=== PATIENT | male | born 1970 | race Caucasian/White ===

== ENCOUNTER 2020-09-11 09:14 | Outpatient (REF) | payer MEDICARE, MEDICAID, SELFPAY | END 2020-09-11 09:15 | disposition home or self-care (01) | LOC: HO.LAB 09:14 | PROVIDERS: PCP Physician Assistant; Visit Provider Internal Medicine | DX: Z20.828 Contact with and (suspected) exposure to other viral communicable diseases (principal) | CPT/HCPCS: C9803; U0003 ==

== ENCOUNTER 2020-10-17 21:59 | Inpatient (IN) | payer MEDICARE, MEDICAID, SELFPAY ==
[2020-10-17 22:04] VITALS: BP 142/117; PULSE 105; RESP 20; TEMP 36.7; O2SAT 93; BMI 47.3
--- NOTE | 2020-10-17 22:07 | ECG_ITS ---
Test Reason : DYSPENA Blood Pressure : / mmHG Vent. Rate : 096 BPM Atrial Rate : 096 BPM P-R Int : 158 ms QRS Dur : 108 ms QT Int : 370 ms P-R-T Axes : 040 023 057 degrees QTc Int : 467 ms Normal sinus rhythm Nonspecific T wave abnormality Prolonged QT Abnormal ECG When compared with ECG of 05-JAN-2007 06:40, Premature ventricular complexes are no longer Present Nonspecific T wave abnormality now evident in Lateral leads Referred By: Maritza Alvarez Electronically Signed By:SAVANNA RIVERA
--- NOTE | 2020-10-17 22:07 | XR_ITS ---
EXAMINATION: XR CHEST CLINICAL INFORMATION: Dyspnea. COMPARISON: Chest x-ray 01/05/2007 TECHNIQUE: Frontal view of the chest was obtained. 10:17 PM FINDINGS: Extensive bilateral multifocal airspace opacities. This is causing silhouetting of the left diaphragm. Possible left pleural effusion. Central hilar vessels are prominent similar prior chest x-ray 01/05/2007. Differential diagnosis would include congestive heart failure with pulmonary edema versus overwhelming sepsis, pneumonia. Clinically correlate. XR/XR chest 1V IMPRESSION: Extensive bilateral airspace opacities. Central hilar pulmonary vascular prominence.
[2020-10-17 22:28] VITALS: PULSE 100
--- NOTE | 2020-10-17 22:30 | ED_ITS ---
HPI - SOB/Dyspnea General Chief Complaint: Dyspnea Stated Complaint: copd Time Seen by Provider: 10/17/20 22:30 Source: patient Mode of arrival: ambulatory History of Present Illness HPI Narrative: Is a 50-year-old male with history of asthma who states that for the past couple of days he has had progressive dyspnea on exertion, orthopnea, bilateral lower leg swelling as well as shortness of breath. He states that he was tested for COVID-19 3-4 weeks ago and was negative at that time. Otherwise, he denies any headache, dizziness, sore throat, but states he has developed a dry cough today that has resulted in corresponding pain on respiration. Otherwise, he denies any GI symptoms or symptoms. Related Data Home Medications Medication Instructions Recorded Confirmed No Known Home Meds 10/18/20 10/18/20 Allergies Allergy/AdvReac Type Severity Reaction Status Date / Time cephalexin [From KEFLEX] Allergy Unknown UNKNOWN Verified 10/17/20 22:04 sulfamethoxazole Allergy Unknown UNKNOWN Verified 10/17/20 22:04 [From BACTRIM] trimethoprim [From BACTRIM] Allergy Unknown UNKNOWN Verified 10/17/20 22:04 Review of Systems Review of Systems: Pertinent positives and negatives as stated in HPI 10 point review of systems is otherwise negative. PMFSH Past Medical History Source: nursing notes reviewed Medical History Asthma COPD (chronic obstructive pulmonary disease) Surgical History History of surgery Social History Social History Alcohol intake: never Use of substances other than those prescribed or required for medical reasons: Yes Substance Use Type: Crack/Cocaine Substance Use Frequency: Occasionally Last Used Substance: Days (ago) Advance Directives: No Advance Directives Information Provided: Yes Physical Exam Vital Signs: Vital Signs: Last Vital Signs Temp 98.1 F 10/18/20 00:07 Pulse 100 10/18/20 00:07 Resp 20 10/18/20 00:07 BP 130/83 10/18/20 00:07 Pulse Ox 95 10/18/20 00:07 Body Mass Index 47.3 VITAL SIGNS: Reviewed. GENERAL: Well developed, well nourished, mild-moderate distress. HEAD: Normocephalic/atraumatic, EYES: PERRLA, EOMI intact without pain EARS: Ext canals without abnormality, TMs non-bulging and non-erythematous NOSE: Nares patent bilateral OROPHARYNX: no oral lesions noted, NECK: Supple, no adenopathy LUNGS: Decreased breath sounds bilaterally, no wheeze noted, increased work of breathing, tachypnea, SpO2<93> CARDIOVASCULAR: Regular rate and rhythm without noted murmurs, no JVD, but lower extremity edema. ABDOMEN: Obese, Soft, non-tender, non-distended with bowel sounds. No rigidity. No guarding. No palpable masses or hernias noted MUSCULOSKELETAL: No tenderness, deformities, or effusions noted on gross inspection. NEUROLOGIC: Alert and oriented x 4. Strength and sensation to light touch were grossly intact x 4. Course Course Course Narrative: This is a 50-year-old male with history and clinical presentation most consistent with CHF exacerbation with orthopnea and bilateral lower leg swelling, however suspicion for possible COVID-19 and less likely to be COPD exacerbation. -labs, chest x-ray, EKG, UA, lactic acid, blood cultures, COVID swab, albuterol All investigations were reviewed and are consistent with a CHF exacerbation as well as COVID-19 infection and hypoxia requiring 2 L via nasal cannula. Given these findings patient did not receive antibiotics, however did receive Lasix with good urinary response as well as subjective reported improvement in kali athing symptoms. This case was discussed with the inpatient hospitalist team who has agreed for admission. MDM - SOB/Dyspnea Lab Data Result diagrams: 10/17/20 22:21 10/17/20 22:21 Labs: Lab Results 10/17/20 10/17/20 10/17/20 Range/Units 22:21 22:21 22:21 WBC 7.6 (4.8-10.8) X10*3/uL RBC 4.76 (4.60-5.80) X10*6/uL Hgb 12.4 L (14.0-18.0) g/dl Hct 39.3 L (42-52) % MCV 82.6 (80-98) fL MCH 26.1 L (27.0-33.0) pg MCHC 31.6 (31.0-36.0) g/dl RDW 15.8 (11.0-16.0) % Plt Count 316 (160-400) X10*3/uL MPV 9.5 (9.4-12.4) fL Immature Gran % (Auto) 0.1 (0.0-0.4) % Neut % (Auto) 69.6 (45-73) % Lymph % (Auto) 22.3 (20-40) % [place] % (Auto) 6.5 (2-11) % Eos % (Auto) 1.1 (0-4) % Baso % (Auto) 0.4 (0-2) % Lymph # (Auto) 1.7 (1.2-4.9) X10*3/uL [place] # (Auto) 0.5 (0.1-1.2) X10*3/uL Eos # (Auto) 0.1 (0.0-0.4) X10*3/uL Baso # (Auto) 0.0 (0.0-0.2) X10*3/uL Abs Immat Gran (auto) 0.01 (0.00-0.03) X10*3/uL Absolute Neuts (auto) 5.3 (2.0-8.3) X10*3/uL Absolute Nucleated RBC 0.000 (0.0-0.012) X10*3/uL Nucleated RBC % (auto) 0.0 (0.0-0.2) /100WBC Hold Blue Top SEE NOTE Sodium 142 (135-145) mmol/L Potassium 4.2 (3.3-5.1) mmol/l Chloride 109 H (96-108) mmol/L Carbon Dioxide 25 (22-29) mmol/L Anion Gap 12 (12-20) BUN 18 H (9-16) mg/dL Creatinine 0.84 (0.5-1.4) mg/dL Estim Creat Clear Calc 154.2 Estimated GFR > 60 Random Glucose 97 (60-115) mg/dL Lactic Acid (0.5-2.0) mmol/L Calcium 8.6 (8.4-10.2) mg/dL Troponin I High Sens (<3.5-35.0) ng/L B-Natriuretic Peptide (<100) pg/mL Urine Color Urine Appearance Urine pH (5.0-8.0) Ur Specific [place] (1.005-1.025) Urine Protein (NEG-TRACE) MG/DL Urine Glucose (UA) (NEG) MG/DL Urine Ketones (NEG) MG/DL Urine Blood (NEG) Urine Nitrite (NEG) Ur Leukocyte Esterase (NEG) Coronavirus (PCR) (Negative) Influenza Type A (PCR) (Negative) Influenza Type B (PCR) (Negative) RSV RNA Qual (PCR) (Negative) 10/17/20 10/17/20 10/17/20 Range/Units 22:21 23:02 23:05 WBC (4.8-10.8) X10*3/uL RBC (4.60-5.80) X10*6/uL Hgb (14.0-18.0) g/dl Hct (42-52) % MCV (80-98) fL MCH (27.0-33.0) pg MCHC (31.0-36.0) g/dl RDW (11.0-16.0) % Plt Count (160-400) X10*3/uL MPV (9.4-12.4) fL Immature Gran % (Auto) (0.0-0.4) % Neut % (Auto) (45-73) % Lymph % (Auto) (20-40) % [place] % (Auto) (2-11) % Eos % (Auto) (0-4) % Baso % (Auto) (0-2) % Lymph # (Auto) (1.2-4.9) X10*3/uL [place] # (Auto) (0.1-1.2) X10*3/uL Eos # (Auto) (0.0-0.4) X10*3/uL Baso # (Auto) (0.0-0.2) X10*3/uL Abs Immat Gran (auto) (0.00-0.03) X10*3/uL Absolute Neuts (auto) (2.0-8.3) X10*3/uL Absolute Nucleated RBC (0.0-0.012) X10*3/uL Nucleated RBC % (auto) (0.0-0.2) /100WBC Hold Blue Top Sodium (135-145) mmol/L Potassium (3.3-5.1) mmol/l Chloride (96-108) mmol/L Carbon Dioxide (22-29) mmol/L Anion Gap (12-20) BUN (9-16) mg/dL Creatinine (0.5-1.4) mg/dL Estim Creat Clear Calc Estimated GFR Random Glucose (60-115) mg/dL Lactic Acid 1.1 (0.5-2.0) mmol/L Calcium (8.4-10.2) mg/dL Troponin I High Sens 10.0 (<3.5-35.0) ng/L B-Natriuretic Peptide 166 H (<100) pg/mL Urine Color Urine Appearance Urine pH (5.0-8.0) Ur Specific [place] (1.005-1.025) Urine Protein (NEG-TRACE) MG/DL Urine Glucose (UA) (NEG) MG/DL Urine Ketones (NEG) MG/DL Urine Blood (NEG) Urine Nitrite (NEG) Ur Leukocyte Esterase (NEG) Coronavirus (PCR) POSITIVE A (Negative) Influenza Type A (PCR) NEGATIVE (Negative) Influenza Type B (PCR) NEGATIVE (Negative) RSV RNA Qual (PCR) NEGATIVE (Negative) 10/18/20 Range/Units 00:07 WBC (4.8-10.8) X10*3/uL RBC (4.60-5.80) X10*6/uL Hgb (14.0-18.0) g/dl Hct (42-52) % MCV (80-98) fL MCH (27.0-33.0) pg MCHC (31.0-36.0) g/dl RDW (11.0-16.0) % Plt Count (160-400) X10*3/uL MPV (9.4-12.4) fL Immature Gran % (Auto) (0.0-0.4) % Neut % (Auto) (45-73) % Lymph % (Auto) (20-40) % [place] % (Auto) (2-11) % Eos % (Auto) (0-4) % Baso % (Auto) (0-2) % Lymph # (Auto) (1.2-4.9) X10*3/uL [place] # (Auto) (0.1-1.2) X10*3/uL Eos # (Auto) (0.0-0.4) X10*3/uL Baso # (Auto) (0.0-0.2) X10*3/uL Abs Immat Gran (auto) (0.00-0.03) X10*3/uL Absolute Neuts (auto) (2.0-8.3) X10*3/uL Absolute Nucleated RBC (0.0-0.012) X10*3/uL Nucleated RBC % (auto) (0.0-0.2) /100WBC Hold Blue Top Sodium (135-145) mmol/L Potassium (3.3-5.1) mmol/l Chloride (96-108) mmol/L Carbon Dioxide (22-29) mmol/L Anion Gap (12-20) BUN (9-16) mg/dL Creatinine (0.5-1.4) mg/dL Estim Creat Clear Calc Estimated GFR Random Glucose (60-115) mg/dL Lactic Acid (0.5-2.0) mmol/L Calcium (8.4-10.2) mg/dL Troponin I High Sens (<3.5-35.0) ng/L B-Natriuretic Peptide (<100) pg/mL Urine Color STRAW Urine Appearance CLEAR Urine pH 6.0 (5.0-8.0) Ur Specific [place] 1.015 (1.005-1.025) Urine Protein NEG (NEG-TRACE) MG/DL Urine Glucose (UA) NEG (NEG) MG/DL Urine Ketones NEG (NEG) MG/DL Urine Blood NEG (NEG) Urine Nitrite NEG (NEG) Ur Leukocyte Esterase NEG (NEG) Coronavirus (PCR) (Negative) Influenza Type A (PCR) (Negative) Influenza Type B (PCR) (Negative) RSV RNA Qual (PCR) (Negative) ECG Data Attestation: I personally reviewed and interpreted this ECG as follows: Prior ECG tracings: available for review (01/05/2007 no evidence of acute changes on comparison) Interpretation: Normal sinus rhythm, HR -96, no evidence of acute ischemia, [place]/QTC are within normal limits. Discharge Plan Discharge Clinical Impression: Hypoxia, Pneumonia due to COVID-19 virus CHF (congestive heart failure) Qualifiers: Heart failure type: unspecified Heart failure chronicity: acute Qualified Code(s): I50.9 - Heart failure, unspecified Patient Disposition: Admitted As Inpatient
[2020-10-17] MEDS: Furosemide 100 MG/10 ML VIAL 60 MG IVPUSH (22:51)
[2020-10-17 22:53] LABS: Basophils Percent Auto 0.4 % (0-2); Eosinophils Absolute Auto 0.1 X10*3/uL (0.0-0.4); Eosinophils Percent Auto 1.1 % (0-4); Hematocrit 39.3 % (42-52); Hemoglobin 12.4 g/dl (14.0-18.0); Imm Gran Abs Auto 0.01 X10*3/uL (0.00-0.03); Imm Gran Pct Auto 0.1 % (0.0-0.4); Lymphocytes Absolute Auto 1.7 X10*3/uL (1.2-4.9); Lymphocytes Percent Auto 22.3 % (20-40); MANUAL DIFF FLAG NO; Mean Corpuscular HGB Conc 31.6 g/dl (31.0-36.0); Mean Corpuscular Hemoglobin 26.1 pg (27.0-33.0); Mean Corpuscular Volume 82.6 fL (80-98); Mean Platelet Volume 9.5 fL (9.4-12.4); Monocytes Absolute Auto 0.5 X10*3/uL (0.1-1.2); Monocytes Percent Auto 6.5 % (2-11); Neutrophils Absolute Auto 5.3 X10*3/uL (2.0-8.3); Neutrophils Percent Auto 69.6 % (45-73); Platelet Count 316 X10*3/uL (160-400); Red Blood Count 4.76 X10*6/uL (4.60-5.80); Red Cell Distribution Width 15.8 % (11.0-16.0); White Blood Count 7.6 X10*3/uL (4.8-10.8)
--- NOTE | 2020-10-17 23:08 | PC.NURSE ---
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
[2020-10-17 23:25] LABS: Anion Gap 12 (12-20); Blood Urea Nitrogen 18 mg/dL (9-16); Calcium 8.6 mg/dL (8.4-10.2); Carbon Dioxide 25 mmol/L (22-29); Chloride 109 mmol/L (96-108); Creatinine Clr Calc Pharmacy 154.2; Estimated Glomerular Filt Rate > 60; Glucose Random 97 mg/dL (60-115); Potassium 4.2 mmol/l (3.3-5.1); Sodium 142 mmol/L (135-145)
[2020-10-17 23:30] LABS: B Type Natriuretic Peptide 166 pg/mL (<100)
[2020-10-17 23:35] LABS: Lactic Acid 1.1 mmol/L (0.5-2.0)
[2020-10-17 23:51] LABS: Influenza A PCR NEGATIVE (Negative); Influenza B PCR NEGATIVE (Negative); Resp Syncy Virus RNA Qual PCR NEGATIVE (Negative)
[2020-10-18] VITALS (9 sets, daily range): BP systolic 104–138; BP diastolic 58–87; PULSE 92–100; RESP 16–22; TEMP 36.4–37.2; O2SAT 94–98; BMI 49.5
[2020-10-18 00:03] LABS: SARS COV2 PCR INHOUSE POSITIVE (Negative)
[2020-10-18 00:51] LABS: Glucose Urine UA NEG (NEG); Leukocyte Esterase Urine NEG (NEG); Nitrite Urine NEG (NEG); Specific Gravity - Urine 1.015 (1.005-1.025); Urine Blood NEG (NEG); Urine Ketones NEG (NEG); Urine Protein NEG (NEG-TRACE)
[2020-10-18 00:58] LABS: Appearance Urine CLEAR; Color Urine STRAW
--- NOTE | 2020-10-18 03:23 | PM.IMHP ---
History of Present Illness Date of Service: 10/18/20 Chief Complaint: Dyspnea, leg edema 50 year old man with past medical history only significant for asthma presented with increasing dyspnea over last 3 days. Also noted some lower leg edema over that time as well. No fevers or chills and no productive cough. Noted to have infiltrates on CXR and tested positive for COVID. He notes no sick contacts. States he has been tested in the last few weeks and has been negative but does congregate with a motorcycle club. Was treated with IV Lasix in ED out of concern for CHF. Review of Systems Review of Systems: Yes all other systems are reviewed and are negative Constitutional: Comments: No fevers or chills noted ENT: Reports dry mouth Cardiovascular: Comments: No chest pain or dyspnea Respiratory: Comments: No cough or chest congestion. Dyspnea noted. Gastrointestinal: Comments: No nausea or vomiting, no diarrhea Musculoskeletal: Musculoskeletal: Reports no additional musculoskeletal complaints Psychiatric: Comments: No anxiety or agitation [facility] Medical History Asthma COPD (chronic obstructive pulmonary disease) Functional capacity: independent ambulation Pertinent family history: No family history of CAD or CHF Surgical History History of surgery Social History Alcohol intake: never Use of substances other than those prescribed or required for medical reasons: Yes Substance Use Type: Crack/Cocaine Substance Use Frequency: Occasionally Last Used Substance: Days (ago) Advance Directives: No Advance Directives Information Provided: Yes Meds Allergies Allergy/AdvReac Type Severity Reaction Status Date / Time cephalexin [From KEFLEX] Allergy Unknown UNKNOWN Verified 10/17/20 22:04 sulfamethoxazole Allergy Unknown UNKNOWN Verified 10/17/20 22:04 [From BACTRIM] trimethoprim [From BACTRIM] Allergy Unknown UNKNOWN Verified 10/17/20 22:04 Home Medications Medication Instructions Recorded Confirmed Type No Known Home Meds 10/18/20 10/18/20 History Physical Exam Vital Signs and Narrative: Vital Signs: Last Vital Signs Temp 98.3 F 10/18/20 02:00 Pulse 98 10/18/20 02:00 Resp 20 10/18/20 02:00 BP 104/67 10/18/20 02:00 Pulse Ox 98 10/18/20 02:00 Body Mass Index 47.3 Const: General: cooperative, comfortable and no acute distress HENMT: Head: Yes normal to inspection Mouth: Normal oral and palatal mucosa present Eyes: Other: Conunctivae are inected Chest: Chest palpation & inspection: normal inspection of the chest Resp: Other: no insp crackles or exp wheezes Effort & Inspection: normal respiratory effort and able to speak in complete sentences Auscultation: clear to auscultation bilaterally Cardio: Rate: regular rate Rhythm: regular rhythm Heart sounds: S1 normal heart sound present and S2 normal heart sound present GI: Other: nontender, nondisteded Inspection: Yes normal to inspection Auscultation: normal bowel sounds Skin: General skin exam: no rashes or lesions noted Psych: Mental Status: mental status grossly normal Results Labs CBC and Chem 7: 10/17/20 22:21 10/17/20 22:21 Labs: Laboratory Results - last 24 hr 10/17/20 10/17/20 10/17/20 22:21 22:21 22:21 MCV 82.6 MCH 26.1 L MCHC 31.6 RDW 15.8 Plt Count 316 MPV 9.5 Immature Gran % (Auto) 0.1 Neut % (Auto) 69.6 Lymph % (Auto) 22.3 [place] % (Auto) 6.5 Eos % (Auto) 1.1 Baso % (Auto) 0.4 Lymph # (Auto) 1.7 [place] # (Auto) 0.5 Eos # (Auto) 0.1 Baso # (Auto) 0.0 Abs Immat Gran (auto) 0.01 Absolute Neuts (auto) 5.3 Absolute Nucleated RBC 0.000 Nucleated RBC % (auto) 0.0 Hold Blue Top SEE NOTE Anion Gap 12 Estim Creat Clear Calc 154.2 Estimated GFR > 60 Random Glucose 97 Lactic Acid Calcium 8.6 Troponin I High Sens B-Natriuretic Peptide Urine Color Urine Appearance Urine pH Ur Specific [place] Urine Protein Urine Glucose (UA) Urine Ketones Urine Blood Urine Nitrite Ur Leukocyte Esterase Coronavirus (PCR) Influenza Type A (PCR) Influenza Type B (PCR) RSV RNA Qual (PCR) 10/17/20 10/17/20 10/17/20 22:21 23:02 23:05 MCV MCH MCHC RDW Plt Count MPV Immature Gran % (Auto) Neut % (Auto) Lymph % (Auto) [place] % (Auto) Eos % (Auto) Baso % (Auto) Lymph # (Auto) [place] # (Auto) Eos # (Auto) Baso # (Auto) Abs Immat Gran (auto) Absolute Neuts (auto) Absolute Nucleated RBC Nucleated RBC % (auto) Hold Blue Top Anion Gap Estim Creat Clear Calc Estimated GFR Random Glucose Lactic Acid 1.1 Calcium Troponin I High Sens 10.0 B-Natriuretic Peptide 166 H Urine Color Urine Appearance Urine pH Ur Specific [place] Urine Protein Urine Glucose (UA) Urine Ketones Urine Blood Urine Nitrite Ur Leukocyte Esterase Coronavirus (PCR) POSITIVE A Influenza Type A (PCR) NEGATIVE Influenza Type B (PCR) NEGATIVE RSV RNA Qual (PCR) NEGATIVE 10/18/20 00:07 MCV MCH MCHC RDW Plt Count MPV Immature Gran % (Auto) Neut % (Auto) Lymph % (Auto) [place] % (Auto) Eos % (Auto) Baso % (Auto) Lymph # (Auto) [place] # (Auto) Eos # (Auto) Baso # (Auto) Abs Immat Gran (auto) Absolute Neuts (auto) Absolute Nucleated RBC Nucleated RBC % (auto) Hold Blue Top Anion Gap Estim Creat Clear Calc Estimated GFR Random Glucose Lactic Acid Calcium Troponin I High Sens B-Natriuretic Peptide Urine Color STRAW Urine Appearance CLEAR Urine pH 6.0 Ur Specific [place] 1.015 Urine Protein NEG Urine Glucose (UA) NEG Urine Ketones NEG Urine Blood NEG Urine Nitrite NEG Ur Leukocyte Esterase NEG Coronavirus (PCR) Influenza Type A (PCR) Influenza Type B (PCR) RSV RNA Qual (PCR) Imaging Radiologist's Impressions: Impressions Chest X-Ray 10/17/20 22:07 IMPRESSION: Extensive bilateral airspace opacities. Central hilar pulmonary vascular prominence. Assessment and Plan (1) Pneumonia due to COVID-19 virus: Status: Acute (2) Acute hypoxemic respiratory failure: Status: Acute 50 year old man presented with dyspnea and leg edema and infiltrates on CXR. Tested positive for COVID. Acute hypoxemic respiratory failure, COVID pneumonia Continue supplemental oxygen via nasal cannula and start dexamethasone 6mg daily as he was hypoxemic. ID consult placed for input on Remdesivir. Check D dimer, crp, LDH. Repeat Troponin ordered. Leg edema BNP was slightly elevated but this is less likely due to CHF. Received 60mg Lasix in ED-hold further lasix dosing and check echo. DVT proph SC Lovenox ordered. Code status Full
--- NOTE | 2020-10-18 03:32 | PC.NURSE ---
Pt report taken from Chance FORD. Assumed patient care. Pt is sleeping on 3 L NC. pt vitals within normal limits. covid positive and in nad. pending report to floor
[2020-10-18 04:12] LABS: Troponin-I High Sensitivity 13.9 ng/L (<3.5-35.0)
--- NOTE | 2020-10-18 04:17 | PC.NURSE ---
report given at this time to galilea stephens on imc
[2020-10-18] MEDS: Enoxaparin Sodium 40 MG/0.4 ML SYRINGE SUBCUT (05:16)
[2020-10-18] MEDS: dexAMETHasone 6 MG TABLET PO (05:16)
--- NOTE | 2020-10-18 07:30 | CA_ITS ---
Transthoracic Echocardiogram Patient (Last, First, Middle): Leandro Bartlett M Gender: Male Date of : 1970 Age: 50 Procedure Date: 10/18/2020 Procedure Type: Transthoracic Echocardiogram [place] [facility] [place] Height: 177.8 cm Weight: 156.49 kg BSA: 2.63 m2 Heart Rate: bpm BP: 118 / 74 mmHg Adjunct Professor: Referring MD: Favio Stokes MD Symptoms: leg edema, elevated bnp Study Quality: Fair ECG Rhythm: Sinus Conclusions: - The left ventricular systolic function is severely decreased. The visually estimated ejection fraction is between 10-15%. - No obvious valvular pathology seen on this study. Findings Procedure Information Contrast agent, definity, is being given per protocol without apparent complications. Left Ventricle Moderately increased left ventricular cavity size. There is mildly increased left ventricular wall thickness. The left ventricular systolic function is severely decreased. The visually estimated ejection fraction is between 10 15%. There is severe global hypokinesis. E/E prime ratio is >15, consistent with elevated filling pressures. Evidence suggests grade I (mild) diastolic dysfunction. Right Ventricle Normal right ventricular cavity size and systolic function. Atria Both atria are normal in size. Aortic Valve The aortic valve was not well visualized. There is no aortic valve stenosis. There is no aortic valve regurgitation. Mitral Valve The mitral valve appears normal. There is trace mitral valve regurgitation. There is no mitral valve stenosis. Pulmonic Valve The pulmonic valve was not well visualized. Tricuspid Valve Normal tricuspid valve structure. There is trace tricuspid valve regurgitation. The pulmonary artery systolic pressure is normal. Great Vessels The asc aorta is normal in size. Venous The inferior vena cava is normal in size and collapses greater than 50% with inspiration. Pericardium/Pleural There is no evidence of pericardial effusion. Prior Study Comparison Changes noted compared to prior study dated: 01/05/2007. Previous LVEF 45%. Diminished compared to prior study. Recommendations, Care & Conclusions No obvious valvular pathology seen on this study. Measurements 2D Linear Measurements IVSd: 1.23 0.6-0.9/0.6-1.0 cm LVIDd: 7.37 3.9-5.3/4.2-5.9 cm LVIDd Index: 2.80 2.4-3.2/2.2-3.1 cm/m2 LVIDs: 6.62 2.0-3.6 cm LVPWd: 1.21 0.7-1.1 cm Ao Root: 3.80 2.1-3.5 cm LA Diam: 4.40 2.7-3.8/3.0-4.0 cm LAIDs Index: 1.67 1.5-2.3 cm/m2 LV Mass: 565.51 67-162/88-224 g LV Mass Index: 215.02 43-95/49-115 g/m2 LVOT Diam: 2.50 3.0+(-)1.3 cm 2D Systolic Function EF 4C: 20.60 >55% EF 2C: 6.59 >55% EF BiP: 13.20 >55% Mitral Valve MV Pk E: 1.00 MV PK A: 1.12 MV Decel Time: 81.00 E/A: 0.90 E'Lateral: 7.54 E'Medial: 2.71 E/E' Med: 36.90 E/E' Lat: 13.20 PHT: 24.00 MVA PHT: 9.17 Decel [place]: 12.34 Aortic Valve AoV Pk Jeff: 1.30 AoV Mn Jeff: 0.92 AoV VTI: 0.27 AoV Pk Grad: 7.00 Aov Mn Grad: 4.00 [place] Cont.VTI: 3.06 LVOT LVOT Pk Jeff: 0.82 LVOT Mn Jeff: 0.58 LVOT VTI: 0.17 LVOT Pk Grad: 3.00 LVOT Mn Grad: 2.00 LVOT Diam: 2.50 LVOT Area: 4.91 Diastolic Function MV Pk E: 1.00 MV Pk A: 1.12 E/A: 0.90 E'Medial: 2.71 E/E' Med: 36.90 E' Laterial: 7.54 E/E' Lat: 13.20 Tricuspid Valve TR Pk Jeff: 1.62 TR Pk Grad: 10.00 RA Press: 15.00 RVSP: 25.00 Great Vessels Aorta Ao Root-2D: 3.80 2.0-3.7 cm Ao Asc: 3.70 2.1-3.4 cm Pulmonary Valve PV Pk Jeff: 0.90 Peak PV Grad: 3.00 Updated in Other Vendor System with Status of Final Lico Hester MD electronically signed on 10/18/2020 4:55:46 PM with status of Final
[2020-10-18 08:43] LABS: MANUAL DIFF FLAG NO
[2020-10-18 08:44] LABS: Basophils Percent Auto 0.4 % (0-2); Eosinophils Absolute Auto 0.1 X10*3/uL (0.0-0.4); Eosinophils Percent Auto 0.5 % (0-4); Hemoglobin 13.1 g/dl (14.0-18.0); Imm Gran Abs Auto 0.03 X10*3/uL (0.00-0.03); Imm Gran Pct Auto 0.3 % (0.0-0.4); Lymphocytes Absolute Auto 1.1 X10*3/uL (1.2-4.9); Mean Corpuscular Hemoglobin 26.4 pg (27.0-33.0); Mean Corpuscular Volume 82.7 fL (80-98); Mean Platelet Volume 9.4 fL (9.4-12.4); Monocytes Absolute Auto 0.3 X10*3/uL (0.1-1.2); Monocytes Percent Auto 2.6 % (2-11); Neutrophils Absolute Auto 9.7 X10*3/uL (2.0-8.3); Neutrophils Percent Auto 86.2 % (45-73); Platelet Count 330 X10*3/uL (160-400); Red Blood Count 4.96 X10*6/uL (4.60-5.80); Red Cell Distribution Width 15.6 % (11.0-16.0); White Blood Count 11.3 X10*3/uL (4.8-10.8)
[2020-10-18 08:55] LABS: D Dimer 345 NG/ML
[2020-10-18] MEDS: 0.9 % Sodium Chloride Flush 3 ML SYRINGE IVFLUSH ×3 (09:03→21:16)
[2020-10-18] MEDS: Famotidine 20 MG TABLET PO (09:03)
[2020-10-18 09:22] LABS: C Reactive Protein 3.85 mg/dL (< or = 0.50); Glucose Random 132 mg/dL (60-115); Lactate Dehydrogenase 232 U/L (118-273); Magnesium 2.1 mg/dL (1.6-2.6); Phosphorus 2.8 mg/dL (2.7-4.5)
[2020-10-18 09:36] LABS: Procalcitonin 0.08 ng/mL
--- NOTE | 2020-10-18 11:38 | MHC.CM.PN ---
IMM 10/18/2020 MALE 50 DX covid+. He lives w . He is independent all functional mobility. HCP documented and on file [facility]. Copies were provided to the Patient. DP home no services private transportation. CM will follow for change in dc needs. DC needs will be determined by the Pts recovery.
[2020-10-18 12:43] LABS: Alanine Aminotransferase 34 U/L (0-40); Albumin Level 3.9 g/dL (3.5-5.0); Alkaline Phosphatase 106 U/L (39-117); Aspartate Amino Transferase 25 U/L (5-37); Bilirubin Direct 0.6 mg/dL (0.0-0.5); Bilirubin Total 1.5 mg/dL (0.0-1.0); Creatinine Clr Calc Pharmacy 154.6; Estimated Glomerular Filt Rate > 60
--- NOTE | 2020-10-18 13:34 | PM.EVENT ---
Event Note Date of Service: 10/19/20 Event Note: Patient already seen the hospital this seen team this morning Shortness of breath seems slightly improving Denies any chest pain or abdominal or cough or phlegm Physical exam: Cvs: rrr, [id number] , no murmur res: fair air netry , no rales or wheezing abd: no rebound or guarding ,nt, bs present. ext pulses present , no cyanosis neuro: axo3 , nonfocal. Assessment and plan coordinated in H&P note Continue current management Id evaluation pending, continue dexamethasone and remdesivir Echo is pending also.
[2020-10-18] MEDS: Furosemide 20 MG/2 ML VIAL IVPUSH (17:18)
[2020-10-18] MEDS: Remdesivir 200 MG in 0.9 % Sodium Chloride 210 ML 105 MG IV (17:18)
[2020-10-19 04:00] VITALS: BP 121/68; PULSE 98; RESP 18; TEMP 36.6; O2SAT 97
[2020-10-19] MEDS: Enoxaparin Sodium 40 MG/0.4 ML SYRINGE SUBCUT (04:51)
[2020-10-19] MEDS: dexAMETHasone 6 MG TABLET PO (04:51)
[2020-10-19 06:29] LABS: MANUAL DIFF FLAG NO
[2020-10-19 07:05] LABS: Basophils Percent Auto 0.2 % (0-2); Eosinophils Percent Auto 0.1 % (0-4); Hematocrit 40.2 % (42-52); Hemoglobin 12.8 g/dl (14.0-18.0); Imm Gran Abs Auto 0.04 X10*3/uL (0.00-0.03); Imm Gran Pct Auto 0.4 % (0.0-0.4); Lymphocytes Absolute Auto 1.9 X10*3/uL (1.2-4.9); Lymphocytes Percent Auto 16.7 % (20-40); Mean Corpuscular HGB Conc 31.8 g/dl (31.0-36.0); Mean Corpuscular Hemoglobin 26.4 pg (27.0-33.0); Mean Corpuscular Volume 82.9 fL (80-98); Mean Platelet Volume 9.9 fL (9.4-12.4); Monocytes Absolute Auto 0.8 X10*3/uL (0.1-1.2); Monocytes Percent Auto 7.1 % (2-11); Neutrophils Absolute Auto 8.6 X10*3/uL (2.0-8.3); Neutrophils Percent Auto 75.5 % (45-73); Platelet Count 334 X10*3/uL (160-400); Red Blood Count 4.85 X10*6/uL (4.60-5.80); Red Cell Distribution Width 15.8 % (11.0-16.0); White Blood Count 11.4 X10*3/uL (4.8-10.8)
[2020-10-19 07:07] LABS: D Dimer 263 NG/ML
[2020-10-19 07:14] LABS: C Reactive Protein 1.76 mg/dL (< or = 0.50); Glucose Random 107 mg/dL (60-115); Lactate Dehydrogenase 212 U/L (118-273); Phosphorus 3.6 mg/dL (2.7-4.5)
[2020-10-19 07:18] LABS: Anion Gap 15 (12-20); Blood Urea Nitrogen 19 mg/dL (9-16); Calcium 8.8 mg/dL (8.4-10.2); Carbon Dioxide 24 mmol/L (22-29); Chloride 107 mmol/L (96-108); Creatinine Clr Calc Pharmacy 162.1; Estimated Glomerular Filt Rate > 60; Glucose Random 106 mg/dL (60-115); Potassium 3.8 mmol/l (3.3-5.1); Sodium 142 mmol/L (135-145)
[2020-10-19 07:20] LABS: Procalcitonin 0.05 ng/mL
[2020-10-19 08:00] VITALS: BP 121/75; PULSE 88; RESP 18; TEMP 36.7; O2SAT 95
[2020-10-19] MEDS: Famotidine 20 MG TABLET PO (09:39)
[2020-10-19] MEDS: 0.9 % Sodium Chloride Flush 3 ML SYRINGE IVFLUSH ×3 (09:39→19:38)
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
[2020-10-19 12:00] VITALS: BP 115/64; PULSE 96; RESP 18; TEMP 36.4; O2SAT 95
--- NOTE | 2020-10-19 12:57 | HO.PM.IMPN ---
Subjective Subjective Date of Service: 10/19/20 Interval History: COVID pneumonia, acute CHF exacerbation probably systolic. Review of Systems She still short of breath, denies any chest pain or abdominal pain or fever or chills. No weakness or numbness. Physical Exam Vital Signs: Vital Signs: Last Vital Signs Temp 97.5 F 10/19/20 12:00 Pulse 96 10/19/20 12:00 Resp 18 10/19/20 12:00 BP 115/64 10/19/20 12:00 Pulse Ox 95 10/19/20 12:00 Body Mass Index 49.5 Physical exam: Constitutional: Not in acute distress, still short of breath. Cvs: rrr, [id number] , no murmur res: Fair air entry, no rales or wheezing. abd: no rebound or guarding ,nt, bs present. ext pulses present , no cyanosis neuro: axo3 , nonfocal. Objective Data Current Medications Generic Name Dose Route Start Last Admin Trade Name Freq PRN Reason Stop Dose Admin Dexamethasone 6 mg 10/18/20 06:00 10/19/20 04:51 Dexamethasone 6 Mg Tablet PO 6 mg DAILY@0600 EZEQUIEL Administration Enoxaparin Sodium 40 mg 10/18/20 04:00 10/19/20 04:51 Enoxaparin Sodium 40 Mg/0.4 Ml Syringe SUBCUT 40 mg Q24H EZEQUIEL Administration Famotidine 20 mg 10/18/20 09:00 10/19/20 09:39 Famotidine 20 Mg Tablet PO 20 mg DAILY EZEQUIEL Administration Furosemide 20 mg 10/19/20 18:00 Furosemide 20 Mg/2 Ml Vial IVPUSH BID@0900,1800 [facility] Protocol Remdesivir 100 mg/ Sodium 230 mls @ 115 mls/hr 10/19/20 14:00 Chloride IV 10/22/20 15:59 Q24H [facility] Sodium Chloride 3 ml 10/18/20 08:00 10/19/20 09:39 0.9 % Sodium Chloride Flush 3 Ml Syringe IVFLUSH 3 ml QSHIFT EZEQUIEL Administration Labs CBC & Chem 7: 10/19/20 05:37 10/19/20 05:37 Microbiology Microbiology Results: Microbiology 10/17/20 23:02 Blood - Venous Blood Culture - Preliminary No growth after 24 hours. 10/17/20 23:02 Blood - Venous Blood Culture - Preliminary No growth after 24 hours. Assessment and Plan (1) Acute on chronic systolic (congestive) heart failure: Status: Acute (2) Acute hypoxemic respiratory failure: Status: Acute (3) Pneumonia due to COVID-19 virus: Status: Acute Assessment and Plan: 50 year old man presented with dyspnea and leg edema and infiltrates on CXR. Tested positive for COVID. 1.Acute hypoxemic respiratory failure, COVID pneumonia Continue dexamethasone, supplement oxygen ID consult -placed on Remdesivir. crp, LDH elevated . mild elevated bilirubin continue to moniter lft's. 2. Acute on chronic systolic CHF: Troponin flat BNP elevated Echo cornejo-shows EF of 10-15%, severe global hypokinesis. started on iv lasix cardio eval added. 3. copd/asthma : will add inhalers.
[2020-10-19] MEDS: Remdesivir 100 MG in 0.9 % Sodium Chloride 230 ML 115 MG IV (14:50)
[2020-10-19] MEDS: Furosemide 20 MG/2 ML VIAL IVPUSH (14:51)
[2020-10-19 15:37] VITALS: BP 113/72; PULSE 92; RESP 19; TEMP 36.6; O2SAT 95
[2020-10-19 19:28] VITALS: BP 121/73; PULSE 92; RESP 19; TEMP 36.4; O2SAT 99
[2020-10-20] VITALS: BP 131/70; PULSE 86; RESP 20; TEMP 36.8; O2SAT 98
[2020-10-20] MEDS: Enoxaparin Sodium 40 MG/0.4 ML SYRINGE SUBCUT (02:47)
[2020-10-20 04:00] VITALS: BP 148/83; PULSE 92; RESP 18; TEMP 37.1; O2SAT 97
[2020-10-20] MEDS: dexAMETHasone 6 MG TABLET PO (05:04)
[2020-10-20 08:00] VITALS: BP 98/53; PULSE 89; RESP 20; TEMP 36.6; O2SAT 97
[2020-10-20 08:12] LABS: Anion Gap 12 (12-20); Blood Urea Nitrogen 24 mg/dL (9-16); Calcium 8.7 mg/dL (8.4-10.2); Carbon Dioxide 26 mmol/L (22-29); Chloride 106 mmol/L (96-108); Creatinine Clr Calc Pharmacy 168.3; Estimated Glomerular Filt Rate > 60; Glucose Random 101 mg/dL (60-115); Sodium 140 mmol/L (135-145)
--- NOTE | 2020-10-20 08:12 | HO.PM.IMPN ---
Subjective Subjective Date of Service: 10/20/20 Interval History: covid pneumonia, chf Review of Systems still sob , denies any chest pain or abd pain or fever or chills Physical Exam Vital Signs: Vital Signs: Last Vital Signs Temp 98.7 F 10/20/20 04:00 Pulse 92 10/20/20 04:00 Resp 18 10/20/20 04:00 BP 148/83 H 10/20/20 04:00 Pulse Ox 97 10/20/20 04:00 Body Mass Index 49.5 Physical exam: Constitutional: Not in acute distress, still short of breath. Cvs: rrr, [id number] , no murmur res: Fair air entry, no rales or wheezing. abd: no rebound or guarding ,nt, bs present. ext pulses present , no cyanosis neuro: axo3 , nonfocal. Objective Data Current Medications Generic Name Dose Route Start Last Admin Trade Name Freq PRN Reason Stop Dose Admin Albuterol Sulfate 2 puff 10/19/20 13:05 Albuterol Sulfate 90 Mcg 8 Gm Inhaler INHALE RQ4H PRN asthma Dexamethasone 6 mg 10/18/20 06:00 10/20/20 05:04 Dexamethasone 6 Mg Tablet PO 6 mg DAILY@0600 EZEQUIEL Administration Enoxaparin Sodium 40 mg 10/18/20 04:00 10/20/20 02:47 Enoxaparin Sodium 40 Mg/0.4 Ml Syringe SUBCUT 40 mg Q24H EZEQUIEL Administration Famotidine 20 mg 10/18/20 09:00 10/19/20 09:39 Famotidine 20 Mg Tablet PO 20 mg DAILY EZEQUIEL Administration Furosemide 20 mg 10/20/20 09:00 10/19/20 14:51 Furosemide 20 Mg/2 Ml Vial IVPUSH 20 mg BID@0900,1400 EZEQUIEL Administration Protocol Remdesivir 100 mg/ Sodium 230 mls @ 115 mls/hr 10/19/20 14:00 10/19/20 17:11 Chloride IV 10/22/20 15:59 Infused Q24H EZEQUIEL Infusion Sodium Chloride 3 ml 10/18/20 08:00 10/19/20 19:38 0.9 % Sodium Chloride Flush 3 Ml Syringe IVFLUSH 3 ml QSHIFT EZEQUIEL Administration Labs CBC & Chem 7: 10/19/20 05:37 10/20/20 06:21 Microbiology Microbiology Results: Microbiology 10/17/20 23:02 Blood - Venous Blood Culture - Preliminary No growth after 48 hours. 10/17/20 23:02 Blood - Venous Blood Culture - Preliminary No growth after 48 hours. Assessment and Plan (1) Acute on chronic systolic (congestive) heart failure: Status: Acute (2) Acute hypoxemic respiratory failure: Status: Acute (3) Pneumonia due to COVID-19 virus: Status: Acute Assessment and Plan: 50 year old man presented with dyspnea and leg edema and infiltrates on CXR. Tested positive for COVID. 1.Acute hypoxemic respiratory failure, COVID pneumonia Continue dexamethasone, supplement oxygen ID consult -placed on Remdesivir. crp, LDH elevated . mild elevated bilirubin, liver panel added 2. Acute on chronic systolic CHF: Troponin flat BNP elevated Echo cornejo-shows EF of 10-15%, severe global hypokinesis. started on iv lasix cardio eval -? low ef sec to question of caocaine use , further cardiology workup outpatiently will add bb or Dante since blood pressure boderline. 3. copd/asthma : stbale , continue inhalers.
[2020-10-20] MEDS: 0.9 % Sodium Chloride Flush 3 ML SYRINGE IVFLUSH ×2 (09:19→19:51)
[2020-10-20] MEDS: Famotidine 20 MG TABLET PO (09:19)
[2020-10-20] MEDS: Furosemide 20 MG/2 ML VIAL IVPUSH (09:36)
[2020-10-20 12:34] LABS: Alanine Aminotransferase 24 U/L (0-40); Albumin Level 3.7 g/dL (3.5-5.0); Alkaline Phosphatase 82 U/L (39-117); Aspartate Amino Transferase 15 U/L (5-37); Bilirubin Direct 0.3 mg/dL (0.0-0.5); Bilirubin Total 0.5 mg/dL (0.0-1.0); Total Protein 6.6 g/dL (6.5-8.0)
[2020-10-20] MEDS: Remdesivir 100 MG in 0.9 % Sodium Chloride 230 ML 115 MG IV (14:33)
[2020-10-20 14:46] VITALS: BP 132/78; PULSE 80; RESP 20; O2SAT 95
[2020-10-20 15:46] VITALS: BP 105/51; PULSE 83; RESP 18; TEMP 36.4; O2SAT 98
--- NOTE | 2020-10-20 17:49 | PC.NURSE ---
Patient independent in room. Remains on 2L NC. Continues on remdesivir. Vitals stable. Will continue to monitor.
[2020-10-20 19:57] VITALS: BP 110/73; PULSE 84; RESP 18; TEMP 37.1; O2SAT 96
[2020-10-20] MEDS: Zolpidem Tartrate 5 MG TABLET PO (20:54)
[2020-10-21] VITALS (7 sets, daily range): BP systolic 98–125; BP diastolic 56–77; PULSE 62–90; RESP 12–20; TEMP 36.5–37; O2SAT 94–99; BMI 49.4
[2020-10-21] MEDS: Enoxaparin Sodium 40 MG/0.4 ML SYRINGE SUBCUT (03:48)
[2020-10-21] MEDS: dexAMETHasone 6 MG TABLET PO (03:49)
--- NOTE | 2020-10-21 03:53 | PC.NURSE ---
Patient is now on room air, with oxygen SAT 94%
[2020-10-21 07:36] LABS: Anion Gap 11 (12-20); Blood Urea Nitrogen 26 mg/dL (9-16); Carbon Dioxide 28 mmol/L (22-29); Chloride 106 mmol/L (96-108); Creatinine Clr Calc Pharmacy 166.1; Estimated Glomerular Filt Rate > 60; Glucose Random 128 mg/dL (60-115); Potassium 4.1 mmol/l (3.3-5.1); Sodium 141 mmol/L (135-145)
[2020-10-21] MEDS: Furosemide 20 MG/2 ML VIAL IVPUSH (10:30)
[2020-10-21] MEDS: Metoprolol Tartrate 12.5 MG HALFTAB PO (10:31)
[2020-10-21] MEDS: Famotidine 20 MG TABLET PO (10:31)
[2020-10-21] MEDS: 0.9 % Sodium Chloride Flush 3 ML SYRINGE IVFLUSH ×3 (10:31→19:34)
[2020-10-21 10:38] LABS: Alanine Aminotransferase 32 U/L (0-40); Albumin Level 3.8 g/dL (3.5-5.0); Alkaline Phosphatase 82 U/L (39-117); Aspartate Amino Transferase 19 U/L (5-37); Bilirubin Direct 0.3 mg/dL (0.0-0.5); Bilirubin Total 0.6 mg/dL (0.0-1.0); Total Protein 6.9 g/dL (6.5-8.0)
--- NOTE | 2020-10-21 14:26 | HO.PM.IMPN ---
Subjective Subjective Date of Service: 10/21/20 Interval History: covid pneumonia , chf excerebation Review of Systems still sob , denies any chest pain or abd pain or fever or chills Physical Exam Vital Signs: Vital Signs: Last Vital Signs Temp 98.1 F 10/21/20 12:00 Pulse 73 10/21/20 12:00 Resp 20 10/21/20 12:00 BP 98/56 L 10/21/20 12:00 Pulse Ox 96 10/21/20 12:00 Body Mass Index 49.4 Physical exam: Constitutional: Not in acute distress, still short of breath. Cvs: rrr, [id number] , no murmur res: grossly fair air entry, no rales or wheezing. abd: no rebound or guarding ,nt, bs present. ext pulses present , no cyanosis neuro: axo3 , nonfocal. Objective Data Current Medications Generic Name Dose Route Start Last Admin Trade Name Freq PRN Reason Stop Dose Admin Albuterol Sulfate 2 puff 10/19/20 13:05 Albuterol Sulfate 90 Mcg 8 Gm Inhaler INHALE RQ4H PRN asthma Dexamethasone 6 mg 10/18/20 06:00 10/21/20 03:49 Dexamethasone 6 Mg Tablet PO 6 mg DAILY@0600 EZEQUIEL Administration Enoxaparin Sodium 40 mg 10/18/20 04:00 10/21/20 03:48 Enoxaparin Sodium 40 Mg/0.4 Ml Syringe SUBCUT 40 mg Q24H EZEQUIEL Administration Famotidine 20 mg 10/18/20 09:00 10/21/20 10:31 Famotidine 20 Mg Tablet PO 20 mg DAILY EZEQUIEL Administration Remdesivir 100 mg/ Sodium 230 mls @ 115 mls/hr 10/19/20 14:00 10/20/20 16:39 Chloride IV 10/22/20 15:59 Infused Q24H EZEQUIEL Infusion Lisinopril 2.5 mg 10/22/20 09:00 Lisinopril 2.5 Mg Tablet PO DAILY EZEQUIEL Protocol Sodium Chloride 3 ml 10/18/20 08:00 10/21/20 10:31 0.9 % Sodium Chloride Flush 3 Ml Syringe IVFLUSH 3 ml QSHIFT EZEQUIEL Administration Zolpidem Tartrate 5 mg 10/20/20 20:27 10/20/20 20:54 Zolpidem Tartrate 5 Mg Tablet PO 5 mg BEDTIME PRN Administration Insomnia Labs CBC & Chem 7: 10/19/20 05:37 10/21/20 06:25 Microbiology Microbiology Results: Microbiology 10/17/20 23:02 Blood - Venous Blood Culture - Preliminary No growth after 48 hours. 10/17/20 23:02 Blood - Venous Blood Culture - Preliminary No growth after 48 hours. Assessment and Plan (1) Acute on chronic systolic (congestive) heart failure: Status: Acute (2) Acute hypoxemic respiratory failure: Status: Acute (3) CHF (congestive heart failure): Status: Acute (4) Pneumonia due to COVID-19 virus: Status: Acute Assessment and Plan: 50 year old man presented with dyspnea and leg edema and infiltrates on CXR. Tested positive for COVID. 1.Acute hypoxemic respiratory failure, COVID pneumonia Continue dexamethasone, supplement oxygen ID consult -placed on Remdesivir. crp, LDH elevated . mild elevated bilirubin, liver panel added 2. Acute on chronic systolic CHF: Troponin flat BNP elevated Echo cornejo-shows EF of 10-15%, severe global hypokinesis. continue iv lasix , will add small dose lisinopril if blood pressure allow, bb defer for now due to cocaine use. cardio eval -? low ef sec to question of caocaine use , further cardiology workup outpatiently will add bb or Dante since blood pressure boderline. 3. copd/asthma : stbale , continue inhalers.
[2020-10-21] MEDS: Remdesivir 100 MG in 0.9 % Sodium Chloride 230 ML 115 MG IV (15:51)
--- NOTE | 2020-10-21 18:04 | PC.NURSE ---
Patient did well today on RA. Had a shower, tolerated well. Vitals stable. Started on low dose betablocker today. Continues on remdesevir. Tentative dc tomorrow per MD. Will monitor.
[2020-10-21] MEDS: Zolpidem Tartrate 5 MG TABLET PO (20:02)
[2020-10-21] MEDS: diphenhydrAMINE HCL 50 MG/ML VIAL 25 MG IVPUSH (23:29)
[2020-10-22] VITALS: BP 112/64; PULSE 93; RESP 18; TEMP 37; O2SAT 98
[2020-10-22 03:31] VITALS: BP 143/74; PULSE 76; RESP 18; TEMP 37; O2SAT 100
[2020-10-22] MEDS: Enoxaparin Sodium 40 MG/0.4 ML SYRINGE SUBCUT (04:17)
[2020-10-22] MEDS: dexAMETHasone 6 MG TABLET PO (04:18)
[2020-10-22 07:13] LABS: Anion Gap 10 (12-20); Anion Gap 11 (12-20); Blood Urea Nitrogen 26 mg/dL (9-16); Blood Urea Nitrogen 27 mg/dL (9-16); Calcium 8.7 mg/dL (8.4-10.2); Calcium 8.8 mg/dL (8.4-10.2); Carbon Dioxide 27 mmol/L (22-29); Chloride 106 mmol/L (96-108); Creatinine Clr Calc Pharmacy 160.1; Estimated Glomerular Filt Rate > 60; Glucose Random 119 mg/dL (60-115); Glucose Random 120 mg/dL (60-115); Magnesium 2.1 mg/dL (1.6-2.6); Potassium 4.1 mmol/l (3.3-5.1); Sodium 139 mmol/L (135-145); Sodium 140 mmol/L (135-145)
[2020-10-22 08:00] VITALS: BP 129/86; PULSE 93; RESP 19; TEMP 37; O2SAT 95
[2020-10-22 08:16] LABS: Alanine Aminotransferase 44 U/L (0-40); Albumin Level 3.7 g/dL (3.5-5.0); Alkaline Phosphatase 80 U/L (39-117); Aspartate Amino Transferase 21 U/L (5-37); Bilirubin Direct 0.3 mg/dL (0.0-0.5); Bilirubin Total 0.6 mg/dL (0.0-1.0); Total Protein 6.7 g/dL (6.5-8.0)
[2020-10-22 09:10] VITALS: BP 111/60; PULSE 91
[2020-10-22] MEDS: lisinopriL 2.5 MG TABLET PO (09:10)
[2020-10-22] MEDS: Famotidine 20 MG TABLET PO (09:10)
[2020-10-22] MEDS: Furosemide 40 MG TABLET PO (09:10)
[2020-10-22] MEDS: 0.9 % Sodium Chloride Flush 3 ML SYRINGE IVFLUSH (09:10)
[2020-10-22 12:00] VITALS: BP 129/81; PULSE 94; RESP 20; TEMP 36.4; O2SAT 97
--- NOTE | 2020-10-22 14:16 | P.DS_ITS ---
DS: Providers Provider Date of admission: 10/18/20 03:19 Primary care physician: Karel Silva PA-C Consults: 10/18/20 03:14 Consult to Infectious Diseases Routine Consulting Provider: Dina Strong Reason for consultation: COVID Has provider been notified: No 10/19/20 09:43 Consult to Cardiology Routine Consulting Provider: Lico Hester Reason for consultation: new onset chf Has provider been notified: No 10/22/20 11:25 Consult to Care Team Routine Comment: Reason for consultation: cocaine use DS: Diagnosis Discharge Diagnosis (1) Acute on chronic systolic (congestive) heart failure: Status: Acute (2) Acute hypoxemic respiratory failure: Status: Acute (3) CHF (congestive heart failure): Status: Acute (4) Pneumonia due to COVID-19 virus: Status: Acute DS: Medications Discharge Medications Home Medications: Home Medications Medication Instructions Recorded Confirmed No Known Home Meds 10/18/20 10/18/20 Previous Rx's Medication Instructions Recorded dexamethasone 6 mg PO DAILY@0600 #6 tab 10/22/20 famotidine 20 mg PO DAILY #30 tab 10/22/20 furosemide 40 mg PO DAILY #30 tab 10/22/20 lisinopril 2.5 mg PO DAILY #30 tab 10/22/20 DS: Summary Hospital Course Hospital Course: 50 year old man with past medical history only significant for asthma presented with increasing dyspnea over last 3 days. Also noted some lower leg edema over that time as well. No fevers or chills and no productive cough. Noted to have infiltrates on CXR and tested positive for COVID. He notes no sick contacts. States he has been tested in the last few weeks and has been negative but does congregate with a motorcycle club. Was treated with IV Lasix in ED out of concern for CHF. Hospital course: Patient came with COVID pneumonia and also found to have CHF: Subsequently was treated with remdesivir and dexamethasone for COVID pneumonia- completed the course of remdesivir and patient will be going home with dexamethasone. CHF cornejo: Patient was seen by Cardiology and his heart function is EF cornejo only 10-15%. started on iv lasix -seen by cardiology : advised to avoid cocaine use. switched to po lasix and lisinopril. patient has cardiology follow up -he already has appointment with pcp and cardiology. CHF education is given. Patient says that he is planning to stop cocaine use . Patient is to follow-up with BMP (because patient is on Lasix) and liver panel (ALT is 44 range-boderline). fs are 100-120 -probable related to steriods.please follow up Hba1c with pcp. Further management out patiently as per PCP. Above management discussed with the patient in detail length he understand and in agreement with the above plan, time spent 50 minutes and 50% time spent on counseling. Significant findings: As above. Procedures performed: None. Treatment and response: As above. Complications: None. Time Spent with Patient Time attestation: Total time spent providing and/or coordinating discharge services: Physical Exam Vital Signs: Vital Signs: Last Vital Signs Temp 98.6 F 10/22/20 08:00 Pulse 91 10/22/20 09:10 Resp 19 10/22/20 08:00 BP 111/60 10/22/20 09:10 Pulse Ox 95 10/22/20 08:00 Body Mass Index 49.4 DS: Data Data Completed and Pending Labs on day of discharge: 10/17/20 22:07 ECG 12 lead EKG Stat IV insert/maintain NOW Oxygen administration Nasal Cannula 2 lpm XR chest 1V Stat 10/17/20 22:08 EKG Documentation DIRECTED 10/17/20 22:21 B Type Natriuretic Peptide Stat Basic Metabolic Panel Stat Complete Blood Count Auto Diff Stat Hold Lt Blue - Possible Coag Stat Troponin-I High Sensitivity Stat 10/17/20 22:31 Albuterol Sulfate (0.083%) [Ventolin (0.083%)] 5 mg INHALE ONCE ONE 10/17/20 22:37 Furosemide [Lasix] 60 mg IVPUSH ONCE ONE 10/17/20 23:02 Lactic Acid Stat 10/17/20 23:05 SARS-CoV2/FLU/RSV Stat 10/18/20 00:07 UA CC w/rflx Micro + Cult Stat 10/18/20 03:01 Transfer Order Routine 10/18/20 03:19 Troponin-I High Sensitivity Stat 10/18/20 04:01 IV insert/maintain Q4HR Intake and Output QSHIFTE Vital Signs Q4HR 10/18/20 07:30 CA echo transthorac w con Routine 10/18/20 08:24 C Reactive Protein Stat Complete Blood Count Auto Diff Stat Creatine Kinase Total Stat Creatinine Stat D Dimer Stat Glucose Random Stat Lactate Dehydrogenase Stat Liver Panel Stat Magnesium Stat Phosphorus Stat Procalcitonin Stat 10/18/20 Breakfast Low Sodium Diet 10/18/20 11:35 Perflutren Lipid Microspheres [Definity] 2.2 mg IVPUSH .STK-MED ONE 10/18/20 12:30 Add Laboratory Test Stat 10/18/20 13:34 Furosemide [Lasix] 20 mg IVPUSH ONCE ONE 10/18/20 13:45 Remdesivir [Veklury] 100 mg 0.9 % Sodium Chloride [Ns] 230 ml IV Q24H 10/18/20 14:00 Remdesivir [Veklury] 200 mg 0.9 % Sodium Chloride [Ns] 210 ml IV ONCE 10/18/20 Lunch Diabetic Diet 10/19/20 05:37 Basic Metabolic Panel Routine C Reactive Protein Routine Complete Blood Count Auto Diff Routine Creatine Kinase Total Routine D Dimer Routine Glucose Random Routine Lactate Dehydrogenase Routine Magnesium Routine Phosphorus Routine Procalcitonin Routine 10/20/20 06:21 Basic Metabolic Panel DAILY@0600 Liver Panel Routine 10/20/20 09:00 Furosemide [Lasix] 20 mg IVPUSH BID@0900,1400 Furosemide [Lasix] 20 mg IVPUSH BID@0900,1400 10/20/20 12:18 Add Laboratory Test Urgent 10/21/20 06:25 Basic Metabolic Panel DAILY@0600 Liver Panel Routine 10/21/20 09:00 Furosemide [Lasix] 20 mg IVPUSH DAILY Metoprolol Tartrate [Lopressor] 12.5 mg PO BID 10/21/20 10:11 Add Laboratory Test Urgent 10/21/20 23:21 diphenhydrAMINE HCL [Benadryl] 25 mg IVPUSH ONCE ONE 10/22/20 06:22 Basic Metabolic Panel DAILY@0600 Basic Metabolic Panel Routine Liver Panel Routine Magnesium Routine 10/22/20 08:02 Add Laboratory Test Urgent Laboratory Last Values WBC 11.4 X10*3/uL (4.8-10.8) H 10/19/20 05:37 WBC Cancelled 10/19/20 05:37 RBC 4.85 X10*6/uL (4.60-5.80) 10/19/20 05:37 RBC Cancelled 10/19/20 05:37 Hgb 12.8 g/dl (14.0-18.0) L 10/19/20 05:37 Hgb Cancelled 10/19/20 05:37 Hct 40.2 % (42-52) L 10/19/20 05:37 Hct Cancelled 10/19/20 05:37 MCV 82.9 fL (80-98) 10/19/20 05:37 MCV Cancelled 10/19/20 05:37 MCH 26.4 pg (27.0-33.0) L 10/19/20 05:37 MCH Cancelled 10/19/20 05:37 MCHC 31.8 g/dl (31.0-36.0) 10/19/20 05:37 MCHC Cancelled 10/19/20 05:37 RDW 15.8 % (11.0-16.0) 10/19/20 05:37 RDW Cancelled 10/19/20 05:37 Plt Count 334 X10*3/uL (160-400) 10/19/20 05:37 Plt Count Cancelled 10/19/20 05:37 MPV 9.9 fL (9.4-12.4) 10/19/20 05:37 MPV Cancelled 10/19/20 05:37 Immature Gran % (Auto) 0.4 % (0.0-0.4) 10/19/20 05:37 Immature Gran % (Auto) Cancelled 10/19/20 05:37 Neut % (Auto) 75.5 % (45-73) H 10/19/20 05:37 Neut % (Auto) Cancelled 10/19/20 05:37 Lymph % (Auto) 16.7 % (20-40) L 10/19/20 05:37 Lymph % (Auto) Cancelled 10/19/20 05:37 [place] % (Auto) 7.1 % (2-11) 10/19/20 05:37 [place] % (Auto) Cancelled 10/19/20 05:37 Eos % (Auto) 0.1 % (0-4) 10/19/20 05:37 Eos % (Auto) Cancelled 10/19/20 05:37 Baso % (Auto) 0.2 % (0-2) 10/19/20 05:37 Baso % (Auto) Cancelled 10/19/20 05:37 Lymph # (Auto) 1.9 X10*3/uL (1.2-4.9) 10/19/20 05:37 Lymph # (Auto) Cancelled 10/19/20 05:37 [place] # (Auto) 0.8 X10*3/uL (0.1-1.2) 10/19/20 05:37 [place] # (Auto) Cancelled 10/19/20 05:37 Eos # (Auto) 0.0 X10*3/uL (0.0-0.4) 10/19/20 05:37 Eos # (Auto) Cancelled 10/19/20 05:37 Baso # (Auto) 0.0 X10*3/uL (0.0-0.2) 10/19/20 05:37 Baso # (Auto) Cancelled 10/19/20 05:37 Abs Immat Gran (auto) 0.04 X10*3/uL (0.00-0.03) H 10/19/20 05:37 Abs Immat Gran (auto) Cancelled 10/19/20 05:37 Absolute Neuts (auto) 8.6 X10*3/uL (2.0-8.3) H 10/19/20 05:37 Absolute Neuts (auto) Cancelled 10/19/20 05:37 Absolute Nucleated RBC 0.000 X10*3/uL (0.0-0.012) 10/19/20 05:37 Absolute Nucleated RBC Cancelled 10/19/20 05:37 Nucleated RBC % (auto) 0.0 /100WBC (0.0-0.2) 10/19/20 05:37 Nucleated RBC % (auto) Cancelled 10/19/20 05:37 D-Dimer 263 NG/ML 10/19/20 05:37 Hold Blue Top SEE NOTE 10/17/20 22:21 Sodium 139 mmol/L (135-145) 10/22/20 06:22 Sodium 140 mmol/L (135-145) 10/22/20 06:22 Potassium 4.1 mmol/l (3.3-5.1) 10/22/20 06:22 Potassium 4.1 mmol/l (3.3-5.1) 10/22/20 06:22 Chloride 106 mmol/L (96-108) 10/22/20 06:22 Chloride 106 mmol/L (96-108) 10/22/20 06:22 Carbon Dioxide 27 mmol/L (22-29) 10/22/20 06:22 Carbon Dioxide 27 mmol/L (22-29) 10/22/20 06:22 Anion Gap 10 (12-20) L 10/22/20 06:22 Anion Gap 11 (12-20) L 10/22/20 06:22 BUN 26 mg/dL (9-16) H 10/22/20 06:22 BUN 27 mg/dL (9-16) H 10/22/20 06:22 Creatinine 0.82 mg/dL (0.5-1.4) 10/22/20 06:22 Creatinine 0.83 mg/dL (0.5-1.4) 10/22/20 06:22 Estim Creat Clear Calc 160.1 10/22/20 06:22 Estim Creat Clear Calc 162.0 10/22/20 06:22 Estimated GFR > 60 10/22/20 06:22 Estimated GFR > 60 10/22/20 06:22 Random Glucose 119 mg/dL (60-115) H 10/22/20 06:22 Random Glucose 120 mg/dL (60-115) H 10/22/20 06:22 Lactic Acid 1.1 mmol/L (0.5-2.0) 10/17/20 23:02 Calcium 8.7 mg/dL (8.4-10.2) 10/22/20 06:22 Calcium 8.8 mg/dL (8.4-10.2) 10/22/20 06:22 Phosphorus 3.6 mg/dL (2.7-4.5) 10/19/20 05:37 Magnesium 2.1 mg/dL (1.6-2.6) 10/22/20 06:22 Total Bilirubin 0.6 mg/dL (0.0-1.0) 10/22/20 06:22 Direct Bilirubin 0.3 mg/dL (0.0-0.5) 10/22/20 06:22 AST 21 U/L (5-37) 10/22/20 06:22 ALT 44 U/L (0-40) H 10/22/20 06:22 Alkaline Phosphatase 80 U/L (39-117) 10/22/20 06:22 Lactate Dehydrogenase 212 U/L (118-273) 10/19/20 05:37 Total Creatine Kinase 167 U/L (38-174) 10/19/20 05:37 Troponin I High Sens 13.9 ng/L (<3.5-35.0) 10/18/20 03:19 C-Reactive Protein 1.76 mg/dL (< or = 0.50) H 10/19/20 05:37 B-Natriuretic Peptide 166 pg/mL (<100) H 10/17/20 22:21 Total Protein 6.7 g/dL (6.5-8.0) 10/22/20 06:22 Albumin 3.7 g/dL (3.5-5.0) 10/22/20 06:22 Procalcitonin 0.05 ng/mL 10/19/20 05:37 Urine Color STRAW 10/18/20 00:07 Urine Appearance CLEAR 10/18/20 00:07 Urine pH 6.0 (5.0-8.0) 10/18/20 00:07 Ur Specific [place] 1.015 (1.005-1.025) 10/18/20 00:07 Urine Protein NEG MG/DL (NEG-TRACE) 10/18/20 00:07 Urine Glucose (UA) NEG MG/DL (NEG) 10/18/20 00:07 Urine Ketones NEG MG/DL (NEG) 10/18/20 00:07 Urine Blood NEG (NEG) 10/18/20 00:07 Urine Nitrite NEG (NEG) 10/18/20 00:07 Ur Leukocyte Esterase NEG (NEG) 10/18/20 00:07 Coronavirus (PCR) POSITIVE (Negative) A 10/17/20 23:05 Influenza Type A (PCR) NEGATIVE (Negative) 10/17/20 23:05 Influenza Type B (PCR) NEGATIVE (Negative) 10/17/20 23:05 RSV RNA Qual (PCR) NEGATIVE (Negative) 10/17/20 23:05 Preliminary micro results at discharge 10/17/20 23:02 Blood Culture - Preliminary Blood - Venous No growth after 48 hours. 10/17/20 23:02 Blood Culture - Preliminary Blood - Venous No growth after 48 hours. Discharge Plan Discharge Patient Disposition: Home, Self-Care Referrals: Exchange,Karel, PA-C [Primary Care Provider] - Mir,Lico, MD [Physician] - (patient says he kailey has appointment for cardiology and pcp.) Discharge Medications: New furosemide 40 mg Tablet 40 mg PO DAILY Qty: 30 RF: 0 dexamethasone 6 mg Tablet 6 mg PO DAILY@0600 Qty: 6 RF: 0 famotidine 20 mg Tablet 20 mg PO DAILY Qty: 30 RF: 0 lisinopril 2.5 mg Tablet 2.5 mg PO DAILY Qty: 30 RF: 0 No Action No Known Home Meds RF: 0 Discharge Orders: Discharge Order (Routine); Ordered 10/22/20 Ordered By: Ernesto Fine Diet: advance to usual diet and low fat, low cholesterol Activity on Discharge: As tolerated Other Ambulatory Orders: Basic Metabolic Panel Fasting (Routine) Timeframe: 3 Days Facility: [facility] - Location: Laboratory Ordered By: Ernesto Fine Hemoglobin A1c (Routine) Timeframe: 3 Days Facility: [facility] - Location: Laboratory Ordered By: Ernesto Fine Liver Panel (Routine) Timeframe: 3 Days Facility: [facility] - Location: Laboratory Ordered By: Ernesto Fine Visit Report Forms: Patient Portal Discharge page Care Plan Goals: Patient came with COVID pneumonia and also found to have CHF: Subsequently was treated with remdesivir and dexamethasone for COVID pneumonia- completed the course of remdesivir and patient will be going home with dexamethasone. CHF cornejo: Patient was seen by Cardiology and his heart function is EF cornejo only 10-15%. started on iv lasix -seen by cardiology : advised to avoid cocaine use. switched to po lasix and lisinopril. patient has cardiology follow up -he already has appointment with pcp and cardiology. CHF education is given. Patient says that he is planning to stop cocaine use . Patient is to follow-up with BMP (because patient is on Lasix) and liver panel (ALT is 44 range-boderline). fs are 100-120 -probable related to steriods.please follow up Hba1c with pcp. Further management out patiently as per PCP. Health Concerns: ABOVE. Plan of Treatment: as above.
[2020-10-22] MEDS: Remdesivir 100 MG in 0.9 % Sodium Chloride 230 ML 115 MG IV (14:18)
--- NOTE | 2020-10-22 14:42 | MHC.CM.PN ---
Pt being discharged home today with no services
[2020-10-22 16:00] VITALS: BP 103/74; PULSE 81; RESP 18; TEMP 36.4; O2SAT 95
== END 2020-10-22 17:31 | disposition home or self-care (01) | DRG 177 ==
LOC: HO.ED 10-18 00:14 → HO.IMC 10-18 03:39
PROVIDERS: Internal Medicine; Admitting Provider Internal Medicine; Emergency Provider Student in an Organized Health Care Education/Training Program; PCP Physician Assistant; Visit Provider Internal Medicine
DX: U07.1 COVID-19 (principal); J12.89 Other viral pneumonia; J96.01 Acute respiratory failure with hypoxia; I50.23 Acute on chronic systolic (congestive) heart failure; I25.10 Atherosclerotic heart disease of native coronary artery without angina pectoris; Z88.2 Allergy status to sulfonamides; Z79.899 Other long term (current) drug therapy
CPT/HCPCS: 0241U; 36415; 71045; 80048; 80076; 81003; 82550; 82565; 82947; 83605; 83615; 83735; 83880; 84100; 84145; 84484; 85025; 85379; 86140; 87040; 93005; 93306; 96374; 99285; J1200; J1650; J1940; J3490; J8540; Q9957

== ENCOUNTER → 2020-11-01 11:27 | Outpatient (BNVA) | payer MEDICARE, MEDICAID, SELFPAY | PROVIDERS: PCP Physician Assistant; Visit Provider Nurse Practitioner Family | DX: Z01.810 Encounter for preprocedural cardiovascular examination (principal); I50.23 Acute on chronic systolic (congestive) heart failure; I42.9 Cardiomyopathy, unspecified; I50.9 Heart failure, unspecified | CPT/HCPCS: 99212 ==

== ENCOUNTER 2020-11-03 14:18 | Outpatient (REF) | payer MEDICARE, MEDICAID, SELFPAY ==
[2020-11-03 16:34] LABS: MANUAL DIFF FLAG NO
[2020-11-03 16:39] LABS: Basophils Percent Auto 0.2 % (0-2); Eosinophils Absolute Auto 0.1 X10*3/uL (0.0-0.4); Hematocrit 42.9 % (42-52); Hemoglobin 13.1 g/dl (14.0-18.0); Imm Gran Abs Auto 0.03 X10*3/uL (0.00-0.03); Imm Gran Pct Auto 0.3 % (0.0-0.4); Lymphocytes Absolute Auto 1.7 X10*3/uL (1.2-4.9); Lymphocytes Percent Auto 17.6 % (20-40); Mean Corpuscular HGB Conc 30.5 g/dl (31.0-36.0); Mean Corpuscular Hemoglobin 25.9 pg (27.0-33.0); Mean Platelet Volume 9.2 fL (9.4-12.4); Monocytes Absolute Auto 0.7 X10*3/uL (0.1-1.2); Monocytes Percent Auto 7.5 % (2-11); Neutrophils Absolute Auto 7.2 X10*3/uL (2.0-8.3); Neutrophils Percent Auto 73.4 % (45-73); Platelet Count 263 X10*3/uL (160-400); Red Blood Count 5.05 X10*6/uL (4.60-5.80); Red Cell Distribution Width 15.8 % (11.0-16.0); White Blood Count 9.8 X10*3/uL (4.8-10.8)
[2020-11-03 16:47] LABS: INTERNATIONAL NORM RATIO 0.9 (0.9-1.1); Prothrombin Time 10.9 SEC (10.8-13.0)
[2020-11-03 17:07] LABS: Alanine Aminotransferase 35 U/L (0-40); Albumin Level 3.7 g/dL (3.5-5.0); Alkaline Phosphatase 72 U/L (39-117); Anion Gap 15 (12-20); Aspartate Amino Transferase 26 U/L (5-37); Bilirubin Direct 0.2 mg/dL (0.0-0.5); Bilirubin Total 0.4 mg/dL (0.0-1.0); Blood Urea Nitrogen 22 mg/dL (9-16); Calcium 8.9 mg/dL (8.4-10.2); Carbon Dioxide 29 mmol/L (22-29); Chloride 104 mmol/L (96-108); Estimated Glomerular Filt Rate > 60; Glucose Random 133 mg/dL (60-115); Potassium 4.9 mmol/l (3.3-5.1); Sodium 143 mmol/L (135-145); Total Protein 6.5 g/dL (6.5-8.0)
[2020-11-04 06:50] LABS: Estimated Average Glucose 120 mg/dL; Hemoglobin A1c % 5.8 %
== END 2020-11-03 14:19 | disposition home or self-care (01) ==
LOC: HO.LAB 14:18
PROVIDERS: Absent Provider Nurse Practitioner Family; PCP Physician Assistant; Visit Provider Internal Medicine
DX: Z01.810 Encounter for preprocedural cardiovascular examination (principal); U07.1 COVID-19; I50.9 Heart failure, unspecified; R73.9 Hyperglycemia, unspecified
CPT/HCPCS: 36415; 80048; 80076; 83036; 85025; 85610

== ENCOUNTER 2020-11-06 16:23 | Outpatient (REF) | payer MEDICARE, MEDICAID, SELFPAY ==
[2020-11-06 17:26] LABS: COVID-19 Test Negative (Negative); IDNOW Serial# 9DD0AD1C
== END 2020-11-06 16:24 | disposition home or self-care (01) ==
LOC: HO.LAB 16:23
PROVIDERS: PCP Internal Medicine; Visit Provider Internal Medicine
DX: Z20.822 Contact with and (suspected) exposure to COVID-19 (principal)
CPT/HCPCS: 36415; 87635

== ENCOUNTER → 2020-11-21 10:59 | Outpatient (BNVA) | payer MEDICARE, MEDICAID, SELFPAY | PROVIDERS: Visit Provider Nurse Practitioner Family | DX: I50.23 Acute on chronic systolic (congestive) heart failure (principal); I42.9 Cardiomyopathy, unspecified; I50.9 Heart failure, unspecified | CPT/HCPCS: 99212 ==

== ENCOUNTER 2020-11-29 12:00 | Emergency (ER) | payer MEDICARE, MEDICAID, SELFPAY ==
[2020-11-29] VITALS (7 sets, daily range): BP systolic 89–109; BP diastolic 53–67; PULSE 95–112; RESP 15–20; TEMP 37.2–37.6; O2SAT 96–100; BMI 48.7
--- NOTE | ~2020-11-29 | XR_ITS ---
EXAMINATION: XR CHEST CLINICAL INFORMATION: Shortness of breath COMPARISON: Previous chest x-ray September 2020 TECHNIQUE: Frontal view of the chest was obtained. FINDINGS: The cardiac silhouette is slightly enlarged but stable. Hilar and mediastinal contours are unremarkable. There is bilateral perihilar and right base airspace disease. This appears slightly improved from September 2020 exam. Differential would include pulmonary edema and pneumonia. There is no pleural effusion or pneumothorax. Bony structures are unremarkable. XR/XR chest 1V IMPRESSION: Enlarged cardiac silhouette. Perihilar and right lower lobe airspace disease. This appears improved from 10/17/2020 exam. Differential would include pulmonary edema and pneumonia.
--- NOTE | 2020-11-29 13:52 | ECG_ITS ---
Test Reason : CP Blood Pressure : / mmHG Vent. Rate : 111 BPM Atrial Rate : 111 BPM P-R Int : 154 ms QRS Dur : 114 ms QT Int : 356 ms P-R-T Axes : 070 023 052 degrees QTc Int : 484 ms Sinus tachycardia Otherwise normal ECG When compared with ECG of 17-OCT-2020 22:34, No significant change was found Referred By: Jair Mcrae Electronically Signed By:SAVANNA RIVERA
--- NOTE | 2020-11-29 14:17 | ED_ITS ---
HPI - SOB/Dyspnea General Chief Complaint: Dyspnea Stated Complaint: chest pain Time Seen by Provider: 11/29/20 13:52 History of Present Illness HPI Narrative: Patient complains of 2 days of worsening shortness of breath, he has had no cough no fever no chills no leg pain no calf pain no leg swelling no chest pain Initially was shortness of breath with walking but now he is short of breath at rest Related Data Home Medications Medication Instructions Recorded Confirmed furosemide 40 mg tablet 40 mg PO BID tab 11/21/20 11/21/20 lisinopril 5 mg tablet 5 mg PO DAILY 11/21/20 11/21/20 Previous Rx's Medication Instructions Recorded famotidine 20 mg PO DAILY #30 tab 10/22/20 albuterol sulfate 2 puff INHALATION Q4-6H PRN #8.5 g 11/29/20 azithromycin [Zithromax] 250 mg PO DAILY 4 Days #4 tab 11/29/20 prednisone 60 mg PO DAILY 4 Days #12 tab 11/29/20 Allergies Allergy/AdvReac Type Severity Reaction Status Date / Time cephalexin [From KEFLEX] Allergy Unknown UNKNOWN Verified 11/21/20 11:04 sulfamethoxazole Allergy Unknown UNKNOWN Verified 11/21/20 11:04 [From BACTRIM] trimethoprim [From BACTRIM] Allergy Unknown UNKNOWN Verified 11/21/20 11:04 Review of Systems Review of Systems: Positives are shortness of breath Negatives are no fever no chills no fainting no loss of consciousness no headache no neck pain no chest pain no palpitations no abdominal pain no nausea no vomiting no sweating, no rash, no increased leg swelling, no numbness no weakness [facility] Past Medical History Attestation statement: The following information was validated with the patient. [facility] Narrative: Medical history includes CHF asthma recent COVID illness, CHF is a recent diagnosis and he has started Lasix which she felt has very much improved the leg swelling, he does have an asthma pump at home but he has not used it, he had a very recent cardiac catheterization which showed clear vessels, echocardiogram showed a low ejection fraction of 10-15% Medical History (Updated 11/30/20 @ 00:00 by Raisa Jacobo) Asthma COPD (chronic obstructive pulmonary disease) Surgical History (Updated 11/21/20 @ 11:09 by YASMIN Sierra) History of cardiac catheterization (~11/07/20) History of surgery Family History Family History Mother Ovarian cancer Diabetes Social History Social History Household Members: Significant Other Housing: House Alcohol intake: never Smoking Status: Former smoker Substance Use Type: Crack/Cocaine service: No Current occupational status: disabled Physical Exam Vital Signs: Vital Signs: Last Vital Signs Temp 98.9 F 11/29/20 18:00 Pulse 96 11/29/20 19:23 Resp 15 11/29/20 19:23 BP 102/60 11/29/20 19:23 Pulse Ox 98 11/29/20 19:23 Body Mass Index 48.7 General appearance is mild discomfort from shortness of breath, he is speaking in full sentences, he is A&O x3 and interacts with clear understanding and clear speech The head is normocephalic atraumatic Mucous membranes are moist there is no swelling in the pharynx voice is normal The neck is supple without stridor The chest has very diminished lung sounds with clear wheezes on inspiration and expiration The heart no murmur was auscultated The abdomen was soft and nontender The extremities there was no calf tenderness no leg edema Neuro was no focal deficit Course Course Course Narrative: Patient initially was tachypneic tachycardic and blood pressure was low He was treated with albuterol and after the 1st treatment felt much better and respiratory rate had returned to normal as had pulse He was given a 2nd treatment and now felt back to normal he had no respiratory discomfort he is speaking full sentences he was walked around the ER his vital signs had returned to normal, he had no symptoms with walking he did not feel short of breath and he did not desat in his respiratory rate did not increase Patient had no leg edema and BNP today was 92 which was significantly better than prior number, chest x-ray showed enlarged cardiac silhouette wet with i mproved perihilar and right lower lobe airspace disease which impaired improved from the prior exam from 6 weeks ago Patient does not appear to be in any acute pulmonary edema now Troponin testing did not demonstrate any acute ischemic episode At this point vitals including blood pressure pulse O2 sat and respiratory rate were normal, case was discussed with attending physician Dr. Patino and patient was discharged on antibiotic and prednisone MDM - SOB/Dyspnea Lab Data Attestation: I reviewed the patient's lab results. Result diagrams: 11/29/20 14:59 11/29/20 14:59 Labs: Lab Results 11/29/20 11/29/20 11/29/20 Range/Units 14:18 14:59 14:59 WBC 8.9 (4.8-10.8) X10*3/uL RBC 4.81 (4.60-5.80) X10*6/uL Hgb 12.5 L (14.0-18.0) g/dl Hct 39.3 L (42-52) % MCV 81.7 (80-98) fL MCH 26.0 L (27.0-33.0) pg MCHC 31.8 (31.0-36.0) g/dl RDW 14.9 (11.0-16.0) % Plt Count 285 (160-400) X10*3/uL MPV 9.0 L (9.4-12.4) fL Immature Gran % (Auto) 0.2 (0.0-0.4) % Neut % (Auto) 72.9 (45-73) % Lymph % (Auto) 16.0 L (20-40) % [place] % (Auto) 8.9 (2-11) % Eos % (Auto) 1.5 (0-4) % Baso % (Auto) 0.5 (0-2) % Lymph # (Auto) 1.4 (1.2-4.9) X10*3/uL [place] # (Auto) 0.8 (0.1-1.2) X10*3/uL Eos # (Auto) 0.1 (0.0-0.4) X10*3/uL Baso # (Auto) 0.0 (0.0-0.2) X10*3/uL Abs Immat Gran (auto) 0.02 (0.00-0.03) X10*3/uL Absolute Neuts (auto) 6.5 (2.0-8.3) X10*3/uL Absolute Nucleated RBC 0.000 (0.0-0.012) X10*3/uL Nucleated RBC % (auto) 0.0 (0.0-0.2) /100WBC Hold Blue Top SEE NOTE Sodium (135-145) mmol/L Potassium (3.3-5.1) mmol/L Chloride (96-108) mmol/L Carbon Dioxide (22-29) mmol/L Anion Gap (12-20) BUN (9-16) mg/dL Creatinine (0.5-1.4) mg/dL Estim Creat Clear Calc Estimated GFR Random Glucose (60-115) mg/dL Calcium (8.4-10.2) mg/dL Troponin I High Sens (<3.5-35.0) ng/L B-Natriuretic Peptide (<100) pg/mL COVID-19 (LEANDRO) Negative (Negative) COVID-19 Clin Com See Note 11/29/20 11/29/20 11/29/20 Range/Units 14:59 14:59 17:52 WBC (4.8-10.8) X10*3/uL RBC (4.60-5.80) X10*6/uL Hgb (14.0-18.0) g/dl Hct (42-52) % MCV (80-98) fL MCH (27.0-33.0) pg MCHC (31.0-36.0) g/dl RDW (11.0-16.0) % Plt Count (160-400) X10*3/uL MPV (9.4-12.4) fL Immature Gran % (Auto) (0.0-0.4) % Neut % (Auto) (45-73) % Lymph % (Auto) (20-40) % [place] % (Auto) (2-11) % Eos % (Auto) (0-4) % Baso % (Auto) (0-2) % Lymph # (Auto) (1.2-4.9) X10*3/uL [place] # (Auto) (0.1-1.2) X10*3/uL Eos # (Auto) (0.0-0.4) X10*3/uL Baso # (Auto) (0.0-0.2) X10*3/uL Abs Immat Gran (auto) (0.00-0.03) X10*3/uL Absolute Neuts (auto) (2.0-8.3) X10*3/uL Absolute Nucleated RBC (0.0-0.012) X10*3/uL Nucleated RBC % (auto) (0.0-0.2) /100WBC Hold Blue Top Sodium 141 (135-145) mmol/L Potassium 4.1 (3.3-5.1) mmol/L Chloride 107 (96-108) mmol/L Carbon Dioxide 25 (22-29) mmol/L Anion Gap 13 (12-20) BUN 14 (9-16) mg/dL Creatinine 0.81 (0.5-1.4) mg/dL Estim Creat Clear Calc 162.7 Estimated GFR > 60 Random Glucose 93 (60-115) mg/dL Calcium 8.4 (8.4-10.2) mg/dL Troponin I High Sens 6.9 D 6.4 (<3.5-35.0) ng/L B-Natriuretic Peptide 92 (<100) pg/mL COVID-19 (LEANDRO) (Negative) COVID-19 Clin Com ECG Data Interpretation: EKG showed sinus tachycardia at a rate of 111, with no acute ischemic changes no acute ST changes QRS was 114 QT was 356 Discharge Plan Discharge Clinical Impression: Asthma Patient Disposition: Home, Self-Care Additional Instructions: We are treating with prednisone albuterol and Zithromax for asthma with a possible respiratory infection Your condition improved significantly with treatment with albuterol and her wheezing was much better Follow with primary doctor this week Return to ER any time for fever, shortness of breath, dizziness weakness chest pain any worse condition or any concerns Prescriptions: New azithromycin [Zithromax] 250 mg tablet 250 mg PO DAILY 4 Days Qty: 4 RF: 0 prednisone 20 mg tablet 60 mg PO DAILY 4 Days Qty: 12 RF: 0 albuterol sulfate 90 mcg/actuation HFA aerosol inhaler 2 puff inhalation Q4-6H PRN (Reason: shortness of breath or wheezing) Qty: 8.5 RF: 0 No Action famotidine 20 mg Tablet 20 mg PO DAILY Qty: 30 RF: 0 lisinopril 5 mg tablet 5 mg PO DAILY RF: 0 furosemide 40 mg tablet 40 mg PO BID RF: 0 Interventions: ED Discharge Assessment Last Done: 11/29/20 19:54 Discharge Date/Time: 11/29/20 20:02
[2020-11-29 14:38] LABS: COVID-19 Test Negative (Negative)
[2020-11-29] MEDS: Albuterol Sulfate (0.083%) 2.5 MG/3 ML VIAL.NEB 10 MG INHALE (15:01)
[2020-11-29 15:03] LABS: MANUAL DIFF FLAG NO
[2020-11-29 15:05] LABS: Basophils Percent Auto 0.5 % (0-2); Eosinophils Absolute Auto 0.1 X10*3/uL (0.0-0.4); Eosinophils Percent Auto 1.5 % (0-4); Hematocrit 39.3 % (42-52); Hemoglobin 12.5 g/dl (14.0-18.0); Imm Gran Abs Auto 0.02 X10*3/uL (0.00-0.03); Imm Gran Pct Auto 0.2 % (0.0-0.4); Lymphocytes Absolute Auto 1.4 X10*3/uL (1.2-4.9); Mean Corpuscular HGB Conc 31.8 g/dl (31.0-36.0); Mean Corpuscular Volume 81.7 fL (80-98); Monocytes Absolute Auto 0.8 X10*3/uL (0.1-1.2); Monocytes Percent Auto 8.9 % (2-11); Neutrophils Absolute Auto 6.5 X10*3/uL (2.0-8.3); Neutrophils Percent Auto 72.9 % (45-73); Platelet Count 285 X10*3/uL (160-400); Red Blood Count 4.81 X10*6/uL (4.60-5.80); Red Cell Distribution Width 14.9 % (11.0-16.0); White Blood Count 8.9 X10*3/uL (4.8-10.8)
[2020-11-29 15:31] LABS: Anion Gap 13 (12-20); Blood Urea Nitrogen 14 mg/dL (9-16); Calcium 8.4 mg/dL (8.4-10.2); Carbon Dioxide 25 mmol/L (22-29); Chloride 107 mmol/L (96-108); Creatinine Clr Calc Pharmacy 162.7; Estimated Glomerular Filt Rate > 60; Glucose Random 93 mg/dL (60-115); Potassium 4.1 mmol/L (3.3-5.1); Sodium 141 mmol/L (135-145)
[2020-11-29 15:38] LABS: B Type Natriuretic Peptide 92 pg/mL (<100); Troponin-I High Sensitivity 6.9 ng/L (<3.5-35.0)
[2020-11-29] MEDS: Albuterol/Iprat 2.5/0.5MG 3 ML AMPUL.NEB INHALE (16:16)
--- NOTE | 2020-11-29 16:34 | PC.NURSE ---
pt o2 sat drops when sleeping. states he is supposed to have sleep apnea test. was placed on 2 L o2. sats have been stable while asleep. pt have received 2 breathing treatments. states he feels his breathing has improved. lung sounds improved. waiting re eval from PA regarding dispo.
--- NOTE | 2020-11-29 17:14 | PC.NURSE ---
pt o2 sat stayed at 99% while ambulating in halls with rn. pulse no higher than 120bpm. will notify PA.
[2020-11-29 18:28] LABS: Troponin-I High Sensitivity 6.4 ng/L (<3.5-35.0)
[2020-11-29] MEDS: predniSONE 20 MG TABLET 60 MG PO (19:26)
[2020-11-29] MEDS: Azithromycin 500 MG TABLET PO (19:58)
== END 2020-11-29 20:02 | disposition home or self-care (01) ==
PROVIDERS: Physician Assistant Medical; Emergency Provider Emergency Medicine Emergency Medical Services; PCP Physician Assistant
DX: J45.909 Unspecified asthma, uncomplicated (principal); Z20.822 Contact with and (suspected) exposure to COVID-19; I50.9 Heart failure, unspecified; Z79.899 Other long term (current) drug therapy
CPT/HCPCS: 36415; 71045; 80048; 83880; 84484; 85025; 87635; 93005; 94640; 94644; 99284

== ENCOUNTER 2020-12-20 09:10 | Outpatient (REF) | payer MEDICARE, MEDICAID, SELFPAY ==
[2020-12-20 09:48] LABS: Hematocrit 41.6 % (42-52); Mean Corpuscular HGB Conc 31.3 g/dl (31.0-36.0); Mean Corpuscular Hemoglobin 25.8 pg (27.0-33.0); Mean Corpuscular Volume 82.5 fL (80-98); Mean Platelet Volume 9.5 fL (9.4-12.4); Platelet Count 310 X10*3/uL (160-400); Red Blood Count 5.04 X10*6/uL (4.60-5.80); Red Cell Distribution Width 15.9 % (11.0-16.0); White Blood Count 8.2 X10*3/uL (4.8-10.8)
[2020-12-20 10:22] LABS: B Type Natriuretic Peptide 123 pg/mL (<100)
[2020-12-20 10:31] LABS: Anion Gap 14 (12-20); Blood Urea Nitrogen 24 mg/dL (9-16); Calcium 9.3 mg/dL (8.4-10.2); Carbon Dioxide 25 mmol/L (22-29); Chloride 107 mmol/L (96-108); Cholesterol 190 mg/dL; Estimated Glomerular Filt Rate > 60; Glucose Random 116 mg/dL (60-115); HDL Cholesterol 37 mg/dL; LDL Cholesterol Calculated 132 mg/dl; Potassium 4.5 mmol/L (3.3-5.1); Sodium 141 mmol/L (135-145); Triglycerides 105 mg/dL
[2020-12-20 10:40] LABS: Estimated Average Glucose 120 mg/dL; Hemoglobin A1c % 5.8 %
[2020-12-20 10:55] LABS: TSH reflex Free T4 3.03 uIU/mL (0.32-4.0)
== END 2020-12-20 09:11 | disposition home or self-care (01) ==
LOC: HO.LAB 09:10
PROVIDERS: Nurse Practitioner Family; PCP Physician Assistant; Visit Provider Physician Assistant
DX: I42.9 Cardiomyopathy, unspecified (principal); I11.0 Hypertensive heart disease with heart failure; I50.23 Acute on chronic systolic (congestive) heart failure
CPT/HCPCS: 36415; 80048; 80061; 83036; 83880; 84443; 85027

== ENCOUNTER 2021-02-05 13:11 | Emergency (ER) | payer MEDICARE, MEDICAID, SELFPAY ==
--- NOTE | 2021-02-05 | ECG_ITS ---
Test Reason : SOB Blood Pressure : / mmHG Vent. Rate : 096 BPM Atrial Rate : 096 BPM P-R Int : 166 ms QRS Dur : 110 ms QT Int : 404 ms P-R-T Axes : 048 000 070 degrees QTc Int : 510 ms Normal sinus rhythm Possible Left atrial enlargement Nonspecific T wave abnormality Prolonged QT Abnormal ECG When compared with ECG of 29-NOV-2020 12:03, QT has lengthened Referred By: Generic ED Physician Electronically Signed By:Miguel Flores
[2021-02-05 13:26] VITALS: BP 131/91; PULSE 97; RESP 17; TEMP 36.6; O2SAT 95; BMI 47.0
== END 2021-02-05 15:51 | disposition left against medical advice (07) ==
PROVIDERS: Emergency Provider Emergency Medicine; PCP Physician Assistant
DX: R06.02 Shortness of breath (principal)
CPT/HCPCS: 93005; 99283

== ENCOUNTER 2021-02-06 10:28 | Emergency (ER) | payer MEDICARE, MEDICAID, SELFPAY ==
--- NOTE | ~2021-02-06 | XR_ITS ---
EXAMINATION: XR CHEST CLINICAL INFORMATION: Shortness of breath COMPARISON: Chest radiographs 11/29/2020, 10/17/2020 TECHNIQUE: Portable upright AP view of the chest is performed. FINDINGS: There is fullness of the cardiopericardial silhouette and central vasculature similar to prior studies. There is subtle airspace opacities right perihilar and infrahilar region which may represent pneumonia or early asymmetric edema. No overt effusion. XR/XR chest 1V IMPRESSION: Chronic fullness cardiopericardial silhouette and central vasculature similar to prior exams. Right perihilar and infrahilar opacities may represent pneumonia or asymmetric edema.
[2021-02-06 10:39] VITALS: BP 120/79; PULSE 101; RESP 24; TEMP 36.7; O2SAT 92; BMI 33.0
[2021-02-06 10:42] VITALS: O2SAT 95
--- NOTE | 2021-02-06 11:26 | ED_ITS ---
HPI - SOB/Dyspnea General Chief Complaint: Dyspnea Stated Complaint: DIFF BREATHING Time Seen by Provider: 02/06/21 11:26 Source: patient Mode of arrival: ambulatory Limitations: no limitations History of Present Illness HPI Narrative: Increasing shortness of breath over the past few days with increased edema. Left yesterday without being seen MD elicited complaint: shortness of breath Pertinent past history: COPD and congestive heart failure Onset (ago): day(s) (3) Timing: constant Severity: moderate Exacerbating factors: lying flat and exertion Relieving factors: nothing Associated symptoms: chest pain and orthopnea Treatment prior to arrival: none Related Data Home Medications Medication Instructions Recorded Confirmed furosemide 40 mg tablet 40 mg PO BID tab 11/21/20 12/19/20 Previous Rx's Medication Instructions Recorded albuterol sulfate 2 puff INHALATION Q4-6H PRN #8.5 g 11/29/20 polymyxin B sulfate 10,000 1 drp OPHTHALMIC (EYE) Q3H 7 Days 12/19/20 unit-trimethoprim 1 mg/mL eye drops #10 ml sacubitril 24 mg-valsartan 26 mg 1 tab PO BID 30 Days #60 tab 12/20/20 tablet furosemide [Lasix] 40 mg PO DAILY #30 tab 02/06/21 Allergies Allergy/AdvReac Type Severity Reaction Status Date / Time cephalexin [From KEFLEX] Allergy Unknown UNKNOWN Verified 12/19/20 12:01 sulfamethoxazole Allergy Unknown UNKNOWN Verified 12/19/20 12:01 [From BACTRIM] trimethoprim [From BACTRIM] Allergy Unknown UNKNOWN Verified 12/19/20 12:01 Review of Systems Constitutional: Constitutional: Reports no additional constitutional complaints Eyes: Eyes: Reports no additional eye complaints ENT: Denies dizziness Cardiovascular: Cardiovascular: Reports no additional cardiovascular complaints Respiratory: Respiratory: Reports as per HPI Gastrointestinal: Gastrointestinal: Reports no additional gastrointestinal complaints Musculoskeletal: Musculoskeletal: Reports no additional musculoskeletal complaints Integumentary/Breasts: Skin/Breast: Denies rash Neurologic: Reports system reviewed and no additional complaints, except as documented, Denies dizziness and Denies Sensory deficit (Neuro) Psychiatric: Psychiatric: Denies anxiety COUNTS INCLUDE 234 BEDS AT THE [facility] Past Medical History Medical History Asthma CHF (congestive heart failure) COPD (chronic obstructive pulmonary disease) Surgical History History of cardiac catheterization (~11/07/20) History of surgery Family History Family History Mother Ovarian cancer Diabetes Social History Social History Household Members: Significant Other Housing: House Alcohol intake: never Smoking Status: Former smoker Substance Use Type: Crack/Cocaine Advance Directives: No Advance Directives Information Provided: No service: No Current occupational status: disabled Physical Exam Vital Signs: Vital Signs: Last Vital Signs Temp 98.1 F 02/06/21 10:39 Pulse 101 H 02/06/21 14:37 Resp 16 02/06/21 13:43 BP 117/69 02/06/21 13:43 Pulse Ox 93 02/06/21 14:37 Body Mass Index 33.0 Const: Other: obese male short of breath Nutritional Appearance: obese Orientation/consciousness: oriented to person and patient oriented x3 Limitations: no limitations HENMT: Head: Yes normal to inspection Ears: external ears normal General nose exam: Normal external nose present Mouth: Normal oral and palatal mucosa present and oropharynx normal Throat: Yes posterior oropharynx normal Eyes: General: appearance normal, both eyes and all related structures Neck: Other: supple Neck: Yes normal visual inspection Chest: Chest palpation & inspection: normal inspection of the chest Resp: Other: basilar rales both sides Cardio: Jugular venous distension: no JVD Rate: regular rate Rhythm: regular rhythm Heart sounds: S1 normal heart sound present and S2 normal heart sound present GI: Inspection: Yes normal to inspection Palpation (GI): Soft to palpation, nontender and No hepatosplenomegaly present Auscultation: normal bowel sounds : General: Yes no CVA tenderness Back/Spine/Pelvis: Back: no CVA tenderness Skin: General skin exam: no rashes or lesions noted Neuro: General: oriented to person and patient oriented x3 Cranial nerves: Yes CN's II-XII intact bilaterally Motor exam (neuro): 5/5 motor strength present throughout Sensory Exam: No Sensory deficit (Neuro) Extrem: Other: 3+ edema bilaterally Psych: Appearance: grossly normal Course Course Course Narrative: Based on his number, xray, and response to lasix will get an ambulatory pulse ox to determine if patient can go home on lasix MDM - SOB/Dyspnea MDM Narrative Medical decision making narrative: patient did well on ambulating pulse ox, will get him restarted on lasix and dc home Differential Diagnosis Differential diagnosis: Likely congestive heart failure Lab Data Result diagrams: 02/06/21 11:53 02/06/21 11:53 Labs: Lab Results 02/06/21 02/06/21 02/06/21 Range/Units 11:53 11:53 11:53 WBC 10.5 (4.8-10.8) X10*3/uL RBC 4.80 (4.60-5.80) X10*6/uL Hgb 12.2 L (14.0-18.0) g/dl Hct 40.4 L (42-52) % MCV 84.2 (80-98) fL MCH 25.4 L (27.0-33.0) pg MCHC 30.2 L (31.0-36.0) g/dl RDW 14.8 (11.0-16.0) % Plt Count 348 (160-400) X10*3/uL MPV 9.5 (9.4-12.4) fL Immature Gran % (Auto) 0.3 (0.0-0.4) % Neut % (Auto) 78.4 H (45-73) % Lymph % (Auto) 13.3 L (20-40) % [place] % (Auto) 6.5 (2-11) % Eos % (Auto) 1.0 (0-4) % Baso % (Auto) 0.5 (0-2) % Lymph # (Auto) 1.4 (1.2-4.9) X10*3/uL [place] # (Auto) 0.7 (0.1-1.2) X10*3/uL Eos # (Auto) 0.1 (0.0-0.4) X10*3/uL Baso # (Auto) 0.1 (0.0-0.2) X10*3/uL Abs Immat Gran (auto) 0.03 (0.00-0.03) X10*3/uL Absolute Neuts (auto) 8.2 (2.0-8.3) X10*3/uL Absolute Nucleated RBC 0.000 (0.0-0.012) X10*3/uL Nucleated RBC % (auto) 0.0 (0.0-0.2) /100WBC Sodium 142 (135-145) mmol/L Potassium 4.3 (3.3-5.1) mmol/L Chloride 108 (96-108) mmol/L Carbon Dioxide 24 (22-29) mmol/L Anion Gap 14 (12-20) BUN 21 H (9-16) mg/dL Creatinine 0.83 (0.5-1.4) mg/dL Estim Creat Clear Calc 128.8 Estimated GFR > 60 Random Glucose 112 (60-115) mg/dL Calcium 9.1 (8.4-10.2) mg/dL Troponin I High Sens 8.3 (<3.5-35.0) ng/L B-Natriuretic Peptide (<100) pg/mL 02/06/21 Range/Units 11:53 WBC (4.8-10.8) X10*3/uL RBC (4.60-5.80) X10*6/uL Hgb (14.0-18.0) g/dl Hct (42-52) % MCV (80-98) fL MCH (27.0-33.0) pg MCHC (31.0-36.0) g/dl RDW (11.0-16.0) % Plt Count (160-400) X10*3/uL MPV (9.4-12.4) fL Immature Gran % (Auto) (0.0-0.4) % Neut % (Auto) (45-73) % Lymph % (Auto) (20-40) % [place] % (Auto) (2-11) % Eos % (Auto) (0-4) % Baso % (Auto) (0-2) % Lymph # (Auto) (1.2-4.9) X10*3/uL [place] # (Auto) (0.1-1.2) X10*3/uL Eos # (Auto) (0.0-0.4) X10*3/uL Baso # (Auto) (0.0-0.2) X10*3/uL Abs Immat Gran (auto) (0.00-0.03) X10*3/uL Absolute Neuts (auto) (2.0-8.3) X10*3/uL Absolute Nucleated RBC (0.0-0.012) X10*3/uL Nucleated RBC % (auto) (0.0-0.2) /100WBC Sodium (135-145) mmol/L Potassium (3.3-5.1) mmol/L Chloride (96-108) mmol/L Carbon Dioxide (22-29) mmol/L Anion Gap (12-20) BUN (9-16) mg/dL Creatinine (0.5-1.4) mg/dL Estim Creat Clear Calc Estimated GFR Random Glucose (60-115) mg/dL Calcium (8.4-10.2) mg/dL Troponin I High Sens (<3.5-35.0) ng/L B-Natriuretic Peptide 391 H (<100) pg/mL Imaging Data Chest x-ray: Radiologist's impression: Vascular congestion ECG Data Attestation: I personally reviewed and interpreted this ECG as follows: Interpretation: sinus rate of 90, no st or twave changes Discharge Plan Discharge Clinical Impression: CHF (congestive heart failure) Patient Disposition: Home, Self-Care Instructions: Heart Failure (ED) Prescriptions: New furosemide [Lasix] 40 mg tablet 40 mg PO DAILY Qty: 30 RF: 0 No Action Entresto 24-26 mg tablet 1 tab PO BID 30 Days Qty: 60 RF: 5 albuterol sulfate 90 mcg/actuation HFA aerosol inhaler 2 puff inhalation Q4-6H PRN (Reason: shortness of breath or wheezing) Qty: 8. 5 RF: 0 polymyxin B sulf-trimethoprim [Polytrim] 10,000 unit- 1 mg/mL drops 1 drp ophthalmic (eye) Q3H 7 Days Qty: 10 RF: 0 furosemide 40 mg tablet 40 mg PO BID RF: 0 Referrals: Karel Silva PA-C [Primary Care Provider] - 5 days
--- NOTE | 2021-02-06 11:33 | ECG_ITS ---
Test Reason : CHEST PAIN Blood Pressure : / mmHG Vent. Rate : 096 BPM Atrial Rate : 096 BPM P-R Int : 158 ms QRS Dur : 110 ms QT Int : 386 ms P-R-T Axes : 041 050 064 degrees QTc Int : 487 ms Normal sinus rhythm Prolonged QT Abnormal ECG When compared with ECG of 05-FEB-2021 13:23, No significant change was found Referred By: Akash Rai Electronically Signed By:Miguel Flores
[2021-02-06 11:34] VITALS: PULSE 101; RESP 24; O2SAT 99
[2021-02-06] MEDS: Furosemide 40 MG/4 ML VIAL IVPUSH (12:16)
[2021-02-06] MEDS: Nitroglycerin 2 % Oint 1 GM Packet 1 INCH TRANSDERMA (12:18)
[2021-02-06 12:21] VITALS: BP 138/74; PULSE 99; RESP 22; O2SAT 97
[2021-02-06 12:34] LABS: MANUAL DIFF FLAG NO
[2021-02-06 12:36] LABS: Basophils Absolute Auto 0.1 X10*3/uL (0.0-0.2); Basophils Percent Auto 0.5 % (0-2); Eosinophils Absolute Auto 0.1 X10*3/uL (0.0-0.4); Hematocrit 40.4 % (42-52); Hemoglobin 12.2 g/dl (14.0-18.0); Imm Gran Abs Auto 0.03 X10*3/uL (0.00-0.03); Imm Gran Pct Auto 0.3 % (0.0-0.4); Lymphocytes Absolute Auto 1.4 X10*3/uL (1.2-4.9); Lymphocytes Percent Auto 13.3 % (20-40); Mean Corpuscular HGB Conc 30.2 g/dl (31.0-36.0); Mean Corpuscular Hemoglobin 25.4 pg (27.0-33.0); Mean Corpuscular Volume 84.2 fL (80-98); Mean Platelet Volume 9.5 fL (9.4-12.4); Monocytes Absolute Auto 0.7 X10*3/uL (0.1-1.2); Monocytes Percent Auto 6.5 % (2-11); Neutrophils Absolute Auto 8.2 X10*3/uL (2.0-8.3); Neutrophils Percent Auto 78.4 % (45-73); Platelet Count 348 X10*3/uL (160-400); Red Cell Distribution Width 14.8 % (11.0-16.0); White Blood Count 10.5 X10*3/uL (4.8-10.8)
[2021-02-06 13:02] LABS: Anion Gap 14 (12-20); Blood Urea Nitrogen 21 mg/dL (9-16); Calcium 9.1 mg/dL (8.4-10.2); Carbon Dioxide 24 mmol/L (22-29); Chloride 108 mmol/L (96-108); Creatinine Clr Calc Pharmacy 128.8; Estimated Glomerular Filt Rate > 60; Glucose Random 112 mg/dL (60-115); Potassium 4.3 mmol/L (3.3-5.1); Sodium 142 mmol/L (135-145)
[2021-02-06 13:05] LABS: B Type Natriuretic Peptide 391 pg/mL (<100)
[2021-02-06 13:06] LABS: Troponin-I High Sensitivity 8.3 ng/L (<3.5-35.0)
[2021-02-06 13:43] VITALS: BP 117/69; PULSE 100; RESP 16; O2SAT 97
[2021-02-06 14:37] VITALS: PULSE 101; O2SAT 93
== END 2021-02-06 15:08 | disposition home or self-care (01) ==
PROVIDERS: Emergency Provider Emergency Medicine; PCP Physician Assistant
DX: I50.9 Heart failure, unspecified (principal); R60.0 Localized edema; J44.9 Chronic obstructive pulmonary disease, unspecified; Z87.891 Personal history of nicotine dependence; F14.90 Cocaine use, unspecified, uncomplicated
CPT/HCPCS: 36415; 71045; 80048; 83880; 84484; 85025; 93005; 96374; 99284; J1940

== ENCOUNTER → 2021-03-08 12:47 | Outpatient (BNVA) | payer MEDICARE, MEDICAID, SELFPAY | PROVIDERS: PCP Physician Assistant; Referring Provider Physician Assistant; Visit Provider Internal Medicine | DX: I42.8 Other cardiomyopathies (principal); I50.22 Chronic systolic (congestive) heart failure; F14.10 Cocaine abuse, uncomplicated; G47.33 Obstructive sleep apnea (adult) (pediatric); Z79.899 Other long term (current) drug therapy | CPT/HCPCS: 99212 ==

== ENCOUNTER 2021-04-10 06:09 | Emergency (ER) | payer MEDICARE, MEDICAID, SELFPAY ==
--- NOTE | 2021-04-10 | ECG_ITS ---
Test Reason : CHEST PAIN Blood Pressure : / mmHG Vent. Rate : 097 BPM Atrial Rate : 097 BPM P-R Int : 156 ms QRS Dur : 104 ms QT Int : 390 ms P-R-T Axes : 049 -12 072 degrees QTc Int : 495 ms Normal sinus rhythm Possible Left atrial enlargement Nonspecific T wave abnormality Abnormal ECG When compared with ECG of 06-FEB-2021 11:35, Questionable change in QRS axis Referred By: Generic ED Physician Electronically Signed By:Miguel Flores
[2021-04-10 06:27] VITALS: BP 111/65; PULSE 99; RESP 22; TEMP 36.3; O2SAT 94; BMI 46.8
--- NOTE | 2021-04-10 07:34 | PC.NURSE ---
pt impatient after multiple blood draw attempts, pt difficult stick d/t hx of ivda. pt alerted this rn to wanting to go home at this time, advised to return if s/s worsen. pt sts he will take a double dose of his prescribed lasix if feeling sob.
== END 2021-04-10 07:36 | disposition left against medical advice (07) ==
PROVIDERS: Emergency Provider Emergency Medicine; PCP Physician Assistant
DX: R07.9 Chest pain, unspecified (principal); R06.02 Shortness of breath
CPT/HCPCS: 93005; 99282; 99283

== ENCOUNTER 2021-05-29 17:42 | Inpatient (IN) | payer MEDICARE, MEDICAID, SELFPAY ==
--- NOTE | 2021-05-29 | ECG_ITS ---
Test Reason : DYSPNEA Blood Pressure : / mmHG Vent. Rate : 106 BPM Atrial Rate : 106 BPM P-R Int : 160 ms QRS Dur : 110 ms QT Int : 368 ms P-R-T Axes : 054 -18 053 degrees QTc Int : 488 ms Sinus tachycardia Possible Left atrial enlargement Incomplete left bundle branch block Nonspecific T wave abnormality Abnormal ECG When compared with ECG of 10-APR-2021 06:28, No significant change was found Referred By: Generic ED Physician Electronically Signed By:MANUEL LINDSAY MD
--- NOTE | ~2021-05-29 | XR_ITS ---
EXAMINATION: CHEST 2 VIEWS CLINICAL INFORMATION: sob . COMPARISON: 02/06/2021. TECHNIQUE: PA and lateral views of the chest obtained. FINDINGS: Lungs well-expanded. There is central vascular prominence with indistinctness to the vessels increased from the prior study. No significant effusion or pneumothorax. Cardiac silhouette is enlarged. XR/XR chest 2V IMPRESSION: Enlarged cardiac silhouette with central vascular prominence and indistinctness to the vessels consistent with pulmonary edema.
[2021-05-29 17:45] VITALS: BP 117/84; PULSE 110; RESP 24; TEMP 36.8; O2SAT 94; BMI 48.4
[2021-05-29 18:44] LABS: MANUAL DIFF FLAG NO
[2021-05-29 19:06] LABS: Anion Gap 12 (12-20); Blood Urea Nitrogen 22 mg/dL (9-16); Calcium 9.1 mg/dL (8.4-10.2); Carbon Dioxide 24 mmol/L (22-29); Chloride 111 mmol/L (96-108); Creatinine Clr Calc Pharmacy 117.3; Estimated Glomerular Filt Rate > 60; Glucose Fasting 131 mg/dL (60-99); Potassium 4.3 mmol/L (3.3-5.1); Sodium 143 mmol/L (135-145)
[2021-05-29 19:13] LABS: B Type Natriuretic Peptide 848 pg/mL (<100); Basophils Absolute Auto 0.1 X10*3/uL (0.0-0.2); Basophils Percent Auto 0.6 % (0-2); Eosinophils Absolute Auto 0.2 X10*3/uL (0.0-0.4); Eosinophils Percent Auto 1.7 % (0-4); Hematocrit 36.7 % (42-52); Imm Gran Abs Auto 0.03 X10*3/uL (0.00-0.03); Imm Gran Pct Auto 0.3 % (0.0-0.4); Lymphocytes Absolute Auto 1.7 X10*3/uL (1.2-4.9); Lymphocytes Percent Auto 17.4 % (20-40); Mean Corpuscular Hemoglobin 23.7 pg (27.0-33.0); Mean Corpuscular Volume 79.1 fL (80-98); Mean Platelet Volume 9.7 fL (9.4-12.4); Monocytes Absolute Auto 0.5 X10*3/uL (0.1-1.2); Monocytes Percent Auto 5.3 % (2-11); Neutrophils Absolute Auto 7.2 X10*3/uL (2.0-8.3); Neutrophils Percent Auto 74.7 % (45-73); Platelet Count 330 X10*3/uL (160-400); Red Blood Count 4.64 X10*6/uL (4.60-5.80); Red Cell Distribution Width 16.2 % (11.0-16.0); Troponin-I High Sensitivity 12.3 ng/L (<3.5-35.0); White Blood Count 9.6 X10*3/uL (4.8-10.8)
[2021-05-29 19:31] LABS: Influenza A PCR NEGATIVE (Negative); Influenza B PCR NEGATIVE (Negative); Resp Syncy Virus RNA Qual PCR NEGATIVE (Negative); SARS COV2 PCR INHOUSE NEGATIVE (Negative)
--- NOTE | 2021-05-29 19:33 | ED.SOB ---
HPI - SOB/Dyspnea General Chief Complaint: Dyspnea Stated Complaint: sob Time Seen by Provider: 05/29/21 19:33 Source: patient Mode of arrival: ambulatory Limitations: no limitations History of Present Illness HPI Narrative: 50 years old male came in for evaluation of increased dyspnea since yesterday. Symptoms started yesterday, more when he lay supine position, no lower extremities edema or swelling. Patient had hospitalization for COVID pneumonia and acute on chronic congestive heart failure. Patient with a history of systolic heart failure with ejection fraction of 10-15% Related Data Previous Rx's Medication Instructions Recorded albuterol sulfate 90 mcg/actuation 2 puff INHALATION Q4-6H PRN #8.5 g 11/29/20 aerosol inhaler sacubitril 24 mg-valsartan 26 mg 1 tab PO BID 30 Days #60 tab 12/20/20 tablet (Entresto) furosemide 40 mg tablet 40 mg PO BID 30 Days #60 tab 03/03/21 Allergies Allergy/AdvReac Type Severity Reaction Status Date / Time cephalexin [From KEFLEX] Allergy Unknown UNKNOWN Verified 03/08/21 12:54 sulfamethoxazole Allergy Unknown UNKNOWN Verified 03/08/21 12:54 [From BACTRIM] trimethoprim [From BACTRIM] Allergy Unknown UNKNOWN Verified 03/08/21 12:54 Review of Systems Review of Systems: All other systems are reviewed and are negative Constitutional: Reports as per HPI and Reports no additional constitutional complaints Eyes: Reports as per HPI and Reports no additional eye complaints Reports system reviewed and no additional complaints, except as documented Cardiovascular: Reports as per HPI and Reports no additional cardiovascular complaints Respiratory: Reports as per HPI and Reports no additional respiratory complaints Gastrointestinal: Reports as per HPI and Reports no additional gastrointestinal complaints Genitourinary: Reports no additional female genitourinary complaints Musculoskeletal: Reports no additional musculoskeletal complaints Skin/Breast: Reports system reviewed and no additional complaints, except as docu Psychiatric: Reports no additional psychiatric complaints Endocrine: Reports no additional endocrine complaints Hematologic/Lymphatic: Reports no additional hematologic/lymphatic complaints Allergic/Immunologic: Reports no additional allergic/immunologic complaints Reports system reviewed and no additional complaints, except as documented and Reports Abnormal speech present [facility] Past Medical History Medical History (Updated 05/29/21 @ 19:47 by Heather Vegas MD) Asthma CHF (congestive heart failure) Chronic systolic (congestive) heart failure Cocaine abuse COPD (chronic obstructive pulmonary disease) NICM (nonischemic cardiomyopathy) LISSET (obstructive sleep apnea) Surgical History History of cardiac catheterization (~11/07/20) History of surgery Family History Family History Mother Ovarian cancer Diabetes Social History Social History Household Members: Significant Other Housing: House Do you presently have visiting nurse or other home services: No Alcohol intake: never Substance Use Type: Crack/Cocaine service: No Current occupational status: disabled Physical Exam Vital Signs: Vital Signs: Last Vital Signs Temp 98.2 F 05/29/21 17:45 Pulse 110 H 05/29/21 17:45 Resp 24 H 05/29/21 17:45 BP 117/84 05/29/21 17:45 Pulse Ox 94 05/29/21 17:45 Body Mass Index 48.4 Vital signs have been reviewed as appeared to be correct. Blood pressure normal. Heart rate elevated. Respiration rate elevated. Temperature normal. Oxygen saturation normal. Appearance: Alert. Oriented X3. No acute distress. Head: Normal external exam. Normocephalic. Atraumatic. No Lilly signs noted. No raccoon eyes noted Eyes: PERRLA. EOMI. Conjunctiva and sclera normal. Eyelids normal. ENT: TM's Normal. Pharynx normal. Uvula midline. Moist mucous membranes. No trismus noted. No drooling noted. No muffled voice noted. Neck: Normal inspection. Neck supple. FROM. No adenopathy. Thyroid Normal. No meningeal signs. No neck mass noted. CVS: Normal heart rate and rhythm. Heart sound normal. No murmurs noted. Pulses normal throughout. Respiratory: No respiratory distress. Painless inspiration. Breath sounds normal. No wheezes/rales/rhonchi noted. Chest nontender. No accessory muscle usage noted or decreased air movement noted. Abdomen: Soft and nontender. Bowel sounds normal in all 4 quadrants. No distention noted. No organomegaly noted. No visible injury noted. Back: No CVA tenderness. Full range of motion noted. Skin: Skin warm and dry. Normal skin color. Normal skin turgor. No rashes/lesions/lacerations noted. Extremities: No lower extremity edema. Extremities exhibit normal range of motion. Extremities nontender. Neuro: Oriented X 3. Cranial nerve exam: II-XII are grossly intact No motor deficit. No sensory deficit. Reflexes normal. Course Course Course Narrative: Assessment and plan. 50-year-old male with history of congestive heart failure can not man with increased dyspnea and worsening since yesterday, physical exam/findings are consistent with congestive heart failure, start the patient on Lasix and nitro and will admit. MDM - SOB/Dyspnea Lab Data Attestation: I reviewed the patient's lab results. Result diagrams: 05/29/21 18:38 05/29/21 18:38 Labs: Lab Results 05/29/21 05/29/21 05/29/21 Range/Units 18:38 18:38 18:38 WBC 9.6 (4.8-10.8) X10*3/uL RBC 4.64 (4.60-5.80) X10*6/uL Hgb 11.0 L (14.0-18.0) g/dl Hct 36.7 L (42-52) % MCV 79.1 L (80-98) fL MCH 23.7 L (27.0-33.0) pg MCHC 30.0 L (31.0-36.0) g/dl RDW 16.2 H (11.0-16.0) % Plt Count 330 (160-400) X10*3/uL MPV 9.7 (9.4-12.4) fL Immature Gran % (Auto) 0.3 (0.0-0.4) % Neut % (Auto) 74.7 H (45-73) % Lymph % (Auto) 17.4 L (20-40) % [place] % (Auto) 5.3 (2-11) % Eos % (Auto) 1.7 (0-4) % Baso % (Auto) 0.6 (0-2) % Lymph # (Auto) 1.7 (1.2-4.9) X10*3/uL [place] # (Auto) 0.5 (0.1-1.2) X10*3/uL Eos # (Auto) 0.2 (0.0-0.4) X10*3/uL Baso # (Auto) 0.1 (0.0-0.2) X10*3/uL Abs Immat Gran (auto) 0.03 (0.00-0.03) X10*3/uL Absolute Neuts (auto) 7.2 (2.0-8.3) X10*3/uL Absolute Nucleated RBC 0.000 (0.0-0.012) X10*3/uL Nucleated RBC % (auto) 0.0 (0.0-0.2) /100WBC Sodium 143 (135-145) mmol/L Potassium 4.3 (3.3-5.1) mmol/L Chloride 111 H (96-108) mmol/L Carbon Dioxide 24 (22-29) mmol/L Anion Gap 12 (12-20) BUN 22 H (9-16) mg/dL Creatinine 1.12 (0.5-1.4) mg/dL Estim Creat Clear Calc 117.3 Estimated GFR > 60 Fasting Glucose 131 H (60-99) mg/dL Calcium 9.1 (8.4-10.2) mg/dL Troponin I High Sens 12.3 (<3.5-35.0) ng/L B-Natriuretic Peptide 848 H (<100) pg/mL Coronavirus (PCR) (Negative) Influenza Type A (PCR) (Negative) Influenza Type B (PCR) (Negative) RSV RNA Qual (PCR) (Negative) 05/29/21 Range/Units 18:38 WBC (4.8-10.8) X10*3/uL RBC (4.60-5.80) X10*6/uL Hgb (14.0-18.0) g/dl Hct (42-52) % MCV (80-98) fL MCH (27.0-33.0) pg MCHC (31.0-36.0) g/dl RDW (11.0-16.0) % Plt Count (160-400) X10*3/uL MPV (9.4-12.4) fL Immature Gran % (Auto) (0.0-0.4) % Neut % (Auto) (45-73) % Lymph % (Auto) (20-40) % [place] % (Auto) (2-11) % Eos % (Auto) (0-4) % Baso % (Auto) (0-2) % Lymph # (Auto) (1.2-4.9) X10*3/uL [place] # (Auto) (0.1-1.2) X10*3/uL Eos # (Auto) (0.0-0.4) X10*3/uL Baso # (Auto) (0.0-0.2) X10*3/uL Abs Immat Gran (auto) (0.00-0.03) X10*3/uL Absolute Neuts (auto) (2.0-8.3) X10*3/uL Absolute Nucleated RBC (0.0-0.012) X10*3/uL Nucleated RBC % (auto) (0.0-0.2) /100WBC Sodium (135-145) mmol/L Potassium (3.3-5.1) mmol/L Chloride (96-108) mmol/L Carbon Dioxide (22-29) mmol/L Anion Gap (12-20) BUN (9-16) mg/dL Creatinine (0.5-1.4) mg/dL Estim Creat Clear Calc Estimated GFR Fasting Glucose (60-99) mg/dL Calcium (8.4-10.2) mg/dL Troponin I High Sens (<3.5-35.0) ng/L B-Natriuretic Peptide (<100) pg/mL Coronavirus (PCR) NEGATIVE (Negative) Influenza Type A (PCR) NEGATIVE (Negative) Influenza Type B (PCR) NEGATIVE (Negative) RSV RNA Qual (PCR) NEGATIVE (Negative) Imaging Data Chest x-ray: Radiologist's impression: Enlarged cardiac silhouette with central vascular prominence and indistinctness to the vessels consistent with pulmonary edema. Attending Attestation Sinus tachycardia at 106 beats per minutes, left axis deviation, incomplete left bundle branch block, no significant change from old EKG. Discharge Plan Discharge Clinical Impression: CHF (congestive heart failure) Patient Disposition: Admitted As Inpatient Prescriptions: No Action Entresto 24-26 mg tablet 1 tab PO BID 30 Days Qty: 60 RF: 5 furosemide 40 mg tablet 40 mg PO BID 30 Days Qty: 60 RF: 3 albuterol sulfate 90 mcg/actuation HFA aerosol inhaler 2 puff inhalation Q4-6H PRN (Reason: shortness of breath or wheezing) Qty: 8.5 RF: 0
[2021-05-29 20:00] VITALS: BP 113/89; PULSE 109; RESP 16; O2SAT 94
[2021-05-29 20:15] VITALS: BP 113/89; PULSE 109
[2021-05-29] MEDS: Nitroglycerin 2 % Oint 1 GM Packet 0.5 INCH TRANSDERMA (20:15)
[2021-05-29] MEDS: Furosemide 40 MG/4 ML VIAL IVPUSH (20:23)
--- NOTE | 2021-05-29 21:22 | PHA.MEDREC ---
Pharmacy Consult ? Medication Reconciliation Pharmacy has completed the medication reconciliation.
[2021-05-29] MEDS: Enoxaparin Sodium 40 MG/0.4 ML SYRINGE SUBCUT (22:21)
--- NOTE | 2021-05-29 22:24 | PC.NURSE ---
PT REFUSED LASIX, STATED HE DOESN'T WANT TO BE UP ALL NIGHT PEEING HOSPITALIST NOTIFIED
--- NOTE | 2021-05-29 22:31 | P.HPHOSP_ITS ---
History of Present Illness Date of Service: 05/29/21 Chief Complaint: SOB This is a 50-year-old male with past medical history of asthma, CHF with ejection fraction of 10-15%, COPD, LISSET, and history of cocaine abuse who presents to the hospital with complaints of shortness of breath. Patient reports that his shortness of breath started about 3 days ago. Worsening today. He is having significant orthopnea and PND. Dry cough, he has also had multiple syncopal episode for the past 3 days. He passes out for few seconds butmostly catches himself. He reports that he completely loses consciousness and hit his head once. Denies any palpitations, or chest pain prior to these syncopal spells. Denies any prodromal or postictal symptoms. Does have lower extremity edema that also began about 3-4 days ago. Patient reports that he does sometimes misses his Lasix dose due to forgetfullness. He missed couple of doses last week. Denies using cocaine in the past week. Denies any nausea or vomiting, no abdominal pain, no urinary symptoms. No diarrhea constipation. No headache or change in vision. No numbness tingling. On arrival to the ED vitals are significant for temperature of 98.2?, heart rate of 110, respiratory rate of 24, blood pressure of 117/84, satting 94% on room air Labs are significant for WBC count of 9.6, hemoglobin of 11 which is lower than his usual baseline of 12-13, hematocrit of 36.7, MCV of 79, BUN of 23, creatinine of 1.12 , BNP of 848, COVID-19 negative Chest x-ray showing significant for enlarged cardiac silhouette with central vascular prominence and indistinctness to the vessels consistent with pulmonary edema Review of system otherwise negative Past medical history as below in confirm with patient Review of Systems Review of Systems: Yes all other systems are reviewed and are negative [facility] Medical History Asthma CHF (congestive heart failure) Chronic systolic (congestive) heart failure Cocaine abuse COPD (chronic obstructive pulmonary disease) NICM (nonischemic cardiomyopathy) LISSET (obstructive sleep apnea) Family History Mother Ovarian cancer Diabetes Surgical History History of cardiac catheterization (~11/07/20) History of surgery Social History Household Members: Spouse Housing: Other Do you presently have visiting nurse or other home services: No Alcohol intake: never Patient Tobacco Use Status: Never used Tobacco Use of substances other than those prescribed or required for medical reasons: Yes Substance Use Type: Crack/Cocaine Substance Use Frequency: Occasionally Last Used Substance: Weeks (ago) Currently Displaying Signs/Symptoms of Drug Intoxication Withdrawal: No Any prior treatment program specific to substance use: Yes Have you been hit, kicked, punched, or otherwise hurt by someone within the past year? If so, by whom?: No Do you feel safe in your current relationship?: Yes Is there a partner from a previous relationship who is making you feel unsafe now?: No Are you made to feel afraid or neglected: No Advance Directives: No Advance Directives Information Provided: No Do you have thoughts of harming others: None Do you have a plan to hurt others: No Plan Recently lost weight without trying: No How much weight loss: Not applicable Eating poorly because of decreased appetite: No Nutrition screen score: 0 Nutrition Risks: No Nutritional Risk Poor oral hygiene: No service: No Current occupational status: disabled Meds Allergies Allergy/AdvReac Type Severity Reaction Status Date / Time cephalexin [From KEFLEX] Allergy Unknown UNKNOWN Verified 03/08/21 12:54 sulfamethoxazole Allergy Unknown UNKNOWN Verified 03/08/21 12:54 [From BACTRIM] trimethoprim [From BACTRIM] Allergy Unknown UNKNOWN Verified 03/08/21 12:54 Active Medications: Current Medications Generic Name Dose Route Start Last Admin Trade Name Freq PRN Reason Stop Dose Admin Acetaminophen 650 mg 05/29/21 21:47 Acetaminophen 325 Mg Tablet PO Q6H PRN Pain, Mild (Pain Scale 1-3) Docusate Sodium 100 mg 05/29/21 21:47 Docusate Sodium 100 Mg Capsule PO DAILY PRN Constipation Enoxaparin Sodium 40 mg 05/29/21 22:00 05/29/21 22:21 Enoxaparin Sodium 40 Mg/0.4 Ml Syringe SUBCUT 40 mg Q24H EZEQUIEL Administration Furosemide 40 mg 05/29/21 21:47 05/29/21 22:20 Furosemide 40 Mg/4 Ml Vial IVPUSH Not Given BIDWM [facility] Protocol Ondansetron HCl 4 mg 05/29/21 21:47 Ondansetron Hcl 4 Mg/2 Ml Vial IVPUSH Q8H PRN Nausea and Vomiting Pharmacy Consult 1 each 05/29/21 21:13 Consult Rx Perform Med Rec MISCELLANE ONCE PRN Consult order Sodium Chloride 3 ml 05/30/21 00:00 0.9 % Sodium Chloride Flush 3 Ml Syringe IVFLUSH QSHIFT [facility] Physical Exam Vital Signs and Narrative: Vital Signs: Last Vital Signs Temp 98.2 F 05/29/21 17:45 Pulse 109 H 05/29/21 20:15 Resp 16 05/29/21 20:00 BP 113/89 05/29/21 20:15 Pulse Ox 94 05/29/21 17:45 Body Mass Index 48.4 Const: General: cooperative and no acute distress Orie ntation/consciousness: patient oriented x3 Eyes: General: appearance normal, both eyes and all related structures Resp: Effort & Inspection: normal respiratory effort and able to speak in complete sentences Auscultation: rhonchi Cardio: Rate: regular rate Rhythm: regular rhythm GI: Palpation (GI): Soft to palpation Auscultation: normal bowel sounds Skin: General skin exam: no rashes or lesions noted Neuro: General: patient oriented x3 Cognition (Neuro): normal cognition Extrem: Other: 2+ pedal edema bilaterally General: Yes normal to inspection Results Labs CBC and Chem 7: 05/29/21 18:38 05/29/21 18:38 Labs: Laboratory Results - last 24 hr 05/29/21 05/29/21 05/29/21 18:38 18:38 18:38 MCV 79.1 L MCH 23.7 L MCHC 30.0 L RDW 16.2 H Plt Count 330 MPV 9.7 Immature Gran % (Auto) 0.3 Neut % (Auto) 74.7 H Lymph % (Auto) 17.4 L [place] % (Auto) 5.3 Eos % (Auto) 1.7 Baso % (Auto) 0.6 Lymph # (Auto) 1.7 [place] # (Auto) 0.5 Eos # (Auto) 0.2 Baso # (Auto) 0.1 Abs Immat Gran (auto) 0.03 Absolute Neuts (auto) 7.2 Absolute Nucleated RBC 0.000 Nucleated RBC % (auto) 0.0 Anion Gap 12 Estim Creat Clear Calc 117.3 Estimated GFR > 60 Fasting Glucose 131 H Calcium 9.1 Troponin I High Sens 12.3 B-Natriuretic Peptide 848 H Coronavirus (PCR) Influenza Type A (PCR) Influenza Type B (PCR) RSV RNA Qual (PCR) 05/29/21 18:38 MCV MCH MCHC RDW Plt Count MPV Immature Gran % (Auto) Neut % (Auto) Lymph % (Auto) [place] % (Auto) Eos % (Auto) Baso % (Auto) Lymph # (Auto) [place] # (Auto) Eos # (Auto) Baso # (Auto) Abs Immat Gran (auto) Absolute Neuts (auto) Absolute Nucleated RBC Nucleated RBC % (auto) Anion Gap Estim Creat Clear Calc Estimated GFR Fasting Glucose Calcium Troponin I High Sens B-Natriuretic Peptide Coronavirus (PCR) NEGATIVE Influenza Type A (PCR) NEGATIVE Influenza Type B (PCR) NEGATIVE RSV RNA Qual (PCR) NEGATIVE ECG Interpretation: Sinus tachycardia with heart rate of 106, nonspecific T-wave abnormality, no significant change from EKG done on April 10 Imaging Radiologist's Impressions: Impressions Chest X-Ray 05/29/21 17:53 IMPRESSION: Enlarged cardiac silhouette with central vascular prominence and indistinctness to the vessels consistent with pulmonary edema. Assessment and Plan (1) Acute on chronic systolic (congestive) heart failure: Status: Acute This is a 50-year-old male with past medical history of heart failure with an ejection fraction of 10-15% who presents to the hospital with complaints of shortness of breath found to have CHF exacerbation # acute CHF exacerbation - most likely due to noncompliance with his Lasix - patient reports that he took his p.o. Lasix today, was given 20 mg of IV Lasix in the ED, - I attempted to give him another dose of 40 mg IV dose but patient refused stating that he does not want to pee all night. - will start him on Lasix 40 b.i.d. - low sodium diet, strict I&O, daily weight - last echocardiogram was done in September showed an ejection of fraction of 10- 15%, will repeat echo - no significant elevation in troponin - cardiology consulted - continue Entresto # sleep apnea - patient reports that he uses his CPAP but not every night - will start him on BiPAP at bedtime that will also help with his CHF # COPD/asthma - no exacerbation - continue p.r.n. albuterol inhaler DVT prophylaxis: Lovenox Quality Stroke Does the patient have a stroke diagnosis?: No VTE Prior VTE?: No VTE Risk Level:: Medical - moderate - high VTE Device Contraindication: Treatment Not Indicated VTE Drug Contraindication: N/A - Med Ordered
[2021-05-30] VITALS (9 sets, daily range): BP systolic 99–154; BP diastolic 61–106; PULSE 99–107; RESP 16–23; TEMP 36.2–37.1; O2SAT 92–99
--- NOTE | 2021-05-30 00:28 | PC.NURSE ---
nurse to nurse report given to Janny FODR
[2021-05-30] MEDS: 0.9 % Sodium Chloride Flush 3 ML SYRINGE IVFLUSH ×4 (01:18→21:14)
[2021-05-30 06:26] LABS: MANUAL DIFF FLAG NO
[2021-05-30 06:53] LABS: Basophils Absolute Auto 0.1 X10*3/uL (0.0-0.2); Basophils Percent Auto 0.5 % (0-2); Eosinophils Absolute Auto 0.2 X10*3/uL (0.0-0.4); Eosinophils Percent Auto 1.6 % (0-4); Hematocrit 37.3 % (42-52); Hemoglobin 11.3 g/dl (14.0-18.0); Imm Gran Abs Auto 0.04 X10*3/uL (0.00-0.03); Imm Gran Pct Auto 0.4 % (0.0-0.4); Lymphocytes Absolute Auto 1.6 X10*3/uL (1.2-4.9); Lymphocytes Percent Auto 16.7 % (20-40); Mean Corpuscular HGB Conc 30.3 g/dl (31.0-36.0); Mean Corpuscular Volume 79.2 fL (80-98); Mean Platelet Volume 9.3 fL (9.4-12.4); Monocytes Absolute Auto 0.6 X10*3/uL (0.1-1.2); Monocytes Percent Auto 6.6 % (2-11); Neutrophils Absolute Auto 6.9 X10*3/uL (2.0-8.3); Neutrophils Percent Auto 74.2 % (45-73); Platelet Count 340 X10*3/uL (160-400); Red Blood Count 4.71 X10*6/uL (4.60-5.80); White Blood Count 9.3 X10*3/uL (4.8-10.8)
[2021-05-30 07:04] LABS: Anion Gap 12 (12-20); Blood Urea Nitrogen 18 mg/dL (9-16); Calcium 8.9 mg/dL (8.4-10.2); Carbon Dioxide 25 mmol/L (22-29); Chloride 109 mmol/L (96-108); Creatinine Clr Calc Pharmacy 125.1; Estimated Glomerular Filt Rate > 60; Glucose Random 158 mg/dL (60-115); Potassium 4.1 mmol/L (3.3-5.1); Sodium 142 mmol/L (135-145)
[2021-05-30] MEDS: Furosemide 40 MG/4 ML VIAL IVPUSH ×2 (07:28→16:35)
--- NOTE | 2021-05-30 08:36 | MHC.CM.PN ---
CM MET WITH PT WHO REPORTS HE LIVES AT HOME WITH HIS AND IS INDEPENDENT WITH ALL CARE AND MOBILITY. PT REPORTS HE USES ONLY A CPAP AT HOME AND HAS NO HOME OR COMMUNITY SERVICES. PT REPORTS HE IS ACTIVE WITH DR DOMINGUEZ FOR PRIMARY CARE. PT CONFIRMS THE HCP ON FILE, NAMING HIS CLARY HIS AGENT, IS ACCURATE. IMM DELIVERED CURRENT DC PLAN IS HOME WITH NO SERVICES PT WILL SELF ARRANGE TRANSPORT
[2021-05-30] MEDS: Sacubitril/Valsartan 24/26 1 TAB TABLET PO (09:23)
--- NOTE | 2021-05-30 10:10 | P.CONCA_ITS ---
History of Present Illness History of Present Illness Date of Service: 05/30/21 Requesting physician: Yoselyn Beltran Chief complaint: CHF Exacerbation Narrative: I was requested to see Leandro in cardiology consultation today for decompensated congestive heart failure. He has prior history of severe LV systolic dysfunction secondary nonischemic cardiomyopathy and heart failure with reduced ejection fraction, lack of follow-up as per the patient he missed his last appointment and has not heard back. He had missed couple of dose of Lasix last week but says that he was doing okay except for last 3 days any started progressively getting more short of breath and having orthopnea PND. No clear leg edema or weight gain. He said he still uses cocaine but not as frequently as before last time used about a week ago. Does not use CPAP consistently. Has been taking his Entresto and Lasix as prescribed. In the past he was not prescribed beta-blockers due to his cocaine use. Last follow-up in the office was in November. Patient continues to be short of breath but says he is better compared to yesterday. Has been diuresing but output chart has not been well maintained. Getting IV Lasix. Also getting Entresto at this point in time. Denies any chest pain, palpitations, lightheadedness, syncope. No dietary indiscretion as per him. Review of Systems Constitutional: Constitutional: Reports no additional constitutional complaints Eyes: Eyes: Reports no additional eye complaints ENT: Reports system reviewed and no additional complaints, except as documented Cardiovascular: Cardiovascular: Denies chest pain, Denies lightheadedness, Denies Loss of Consciousness, Denies palpitations, Reports dyspnea on exertion, Reports orthopnea and Reports paroxysmal nocturnal dyspnea Respiratory: Respiratory: Reports cough, Denies excessive phlegm production and Reports dyspnea on exertion Gastrointestinal: Gastrointestinal: Reports no additional gastrointestinal complaints Genitourinary: Genitourinary: Reports no additional male genitourinary complaints Musculoskeletal: Musculoskeletal: Reports no additional musculoskeletal complaints Integumentary/Breasts: Skin/Breast: Reports system reviewed and no additional complaints, except as docu Neurologic: Reports system reviewed and no additional complaints, except as documented Psychiatric: Psychiatric: Reports no additional psychiatric complaints Endocrine: Endocrine: Denies palpitations PMFSH Past Medical History Medical History Asthma CHF (congestive heart failure) Chronic systolic (congestive) heart failure Cocaine abuse COPD (chronic obstructive pulmonary disease) NICM (nonischemic cardiomyopathy) LISSET (obstructive sleep apnea) Family History Family History Mother Ovarian cancer Diabetes Surgical History Surgical History History of cardiac catheterization (~11/07/20) History of surgery Social History Social History Household Members: Spouse Housing: Other Do you presently have visiting nurse or other home services: No Alcohol intake: never Patient Tobacco Use Status: Never used Tobacco Use of substances other than those prescribed or required for medical reasons: Yes Substance Use Type: Crack/Cocaine Substance Use Frequency: Occasionally Last Used Substance: Weeks (ago) Currently Displaying Signs/Symptoms of Drug Intoxication Withdrawal: No Any prior treatment program specific to substance use: Yes Have you been hit, kicked, punched, or otherwise hurt by someone within the past year? If so, by whom?: No Do you feel safe in your current relationship?: Yes Is there a partner from a previous relationship who is making you feel unsafe now?: No Are you made to feel afraid or neglected: No Advance Directives: No Advance Directives Information Provided: No Do you have thoughts of harming others: None Do you have a plan to hurt others: No Plan Recently lost weight without trying: No How much weight loss: Not applicable Eating poorly because of decreased appetite: No Nutrition screen score: 0 Nutrition Risks: No Nutritional Risk Poor oral hygiene: No service: No Current occupational status: unemployed and disabled Meds Allergies Allergy/AdvReac Type Severity Reaction Status Date / Time cephalexin [From KEFLEX] Allergy Unknown UNKNOWN Verified 03/08/21 12:54 sulfamethoxazole Allergy Unknown UNKNOWN Verified 03/08/21 12:54 [From BACTRIM] trimethoprim [From BACTRIM] Allergy Unknown UNKNOWN Verified 03/08/21 12:54 Active Medications: Current Medications Generic Name Dose Route Start Last Admin Trade Name Freq PRN Reason Stop Dose Admin Acetaminophen 650 mg 05/29/21 21:47 Acetaminophen 325 Mg Tablet PO Q6H PRN Pain, Mild (Pain Scale 1-3) Docusate Sodium 100 mg 05/29/21 21:47 Docusate Sodium 100 Mg Capsule PO DAILY PRN Constipation Enoxaparin Sodium 40 mg 05/29/21 22:00 05/29/21 22:21 Enoxaparin Sodium 40 Mg/0.4 Ml Syringe SUBCUT 40 mg Q24H EZEQUIEL Administration Furosemide 40 mg 05/29/21 21:47 05/30/21 07:28 Furosemide 40 Mg/4 Ml Vial IVPUSH 40 mg BIDWM EZEQUIEL Administration Protocol Ondansetron HCl 4 mg 05/29/21 21:47 Ondansetron Hcl 4 Mg/2 Ml Vial IVPUSH Q8H PRN Nausea and Vomiting Pharmacy Consult 1 each 05/29/21 21:13 Consult Rx Perform Med Rec MISCELLANE ONCE PRN Consult order Sacubitril/Valsartan 1 tab 05/30/21 09:00 05/30/21 09:23 Sacubitril/Valsartan 1 Tab Tablet PO 1 tab BID EZEQUIEL Administration Protocol Sodium Chloride 3 ml 05/30/21 00:00 05/30/21 07:28 0.9 % Sodium Chloride Flush 3 Ml Syringe IVFLUSH 3 ml QSHIFT EZEQUIEL Administration Physical Exam Vital Signs: Vital Signs: Last Vital Signs Temp 97.4 F 05/30/21 07:07 Pulse 102 H 05/30/21 07:07 Resp 23 H 05/30/21 07:07 BP 148/91 H 05/30/21 07:07 Pulse Ox 96 05/30/21 07:07 Body Mass Index 48.4 Const: General: cooperative, comfortable, in distress moderate and respiratory , tired appearing and other (Goes off to sleep frequently) Nutritional Appearance: obese Orientation/consciousness: patient oriented x3 HENMT: Head: Yes normocephalic and Yes atraumatic Neck: Neck: Yes trachea midline, Yes supple and Yes JVD (Difficult to evaluate) Resp: Effort & Inspection: normal respiratory effort Auscultation: clear to auscultation bilaterally Cardio: Palpation: abnormal PMI displaced PMI Rate: regular rate Rhythm: regular rhythm Heart sounds: S1 normal heart sound present, S2 normal heart sound present, no click, Gallop heart sound present, no murmurs and no rubs GI: Auscultation: normal bowel sounds Skin: General skin exam: no rashes or lesions noted Neuro: General: patient oriented x3 and no focal motor deficits Extrem: General: Yes no clubbing, cyanosis or edema Results Labs and Meds Result diagrams: 05/30/21 06:14 05/30/21 06:14 Lab results: Laboratory Results - last 24 hr 05/29/21 05/29/21 05/29/21 18:38 18:38 18:38 WBC 9.6 RBC 4.64 Hgb 11.0 L Hct 36.7 L MCV 79.1 L MCH 23.7 L MCHC 30.0 L RDW 16.2 H Plt Count 330 MPV 9.7 Immature Gran % (Auto) 0.3 Neut % (Auto) 74.7 H Lymph % (Auto) 17.4 L [place] % (Auto) 5.3 Eos % (Auto) 1.7 Baso % (Auto) 0.6 Lymph # (Auto) 1.7 [place] # (Auto) 0.5 Eos # (Auto) 0.2 Baso # (Auto) 0.1 Abs Immat Gran (auto) 0.03 Absolute Neuts (auto) 7.2 Absolute Nucleated RBC 0.000 Nucleated RBC % (auto) 0.0 Sodium 143 Potassium 4.3 Chloride 111 H Carbon Dioxide 24 Anion Gap 12 BUN 22 H Creatinine 1.12 Estim Creat Clear Calc 117.3 Estimated GFR > 60 Random Glucose Fasting Glucose 131 H Calcium 9.1 Troponin I High Sens 12.3 B-Natriuretic Peptide 848 H Coronavirus (PCR) Influenza Type A (PCR) Influenza Type B (PCR) RSV RNA Qual (PCR) 05/29/21 05/30/21 05/30/21 18:38 06:14 06:14 WBC 9.3 RBC 4.71 Hgb 11.3 L Hct 37.3 L MCV 79.2 L MCH 24.0 L MCHC 30.3 L RDW 16.0 Plt Count 340 MPV 9.3 L Immature Gran % (Auto) 0.4 Neut % (Auto) 74.2 H Lymph % (Auto) 16.7 L [place] % (Auto) 6.6 Eos % (Auto) 1.6 Baso % (Auto) 0.5 Lymph # (Auto) 1.6 [place] # (Auto) 0.6 Eos # (Auto) 0.2 Baso # (Auto) 0.1 Abs Immat Gran (auto) 0.04 H Absolute Neuts (auto) 6.9 Absolute Nucleated RBC 0.000 Nucleated RBC % (auto) 0.0 Sodium 142 Potassium 4.1 Chloride 109 H Carbon Dioxide 25 Anion Gap 12 BUN 18 H Creatinine 1.05 Estim Creat Clear Calc 125.1 Estimated GFR > 60 Random Glucose 158 H D Fasting Glucose Calcium 8.9 Troponin I High Sens B-Natriuretic Peptide Coronavirus (PCR) NEGATIVE Influenza Type A (PCR) NEGATIVE Influenza Type B (PCR) NEGATIVE RSV RNA Qual (PCR) NEGATIVE ECG Attestation: I personally reviewed and interpreted this ECG as follows: Interpretation: EKG shows sinus tachycardia with left atrial enlargement with incomplete left bundle-branch block and nonspecific T-wave changes Imaging Radiologist's impression: Impressions Chest X-Ray 05/29/21 17:53 IMPRESSION: Enlarged cardiac silhouette with central vascular prominence and indistinctness to the vessels consistent with pulmonary edema. Assessment and Plan (1) Acute on chronic systolic (congestive) heart failure: Status: Acute Acute decompensated systolic heart failure, most likely noncompliance with medicines as well as cocaine use and noncompliance with CPAP. Patient still appears to be short of breath. Continue IV diuresis with Lasix 40 mg IV b.i.d.. Strict intake and output chart needs to be pursued. Discussed with patient and the nursing staff about the same. Will maximize Entresto given his blood pressure is elevated. Will add Aldactone 12.5 mg to his regimen. Follow-up BMP and BNP. Arrange for he urine toxicology screen. If cocaine is negative initiate carvedilol. Discussed with patient about abstinence from cocaine so that we can maximize and start him on guideline directed medical therapy appropriately. He is in agreement with it. Importance of compliance with follow-up as well as medications and CPAP was discussed. He nodded to it. Will continue to follow the patient. Repeat echocardiogram. Procedures Date of Service Date of Service: 05/30/21
[2021-05-30] MEDS: Spironolactone 25 MG TABLET 12.5 MG PO (11:36)
--- NOTE | 2021-05-30 13:00 | HO.PM.IMPN ---
Subjective Subjective Date of Service: 05/30/21 Interval History: Feels better less short of breath this morning, denies chest pain, no dizziness, no palpitation. Review of Systems General no headache, no dizziness no fever chills. CVS no chest pain, no palpitation. Respiratory no cough , less shortness of breath Gastrointestinal no nausea no vomiting, no abdominal pain Physical Exam Vital Signs: Vital Signs: Last Vital Signs Temp 98.4 F 05/30/21 11:19 Pulse 103 H 05/30/21 11:19 Resp 22 H 05/30/21 11:19 BP 115/66 05/30/21 11:19 Pulse Ox 97 05/30/21 11:19 Body Mass Index 48.4 General resting comfortably in no acute distress. Neck supple no JVD. CVS regular rate rhythm, Respiratory lungs clear to auscultation, no respiratory distress, no rales, no rhonchi. Gastrointestinal abdomen soft, nontender, bowel sounds audible, no guarding , no rigidity. Extremities no edema. Neuro nonfocal Psych appropriate affect Skin no rash Objective Data Current Medications Generic Name Dose Route Start Last Admin Trade Name Freq PRN Reason Stop Dose Admin Acetaminophen 650 mg 05/29/21 21:47 Acetaminophen 325 Mg Tablet PO Q6H PRN Pain, Mild (Pain Scale 1-3) Docusate Sodium 100 mg 05/29/21 21:47 Docusate Sodium 100 Mg Capsule PO DAILY PRN Constipation Enoxaparin Sodium 40 mg 05/29/21 22:00 05/29/21 22:21 Enoxaparin Sodium 40 Mg/0.4 Ml Syringe SUBCUT 40 mg Q24H EZEQUIEL Administration Furosemide 40 mg 05/29/21 21:47 05/30/21 07:28 Furosemide 40 Mg/4 Ml Vial IVPUSH 40 mg BIDWM EZEQUIEL Administration Protocol Ondansetron HCl 4 mg 05/29/21 21:47 Ondansetron Hcl 4 Mg/2 Ml Vial IVPUSH Q8H PRN Nausea and Vomiting Pharmacy Consult 1 each 05/29/21 21:13 Consult Rx Perform Med Rec MISCELLANE ONCE PRN Consult order Sacubitril/Valsartan 1 tab 05/30/21 21:00 Sacubitril/Valsartan 49/51 1 Tab Tablet PO BID EZEQUIEL Protocol Sodium Chloride 3 ml 05/30/21 00:00 05/30/21 07:28 0.9 % Sodium Chloride Flush 3 Ml Syringe IVFLUSH 3 ml QSHIFT EZEQUIEL Administration Spironolactone 12.5 mg 05/30/21 10:20 05/30/21 11:36 Spironolactone 25 Mg Tablet PO 12.5 mg DAILY EZEQUIEL Administration Protocol Labs CBC & Chem 7: 05/30/21 06:14 05/30/21 06:14 Labs: Laboratory Results - last 24 hr 05/29/21 05/29/21 05/29/21 18:38 18:38 18:38 MCV 79.1 L MCH 23.7 L MCHC 30.0 L RDW 16.2 H Plt Count 330 MPV 9.7 Immature Gran % (Auto) 0.3 Neut % (Auto) 74.7 H Lymph % (Auto) 17.4 L Weakley % (Auto) 5.3 Eos % (Auto) 1.7 Baso % (Auto) 0.6 Lymph # (Auto) 1.7 Weakley # (Auto) 0.5 Eos # (Auto) 0.2 Baso # (Auto) 0.1 Abs Immat Gran (auto) 0.03 Absolute Neuts (auto) 7.2 Absolute Nucleated RBC 0.000 Nucleated RBC % (auto) 0.0 Anion Gap 12 Estim Creat Clear Calc 117.3 Estimated GFR > 60 Random Glucose Fasting Glucose 131 H Calcium 9.1 Troponin I High Sens 12.3 B-Natriuretic Peptide 848 H Urine Opiates Screen Ur Barbiturates Screen Ur Phencyclidine Scrn Ur Amphetamines Screen U Benzodiazepines Scrn Urine Cocaine Screen U Marijuana (THC) Screen Coronavirus (PCR) Influenza Type A (PCR) Influenza Type B (PCR) RSV RNA Qual (PCR) 05/29/21 05/30/21 05/30/21 18:38 06:14 06:14 MCV 79.2 L MCH 24.0 L MCHC 30.3 L RDW 16.0 Plt Count 340 MPV 9.3 L Immature Gran % (Auto) 0.4 Neut % (Auto) 74.2 H Lymph % (Auto) 16.7 L Weakley % (Auto) 6.6 Eos % (Auto) 1.6 Baso % (Auto) 0.5 Lymph # (Auto) 1.6 Weakley # (Auto) 0.6 Eos # (Auto) 0.2 Baso # (Auto) 0.1 Abs Immat Gran (auto) 0.04 H Absolute Neuts (auto) 6.9 Absolute Nucleated RBC 0.000 Nucleated RBC % (auto) 0.0 Anion Gap 12 Estim Creat Clear Calc 125.1 Estimated GFR > 60 Random Glucose 158 H D Fasting Glucose Calcium 8.9 Troponin I High Sens B-Natriuretic Peptide Urine Opiates Screen Ur Barbiturates Screen Ur Phencyclidine Scrn Ur Amphetamines Screen U Benzodiazepines Scrn Urine Cocaine Screen U Marijuana (THC) Screen Coronavirus (PCR) NEGATIVE Influenza Type A (PCR) NEGATIVE Influenza Type B (PCR) NEGATIVE RSV RNA Qual (PCR) NEGATIVE 05/30/21 10:45 MCV MCH MCHC RDW Plt Count MPV Immature Gran % (Auto) Neut % (Auto) Lymph % (Auto) Weakley % (Auto) Eos % (Auto) Baso % (Auto) Lymph # (Auto) Weakley # (Auto) Eos # (Auto) Baso # (Auto) Abs Immat Gran (auto) Absolute Neuts (auto) Absolute Nucleated RBC Nucleated RBC % (auto) Anion Gap Estim Creat Clear Calc Estimated GFR Random Glucose Fasting Glucose Calcium Troponin I High Sens B-Natriuretic Peptide Urine Opiates Screen Not Detected Ur Barbiturates Screen Not Detected Ur Phencyclidine Scrn Not Detected Ur Amphetamines Screen Not Detected U Benzodiazepines Scrn Not Detected Urine Cocaine Screen POSITIVE H U Marijuana (THC) Screen Not Detected Coronavirus (PCR) Influenza Type A (PCR) Influenza Type B (PCR) RSV RNA Qual (PCR) Assessment and Plan (1) LISSET (obstructive sleep apnea): Status: Acute (2) Cocaine abuse: Status: Acute (3) NICM (nonischemic cardiomyopathy): Status: Acute (4) Acute on chronic systolic (congestive) heart failure: Status: Acute Assessment and Plan: 50-year-old male with past medical history of heart failure with an ejection fraction of 10-15% who presents to the hospital with complaints of shortness of breath found to have CHF exacerbation # acute on chronic systolic CHF exacerbation - most likely due to noncompliance with home meds - shortness of breath is improving will continue to diurese with IV Lasix follow daily weight i/os , follow BMP and BNP Case discussed with Cardiology, they recommend to add Aldactone 12.5 mg daily and to maximize Entresto given elevated blood pressure Urine toxicology positive for cocaine therefore not a candidate for beta-krista last echocardiogram in September showed an ejection of fraction of 10-15%, follow repeat echo no significant elevation in troponin # sleep apnea - noncomplaince with cpap, continue CPAP # COPD/asthma - no exacerbation - continue p.r.n. albuterol inhaler # cocaine abuse strongly recommend to abstain from illicit drug use will obtain care team consult. DVT prophylaxis:? Lovenox Quality Stroke Does the patient have a stroke diagnosis?: No VTE Prior VTE?: No VTE Risk Level:: Medical - moderate - high VTE Device Contraindication: Treatment Not Indicated VTE Drug Contraindication: N/A - Med Ordered
[2021-05-30 13:03] LABS: Amphetamine Screen Urine Not Detected (Not Detect); Barbiturates, Urine Not Detected (Not Detect); Benzodiazepines Screen Urine Not Detected (Not Detect); Cannabinoid Screen Urine Not Detected (Not Detect); Cocaine Screen Urine POSITIVE (Not Detect); Fentanyl, urine Not Detected (Not Detect); Opiate Screen Urine Not Detected (Not Detect); Phencyclidine Screen Urine Not Detected (Not Detect)
--- NOTE | 2021-05-30 14:00 | CA_ITS ---
Transthoracic Echocardiogram Patient (Last, First, Middle): Leandro Bartlett M Gender: Male Date of : 1970 Age: 50 Procedure Date: 05/30/2021 Procedure Type: Transthoracic Echocardiogram Location: S3W Height: 177.8 cm Weight: 153.32 kg BSA: 2.61 m2 Heart Rate: bpm BP: 115 / 66 mmHg Jewelry Facer: MAURICE/CAMILLA Referring MD: Yoselyn Beltran MD Manager Poker: Mariusz Muhammad MD Symptoms: chf Study Quality: Fair ECG Rhythm: Sinus Conclusions: - 1. Severely dilated left ventricle with severe LV systolic dysfunction with LVEF of 10-15% 2. Mild left atrial enlargement 3. Normal cardiac valvular Doppler 4. Normal RV systolic pressure 5. No pericardial effusion Findings Left Ventricle Severely increased left ventricular cavity size. There is normal left ventricular wall thickness. The left ventricular systolic function is severely decreased. The visually estimated ejection fraction is between 10 15%. Diastolic function is indeterminate on the basis of available data. Right Ventricle Mildly increased right ventricular cavity size. There is normal right ventricular systolic function. Atria The left atrium is mildly dilated. There is no evidence of interatrial shunt. The right atrium is likely dilated. Aortic Valve Normal aortic valve structure and function. There is no aortic valve stenosis. There is no aortic valve regurgitation. Mitral Valve Likely normal mitral valve structure and function. There is trace mitral valve regurgitation. There is no mitral valve stenosis. There is moderate mitral annular dilatation. Pulmonic Valve The pulmonic valve was not well visualized. Tricuspid Valve Likely normal tricuspid valve structure and function. There is mild tricuspid valve regurgitation. The right ventricular systolic pressure is normal. The right ventricular systolic pressure is 25 mmHg. There is no evidence of pulmonary hypertension. Great Vessels All visible segments of the aorta are normal in size. The pulmonary artery was not well visualized. Venous The inferior vena cava is moderately dilated and collapses less than 50% with inspiration. Pericardium/Pleural There is no evidence of pericardial effusion. Prior Study Comparison No significant change compared to prior study dated: 10/18/2020. Measurements 2D Linear Measurements IVSd: 1.00 0.6-0.9/0.6-1.0 cm LVIDd: 7.75 3.9-5.3/4.2-5.9 cm LVIDd Index: 2.97 2.4-3.2/2.2-3.1 cm/m2 LVIDs: 7.22 2.0-3.6 cm LVPWd: 0.98 0.7-1.1 cm Ao Root: 3.70 2.1-3.5 cm LA Diam: 4.60 2.7-3.8/3.0-4.0 cm LAIDs Index: 1.76 1.5-2.3 cm/m2 LV Mass: 473.91 67-162/88-224 g LV Mass Index: 181.57 43-95/49-115 g/m2 LVOT Diam: 2.30 3.0+(-)1.3 cm 2D Systolic Function EF 4C: 38.10 >55% EF 2C: 16.50 >55% EF BiP: 29.50 >55% Mitral Valve E'Lateral: 4.24 E'Medial: 3.81 Aortic Valve AoV Pk Jeff: 1.16 AoV Mn Jeff: 1.01 AoV VTI: 0.21 AoV Pk Grad: 5.00 Aov Mn Grad: 4.00 RICO Cont.VTI: 1.81 LVOT LVOT Pk Jeff: 0.50 LVOT Mn Jeff: 0.38 LVOT VTI: 0.09 LVOT Pk Grad: 1.00 LVOT Mn Grad: 1.00 LVOT Diam: 2.30 LVOT Area: 4.15 Diastolic Function E'Medial: 3.81 E' Laterial: 4.24 Right Ventricle TAPSE (mm): 2.36 Tricuspid Valve TR Pk Jeff: 2.08 TR Pk Grad: 17.00 RA Press: 8.00 RVSP: 25.00 Great Vessels Aorta Ao Root-2D: 3.70 2.0-3.7 cm Ao Asc: 3.50 2.1-3.4 cm Updated in Other Vendor System with Status of Final Mariusz Muhammad MD electronically signed on 05/30/2021 4:47:10 PM with status of Final
[2021-05-30] MEDS: Enoxaparin Sodium 40 MG/0.4 ML SYRINGE SUBCUT (21:14)
[2021-05-30] MEDS: Sacubitril/Valsartan 49/51 1 TAB TABLET PO (21:14)
[2021-05-30] MEDS: Zolpidem Tartrate 5 MG TABLET PO (21:30)
[2021-05-31] VITALS (8 sets, daily range): BP systolic 91–125; BP diastolic 47–82; PULSE 90–107; RESP 16–24; TEMP 36.3–36.8; O2SAT 94–100
[2021-05-31 07:42] LABS: Anion Gap 12 (12-20); B Type Natriuretic Peptide 522 pg/mL (<100); Blood Urea Nitrogen 17 mg/dL (9-16); Carbon Dioxide 26 mmol/L (22-29); Chloride 107 mmol/L (96-108); Creatinine Clr Calc Pharmacy 131.4; Estimated Glomerular Filt Rate > 60; Glucose Random 114 mg/dL (60-115); Potassium 4.4 mmol/L (3.3-5.1); Sodium 141 mmol/L (135-145)
[2021-05-31] MEDS: 0.9 % Sodium Chloride Flush 3 ML SYRINGE IVFLUSH ×3 (07:53→23:23)
[2021-05-31] MEDS: Spironolactone 25 MG TABLET 12.5 MG PO (07:53)
[2021-05-31] MEDS: Sacubitril/Valsartan 49/51 1 TAB TABLET PO (07:53)
[2021-05-31] MEDS: Furosemide 40 MG/4 ML VIAL IVPUSH ×2 (07:53→16:23)
--- NOTE | 2021-05-31 09:53 | P.PNCA_ITS ---
Subjective Subjective Date of Service: 05/31/21 <YASMIN Sierra - Last Filed: 05/31/21 10:08> 05/31/21 <Mariusz Muhammad MD - Last Filed: 05/31/21 13:00> Principal diagnosis: CHF, nonischemic CMP, noncompliance, cocaine use, <YASMIN Sierra - Last Filed: 05/31/21 10:08> Interval history: cardiology follow up for CHF, CMP. Seen at 0815. Today he reports still feeling short of breath when he lays flat. No cough. No chest pains, palpitation, dizziness, edema. Slept well. Tells me that he will do better at taking his meds at home. Reports using his CPAP about 3 nights weekly. <YASMIN Sierra - Last Filed: 05/31/21 10:08> Review of Systems Review of Systems as above <YASMIN Sierra - Last Filed: 05/31/21 10:08> Yes all other systems are reviewed and are negative <YASMIN Sierra - Last Filed: 05/31/21 10:08> Physical Exam Vital Signs: Last Vital Signs Temp 98.1 F 05/31/21 07:56 Pulse 99 05/31/21 07:56 Resp 21 H 05/31/21 07:56 BP 98/57 L 05/31/21 07:56 Pulse Ox 99 05/31/21 07:56 Body Mass Index 48.4 <YASMIN Sierra - Last Filed: 05/31/21 10:08> Const General: cooperative, no acute distress, alert and awake <YASMIN Sierra - Last Filed: 05/31/21 10:08> Orientation/consciousness: patient oriented x3 <YASMIN Sierra - Last Filed: 05/31/21 10:08> Neck Neck: Yes normal visual inspection and Yes no JVD <YASMIN Sierra - Last Filed: 05/31/21 10:08> Resp Effort & Inspection: normal respiratory effort, able to speak in complete sentences and not labored <CONCHIS SierraC - Last Filed: 05/31/21 10:08> Auscultation: clear to auscultation bilaterally, no crackles, no rales, no rhonchi and no wheezes <CONCHIS Sierra - Last Filed: 05/31/21 10:08> Cardio Palpation: normal PMI <CONCHIS SierraC - Last Filed: 05/31/21 10:08> Rate: regular rate <CONCHIS Sierra - Last Filed: 05/31/21 10:08> Rhythm: regular rhythm <Khloe Bazzi NP - Last Filed: 05/31/21 10:08> Heart sounds: S1 normal heart sound present and S2 normal heart sound present <Khloe Bazzi NP - Last Filed: 05/31/21 10:08> Peripheral pulses: Peripheral pulses 2+ throughout <Khloe Bazzi NP - Last Filed: 05/31/21 10:08> GI Inspection: Yes normal to inspection <Khloe Bazzi NP- - Last Filed: 05/31/21 10:08> Skin General skin exam: no rashes or lesions noted <Khloe Bazzi NP - Last Filed: 05/31/21 10:08> Neuro General: patient oriented x3 <CONCHIS Sierra - Last Filed: 05/31/21 10:08> Extrem General: Yes normal to inspection and No edema <Khloe Bazzi NP- - Last Filed: 05/31/21 10:08> Results Labs and Meds Result diagrams: : 05/30/21 06:14 05/31/21 06:29 <Khloe Bazzi NP - Last Filed: 05/31/21 10:08> Lab results: Laboratory Results - last 24 hr 05/30/21 05/31/21 05/31/21 10:45 06:29 06:29 Sodium 141 Potassium 4.4 Chloride 107 Carbon Dioxide 26 Anion Gap 12 BUN 17 H Creatinine 1.00 Estim Creat Clear Calc 131.4 Estimated GFR > 60 Random Glucose 114 Calcium 9.0 B-Natriuretic Peptide 522 H Urine Opiates Screen Not Detected Urine Fentanyl Screen Not Detected Ur Barbiturates Screen Not Detected Ur Phencyclidine Scrn Not Detected Ur Amphetamines Screen Not Detected U Benzodiazepines Scrn Not Detected Urine Cocaine Screen POSITIVE H U Marijuana (THC) Screen Not Detected <YASMIN Sierra - Last Filed: 05/31/21 10:08> Progress Note: A&P Assessment and plan (1) Acute on chronic systolic (congestive) heart failure: Status: Acute <YASMIN Sierra - Last Filed: 05/31/21 10:08> Assessment and Plan: Pt has known history of nonischemic CMP and chronic systolic CHF. He had not been taking lasix consistently at home. Admit with sob, Tx for acute on chronic systolic CHF. BNP elevated at 848 and Tox screen + for cocaine use. Echo shows EF 10-15%, mild lA enlargement, normal RSVP, no valve abn - unchanged from 09/2020. Being diuresed with IV lasix, voided 2350cc yesterday. BNP down to 522. He still reports having some orthopnea. On exam, no JVD or rales. Will diurese 1 more day with IV lasix then plan to change to PO tomorrow. Continue with strict I+O monitoring, close monitoring of electrolyte and kidney function, electrolyte replacment as needed. <YASMIN Sierra - Last Filed: 05/31/21 10:08> Pt has known history of nonischemic CMP and chronic systolic CHF. He had not been taking lasix consistently at home. Admit with sob, Tx for acute on chronic systolic CHF. BNP elevated at 848 and Tox screen + for cocaine use. Echo shows EF 10-15%, mild lA enlargement, normal RSVP, no valve abn - unchanged from 09/2020. Being diuresed with IV lasix, voided 2350cc yesterday. BNP down to 522. He still reports having some orthopnea. On exam, no JVD or rales. Will diurese 1 more day with IV lasix then plan to change to PO tomorrow. Continue with strict I+O monitoring, close monitoring of electrolyte and kidney function, electrolyte replacment as needed. Patient admitted with decompensated heart failure. Has U tox positive for cocaine. Doing better today. Patient seen and examined. Case discussed with Khloe Bazzi. Decompensated heart failure doing better today. Continue IV diuresis OS patient remains mildly symptomatic. BNP is down trending. Could not tolerate higher dose of Entresto with low blood pressure. Entresto down again to 24-26 mg b.i.d.. Continue Aldactone therapy. Continue to monitor BMP and BNP. Importance of compliance with medication as well as CPAP as well as abstinence f rom cocaine was discussed again in presence of his . <Mariusz Muhammad MD - Last Filed: 05/31/21 13:00> (2) NICM (nonischemic cardiomyopathy): Status: Acute <YASMIN Sierra - Last Filed: 05/31/21 10:08> Assessment and Plan: Has been on Entresto at home. he reports compliance with it. Yesterday dose was increased and BP has been running low, this am 98/57. Will reduce Entresto back to usual dose 24/ 26mg BID. Continue IV lasix. No BB as he has + Cocaine screen. Spent time going over need for med compliance as ordered and strict need for cocaine cessation. He states stopping cocaine has been difficult since it is his lifestyle . Recommend substance abuse counseling. <YASMIN Sierra - Last Filed: 05/31/21 10:08> (3) Cocaine abuse: Status: Acute <YASMIN Sierra - Last Filed: 05/31/21 10:08> (4) LISSET (obstructive sleep apnea): Status: Acute <YASMIN Sierra - Last Filed: 05/31/21 10:08> Assessment and Plan: Reports using CPAP 3 nights a week. Reviewed the importance of nightly use. He states understanding. <YASMIN Sierra - Last Filed: 05/31/21 10:08> (5) Noncompliance: Status: Acute <YASMIN Sierra - Last Filed: 05/31/21 10:08> Fall Risk Details Current Medications: Current Medications Generic Name Dose Route Start Last Admin Trade Name Freq PRN Reason Stop Dose Admin Acetaminophen 650 mg 05/29/21 21:47 Acetaminophen 325 Mg Tablet PO Q6H PRN Pain, Mild (Pain Scale 1-3) Docusate Sodium 100 mg 05/29/21 21:47 Docusate Sodium 100 Mg Capsule PO DAILY PRN Constipation Enoxaparin Sodium 40 mg 05/29/21 22:00 05/30/21 21:14 Enoxaparin Sodium 40 Mg/0.4 Ml Syringe SUBCUT 40 mg Q24H EZEQUIEL Administration Furosemide 40 mg 05/29/21 21:47 05/31/21 07:53 Furosemide 40 Mg/4 Ml Vial IVPUSH 40 mg BIDWM EZEQUIEL Administration Protocol Ondansetron HCl 4 mg 05/29/21 21:47 Ondansetron Hcl 4 Mg/2 Ml Vial IVPUSH Q8H PRN Nausea and Vomiting Pharmacy Consult 1 each 05/29/21 21:13 Consult Rx Perform Med Rec MISCELLANE ONCE PRN Consult order Sacubitril/Valsartan 1 tab 05/31/21 21:00 Sacubitril/Valsartan 1 Tab Tablet PO BID EZEQUIEL Protocol Sodium Chloride 3 ml 05/30/21 00:00 05/31/21 07:53 0.9 % Sodium Chloride Flush 3 Ml Syringe IVFLUSH 3 ml QSHIFT EZEQUIEL Administration Spironolactone 12.5 mg 05/30/21 10:20 05/31/21 07:53 Spironolactone 25 Mg Tablet PO 12.5 mg DAILY EZEQUIEL Administration Protocol Zolpidem Tartrate 5 mg 05/30/21 21:24 05/30/21 21:30 Zolpidem Tartrate 5 Mg Tablet PO 5 mg BEDTIME PRN Administration Insomnia <YASMIN Sierra - Last Filed: 05/31/21 10:08> Time Spent With Patient Time: Total time spent is greater than 50% in coordination of care (as documented) at patient's floor/unit and/or counseling patient: 24 <YASMIN Sierra - Last Filed: 05/31/21 10:08> Time with patient: 15 - 24 minutes <YASMIN Sierra - Last Filed: 05/31/21 10:08> Progress Note: Quality Stroke Does the patient have a stroke diagnosis?: No <YASMIN Sierra - Last Filed: 05/31/21 10:08> Procedures Date of Service Date of Service: 05/31/21 <YASMIN Sierra - Last Filed: 05/31/21 10:08>
--- NOTE | 2021-05-31 13:30 | P.PNIM_ITS ---
Subjective Subjective Date of Service: 05/31/21 Interval History: Feels better less short of breath, denies orthopnea, no PND, no other acute issues overnight. Review of Systems General no headache, no dizziness no fever chills.? CVS no chest pain, no palpitation.? Respiratory no cough , less shortness of breath? Gastrointestinal no nausea, no vomiting, no abdominal pain Physical Exam Vital Signs: Vital Signs: Last Vital Signs Temp 97.8 F 05/31/21 11:33 Pulse 95 05/31/21 11:33 Resp 19 05/31/21 11:33 BP 91/47 L 05/31/21 11:33 Pulse Ox 97 05/31/21 11:33 Body Mass Index 48.4 General? resting comfortably in no acute distress.? Neck supple no JVD. CVS? regular rate rhythm, Respiratory lungs clear to auscultation, no respiratory distress, no rales, no rhonchi. Gastrointestinal abdomen soft, nontender, bowel sounds audible, no guarding , no rigidity. Extremities no? edema. Neuro nonfocal Psych appropriate affect Skin no rash Objective Data Current Medications Generic Name Dose Route Start Last Admin Trade Name Freq PRN Reason Stop Dose Admin Acetaminophen 650 mg 05/29/21 21:47 Acetaminophen 325 Mg Tablet PO Q6H PRN Pain, Mild (Pain Scale 1-3) Docusate Sodium 100 mg 05/29/21 21:47 Docusate Sodium 100 Mg Capsule PO DAILY PRN Constipation Enoxaparin Sodium 40 mg 05/29/21 22:00 05/30/21 21:14 Enoxaparin Sodium 40 Mg/0.4 Ml Syringe SUBCUT 40 mg Q24H EZEQUIEL Administration Furosemide 40 mg 05/29/21 21:47 05/31/21 07:53 Furosemide 40 Mg/4 Ml Vial IVPUSH 40 mg BIDWM EZEQUIEL Administration Protocol Ondansetron HCl 4 mg 05/29/21 21:47 Ondansetron Hcl 4 Mg/2 Ml Vial IVPUSH Q8H PRN Nausea and Vomiting Pharmacy Consult 1 each 05/29/21 21:13 Consult Rx Perform Med Rec MISCELLANE ONCE PRN Consult order Sacubitril/Valsartan 1 tab 05/31/21 21:00 Sacubitril/Valsartan 24 1 Tab Tablet PO BID EZEQUIEL Protocol Sodium Chloride 3 ml 05/30/21 00:00 05/31/21 07:53 0.9 % Sodium Chloride Flush 3 Ml Syringe IVFLUSH 3 ml QSHIFT EZEQUIEL Administration Spironolactone 12.5 mg 05/30/21 10:20 05/31/21 07:53 Spironolactone 25 Mg Tablet PO 12.5 mg DAILY EZEQUIEL Administration Protocol Zolpidem Tartrate 5 mg 05/30/21 21:24 05/30/21 21:30 Zolpidem Tartrate 5 Mg Tablet PO 5 mg BEDTIME PRN Administration Insomnia Labs CBC & Chem 7: 05/30/21 06:14 05/31/21 06:29 Labs: Laboratory Results - last 24 hr 05/31/21 05/31/21 06:29 06:29 Anion Gap 12 Estim Creat Clear Calc 131.4 Estimated GFR > 60 Random Glucose 114 Calcium 9.0 B-Natriuretic Peptide 522 H Assessment and Plan (1) LISSET (obstructive sleep apnea): Status: Acute (2) Noncompliance: Status: Acute (3) Cocaine abuse: Status: Acute (4) Chronic systolic (congestive) heart failure: Status: Acute (5) NICM (nonischemic cardiomyopathy): Status: Acute Assessment and Plan: 50-year-old male with past medical history of heart failure with an ejection fraction of 10-15% who presents to the hospital with complaints of shortness of breath found to have CHF exacerbation # acute on chronic systolic CHF exacerbation - most likely due to noncompliance with? home meds - shortness of breath is improving will continue to diurese with IV Lasix 1 more day, BNP trending down, stable renal function and electrolytes follow daily weight i/os ? Continue Aldactone 12.5 mg daily and Entresto ? Urine toxicology positive for cocaine therefore not a candidate for beta-blo ckers, echo shows EF 10-15%, indeterminate diastolic dysfunction ? no significant elevation in troponin Recommend out of bed to chair and ambulation, possible discharge next 24 hours if remains stable # sleep apnea - noncomplaince with cpap, continue CPAP # COPD/asthma - no exacerbation - continue p.r.n. albuterol inhaler # cocaine abuse strongly recommend to abstain from illicit drug use will obtain care team consult. DVT prophylaxis:? Lovenox Quality Stroke Does the patient have a stroke diagnosis?: No VTE Prior VTE?: No VTE Risk Level:: Medical - moderate - high VTE Device Contraindication: Treatment Not Indicated VTE Drug Contraindication: N/A - Med Ordered
[2021-05-31] MEDS: Sacubitril/Valsartan 24/26 1 TAB TABLET PO (21:55)
[2021-05-31] MEDS: Zolpidem Tartrate 5 MG TABLET PO (21:55)
[2021-05-31] MEDS: Enoxaparin Sodium 40 MG/0.4 ML SYRINGE SUBCUT (21:59)
[2021-06-01 04:00] VITALS: BP 96/56; PULSE 80; RESP 18; TEMP 36.8; O2SAT 93
[2021-06-01 06:48] LABS: B Type Natriuretic Peptide 134 pg/mL (<100)
[2021-06-01 06:51] LABS: Anion Gap 12 (12-20); Blood Urea Nitrogen 22 mg/dL (9-16); Calcium 8.8 mg/dL (8.4-10.2); Carbon Dioxide 24 mmol/L (22-29); Chloride 108 mmol/L (96-108); Creatinine Clr Calc Pharmacy 112.3; Estimated Glomerular Filt Rate > 60; Glucose Random 144 mg/dL (60-115); Potassium 3.9 mmol/L (3.3-5.1); Sodium 140 mmol/L (135-145)
[2021-06-01 07:49] VITALS: BP 105/56; PULSE 96; RESP 19; TEMP 36.2; O2SAT 95
--- NOTE | 2021-06-01 09:39 | PM.PNCARD ---
Subjective Subjective Date of Service: 06/01/21 Principal diagnosis: CHF, nonischemic CMP, noncompliance, cocaine use Interval history: Cardiology follow up for CHF, CMP. Seen at 0815. Today he reports feeling good. Breathing improved. Slept well with use of CPAP. No cough or sob. Denies orthopnea, PND. No edema. No chest pains, palpitations. Ready for discharge. Declines assistance for cocaine cessation. Review of Systems Review of Systems as above Physical Exam Vital Signs: Last Vital Signs Temp 97.1 F 06/01/21 07:49 Pulse 96 06/01/21 07:49 Resp 19 06/01/21 07:49 BP 105/56 L 06/01/21 07:49 Pulse Ox 95 06/01/21 07:49 Body Mass Index 48.4 Const Other: morbidly obese General: cooperative, no acute distress, alert and awake Orientation/consciousness: patient oriented x3 HENMT Head: Yes normal to inspection Neck Neck: Yes normal visual inspection and Yes no JVD Resp Effort & Inspection: normal respiratory effort, able to speak in complete sentences and not labored Auscultation: clear to auscultation bilaterally, no crackles, no rales, no rhonchi and no wheezes Cardio Palpation: normal PMI Rate: regular rate Rhythm: regular rhythm Heart sounds: S1 normal heart sound present and S2 normal heart sound present Peripheral pulses: Peripheral pulses 2+ throughout GI Inspection: Yes normal to inspection Neuro General: patient oriented x3 Extrem General: Yes normal to inspection and No edema Results Labs and Meds Result diagrams: 05/30/21 06:14 06/01/21 05:59 Lab results: Laboratory Results - last 24 hr 06/01/21 06/01/21 05:59 05:59 Sodium 140 Potassium 3.9 Chloride 108 Carbon Dioxide 24 Anion Gap 12 BUN 22 H Creatinine 1.17 Estim Creat Clear Calc 112.3 Estimated GFR > 60 Random Glucose 144 H Calcium 8.8 B-Natriuretic Peptide 134 H Progress Note: A&P Assessment and plan (1) Acute on chronic systolic (congestive) heart failure: Status: Acute Assessment and Plan: Pt has known history of nonischemic CMP and chronic systolic CHF. He had not been taking lasix consistently at home. Admit with sob, Tx for acute on chronic systolic CHF. BNP elevated at 848 and Tox screen + for cocaine use. Echo shows EF 10-15%, mild LA enlargement, normal RSVP, no valve abn - unchanged from 09/2020. Was diuresed with IV lasix over the last few days. BNP down to 134. Breathing much improved. No PND, orthopnea or edema. Will change IV Lasix back to his usual 40mg po bid. Continue Aldactone 12.5mg daily ( added this admit). Need for strict med compliance and cocaine cessation reviewed with him. Unable to start BB due to cocaine use. Pt informed. Declined referral for cocaine cessation. He can be discharged from a cardiology perspective. We will arrange for outpt cardiology follow up. (2) NICM (nonischemic cardiomyopathy): Status: Acute Assessment and Plan: On entresto for neurohormonal modulation. Trialed increasing his dose this admit and BP low. Dose returned back to 24/26mg bid yesterday. BP on low side still, asymptomatic. Continue entresto. No BB as above (3) Noncompliance: Status: Acute (4) Cocaine abuse: Status: Acute Assessment and Plan: Need for complete abstinence reviewed. (5) LISSET (obstructive sleep apnea): Status: Acute Assessment and Plan: Need for nightly compliance with CPAP mask reviewed. Fall Risk Details Current Medications: Current Medications Generic Name Dose Route Start Last Admin Trade Name Freq PRN Reason Stop Dose Admin Acetaminophen 650 mg 05/29/21 21:47 Acetaminophen 325 Mg Tablet PO Q6H PRN Pain, Mild (Pain Scale 1-3) Docusate Sodium 100 mg 05/29/21 21:47 Docusate Sodium 100 Mg Capsule PO DAILY PRN Constipation Enoxaparin Sodium 40 mg 05/29/21 22:00 05/31/21 21:59 Enoxaparin Sodium 40 Mg/0.4 Ml Syringe SUBCUT 40 mg Q24H EZEQUIEL Administration Furosemide 40 mg 05/29/21 21:47 05/31/21 16:23 Furosemide 40 Mg/4 Ml Vial IVPUSH 40 mg BIDWM EZEQUIEL Administration Protocol Ondansetron HCl 4 mg 05/29/21 21:47 Ondansetron Hcl 4 Mg/2 Ml Vial IVPUSH Q8H PRN Nausea and Vomiting Pharmacy Consult 1 each 05/29/21 21:13 Consult Rx Perform Med Rec MISCELLANE ONCE PRN Consult order Sacubitril/Valsartan 1 tab 05/31/21 21:00 05/31/21 21:55 Sacubitril/Valsartan 1 Tab Tablet PO 1 tab BID EZEQUIEL Administration Protocol Sodium Chloride 3 ml 05/30/21 00:00 05/31/21 23:23 0.9 % Sodium Chloride Flush 3 Ml Syringe IVFLUSH 3 ml QSHIFT EZEQUIEL Administration Spironolactone 12.5 mg 05/30/21 10:20 05/31/21 07:53 Spironolactone 25 Mg Tablet PO 12.5 mg DAILY EZEQUIEL Administration Protocol Zolpidem Tartrate 5 mg 05/30/21 21:24 05/31/21 21:55 Zolpidem Tartrate 5 Mg Tablet PO 5 mg BEDTIME PRN Administration Insomnia Time Spent With Patient Time: Total time spent is greater than 50% in coordination of care (as documented) at patient's floor/unit and/or counseling patient: 24 Time with patient: 15 - 24 minutes Progress Note: Quality Stroke Does the patient have a stroke diagnosis?: No Procedures Date of Service Date of Service: 06/01/21
[2021-06-01 09:55] VITALS: BP 105/56; PULSE 96
[2021-06-01] MEDS: Sacubitril/Valsartan 24/26 1 TAB TABLET PO (09:55)
[2021-06-01] MEDS: Spironolactone 25 MG TABLET 12.5 MG PO (09:55)
[2021-06-01] MEDS: 0.9 % Sodium Chloride Flush 3 ML SYRINGE IVFLUSH (09:56)
[2021-06-01] MEDS: Furosemide 40 MG/4 ML VIAL IVPUSH (09:56)
--- NOTE | 2021-06-01 10:22 | PM.DS ---
DS: Providers Provider Date of Service: 06/01/21 Date of admission: 05/29/21 21:19 Primary care physician: Krael Silva PA-C Consults: 05/29/21 21:47 Consult to Cardiology Routine Consulting Provider: Mariusz Muhammad Reason for consultation: CHF 06/01/21 07:41 Consult to Care Team Routine Comment: Reason for consultation: cocaine use DS: Diagnosis Discharge Diagnosis (1) Acute on chronic systolic (congestive) heart failure: Status: Acute (2) NICM (nonischemic cardiomyopathy): Status: Acute (3) Noncompliance: Status: Acute (4) Cocaine abuse: Status: Acute (5) LISSET (obstructive sleep apnea): Status: Acute DS: Medications Discharge Medications Home Medications: Previous Rx's Medication Instructions Recorded albuterol sulfate 90 mcg/actuation 2 puff INHALATION Q4-6H PRN #8.5 g 11/29/20 aerosol inhaler sacubitril 24 mg-valsartan 26 mg 1 tab PO BID 30 Days #60 tab 12/20/20 tablet (Entresto) furosemide 40 mg tablet 40 mg PO BID 30 Days #60 tab 03/03/21 DS: Summary Hospital Course Hospital Course: History of presenting illness Chief Complaint: SOB This is a 50-year-old male with past medical history of asthma, CHF with ejection fraction of 10-15%, COPD, LISSET, and history of cocaine abuse who presents to the hospital with complaints of shortness of breath.? Patient reports that his shortness of breath started about 3 days ago.? Worsening today.? He is having significant orthopnea and PND.? Dry cough, he has also had multiple syncopal episode for the past 3 days.? He passes out for few seconds butmostly catches himself.? He reports that he completely loses consciousness and hit his head once.? Denies any palpitations, or chest pain prior to these syncopal spells.? Denies any prodromal or postictal symptoms.? Does have lower extremity edema that also began about 3-4 days ago.? Patient reports that he does sometimes misses his Lasix dose due to forgetfullness.? He missed couple of doses last week.? Denies using cocaine in the past week.? Denies any nausea or vomiting, no abdominal pain, no urinary symptoms.? No diarrhea constipation.? No headache or change in vision.? No numbness tingling. On arrival to the ED vitals are significant for temperature of 98.2?, heart rate of 110, respiratory rate of 24, blood pressure of 117/84, satting 94% on room air Labs are significant for WBC count of 9.6, hemoglobin of 11 which is lower than his usual baseline of 12-13, hematocrit of 36.7, MCV of 79, BUN of 23, creatinine of 1.12 , BNP of 848, COVID-19 negative Chest x-ray showing significant for enlarged cardiac silhouette with central vascular prominence and indistinctness to the vessels consistent with pulmonary edema Hospital course 50-year-old male with past medical history of heart failure with an ejection fraction of 10-15% who presents to the hospital with complaints of shortness of breath found to have CHF exacerbation # acute on chronic systolic CHF exacerbation, patient had admitted to telemetry unit and was treated with IV Lasix, with good response, BMP remains stable BNP improved 848 to 134, Patient was given higher dose of Entresto and placed on Aldactone, but noted to have significant drop in blood pressure, therefore placed back on home dose of Entresto, since patient is doing significantly better with complete resolution of symptoms he is being discharged home and strongly recommended compliance with home medication, repeat echocardiogram showed EF 10-15% and indeterminate diastolic dysfunction, urine toxicology screen came back positive for cocaine therefore is not a candidate of beta-krista he has been strongly advised to abstain from illicit drug use # sleep apnea, strongly recommend to use CPAP # COPD/asthma, no exacerbation, continue p.r.n. albuterol inhaler # cocaine abuse strongly recommend to abstain from illicit drug use, patient declined care team evaluation Time Spent with Patient Time attestation: Total time spent providing and/or coordinating discharge services: Discharge coordination time: Greater than 30 minutes Quality: Stroke Does the patient have a stroke diagnosis?: No Physical Exam Vital Signs: Vital Signs: Last Vital Signs Temp 97.1 F 06/01/21 07:49 Pulse 96 06/01/21 09:55 Resp 19 06/01/21 07:49 BP 105/56 L 06/01/21 09:55 Pulse Ox 95 06/01/21 07:49 Body Mass Index 48.4 General? resting comfortably in no acute distress.? Neck supple no JVD. CVS? regular rate rhythm, Respiratory lungs clear to auscultation, no respiratory distress, no rales, no rhonchi. Gastrointestinal abdomen soft, nontender, bowel sounds audible, no guarding , no rigidity. Extremities no? edema. Neuro nonfocal Psych appropriate affect Skin no rash DS: Data Data Completed and Pending Completed studies during hospitalization [Text1]: Procedures Introduction of Remdesivir Anti-infective into Peripheral Vein, Percutaneous Approach, [employer] 5 (10/18/20) Labs on day of discharge: Laboratory Results - last 24 hr 06/01/21 06/01/21 05:59 05:59 Sodium 140 Potassium 3.9 Chloride 108 Carbon Dioxide 24 Anion Gap 12 BUN 22 H Creatinine 1.17 Estim Creat Clear Calc 112.3 Estimated GFR > 60 Random Glucose 144 H Calcium 8.8 B-Natriuretic Peptide 134 H Discharge Plan Discharge Patient Disposition: Home, Self-Care Discharge Diagnosis: Acute on chronic systolic congestive heart failure Sleep apnea Referrals: Karel Silva PA-C [Primary Care Provider] - 1 Week Discharge Medications: Continued Entresto 24-26 mg tablet 1 tab PO BID 30 Days Qty: 60 RF: 5 furosemide 40 mg tablet 40 mg PO BID 30 Days Qty: 60 RF: 3 albuterol sulfate 90 mcg/actuation HFA aerosol inhaler 2 puff inhalation Q4-6H PRN (Reason: shortness of breath or wheezing) Qty: 8.5 RF: 0 Discharge Orders: Discharge Order (Routine); Ordered 06/01/21 Ordered By: Yoselyn Beltran Diet: low fat, low cholesterol and low salt diet Activity on Discharge: As tolerated Stand Alone Forms: Patient Portal Discharge page Care Plan Goals: Congestive heart failure with low EF, follow low-salt diet and take diuretics and all medications as prescribed Health Concerns: Obstructive sleep apnea/substance use continue using CPAP and take all medications as prescribed, avoid using any illicit drugs. Plan of Treatment: Outpatient follow-up with primary care physician and Dr. Knox in next 7-10 days Assessment: As above
--- NOTE | 2021-06-01 11:00 | MHC.RECOVRN ---
T/w met with pt in 373 after consult placed to CARE Team for cocaine use. Pts present and pt provides permission to speak about substance use. 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 Both use new syringes obtained from [facility]. Pt and have own apartment. Pt not interested in recovery supports at this time. 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 Pt given t/w card if he would like to discuss available supports.
--- NOTE | 2021-06-01 11:12 | MHC.CM.PN ---
pT DISCHARGED HOME SELF-CARE, SPOUSE FOR TRANSPORT. PT LEFT FACILITY PRIOR TO CM MTG W/PT AND COMPLETING A NEW IMM.
== END 2021-06-01 11:09 | disposition home or self-care (01) | DRG 292 ==
LOC: HO.ED 20:38 → HO.EDOVER 22:39 → HO.S3 05-30 00:17
PROVIDERS: Internal Medicine Cardiovascular Disease; Admitting Provider Internal Medicine; Emergency Provider Emergency Medicine; PCP Physician Assistant; Visit Provider Hospitalist
DX: I50.23 Acute on chronic systolic (congestive) heart failure (principal); I42.8 Other cardiomyopathies; G47.33 Obstructive sleep apnea (adult) (pediatric); G47.30 Sleep apnea, unspecified; F14.10 Cocaine abuse, uncomplicated; J44.9 Chronic obstructive pulmonary disease, unspecified; Z91.14 Patient's other noncompliance with medication regimen; Z20.822 Contact with and (suspected) exposure to COVID-19; Z88.2 Allergy status to sulfonamides; Z79.899 Other long term (current) drug therapy
CPT/HCPCS: 0241U; 36415; 71046; 80048; 80307; 83880; 84484; 85025; 93005; 93306; 94660; 99285; J1650; J1940

== ENCOUNTER 2021-06-27 14:34 | Outpatient (REF) | payer MEDICARE, MEDICAID, SELFPAY ==
[2021-06-27 16:13] LABS: MANUAL DIFF FLAG NO
[2021-06-27 16:23] LABS: Basophils Percent Auto 0.5 % (0-2); Eosinophils Percent Auto 0.5 % (0-4); Hematocrit 36.5 % (42-52); Hemoglobin 11.4 g/dl (14.0-18.0); Imm Gran Abs Auto 0.03 X10*3/uL (0.00-0.03); Imm Gran Pct Auto 0.4 % (0.0-0.4); Lymphocytes Absolute Auto 0.8 X10*3/uL (1.2-4.9); Lymphocytes Percent Auto 9.6 % (20-40); Mean Corpuscular HGB Conc 31.2 g/dl (31.0-36.0); Mean Corpuscular Hemoglobin 23.5 pg (27.0-33.0); Mean Corpuscular Volume 75.3 fL (80-98); Mean Platelet Volume 9.3 fL (9.4-12.4); Monocytes Absolute Auto 0.5 X10*3/uL (0.1-1.2); Monocytes Percent Auto 6.4 % (2-11); Neutrophils Percent Auto 82.6 % (45-73); Platelet Count 320 X10*3/uL (160-400); Red Blood Count 4.85 X10*6/uL (4.60-5.80); White Blood Count 8.5 X10*3/uL (4.8-10.8)
[2021-06-27 16:44] LABS: Anion Gap 13 (12-20); Blood Urea Nitrogen 17 mg/dL (9-16); Calcium 9.2 mg/dL (8.4-10.2); Carbon Dioxide 23 mmol/L (22-29); Chloride 105 mmol/L (96-108); Estimated Glomerular Filt Rate > 60; Glucose Random 123 mg/dL (60-115); Potassium 4.3 mmol/L (3.3-5.1); Sodium 137 mmol/L (135-145)
[2021-06-27 16:48] LABS: B Type Natriuretic Peptide 691 pg/mL (<100)
== END 2021-06-27 14:35 | disposition home or self-care (01) ==
LOC: HO.LAB 14:34
PROVIDERS: PCP Physician Assistant; Referring Provider Physician Assistant; Visit Provider Nurse Practitioner Family
DX: I42.8 Other cardiomyopathies (principal); I50.22 Chronic systolic (congestive) heart failure; E66.01 Morbid (severe) obesity due to excess calories; Z68.42 Body mass index [BMI] 45.0-49.9, adult; F14.10 Cocaine abuse, uncomplicated
CPT/HCPCS: 36415; 80048; 83880; 85025; 93005; 99212

== ENCOUNTER 2021-06-28 19:16 | Inpatient (IN) | payer MEDICARE, MEDICAID, SELFPAY ==
--- NOTE | ~2021-06-28 | XR_ITS ---
EXAMINATION: XR CHEST CLINICAL INFORMATION: Shortness of breath. COMPARISON: Multiple priors, most recent chest radiograph dated 05/29/2021. TECHNIQUE: Frontal view of the chest was obtained. FINDINGS: Minimal patchy bilateral airspace opacities, significantly decreased when compared to the prior examination. Stable cardiomegaly. No pleural effusion or pneumothorax. XR/XR chest 1V IMPRESSION: Stable cardiomegaly with minimal patchy bilateral airspace opacities. Findings are significantly decreased when compared to the prior chest radiograph. This can be seen in the setting of pulmonary edema or represent an infectious or inflammatory process.
[2021-06-28 20:17] VITALS: BP 114/71; PULSE 108; RESP 16; TEMP 36.6; O2SAT 93; BMI 49.0
--- NOTE | 2021-06-28 20:28 | ECG_ITS ---
Test Reason : SOB Blood Pressure : / mmHG Vent. Rate : 105 BPM Atrial Rate : 105 BPM P-R Int : 156 ms QRS Dur : 110 ms QT Int : 376 ms P-R-T Axes : 050 -18 071 degrees QTc Int : 496 ms Sinus tachycardia Possible Left atrial enlargement Nonspecific T wave abnormality Abnormal ECG When compared with ECG of 29-MAY-2021 18:28, No significant change was found Referred By: Generic ED Physician Electronically Signed By:JANE GIMENEZ
[2021-06-28 21:21] LABS: MANUAL DIFF FLAG NO
[2021-06-28 21:22] LABS: Basophils Absolute Auto 0.1 X10*3/uL (0.0-0.2); Basophils Percent Auto 0.5 % (0-2); Eosinophils Absolute Auto 0.1 X10*3/uL (0.0-0.4); Hematocrit 35.4 % (42-52); Hemoglobin 10.9 g/dl (14.0-18.0); Imm Gran Abs Auto 0.03 X10*3/uL (0.00-0.03); Imm Gran Pct Auto 0.3 % (0.0-0.4); Lymphocytes Absolute Auto 1.2 X10*3/uL (1.2-4.9); Lymphocytes Percent Auto 11.9 % (20-40); Mean Corpuscular HGB Conc 30.8 g/dl (31.0-36.0); Mean Corpuscular Hemoglobin 23.5 pg (27.0-33.0); Mean Corpuscular Volume 76.5 fL (80-98); Mean Platelet Volume 9.3 fL (9.4-12.4); Monocytes Absolute Auto 0.7 X10*3/uL (0.1-1.2); Monocytes Percent Auto 7.2 % (2-11); Neutrophils Absolute Auto 7.6 X10*3/uL (2.0-8.3); Neutrophils Percent Auto 79.1 % (45-73); Platelet Count 281 X10*3/uL (160-400); Red Blood Count 4.63 X10*6/uL (4.60-5.80); Red Cell Distribution Width 16.3 % (11.0-16.0); White Blood Count 9.6 X10*3/uL (4.8-10.8)
[2021-06-28 21:35] LABS: Anion Gap 11 (12-20); Blood Urea Nitrogen 17 mg/dL (9-16); Carbon Dioxide 24 mmol/L (22-29); Chloride 107 mmol/L (96-108); Creatinine Clr Calc Pharmacy 140.7; Estimated Glomerular Filt Rate > 60; Glucose Random 117 mg/dL (60-115); Potassium 4.2 mmol/L (3.3-5.1); Sodium 138 mmol/L (135-145)
[2021-06-28 21:48] LABS: B Type Natriuretic Peptide 716 pg/mL (<100); Troponin-I High Sensitivity 56.7 ng/L (<3.5-35.0)
[2021-06-28 21:50] VITALS: BP 112/75; PULSE 102; RESP 20; O2SAT 95
[2021-06-28 21:54] LABS: Appearance Urine CLEAR; Color Urine YELLOW; Glucose Urine UA NEG (NEG); Leukocyte Esterase Urine NEG (NEG); Nitrite Urine NEG (NEG); Urine Blood NEG (NEG); Urine Ketones NEG (NEG); Urine Protein NEG (NEG-TRACE)
--- NOTE | 2021-06-28 21:56 | ED.SOB ---
HPI - SOB/Dyspnea General Chief Complaint: Dyspnea Stated Complaint: Difficulty breathing Time Seen by Provider: 06/28/21 21:46 Source: patient Mode of arrival: ambulatory History of Present Illness HPI Narrative: 50-year-old male with history of LISSET, cocaine use, asthma/COPD, congestive heart failure who comes in with 3-4 days of worsening dyspnea on exertion as well as a dry cough but denies any GI or symptoms. Patient states he cocaine approximately 2 days ago. He states that he was evaluated by is a construction engineering manager yesterday who had instructed him to come into the emergency room at that time but patient states he ?had things to do?. Patient states that he intermittently has bilateral lower extremity swelling but denies orthopnea. Related Data Previous Rx's Medication Instructions Recorded albuterol sulfate 90 mcg/actuation 2 puff INHALATION Q4-6H PRN #8.5 g 11/29/20 aerosol inhaler sacubitril 24 mg-valsartan 26 mg 1 tab PO BID 30 Days #60 tab 12/20/20 tablet (Entresto) furosemide 40 mg tablet 40 mg PO BID 30 Days #60 tab 03/03/21 nystatin 100,000 unit/mL oral 6 ml PO Q6H PRN 15 Days #250 ml 06/19/21 suspension Allergies Allergy/AdvReac Type Severity Reaction Status Date / Time cephalexin [From KEFLEX] Allergy Unknown UNKNOWN Verified 06/27/21 14:57 sulfamethoxazole Allergy Unknown UNKNOWN Verified 06/27/21 14:57 [From BACTRIM] trimethoprim [From BACTRIM] Allergy Unknown UNKNOWN Verified 06/27/21 14:57 Review of Systems Review of Systems: Pertinent positives and negatives as stated in HPI 10 point review of systems is otherwise negative. [facility] Past Medical History Source: nursing notes reviewed Medical History Asthma CHF (congestive heart failure) Chronic systolic (congestive) heart failure Cocaine abuse COPD (chronic obstructive pulmonary disease) NICM (nonischemic cardiomyopathy) LISSET (obstructive sleep apnea) Surgical History History of cardiac catheterization (~11/07/20) History of surgery Family History Family History Mother Ovarian cancer Diabetes Social History Social History Household Members: Spouse Housing: Other Do you presently have visiting nurse or other home services: No Alcohol intake: current Alcohol intake frequency: a few times a week Alcohol type: beer Patient Tobacco Use Status: Former Tobacco user Substance Use Type: Crack/Cocaine and Marijuana Substance Use Frequency: Occasionally Substance Use Frequency Other:: 1 Last Used Substance: Weeks (ago) Advance Directives: No Advance Directives Information Provided: No service: No Current occupational status: unemployed and disabled Physical Exam Vital Signs: Vital Signs: Last Vital Signs Temp 97.8 F 06/28/21 20:17 Pulse 106 H 06/28/21 23:00 Resp 24 H 06/28/21 23:00 BP 119/80 06/28/21 23:00 Pulse Ox 97 06/28/21 23:00 Body Mass Index 49.0 VITAL SIGNS: Reviewed. GENERAL: Well developed, well nourished, in no acute distress. HEAD: Normocephalic/atraumatic EYES: PERRLA, EOMI OROPHARYNX: no oral lesions noted, posterior pharynx clear LUNGS: Decreased breath sounds bilaterally, rales, speaking in full sentences. SpO2<95> CARDIOVASCULAR: Regular rate and rhythm without noted murmurs, no JVD or lower extremity edema. ABDOMEN: Obese, Soft, non-tender, non-distended with bowel sounds. No rigidity. No guarding. No palpable masses or hernias noted MUSCULOSKELETAL: No tenderness, deformities, or effusions noted on gross inspection. EXTREMITIES: No cyanosis, clubbing or edema. SKIN: Inspection of the skin reveals no rashes NEUROLOGIC: Alert and oriented x 4. Strength and sensation to light touch were grossly intact x 4. Course Course Course Narrative: 50-year-old male with history and clinical presentation suggestive of CHF exacerbation no acute EKG changes although there is an elevated high sensitivity troponin and patient is currently asymptomatic for chest pain at this time. On review of all investigations history and presentation most consistent with CHF exacerbation with an elevated BNP, CALVIN, and chest x-ray which shows pulmonary congestion and VBG in consistent with COPD exacerbation. Patient was provided with 80 mg of Lasix and will be admitted. I discussed case with inpatient hospitalist who accepts admission. MDM - SOB/Dyspnea Lab Data Result diagrams: 06/28/21 21:16 06/28/21 21:16 Labs: Lab Results 06/28/21 06/28/21 06/28/21 Range/Units 21:15 21:16 21:16 WBC 9.6 (4.8-10.8) X10*3/uL RBC 4.63 (4.60-5.80) X10*6/uL Hgb 10.9 L (14.0-18.0) g/dl Hct 35.4 L (42-52) % MCV 76.5 L (80-98) fL MCH 23.5 L (27.0-33.0) pg MCHC 30.8 L (31.0-36.0) g/dl RDW 16.3 H (11.0-16.0) % Plt Count 281 (160-400) X10*3/uL MPV 9.3 L (9.4-12.4) fL Immature Gran % (Auto) 0.3 (0.0-0.4) % Neut % (Auto) 79.1 H (45-73) % Lymph % (Auto) 11.9 L (20-40) % Piatt % (Auto) 7.2 (2-11) % Eos % (Auto) 1.0 (0-4) % Baso % (Auto) 0.5 (0-2) % Lymph # (Auto) 1.2 (1.2-4.9) X10*3/uL Piatt # (Auto) 0.7 (0.1-1.2) X10*3/uL Eos # (Auto) 0.1 (0.0-0.4) X10*3/uL Baso # (Auto) 0.1 (0.0-0.2) X10*3/uL Abs Immat Gran (auto) 0.03 (0.00-0.03) X10*3/uL Absolute Neuts (auto) 7.6 (2.0-8.3) X10*3/uL Absolute Nucleated RBC 0.000 (0.0-0.012) X10*3/uL Nucleated RBC % (auto) 0.0 (0.0-0.2) /100WBC VBG pH (7.32-7.43) VBG pCO2 mmHg VBG pO2 mmHg VBG HCO3 (22-26) mmol/L VBG O2 Saturation % VBG Base Excess mmol/L Sodium 138 (135-145) mmol/L Potassium 4.2 (3.3-5.1) mmol/L Chloride 107 (96-108) mmol/L Carbon Dioxide 24 (22-29) mmol/L Anion Gap 11 L (12-20) BUN 17 H (9-16) mg/dL Creatinine 0.94 (0.5-1.4) mg/dL Estim Creat Clear Calc 140.7 Estimated GFR > 60 Random Glucose 117 H (60-115) mg/dL Calcium 9.0 (8.4-10.2) mg/dL Troponin I High Sens 56.7 H* D (<3.5-35.0) ng/L B-Natriuretic Peptide 716 H (<100) pg/mL Urine Color Urine Appearance Urine pH (5.0-8.0) Ur Specific [place] (1.005-1.025) Urine Protein (NEG-TRACE) MG/DL Urine Glucose (UA) (NEG) MG/DL Urine Ketones (NEG) MG/DL Urine Blood (NEG) Urine Nitrite (NEG) Ur Leukocyte Esterase (NEG) Urine Opiates Screen (Not Detect) Urine Fentanyl Screen (Not Detect) Ur Barbiturates Screen (Not Detect) Ur Phencyclidine Scrn (Not Detect) Ur Amphetamines Screen (Not Detect) U Benzodiazepines Scrn (Not Detect) Urine Cocaine Screen (Not Detect) U Marijuana (THC) Screen (Not Detect) COVID-19 (LEANDRO) (Negative) COVID-19 Clin Com 06/28/21 06/28/21 06/28/21 Range/Units 21:47 21:47 22:09 WBC (4.8-10.8) X10*3/uL RBC (4.60-5.80) X10*6/uL Hgb (14.0-18.0) g/dl Hct (42-52) % MCV (80-98) fL MCH (27.0-33.0) pg MCHC (31.0-36.0) g/dl RDW (11.0-16.0) % Plt Count (160-400) X10*3/uL MPV (9.4-12.4) fL Immature Gran % (Auto) (0.0-0.4) % Neut % (Auto) (45-73) % Lymph % (Auto) (20-40) % Piatt % (Auto) (2-11) % Eos % (Auto) (0-4) % Baso % (Auto) (0-2) % Lymph # (Auto) (1.2-4.9) X10*3/uL Piatt # (Auto) (0.1-1.2) X10*3/uL Eos # (Auto) (0.0-0.4) X10*3/uL Baso # (Auto) (0.0-0.2) X10*3/uL Abs Immat Gran (auto) (0.00-0.03) X10*3/uL Absolute Neuts (auto) (2.0-8.3) X10*3/uL Absolute Nucleated RBC (0.0-0.012) X10*3/uL Nucleated RBC % (auto) (0.0-0.2) /100WBC VBG pH (7.32-7.43) VBG pCO2 mmHg VBG pO2 mmHg VBG HCO3 (22-26) mmol/L VBG O2 Saturation % VBG Base Excess mmol/L Sodium (135-145) mmol/L Potassium (3.3-5.1) mmol/L Chloride (96-108) mmol/L Carbon Dioxide (22-29) mmol/L Anion Gap (12-20) BUN (9-16) mg/dL Creatinine (0.5-1.4) mg/dL Estim Creat Clear Calc Estimated GFR Random Glucose (60-115) mg/dL Calcium (8.4-10.2) mg/dL Troponin I High Sens (<3.5-35.0) ng/L B-Natriuretic Peptide (<100) pg/mL Urine Color YELLOW Urine Appearance CLEAR Urine pH 6.0 (5.0-8.0) Ur Specific [place] 1.010 (1.005-1.025) Urine Protein NEG (NEG-TRACE) MG/DL Urine Glucose (UA) NEG (NEG) MG/DL Urine Ketones NEG (NEG) MG/DL Urine Blood NEG (NEG) Urine Nitrite NEG (NEG) Ur Leukocyte Esterase NEG (NEG) Urine Opiates Screen Not Detected (Not Detect) Urine Fentanyl Screen Not Detected (Not Detect) Ur Barbiturates Screen Not Detected (Not Detect) Ur Phencyclidine Scrn Not Detected (Not Detect) Ur Amphetamines Screen Not Detected (Not Detect) U Benzodiazepines Scrn Not Detected (Not Detect) Urine Cocaine Screen POSITIVE H (Not Detect) U Marijuana (THC) Screen POSITIVE H (Not Detect) COVID-19 (LEANDRO) Negative (Negative) COVID-19 Clin Com See Note 06/28/21 Range/Units 22:37 WBC (4.8-10.8) X10*3/uL RBC (4.60-5.80) X10*6/uL Hgb (14.0-18.0) g/dl Hct (42-52) % MCV (80-98) fL MCH (27.0-33.0) pg MCHC (31.0-36.0) g/dl RDW (11.0-16.0) % Plt Count (160-400) X10*3/uL MPV (9.4-12.4) fL Immature Gran % (Auto) (0.0-0.4) % Neut % (Auto) (45-73) % Lymph % (Auto) (20-40) % Piatt % (Auto) (2-11) % Eos % (Auto) (0-4) % Baso % (Auto) (0-2) % Lymph # (Auto) (1.2-4.9) X10*3/uL [place]att # (Auto) (0.1-1.2) X10*3/uL Eos # (Auto) (0.0-0.4) X10*3/uL Baso # (Auto) (0.0-0.2) X10*3/uL Abs Immat Gran (auto) (0.00-0.03) X10*3/uL Absolute Neuts (auto) (2.0-8.3) X10*3/uL Absolute Nucleated RBC (0.0-0.012) X10*3/uL Nucleated RBC % (auto) (0.0-0.2) /100WBC VBG pH 7.52 H (7.32-7.43) VBG pCO2 25 mmHg VBG pO2 165 mmHg VBG HCO3 21 L (22-26) mmol/L VBG O2 Saturation 99.0 % VBG Base Excess 0.2 mmol/L Sodium (135-145) mmol/L Potassium (3.3-5.1) mmol/L Chloride (96-108) mmol/L Carbon Dioxide (22-29) mmol/L Anion Gap (12-20) BUN (9-16) mg/dL Creatinine (0.5-1.4) mg/dL Estim Creat Clear Calc Estimated GFR Random Glucose (60-115) mg/dL Calcium (8.4-10.2) mg/dL Troponin I High Sens (<3.5-35.0) ng/L B-Natriuretic Peptide (<100) pg/mL Urine Color Urine Appearance Urine pH (5.0-8.0) Ur Specific [place] (1.005-1.025) Urine Protein (NEG-TRACE) MG/DL Urine Glucose (UA) (NEG) MG/DL Urine Ketones (NEG) MG/DL Urine Blood (NEG) Urine Nitrite (NEG) Ur Leukocyte Esterase (NEG) Urine Opiates Screen (Not Detect) Urine Fentanyl Screen (Not Detect) Ur Barbiturates Screen (Not Detect) Ur Phencyclidine Scrn (Not Detect) Ur Amphetamines Screen (Not Detect) U Benzodiazepines Scrn (Not Detect) Urine Cocaine Screen (Not Detect) U Marijuana (THC) Screen (Not Detect) COVID-19 (LEANDRO) (Negative) COVID-19 Clin Com ECG Data Attestation: I personally reviewed and interpreted this ECG as follows: Prior ECG tracings: available for review (05/29/2021 no acute changes on comparison) Interpretation: Sinus tachycardia, HR-105, no STEMI, NV/QTC are within normal limits. Discharge Plan Discharge Clinical Impression: CHF exacerbation Patient Disposition: Admitted As Inpatient Prescriptions: No Action Entresto 24-26 mg tablet 1 tab PO BID 30 Days Qty: 60 RF: 5 furosemide 40 mg tablet 40 mg PO BID 30 Days Qty: 60 RF: 3 nystatin 100,000 unit/mL suspension 6 ml PO Q6H PRN (Reason: thrush) 15 Days Qty: 250 RF: 0 albuterol sulfate 90 mcg/actuation HFA aerosol inhaler 2 puff inhalation Q4-6H PRN (Reason: shortness of breath or wheezing) Qty: 8.5 RF: 0
[2021-06-28 22:30] LABS: Amphetamine Screen Urine Not Detected (Not Detect); Barbiturates, Urine Not Detected (Not Detect); Benzodiazepines Screen Urine Not Detected (Not Detect); Cannabinoid Screen Urine POSITIVE (Not Detect); Cocaine Screen Urine POSITIVE (Not Detect); Fentanyl, urine Not Detected (Not Detect); Opiate Screen Urine Not Detected (Not Detect); Phencyclidine Screen Urine Not Detected (Not Detect)
[2021-06-28 22:30] LABS: COVID-19 Test Negative (Negative)
[2021-06-28 22:42] LABS: VBG Base Excess 0.2 mmol/L; VBG HCO3 21 mmol/L (22-26); VBG pCO2 25 mmHg; VBG pH 7.52 (7.32-7.43); VBG pO2 165 mmHg
[2021-06-28 22:42] LABS: Venous Blood Gas Refer to POC result
[2021-06-28 23:00] VITALS: BP 119/80; PULSE 106; RESP 24; O2SAT 97
[2021-06-28] MEDS: Furosemide 100 MG/10 ML VIAL 80 MG IVPUSH (23:09)
--- NOTE | 2021-06-28 23:43 | PM.IMHP ---
History of Present Illness Date of Service: 06/28/21 Chief Complaint: SOB This is a 50-year-old male with past medical history of asthma, CHF with ejection fraction of 10-15%, COPD, LISSET and cocaine abuse who presents to the hospital with complaints of shortness of breath. Patient is very agitated, verbally aggressive as he says that he received Lasix late in the ED and is frustrated that he has to pee all night He reports that his symptoms started 1-2 days ago, hedenies any fever or chills. Denies any cough or sputum production, denies any orthopnea or PND, denies any lower extremity edema. Patient reports compliance with his Lasix. He was discharged from the hospital in May after being treated for CHF exacerbation most likely secondary to noncompliance. Patient reports that he used cocaine 1-2 days ago. Patient denies any chest pain, no palpitations, no abdominal pain nausea or vomiting, no diarrhea constipation, no urinary symptoms. On arrival to the ED patient's vitals stable Labs are significant for WBC count of 9.6, hemoglobin of 10.9 which is around his baseline, pH of 7.52, BNP of 716, troponin of 56 with no delta, UDS positive for cocaine and marijuana Chest x-ray shows stable cardiomegaly with minimal patchy bilateral airspace opacities significantly decreased when compared to prior chest radiograph. Review of Systems Review of Systems: Yes all other systems are reviewed and are negative [facility] Medical History Asthma CHF (congestive heart failure) Chronic systolic (congestive) heart failure Cocaine abuse COPD (chronic obstructive pulmonary disease) NICM (nonischemic cardiomyopathy) LISSET (obstructive sleep apnea) Family History Mother Ovarian cancer Diabetes Surgical History History of cardiac catheterization (~11/07/20) History of surgery Social History Household Members: Spouse and Other Household Members Other:: lives in a motorcycle [place] Housing: Other Do you presently have visiting nurse or other home services: No Alcohol intake: current Alcohol intake frequency: a few times a week Alcohol type: beer Patient Tobacco Use Status: Former Tobacco user Use of substances other than those prescribed or required for medical reasons: Yes Substance Use Type: Crack/Cocaine, Heroin and Marijuana Substance Use Type Other:: currently cocaine. hx of heroin use Substance Use Frequency: Chronic Longstanding Substance Use Frequency Other:: 1 Last Used Substance: Weeks (ago) Last Used Substance Other:: 06/27/21 Currently Displaying Signs/Symptoms of Drug Intoxication Withdrawal: No Any prior treatment program specific to substance use: Yes Have you been hit, kicked, punched, or otherwise hurt by someone within the past year? If so, by whom?: No Do you feel safe in your current relationship?: Yes Is there a partner from a previous relationship who is making you feel unsafe now?: No Are you made to feel afraid or neglected: No Spiritual Healthcare Practices: none reported Congregational Healthcare Practices: attends [facility] Advance Directives: No Advance Directives Information Provided: No Do you have thoughts of harming others: None Do you have a plan to hurt others: No Plan Recently lost weight without trying: No How much weight loss: Unsure Eating poorly because of decreased appetite: No Nutrition screen score: 2 Nutrition Risks: No Nutritional Risk Poor oral hygiene: No service: No Current occupational status: unemployed and disabled Meds Allergies Allergy/AdvReac Type Severity Reaction Status Date / Time cephalexin [From KEFLEX] Allergy Unknown UNKNOWN Verified 06/27/21 14:57 sulfamethoxazole Allergy Unknown UNKNOWN Verified 06/27/21 14:57 [From BACTRIM] trimethoprim [From BACTRIM] Allergy Unknown UNKNOWN Verified 06/27/21 14:57 Physical Exam Vital Signs and Narrative: Vital Signs: Last Vital Signs Temp 97.8 F 06/28/21 20:17 Pulse 106 H 06/28/21 23:00 Resp 24 H 06/28/21 23:00 BP 119/80 06/28/21 23:00 Pulse Ox 97 06/28/21 23:00 Body Mass Index 49.0 Const: General: cooperative and no acute distress Orientation/consciousness: patient oriented x3 Eyes: General: appearance normal, both eyes and all related structures Pupils: Equal, round and reactive pupils present Resp: Effort & Inspection: normal respiratory effort Auscultation: clear to auscultation bilaterally Cardio: Rate: regular rate Rhythm: regular rhythm GI: Palpation (GI): Soft to palpation Auscultation: normal bowel sounds Skin: General skin exam: no rashes or lesions noted Neuro: General: patient oriented x3 Cranial nerves: Yes Equal, round and reactive pupils present Cognition (Neuro): normal cognition Extrem: General: Yes normal to inspection and Yes no pedal edema Results Labs CBC and Chem 7: 06/28/21 21:16 06/28/21 21:16 Labs: Laboratory Results - last 24 hr 06/28/21 06/28/21 06/28/21 21:15 21:16 21:16 MCV 76.5 L MCH 23.5 L MCHC 30.8 L RDW 16.3 H Plt Count 281 MPV 9.3 L Immature Gran % (Auto) 0.3 Neut % (Auto) 79.1 H Lymph % (Auto) 11.9 L [place] % (Auto) 7.2 Eos % (Auto) 1.0 Baso % (Auto) 0.5 Lymph # (Auto) 1.2 [place] # (Auto) 0.7 Eos # (Auto) 0.1 Baso # (Auto) 0.1 Abs Immat Gran (auto) 0.03 Absolute Neuts (auto) 7.6 Absolute Nucleated RBC 0.000 Nucleated RBC % (auto) 0.0 VBG pH VBG pCO2 VBG pO2 VBG HCO3 VBG O2 Saturation VBG Base Excess Anion Gap 11 L Estim Creat Clear Calc 140.7 Estimated GFR > 60 Random Glucose 117 H Calcium 9.0 Troponin I High Sens 56.7 H* D B-Natriuretic Peptide 716 H Urine Color Urine Appearance Urine pH Ur Specific [place] Urine Protein Urine Glucose (UA) Urine Ketones Urine Blood Urine Nitrite Ur Leukocyte Esterase Urine Opiates Screen Urine Fentanyl Screen Ur Barbiturates Screen Ur Phencyclidine Scrn Ur Amphetamines Screen U Benzodiazepines Scrn Urine Cocaine Screen U Marijuana (THC) Screen COVID-19 (LEANDRO) COVID-19 Clin Com 06/28/21 06/28/21 06/28/21 21:47 21:47 22:09 MCV MCH MCHC RDW Plt Count MPV Immature Gran % (Auto) Neut % (Auto) Lymph % (Auto) [place] % (Auto) Eos % (Auto) Baso % (Auto) Lymph # (Auto) [place] # (Auto) Eos # (Auto) Baso # (Auto) Abs Immat Gran (auto) Absolute Neuts (auto) Absolute Nucleated RBC Nucleated RBC % (auto) VBG pH VBG pCO2 VBG pO2 VBG HCO3 VBG O2 Saturation VBG Base Excess Anion Gap Estim Creat Clear Calc Estimated GFR Random Glucose Calcium Troponin I High Sens B-Natriuretic Peptide Urine Color YELLOW Urine Appearance CLEAR Urine pH 6.0 Ur Specific [place] 1.010 Urine Protein NEG Urine Glucose (UA) NEG Urine Ketones NEG Urine Blood NEG Urine Nitrite NEG Ur Leukocyte Esterase NEG Urine Opiates Screen Not Detected Urine Fentanyl Screen Not Detected Ur Barbiturates Screen Not Detected Ur Phencyclidine Scrn Not Detected Ur Amphetamines Screen Not Detected U Benzodiazepines Scrn Not Detected Urine Cocaine Screen POSITIVE H U Marijuana (THC) Screen POSITIVE H COVID-19 (LEANDRO) Negative COVID-19 Clin Com See Note 06/28/21 22:37 MCV MCH MCHC RDW Plt Count MPV Immature Gran % (Auto) Neut % (Auto) Lymph % (Auto) [place] % (Auto) Eos % (Auto) Baso % (Auto) Lymph # (Auto) [place] # (Auto) Eos # (Auto) Baso # (Auto) Abs Immat Gran (auto) Absolute Neuts (auto) Absolute Nucleated RBC Nucleated RBC % (auto) VBG pH 7.52 H VBG pCO2 25 VBG pO2 165 VBG HCO3 21 L VBG O2 Saturation 99.0 VBG Base Excess 0.2 Anion Gap Estim Creat Clear Calc Estimated GFR Random Glucose Calcium Troponin I High Sens B-Natriuretic Peptide Urine Color Urine Appearance Urine pH Ur Specific [place] Urine Protein Urine Glucose (UA) Urine Ketones Urine Blood Urine Nitrite Ur Leukocyte Esterase Urine Opiates Screen Urine Fentanyl Screen Ur Barbiturates Screen Ur Phencyclidine Scrn Ur Amphetamines Screen U Benzodiazepines Scrn Urine Cocaine Screen U Marijuana (THC) Screen COVID-19 (LEANDRO) COVID-19 Clin Com Imaging Radiologist's Impressions: Impressions Chest X-Ray 06/28/21 20:28 IMPRESSION: Stable cardiomegaly with minimal patchy bilateral airspace opacities. Findings are significantly decreased when compared to the prior chest radiograph. This can be seen in the setting of pulmonary edema or represent an infectious or inflammatory process. Assessment and Plan (1) CHF exacerbation: Status: Acute This is a 50-year-old male with past medical history of heart failure with an ejection fraction of 10-15% who presents to the hospital with complaints of shortness of breath found to have CHF exacerbation # acute CHF exacerbation - most likely due to cocaine abuse and possible noncompliance with meds although reports that he does take his Lasix daily now - will start him on Lasix 40 b.i.d. - low sodium diet, strict I&O, daily weight - last echocardiogram done in May of 2021 showed ejection fraction of 10-15% - no significant elevation in troponin - cardiology consulted - continue Entresto # sleep apnea - patient reports that he uses his CPAP but not every night - will start him on CPAP at bedtime that will also help with his CHF # COPD/asthma - no exacerbation - continue p.r.n. albuterol inhaler DVT prophylaxis: Lovenox Quality Stroke Does the patient have a stroke diagnosis?: No VTE Prior VTE?: No VTE Risk Level:: Medical - moderate - high VTE Device Contraindication: Treatment Not Indicated VTE Drug Contraindication: N/A - Med Ordered
--- NOTE | 2021-06-28 23:43 | PC.NURSE ---
pt is up to bathroom after lasix, pt refuses to use the urinal so the output could be measured.
[2021-06-29] VITALS (9 sets, daily range): BP systolic 93–136; BP diastolic 64–87; PULSE 86–228; RESP 17–20; TEMP 36–37.3; O2SAT 87–100; BMI 49.2; BMI 48.9
[2021-06-29] MEDS: Enoxaparin Sodium 40 MG/0.4 ML SYRINGE SUBCUT ×2 (01:42→22:56)
[2021-06-29] MEDS: 0.9 % Sodium Chloride Flush 3 ML SYRINGE IVFLUSH ×4 (01:43→20:27)
--- NOTE | 2021-06-29 03:31 | PC.NURSE ---
Pt noted to have 8 beat of vtach then back into sinus tach, HR 106. Pt assessed, asymptomatic. Will continue to monitor.
[2021-06-29 07:06] LABS: Hematocrit 36.7 % (42-52); Hemoglobin 11.2 g/dl (14.0-18.0); Mean Corpuscular HGB Conc 30.5 g/dl (31.0-36.0); Mean Corpuscular Hemoglobin 23.1 pg (27.0-33.0); Mean Corpuscular Volume 75.8 fL (80-98); Mean Platelet Volume 9.4 fL (9.4-12.4); Platelet Count 316 X10*3/uL (160-400); Red Blood Count 4.84 X10*6/uL (4.60-5.80); Red Cell Distribution Width 16.3 % (11.0-16.0); White Blood Count 10.3 X10*3/uL (4.8-10.8)
[2021-06-29 07:31] LABS: Anion Gap 12 (12-20); Blood Urea Nitrogen 15 mg/dL (9-16); Calcium 9.1 mg/dL (8.4-10.2); Carbon Dioxide 28 mmol/L (22-29); Chloride 105 mmol/L (96-108); Creatinine Clr Calc Pharmacy 132.1; Estimated Glomerular Filt Rate > 60; Glucose Random 98 mg/dL (60-115); Potassium 3.6 mmol/L (3.3-5.1); Sodium 141 mmol/L (135-145)
--- NOTE | 2021-06-29 08:11 | P.CDIC_ITS ---
CDI Concurrent Query Documentation Clarification: PHYSICIAN'S DOCUMENTATION REQUEST Date of Query: 06/29/21811 Patient Name: Leandro Bartlett Admit Date: 06/28/21 Dear Doctor, A review of the medical record indicates additional documentation may be needed. Please review below and update the documentation accordingly. Clinical Indicators: BMI: 49.3 Other Clinical Notes Supporting Significance of the BMI: Risk Factors/Clinical Indicators/Treatments LISSET, Height & Weight: extreme obesity class III If possible, please provide an associated diagnosis related to the abnormal BMI, such as: For a BMI >= 40: Morbid obesity * Overweight * Obesity * Due to excess calories * Drug induced * Due to other cause * Or: * BMI is not significant * Other ? please specify * Unable to determine Use of terms such as suspected, likely, concern for, or probable (associated with a specific diagnosis that is being evaluated, monitored, or treated as if it exists) are acceptable and can be coded in the inpatient setting, when documented at the time of discharge. Thank you, Amber Danielson [facility], CDIS Extension: [phone] Please use your independent medical judgment in providing your response. THIS QUERY IS PART OF THE PERMANENT MEDICAL RECORD Provider Response: Morbid Obesity
[2021-06-29] MEDS: Furosemide 40 MG/4 ML VIAL IVPUSH ×2 (09:37→15:40)
--- NOTE | 2021-06-29 09:58 | PM.CNCAR ---
History of Present Illness History of Present Illness Date of Service: 06/29/21 Chief complaint: CHF exacerbation Narrative: This is a cardiology consultation regarding congestive heart failure. He was originally seen several months ago in the setting of COVID infection. At that time, LV function was markedly diminished. Subsequently, he underwent workup with cardiac catheterization that showed normal coronary arteries. Unfortunately, he continues to use cocaine. He is again positive this admission as well. He continues to have shortness of breath yelling on walking just a few feet and that led to this hospitalization. No PND or orthopnea type symptoms. No anginal type symptoms. He states that he does use Lasix but not entirely clear how compliant he is. Review of Systems Review of Systems: Yes all other systems are reviewed and are negative Cardiovascular: Cardiovascular: Reports as per HPI, Reports no additional cardiovascular complaints, Denies acrocyanosis, Denies cool extremities, Denies painful fingertips, Denies chest pain, Denies chest pain at rest, Denies diaphoresis, Denies syncope, Denies irregular heart rhythm, Denies claudication, Denies leg edema, Denies lightheadedness, Denies palpitations and Reports dyspnea Respiratory: Respiratory: Reports dyspnea Neurologic: Denies syncope Endocrine: Endocrine: Denies palpitations PMFSH Past Medical History Medical History Asthma CHF (congestive heart failure) Chronic systolic (congestive) heart failure Cocaine abuse COPD (chronic obstructive pulmonary disease) NICM (nonischemic cardiomyopathy) LISSET (obstructive sleep apnea) Family History Family History Mother Ovarian cancer Diabetes Surgical History Surgical History History of cardiac catheterization (~11/07/20) History of surgery Social History Social History Household Members: Spouse and Other Household Members Other:: lives in a motorcycle [place] Housing: Other Do you presently have visiting nurse or other home services: No Alcohol intake: current Alcohol intake frequency: a few times a week Alcohol type: beer Patient Tobacco Use Status: Former Tobacco user Use of substances other than those prescribed or required for medical reasons: Yes Substance Use Type: Crack/Cocaine, Heroin and Marijuana Substance Use Type Other:: currently cocaine. hx of heroin use Substance Use Frequency: Chronic Longstanding Substance Use Frequency Other:: 1 Last Used Substance: Weeks (ago) Last Used Substance Other:: 06/27/21 Currently Displaying Signs/Symptoms of Drug Intoxication Withdrawal: No Any prior treatment program specific to substance use: Yes Have you been hit, kicked, punched, or otherwise hurt by someone within the past year? If so, by whom?: No Do you feel safe in your current relationship?: Yes Is there a partner from a previous relationship who is making you feel unsafe now?: No Are you made to feel afraid or neglected: No Spiritual Healthcare Practices: none reported [employer] Healthcare Practices: attends [facility] Advance Directives: No Advance Directives Information Provided: No Do you have thoughts of harming others: None Do you have a plan to hurt others: No Plan Recently lost weight without trying: No How much weight loss: Unsure Eating poorly because of decreased appetite: No Nutrition screen score: 2 Nutrition Risks: No Nutritional Risk Poor oral hygiene: No service: No Current occupational status: unemployed and disabled Meds Allergies Allergy/AdvReac Type Severity Reaction Status Date / Time cephalexin [From KEFLEX] Allergy Unknown UNKNOWN Verified 06/27/21 14:57 sulfamethoxazole Allergy Unknown UNKNOWN Verified 06/27/21 14:57 [From BACTRIM] trimethoprim [From BACTRIM] Allergy Unknown UNKNOWN Verified 06/27/21 14:57 Active Medications: Current Medications Generic Name Dose Route Start Last Admin Trade Name Freq PRN Reason Stop Dose Admin Acetaminophen 650 mg 06/29/21 00:44 Acetaminophen 325 Mg Tablet PO Q6H PRN Pain, Mild (Pain Scale 1-3) Docusate Sodium 100 mg 06/29/21 00:44 Docusate Sodium 100 Mg Capsule PO DAILY PRN Constipation Enoxaparin Sodium 40 mg 06/29/21 01:00 06/29/21 01:42 Enoxaparin Sodium 40 Mg/0.4 Ml Syringe SUBCUT 40 mg Q24H EZEQUIEL Administration Furosemide 40 mg 06/29/21 08:00 06/29/21 09:37 Furosemide 40 Mg/4 Ml Vial IVPUSH 40 mg BID@0800,1700 EZEQUIEL Administration Protocol Ondansetron HCl 4 mg 06/29/21 00:44 Ondansetron Hcl 4 Mg/2 Ml Vial IVPUSH Q8H PRN Nausea and Vomiting Sodium Chloride 3 ml 06/29/21 00:44 06/29/21 09:37 0.9 % Sodium Chloride Flush 3 Ml Syringe IVFLUSH 3 ml QSHIFT EZEQUIEL Administration Physical Exam Vital Signs: Vital Signs: Last Vital Signs Temp 99.1 F 06/29/21 07:05 Pulse 228 H 06/29/21 07:05 Resp 18 06/29/21 07:05 BP 136/87 06/29/21 07:05 Pulse Ox 96 06/29/21 09:36 Body Mass Index 48.9 Const: General: cooperative and no acute distress HENMT: Other: Unremarkable Neck: Neck: Yes normal visual inspection Chest: Chest palpation & inspection: normal inspection of the chest Resp: Auscultation: clear to auscultation bilaterally, no crackles and no wheezes Cardio: Jugular venous distension: no JVD Palpation: normal PMI Heart sounds: S1 normal heart sound present, S2 normal heart sound present, no gallops, no murmurs and no rubs GI: Palpation (GI): Soft to palpation Back/Spine/Pelvis: Other: unremarkable Skin: General skin exam: no rashes or lesions noted Neuro: Cranial nerves: Yes Other cranial nerve findings present Extrem: General: Yes no clubbing, cyanosis or edema Psych: Mental Status: other Results Labs and Meds Result diagrams: 06/29/21 06:09 06/29/21 06:09 Lab results: Laboratory Results - last 24 hr 06/28/21 06/28/21 06/28/21 21:15 21:16 21:16 WBC 9.6 RBC 4.63 Hgb 10.9 L Hct 35.4 L MCV 76.5 L MCH 23.5 L MCHC 30.8 L RDW 16.3 H Plt Count 281 MPV 9.3 L Immature Gran % (Auto) 0.3 Neut % (Auto) 79.1 H Lymph % (Auto) 11.9 L [place] % (Auto) 7.2 Eos % (Auto) 1.0 Baso % (Auto) 0.5 Lymph # (Auto) 1.2 [place] # (Auto) 0.7 Eos # (Auto) 0.1 Baso # (Auto) 0.1 Abs Immat Gran (auto) 0.03 Absolute Neuts (auto) 7.6 Absolute Nucleated RBC 0.000 Nucleated RBC % (auto) 0.0 VBG pH VBG pCO2 VBG pO2 VBG HCO3 VBG O2 Saturation VBG Base Excess Sodium 138 Potassium 4.2 Chloride 107 Carbon Dioxide 24 Anion Gap 11 L BUN 17 H Creatinine 0.94 Estim Creat Clear Calc 140.7 Estimated GFR > 60 Random Glucose 117 H Calcium 9.0 Troponin I High Sens 56.7 H* D B-Natriuretic Peptide 716 H Urine Color Urine Appearance Urine pH Ur Specific [place] Urine Protein Urine Glucose (UA) Urine Ketones Urine Blood Urine Nitrite Ur Leukocyte Esterase Urine Opiates Screen Urine Fentanyl Screen Ur Barbiturates Screen Ur Phencyclidine Scrn Ur Amphetamines Screen U Benzodiazepines Scrn Urine Cocaine Screen U Marijuana (THC) Screen COVID-19 (LEANDRO) COVID-19 [employer] 06/28/21 06/28/21 06/28/21 21:47 21:47 22:09 WBC RBC Hgb Hct MCV MCH MCHC RDW Plt Count MPV Immature Gran % (Auto) Neut % (Auto) Lymph % (Auto) [place] % (Auto) Eos % (Auto) Baso % (Auto) Lymph # (Auto) [place] # (Auto) Eos # (Auto) Baso # (Auto) Abs Immat Gran (auto) Absolute Neuts (auto) Absolute Nucleated RBC Nucleated RBC % (auto) VBG pH VBG pCO2 VBG pO2 VBG HCO3 VBG O2 Saturation VBG Base Excess Sodium Potassium Chloride Carbon Dioxide Anion Gap BUN Creatinine Estim Creat Clear Calc Estimated GFR Random Glucose Calcium Troponin I High Sens B-Natriuretic Peptide Urine Color YELLOW Urine Appearance CLEAR Urine pH 6.0 Ur Specific [place] 1.010 Urine Protein NEG Urine Glucose (UA) NEG Urine Ketones NEG Urine Blood NEG Urine Nitrite NEG Ur Leukocyte Esterase NEG Urine Opiates Screen Not Detected Urine Fentanyl Screen Not Detected Ur Barbiturates Screen Not Detected Ur Phencyclidine Scrn Not Detected Ur Amphetamines Screen Not Detected U Benzodiazepines Scrn Not Detected Urine Cocaine Screen POSITIVE H U Marijuana (THC) Screen POSITIVE H COVID-19 (LEANDRO) Negative COVID-19 [employer] Com See Note 06/28/21 06/29/21 06/29/21 22:37 00:25 06:09 WBC 10.3 RBC 4.84 Hgb 11.2 L Hct 36.7 L MCV 75.8 L MCH 23.1 L MCHC 30.5 L RDW 16.3 H Plt Count 316 MPV 9.4 Immature Gran % (Auto) Neut % (Auto) Lymph % (Auto) [place] % (Auto) Eos % (Auto) Baso % (Auto) Lymph # (Auto) [place] # (Auto) Eos # (Auto) Baso # (Auto) Abs Immat Gran (auto) Absolute Neuts (auto) Absolute Nucleated RBC 0.000 Nucleated RBC % (auto) 0.0 VBG pH 7.52 H VBG pCO2 25 VBG pO2 165 VBG HCO3 21 L VBG O2 Saturation 99.0 VBG Base Excess 0.2 Sodium Potassium Chloride Carbon Dioxide Anion Gap BUN Creatinine Estim Creat Clear Calc Estimated GFR Random Glucose Calcium Troponin I High Sens 53.0 H* B-Natriuretic Peptide Urine Color Urine Appearance Urine pH Ur Specific [place] Urine Protein Urine Glucose (UA) Urine Ketones Urine Blood Urine Nitrite Ur Leukocyte Esterase Urine Opiates Screen Urine Fentanyl Screen Ur Barbiturates Screen Ur Phencyclidine Scrn Ur Amphetamines Screen U Benzodiazepines Scrn Urine Cocaine Screen U Marijuana (THC) Screen COVID-19 (LEANDRO) [employer] 06/29/21 06:09 WBC RBC Hgb Hct MCV MCH MCHC RDW Plt Count MPV Immature Gran % (Auto) Neut % (Auto) Lymph % (Auto) [place] % (Auto) Eos % (Auto) Baso % (Auto) Lymph # (Auto) [place] # (Auto) Eos # (Auto) Baso # (Auto) Abs Immat Gran (auto) Absolute Neuts (auto) Absolute Nucleated RBC Nucleated RBC % (auto) VBG pH VBG pCO2 VBG pO2 VBG HCO3 VBG O2 Saturation VBG Base Excess Sodium 141 Potassium 3.6 Chloride 105 Carbon Dioxide 28 Anion Gap 12 BUN 15 Creatinine 1.00 Estim Creat Clear Calc 132.1 Estimated GFR > 60 Random Glucose 98 Calcium 9.1 Troponin I High Sens B-Natriuretic Peptide Urine Color Urine Appearance Urine pH Ur Specific [place] Urine Protein Urine Glucose (UA) Urine Ketones Urine Blood Urine Nitrite Ur Leukocyte Esterase Urine Opiates Screen Urine Fentanyl Screen Ur Barbiturates Screen Ur Phencyclidine Scrn Ur Amphetamines Screen U Benzodiazepines Scrn Urine Cocaine Screen U Marijuana (THC) Screen COVID-19 (LEANDRO) COVID-19 [employer] Com ECG Interpretation: EKG was sinus rhythm, possible left atrial enlargement, leftward axis and nonspecific ST-T changes. Imaging Radiologist's impression: Impressions Chest X-Ray 06/28/21 20:28 IMPRESSION: Stable cardiomegaly with minimal patchy bilateral airspace opacities. Findings are significantly decreased when compared to the prior chest radiograph. This can be seen in the setting of pulmonary edema or represent an infectious or inflammatory process. Assessment and Plan (1) Acute on chronic systolic (congestive) heart failure: Status: Resolved (2) Cocaine abuse: Status: Acute (3) NICM (nonischemic cardiomyopathy): Status: Acute Cardiac catheterization shows normal coronary arteries. Last echocardiogram shows LVEF of 10-15%. Labs reviewed. Potassium is 3.6. Creatinine is 1. BUN is 15. High sensitive troponins. 56 and 53. Cardiac BNP 716. Positive for cocaine and marijuana. He was positive for cocaine last month as well. At this time, treat for acute on chronic systolic heart failure with IV Lasix. Resume Entresto. Not on beta-krista due to active cocaine use. Discussed in detail about the use of cocaine but I am not entirely clear if he will give up. Will follow up with you. Procedures Date of Service Date of Service: 06/29/21
--- NOTE | 2021-06-29 12:10 | MHC.RECOVRN ---
50 year old male presented to [facility], ambulatory, on 06/28 due to SOB for 2-3 days. Reports at PCP, patient oxygen dropped to 88 on RA. In triage patient sating 93-95 RA. hx of CHF per senior professional services consultant. Upon evaluation, pt admitted for further management of CHF exacerbation likely due to cocaine use.? T/w met with pt in 454 after consult placed to Addiction Medicine. Pts present, pt consents to discuss substance use with present. Pt familiar with t/w from previous hospitalizations.? Pt reports using cocaine, IV, daily since admission in October. Pt reports amount?has decreased and is currently using 2-3 grams daily, IV. Pts very supportive as she reports not using cocaine (herself) in 3 weeks. Pt is interested in abstinence from cocaine.? 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 Pt interested in utilizing off-label medications to assist with cocaine cravings, specifically baclofen. Pt has outpatient providers who pt works closely with and pt plans to discuss this with PCP. If possible, pt interested in initiating baclofen while inpatient.? Case discussed with?Nae Manley APRN.?
--- NOTE | 2021-06-29 13:23 | MHC.CM.PN ---
PT SLEEPING ON APPROACH, CM MET WITH PTS WHO WAS AT BEDSIDE. SHE REPORTS THE PT IS FULLY INDEPENDENT AT HOME AND USES ONLY A CPAP AT HOME. SHE REPORTS PT HAS NO SERVICES. PT HAS A HCP ON FILE. SHE ALSO CONFIRMS PT CHANGED HIS PCP TO JOSUE GAYLE. IMM DELIVERED CURRENT DC PLAN IS HOME WITH NO SERVICES, POSSIBLY LATER TODAY PER MD ROUNDS. WILL TRANSPORT
[2021-06-29] MEDS: Baclofen 10 MG TABLET PO ×2 (15:40→20:27)
--- NOTE | 2021-06-29 15:49 | HO.ADDICTCON ---
History of Present Illness Date of Service: 06/29/2021 Chief Complaint: CHF exacerbation Reason for Consult: cocaine use disorder Requesting physician: Bertrand Sanchez Sources of Information: patient interviewed and chart reviewed HPI Narrative: Patient is a 50 year old male with diagnosis of CHF, COPD, LISSET and cocaine use disorder. Currently medically admitted with CHF exacerbation. (EF reported as being 10-15%) Consult requested to address cocaine use. Patient seen in room 454. Recovery support RN and patient's present during interview. Patient with history of cocaine use for many years. Currently using approx 2-3 grams of cocaine QD IV. Does report long period of recovery (4 years) History of opioid use disorder (in remission) Was on methadone up until 2 years ago--tapered off. No opioid use. Denies cravings Numerous ATS admissions (none recently) Reporting that he recognizes his cocaine use is an issue and impacting his overall health. He previously felt as if though he was going to anyway , but has since realized that if he is able to abstain from cocaine use he may be able to maintain current function or even possibly improve some. He is requesting Baclofen to address cravings as he has been on this medication in the past and he found it to be very effective in managing his cravings and ultimately decreasing use. He reports that he has a strong support system, including his who is also in recovery. He identified concerns of feeling depression or feelings of apathy once he starts baclofen. Discussed this being a common concern and even common sx for many in early recovery. Encouraged patient to seek out supports and voice sx to ensure they are being addressed. Review of Systems Constitutional: Reports no additional constitutional complaints Diagnostics Vital Signs (24Hr): Vital Signs - 24 hr 06/28/21 20:17 06/28/21 21:50 06/28/21 23:00 Temperature 97.8 F Pulse Rate 108 H 102 H 106 H Respiratory Rate 16 20 24 H Blood Pressure 114/71 112/75 119/80 Pulse Oximetry 93 95 97 06/29/21 00:39 06/29/21 04:00 06/29/21 07:05 Temperature 97.5 F 99.1 F Pulse Rate 102 H 108 H 228 H Respiratory Rate 17 20 18 Blood Pressure 99/64 113/64 136/87 Pulse Oximetry 97 99 87 L 06/29/21 09:36 06/29/21 11:31 06/29/21 15:30 Temperature 98.5 F 98.1 F Pulse Rate 101 H 105 H Respiratory Rate 20 18 Blood Pressure 117/71 135/82 Pulse Oximetry 96 93 98 Body Mass Index 48.9 Labs Results: 06/29/21 06:09 06/29/21 06:09 Labs: Laboratory Results - last 48 hr 06/28/21 06/28/21 06/28/21 21:15 21:16 21:16 WBC 9.6 RBC 4.63 Hgb 10.9 L Hct 35.4 L MCV 76.5 L MCH 23.5 L MCHC 30.8 L RDW 16.3 H Plt Count 281 MPV 9.3 L Immature Gran % (Auto) 0.3 Neut % (Auto) 79.1 H Lymph % (Auto) 11.9 L [place] % (Auto) 7.2 Eos % (Auto) 1.0 Baso % (Auto) 0.5 Lymph # (Auto) 1.2 [place] # (Auto) 0.7 Eos # (Auto) 0.1 Baso # (Auto) 0.1 Abs Immat Gran (auto) 0.03 Absolute Neuts (auto) 7.6 Absolute Nucleated RBC 0.000 Nucleated RBC % (auto) 0.0 VBG pH VBG pCO2 VBG pO2 VBG HCO3 VBG O2 Saturation VBG Base Excess Sodium 138 Potassium 4.2 Chloride 107 Carbon Dioxide 24 Anion Gap 11 L BUN 17 H Creatinine 0.94 Estim Creat Clear Calc 140.7 Estimated GFR > 60 Random Glucose 117 H Calcium 9.0 Troponin I High Sens 56.7 H* D B-Natriuretic Peptide 716 H Urine Color Urine Appearance Urine pH Ur Specific [place] Urine Protein Urine Glucose (UA) Urine Ketones Urine Blood Urine Nitrite Ur Leukocyte Esterase Urine Opiates Screen Urine Fentanyl Screen Ur Barbiturates Screen Ur Phencyclidine Scrn Ur Amphetamines Screen U Benzodiazepines Scrn Urine Cocaine Screen U Marijuana (THC) Screen COVID-19 (LEANDRO) COVID-19 Clin Com 06/28/21 06/28/21 06/28/21 21:47 21:47 22:09 WBC RBC Hgb Hct MCV MCH MCHC RDW Plt Count MPV Immature Gran % (Auto) Neut % (Auto) Lymph % (Auto) [place] % (Auto) Eos % (Auto) Baso % (Auto) Lymph # (Auto) [place] # (Auto) Eos # (Auto) Baso # (Auto) Abs Immat Gran (auto) Absolute Neuts (auto) Absolute Nucleated RBC Nucleated RBC % (auto) VBG pH VBG pCO2 VBG pO2 VBG HCO3 VBG O2 Saturation VBG Base Excess Sodium Potassium Chloride Carbon Dioxide Anion Gap BUN Creatinine Estim Creat Clear Calc Estimated GFR Random Glucose Calcium Troponin I High Sens B-Natriuretic Peptide Urine Color YELLOW Urine Appearance CLEAR Urine pH 6.0 Ur Specific [place] 1.010 Urine Protein NEG Urine Glucose (UA) NEG Urine Ketones NEG Urine Blood NEG Urine Nitrite NEG Ur Leukocyte Esterase NEG Urine Opiates Screen Not Detected Urine Fentanyl Screen Not Detected Ur Barbiturates Screen Not Detected Ur Phencyclidine Scrn Not Detected Ur Amphetamines Screen Not Detected U Benzodiazepines Scrn Not Detected Urine Cocaine Screen POSITIVE H U Marijuana (THC) Screen POSITIVE H COVID-19 (LEANDRO) Negative COVID-19 [facility] See Note 06/28/21 06/29/21 06/29/21 22:37 00:25 06:09 WBC 10.3 RBC 4.84 Hgb 11.2 L Hct 36.7 L MCV 75.8 L MCH 23.1 L MCHC 30.5 L RDW 16.3 H Plt Count 316 MPV 9.4 Immature Gran % (Auto) Neut % (Auto) Lymph % (Auto) [place] % (Auto) Eos % (Auto) Baso % (Auto) Lymph # (Auto) [place] # (Auto) Eos # (Auto) Baso # (Auto) Abs Immat Gran (auto) Absolute Neuts (auto) Absolute Nucleated RBC 0.000 Nucleated RBC % (auto) 0.0 VBG pH 7.52 H VBG pCO2 25 VBG pO2 165 VBG HCO3 21 L VBG O2 Saturation 99.0 VBG Base Excess 0.2 Sodium Potassium Chloride Carbon Dioxide Anion Gap BUN Creatinine Estim Creat Clear Calc Estimated GFR Random Glucose Calcium Troponin I High Sens 53.0 H* B-Natriuretic Peptide Urine Color Urine Appearance Urine pH Ur Specific [place] Urine Protein Urine Glucose (UA) Urine Ketones Urine Blood Urine Nitrite Ur Leukocyte Esterase Urine Opiates Screen Urine Fentanyl Screen Ur Barbiturates Screen Ur Phencyclidine Scrn Ur Amphetamines Screen U Benzodiazepines Scrn Urine Cocaine Screen U Marijuana (THC) Screen COVID-19 (LEANDRO) COVID-19 [facility] 06/29/21 06:09 WBC RBC Hgb Hct MCV MCH MCHC RDW Plt Count MPV Immature Gran % (Auto) Neut % (Auto) Lymph % (Auto) [place] % (Auto) Eos % (Auto) Baso % (Auto) Lymph # (Auto) [place] # (Auto) Eos # (Auto) Baso # (Auto) Abs Immat Gran (auto) Absolute Neuts (auto) Absolute Nucleated RBC Nucleated RBC % (auto) VBG pH VBG pCO2 VBG pO2 VBG HCO3 VBG O2 Saturation VBG Base Excess Sodium 141 Potassium 3.6 Chloride 105 Carbon Dioxide 28 Anion Gap 12 BUN 15 Creatinine 1.00 Estim Creat Clear Calc 132.1 Estimated GFR > 60 Random Glucose 98 Calcium 9.1 Troponin I High Sens B-Natriuretic Peptide Urine Color Urine Appearance Urine pH Ur Specific [place] Urine Protein Urine Glucose (UA) Urine Ketones Urine Blood Urine Nitrite Ur Leukocyte Esterase Urine Opiates Screen Urine Fentanyl Screen Ur Barbiturates Screen Ur Phencyclidine Scrn Ur Amphetamines Screen U Benzodiazepines Scrn Urine Cocaine Screen U Marijuana (THC) Screen COVID-19 (LEANDRO) COVID-19 Clin Com Imaging Radiology Impressions: ITS Impressions Chest X-Ray 06/28/21 20:28 IMPRESSION: Stable cardiomegaly with minimal patchy bilateral airspace opacities. Findings are significantly decreased when compared to the prior chest radiograph. This can be seen in the setting of pulmonary edema or represent an infectious or inflammatory process. Mental Status Exam Mental Status Exam Patient Appearance: Appropriate Patient Orientation: Person, Place, Time and Situation Level of Consciousness: Awake, Appropriate and Alert Patient Behavior: Appropriate Mood Description: Calm and Appropriate Affect Description: Calm and Appropriate Patient Cognition Impaired: No Speech Pattern: Clear Memory Description: Intact Hallucinations: None Thought Process: Intact and Goal Oriented Thought Content: positive for Intact and positive for Goal Oriented Judgement: Fair Medications Medications Current Medications Generic Name Dose Route Start Last Admin Trade Name Freq PRN Reason Stop Dose Admin Acetaminophen 650 mg 06/29/21 00:44 Acetaminophen 325 Mg Tablet PO Q6H PRN Pain, Mild (Pain Scale 1-3) Baclofen 10 mg 06/29/21 15:00 06/29/21 15:40 Baclofen 10 Mg Tablet PO 10 mg TID EZEQUIEL Administration Docusate Sodium 100 mg 06/29/21 00:44 Docusate Sodium 100 Mg Capsule PO DAILY PRN Constipation Enoxaparin Sodium 40 mg 06/29/21 01:00 06/29/21 01:42 Enoxaparin Sodium 40 Mg/0.4 Ml Syringe SUBCUT 40 mg Q24H EZEQUIEL Administration Furosemide 40 mg 06/29/21 08:00 06/29/21 15:40 Furosemide 40 Mg/4 Ml Vial IVPUSH 40 mg BID@0800,1700 EZEQUIEL Administration Protocol Ondansetron HCl 4 mg 06/29/21 00:44 Ondansetron Hcl 4 Mg/2 Ml Vial IVPUSH Q8H PRN Nausea and Vomiting Sodium Chloride 3 ml 06/29/21 00:44 06/29/21 15:40 0.9 % Sodium Chloride Flush 3 Ml Syringe IVFLUSH 3 ml QSHIFT EZEQUIEL Administration Allergies Allergies Allergy/AdvReac Type Severity Reaction Status Date / Time cephalexin [From KEFLEX] Allergy Unknown UNKNOWN Verified 06/27/21 14:57 sulfamethoxazole Allergy Unknown UNKNOWN Verified 06/27/21 14:57 [From BACTRIM] trimethoprim [From BACTRIM] Allergy Unknown UNKNOWN Verified 06/27/21 14:57 Assessment & Plan Assessment & Plan (1) Cocaine use disorder, severe, dependence: Status: Acute Code(s): F14.20 - Cocaine dependence, uncomplicated Assessment and Plan: Baclofen 10mg TID to be started during admission and continued at discharge Discussed case with PCP who was agreeable to continuing baclofen for patient Encouraged patient to continue seeking out recovery supports 50 minutes with patient, dicussing and coordinating care Greater than 50% of the session was spent on counseling and/or coordination of care PMFSH Past Medical History Medical History Asthma CHF (congestive heart failure) Chronic systolic (congestive) heart failure Cocaine abuse COPD (chronic obstructive pulmonary disease) NICM (nonischemic cardiomyopathy) LISSET (obstructive sleep apnea) Family History Family History Mother Ovarian cancer Diabetes Surgical History Surgical History History of cardiac catheterization (~11/07/20) History of surgery Social History Social History Household Members: Spouse and Other Household Members Other:: lives in a [place] [employer] Housing: Other Do you presently have visiting nurse or other home services: No Alcohol intake: current Alcohol intake frequency: a few times a week Alcohol type: beer Patient Tobacco Use Status: Former Tobacco user Use of substances other than those prescribed or required for medical reasons: Yes Substance Use Type: Crack/Cocaine, Heroin and Marijuana Substance Use Type Other:: currently cocaine. hx of heroin use Substance Use Frequency: Chronic Longstanding Substance Use Frequency Other:: 1 Last Used Substance: Weeks (ago) Last Used Substance Other:: 06/27/21 Currently Displaying Signs/Symptoms of Drug Intoxication Withdrawal: No Any prior treatment program specific to substance use: Yes Have you been hit, kicked, punched, or otherwise hurt by someone within the past year? If so, by whom?: No Do you feel safe in your current relationship?: Yes Is there a partner from a previous relationship who is making you feel unsafe now?: No Are you made to feel afraid or neglected: No Spiritual Healthcare Practices: none reported Christianity Healthcare Practices: attends [employer] Advance Directives: No Advance Directives Information Provided: No Do you have thoughts of harming others: None Do you have a plan to hurt others: No Plan Recently lost weight without trying: No How much weight loss: Unsure Eating poorly because of decreased appetite: No Nutrition screen score: 2 Nutrition Risks: No Nutritional Risk Poor oral hygiene: No service: No Current occupational status: unemployed and disabled
--- NOTE | 2021-06-29 16:06 | HO.PM.IMPN ---
Subjective Subjective Date of Service: 06/29/21 Interval History: The patient was seen and evaluated this morning Laying in bed, feels little better for now with no skin supplement needed Still has elevated BNP and edema Denies any fever, chills or shortness of breath No reported other overnight events. Systemic review: No fever, chills or weakness No chest pain, palpitation Dyspnea on exertion, No abdominal pain, nausea or vomiting No urinary symptoms No any rash or wounds Physical Exam Vital Signs: Vital Signs: Last Vital Signs Temp 98.1 F 06/29/21 15:30 Pulse 105 H 06/29/21 15:30 Resp 18 06/29/21 15:30 BP 135/82 06/29/21 15:30 Pulse Ox 98 06/29/21 15:30 Body Mass Index 48.9 Const: Other: Constitutional : Alert, oriented, not in distress Neck : Normal inspection, Supple Cardiovascular : RRR, S1 S2, trace bilateral lower extremity edema Respiratory : Good bilateral air entry, basal bilateral crackles, wheezes or rhonchi Gastrointestinal: soft, lax, Normal bowel sounds, Non tender Skin : Warm, Dry Neurological : Alert & oriented x3, No focal deficit Objective Data Active Medications Acetaminophen (Acetaminophen 325 Mg Tablet) 650 mg PO Q6H PRN PRN Reason: Pain, Mild (Pain Scale 1-3) Baclofen (Baclofen 10 Mg Tablet) 10 mg PO TID [facility] Last Admin: 06/29/21 15:40 Dose: 10 mg Documented by: JANIE Docusate Sodium (Docusate Sodium 100 Mg Capsule) 100 mg PO DAILY PRN PRN Reason: Constipation Enoxaparin Sodium (Enoxaparin Sodium 40 Mg/0.4 Ml Syringe) 40 mg SUBCUT Q24H [facility] Last Admin: 06/29/21 01:42 Dose: 40 mg Documented by: SONNY Furosemide (Furosemide 40 Mg/4 Ml Vial) 40 mg IVPUSH BID@0800,1700 [facility]; Protocol Last Admin: 06/29/21 15:40 Dose: 40 mg Documented by: JANIE Ondansetron HCl (Ondansetron Hcl 4 Mg/2 Ml Vial) 4 mg IVPUSH Q8H PRN PRN Reason: Nausea and Vomiting Sodium Chloride (0.9 % Sodium Chloride Flush 3 Ml Syringe) 3 ml IVFLUSH QSHIFT [facility] Last Admin: 06/29/21 15:40 Dose: 3 ml Documented by: JANIE Labs CBC & Chem 7: 06/29/21 06:09 06/29/21 06:09 Labs: Laboratory Results - last 24 hr 06/28/21 06/28/21 06/28/21 21:15 21:16 21:16 MCV 76.5 L MCH 23.5 L MCHC 30.8 L RDW 16.3 H Plt Count 281 MPV 9.3 L Immature Gran % (Auto) 0.3 Neut % (Auto) 79.1 H Lymph % (Auto) 11.9 L [place] % (Auto) 7.2 Eos % (Auto) 1.0 Baso % (Auto) 0.5 Lymph # (Auto) 1.2 [place] # (Auto) 0.7 Eos # (Auto) 0.1 Baso # (Auto) 0.1 Abs Immat Gran (auto) 0.03 Absolute Neuts (auto) 7.6 Absolute Nucleated RBC 0.000 Nucleated RBC % (auto) 0.0 VBG pH VBG pCO2 VBG pO2 VBG HCO3 VBG O2 Saturation VBG Base Excess Anion Gap 11 L Estim Creat Clear Calc 140.7 Estimated GFR > 60 Random Glucose 117 H Calcium 9.0 Troponin I High Sens 56.7 H* D B-Natriuretic Peptide 716 H Urine Color Urine Appearance Urine pH Ur Specific [place] Urine Protein Urine Glucose (UA) Urine Ketones Urine Blood Urine Nitrite Ur Leukocyte Esterase Urine Opiates Screen Urine Fentanyl Screen Ur Barbiturates Screen Ur Phencyclidine Scrn Ur Amphetamines Screen U Benzodiazepines Scrn Urine Cocaine Screen U Marijuana (THC) Screen COVID-19 (LEANDRO) COVID-19 Clin Com 06/28/21 06/28/21 06/28/21 21:47 21:47 22:09 MCV MCH MCHC RDW Plt Count MPV Immature Gran % (Auto) Neut % (Auto) Lymph % (Auto) [place] % (Auto) Eos % (Auto) Baso % (Auto) Lymph # (Auto) [place] # (Auto) Eos # (Auto) Baso # (Auto) Abs Immat Gran (auto) Absolute Neuts (auto) Absolute Nucleated RBC Nucleated RBC % (auto) VBG pH VBG pCO2 VBG pO2 VBG HCO3 VBG O2 Saturation VBG Base Excess Anion Gap Estim Creat Clear Calc Estimated GFR Random Glucose Calcium Troponin I High Sens B-Natriuretic Peptide Urine Color YELLOW Urine Appearance CLEAR Urine pH 6.0 Ur Specific [place] 1.010 Urine Protein NEG Urine Glucose (UA) NEG Urine Ketones NEG Urine Blood NEG Urine Nitrite NEG Ur Leukocyte Esterase NEG Urine Opiates Screen Not Detected Urine Fentanyl Screen Not Detected Ur Barbiturates Screen Not Detected Ur Phencyclidine Scrn Not Detected Ur Amphetamines Screen Not Detected U Benzodiazepines Scrn Not Detected Urine Cocaine Screen POSITIVE H U Marijuana (THC) Screen POSITIVE H COVID-19 (LEANDRO) Negative COVID-19 Clin Com See Note 06/28/21 06/29/21 06/29/21 22:37 00:25 06:09 MCV 75.8 L MCH 23.1 L MCHC 30.5 L RDW 16.3 H Plt Count 316 MPV 9.4 Immature Gran % (Auto) Neut % (Auto) Lymph % (Auto) [place] % (Auto) Eos % (Auto) Baso % (Auto) Lymph # (Auto) [place] # (Auto) Eos # (Auto) Baso # (Auto) Abs Immat Gran (auto) Absolute Neuts (auto) Absolute Nucleated RBC 0.000 Nucleated RBC % (auto) 0.0 VBG pH 7.52 H VBG pCO2 25 VBG pO2 165 VBG HCO3 21 L VBG O2 Saturation 99.0 VBG Base Excess 0.2 Anion Gap Estim Creat Clear Calc Estimated GFR Random Glucose Calcium Troponin I High Sens 53.0 H* B-Natriuretic Peptide Urine Color Urine Appearance Urine pH Ur Specific [place] Urine Protein Urine Glucose (UA) Urine Ketones Urine Blood Urine Nitrite Ur Leukocyte Esterase Urine Opiates Screen Urine Fentanyl Screen Ur Barbiturates Screen Ur Phencyclidine Scrn Ur Amphetamines Screen U Benzodiazepines Scrn Urine Cocaine Screen U Marijuana (THC) Screen COVID-19 (LEANDRO) COVID-19 Clin Com 06/29/21 06:09 MCV MCH MCHC RDW Plt Count MPV Immature Gran % (Auto) Neut % (Auto) Lymph % (Auto) [place] % (Auto) Eos % (Auto) Baso % (Auto) Lymph # (Auto) [place] # (Auto) Eos # (Auto) Baso # (Auto) Abs Immat Gran (auto) Absolute Neuts (auto) Absolute Nucleated RBC Nucleated RBC % (auto) VBG pH VBG pCO2 VBG pO2 VBG HCO3 VBG O2 Saturation VBG Base Excess Anion Gap 12 Estim Creat Clear Calc 132.1 Estimated GFR > 60 Random Glucose 98 Calcium 9.1 Troponin I High Sens B-Natriuretic Peptide Urine Color Urine Appearance Urine pH Ur Specific [place] Urine Protein Urine Glucose (UA) Urine Ketones Urine Blood Urine Nitrite Ur Leukocyte Esterase Urine Opiates Screen Urine Fentanyl Screen Ur Barbiturates Screen Ur Phencyclidine Scrn Ur Amphetamines Screen U Benzodiazepines Scrn Urine Cocaine Screen U Marijuana (THC) Screen COVID-19 (LEANDRO) COVID-19 Clin Com Assessment and Plan (1) Acute on chronic systolic (congestive) heart failure: Status: Acute (2) Cocaine use disorder, severe, dependence: Status: Acute (3) Morbid obesity: Status: Acute Assessment and Plan: This is a 50-year-old male with past medical history of heart failure with an ejection fraction of 10-15% who presents to the hospital with complaints of shortness of breath found to have CHF exacerbation # acute systolic CHF exacerbation likely due to cocaine abuse Continue Lasix 40 b.i.d. low sodium diet, strict I&O, daily weight last echocardiogram done in May of 2021 showed ejection fraction of 10-15% continue Entresto A cardiology input appreciated # cocaine abuse Likely resulting in cardiomyopathy Addiction team evaluation, to restart baclofen # sleep apnea patient reports that he uses his CPAP but not every night Continue to CPAP at bedtime # COPD/asthma no exacerbation continue p.r.n. albuterol inhaler # morbid obesity BMI of 49 Advised to lose weight DVT prophylaxis Lovenox Quality Stroke Does the patient have a stroke diagnosis?: No VTE Prior VTE?: No VTE Risk Level:: Medical - moderate - high VTE Device Contraindication: Treatment Not Indicated VTE Drug Contraindication: N/A - Med Ordered
[2021-06-30 04:00] VITALS: BP 119/92; PULSE 103; RESP 18; TEMP 36.3; O2SAT 96
[2021-06-30 06:00] VITALS: BMI 48.4
[2021-06-30 07:43] LABS: Hematocrit 38.4 % (42-52); Hemoglobin 11.7 g/dl (14.0-18.0); Mean Corpuscular HGB Conc 30.5 g/dl (31.0-36.0); Mean Corpuscular Hemoglobin 22.9 pg (27.0-33.0); Mean Corpuscular Volume 75.1 fL (80-98); Mean Platelet Volume 9.4 fL (9.4-12.4); Platelet Count 355 X10*3/uL (160-400); Red Blood Count 5.11 X10*6/uL (4.60-5.80); Red Cell Distribution Width 15.9 % (11.0-16.0); White Blood Count 10.4 X10*3/uL (4.8-10.8)
[2021-06-30 07:44] VITALS: BP 118/76; PULSE 106; RESP 20; TEMP 36.6; O2SAT 97
[2021-06-30 08:08] LABS: Anion Gap 13 (12-20); Blood Urea Nitrogen 19 mg/dL (9-16); Calcium 9.2 mg/dL (8.4-10.2); Carbon Dioxide 28 mmol/L (22-29); Chloride 102 mmol/L (96-108); Creatinine Clr Calc Pharmacy 131.2; Estimated Glomerular Filt Rate > 60; Glucose Random 164 mg/dL (60-115); Potassium 3.8 mmol/L (3.3-5.1); Sodium 139 mmol/L (135-145)
[2021-06-30 08:49] LABS: B Type Natriuretic Peptide 307 pg/mL (<100)
[2021-06-30] MEDS: 0.9 % Sodium Chloride Flush 3 ML SYRINGE IVFLUSH (10:04)
[2021-06-30] MEDS: Baclofen 10 MG TABLET PO (10:04)
[2021-06-30] MEDS: Furosemide 40 MG/4 ML VIAL IVPUSH (10:04)
--- NOTE | 2021-06-30 10:59 | P.PNCA_ITS ---
Subjective Subjective Date of Service: 06/30/21 Interval history: He states that he feels fine. Not short of breath. No other cardiac symptoms. Review of Systems Review of Systems Yes all other systems are reviewed and are negative Cardiovascular: Reports as per HPI, Reports no additional cardiovascular complaints, Denies acrocyanosis, Denies cool extremities, Denies painful fingertips, Denies chest pain, Denies chest pain at rest, Denies diaphoresis, Denies syncope, Denies irregular heart rhythm, Denies claudication, Denies leg edema, Denies lightheadedness, Denies palpitations and Denies dyspnea Respiratory: Denies dyspnea Denies syncope Endocrine: Denies palpitations Physical Exam Vital Signs: Last Vital Signs Temp 97.8 F 06/30/21 07:44 Pulse 106 H 06/30/21 07:44 Resp 20 06/30/21 07:44 BP 118/76 06/30/21 07:44 Pulse Ox 97 06/30/21 07:44 Body Mass Index 48.4 Const General: cooperative and no acute distress [facility] Other: Unremarkable Neck Neck: Yes normal visual inspection Chest Chest palpation & inspection: normal inspection of the chest Resp Auscultation: clear to auscultation bilaterally, no crackles and no wheezes Cardio Jugular venous distension: no JVD Palpation: normal PMI Heart sounds: S1 normal heart sound present, S2 normal heart sound present, no gallops, no murmurs and no rubs GI Palpation (GI): Soft to palpation Back/Spine/Pelvis Other: unremarkable Skin General skin exam: no rashes or lesions noted Neuro Cranial nerves: Yes Other cranial nerve findings present Extrem General: Yes no clubbing, cyanosis or edema Psych Mental Status: other Results Labs and Meds Result diagrams: 06/30/21 06:41 06/30/21 06:41 Lab results: Laboratory Results - last 24 hr 06/30/21 06/30/21 06/30/21 06:41 06:41 07:24 WBC 10.4 RBC 5.11 Hgb 11.7 L Hct 38.4 L MCV 75.1 L MCH 22.9 L MCHC 30.5 L RDW 15.9 Plt Count 355 MPV 9.4 Absolute Nucleated RBC 0.000 Nucleated RBC % (auto) 0.0 Sodium 139 Potassium 3.8 Chloride 102 Carbon Dioxide 28 Anion Gap 13 BUN 19 H Creatinine 1.00 Estim Creat Clear Calc 131.2 Estimated GFR > 60 Random Glucose 164 H D Calcium 9.2 B-Natriuretic Peptide 307 H Progress Note: A&P Assessment and plan (1) Acute on chronic systolic (congestive) heart failure: Status: Acute (2) Cocaine use disorder, severe, dependence: Status: Acute (3) Morbid obesity: Status: Acute Assessment and Plan: Cardiac catheterization shows normal coronary arteries. Last echocardiogram shows LVEF of 10-15%. Positive for cocaine and marijuana. He was positive for cocaine last month as well. It seems that he has been seen by adduction nurse this admission. I brought up the issue of cocaine and cardiomyopathy and he got quite angry about this. I clearly stated that he will need to abstain from cocaine completely or there is a risk of worsening cardiovascular issues and . He mentioned ICD, but again he will need to abstain from cocaine before we implant any devices. I told him that ICD could help with sudden , but will not help with heart failure symptoms. With IV drug use, the device will also probably get infected. Overall, he was very angry that I discussed about cocaine. At this time, may keep him on Entresto. Add spironolactone. If he is able to stay off cocaine, then possibly start carvedilol. After at least a few weeks of optimal medical therapy, abstinence from cocaine, then consideration for ICD. His was also in the room during this discussion. Due to frequent PVCs, check and correct magnesium as well. Spironolactone should help potassium levels. Beta blockers as above. Fall Risk Details Current Medications: Current Medications Generic Name Dose Route Start Last Admin Trade Name Patel PRN Reason Stop Dose Admin Acetaminophen 650 mg 06/29/21 00:44 Acetaminophen 325 Mg Tablet PO Q6H PRN Pain, Mild (Pain Scale 1-3) Baclofen 10 mg 06/29/21 15:00 06/30/21 10:04 Baclofen 10 Mg Tablet PO 10 mg TID EZEQUIEL Administration Docusate Sodium 100 mg 06/29/21 00:44 Docusate Sodium 100 Mg Capsule PO DAILY PRN Constipation Enoxaparin Sodium 40 mg 06/29/21 01:00 06/29/21 22:56 Enoxaparin Sodium 40 Mg/0.4 Ml Syringe SUBCUT 40 mg Q24H EZEQUIEL Administration Furosemide 40 mg 06/29/21 08:00 06/30/21 10:04 Furosemide 40 Mg/4 Ml Vial IVPUSH 40 mg BID@0800,1700 EZEQUIEL Administration Protocol Ondansetron HCl 4 mg 06/29/21 00:44 Ondansetron Hcl 4 Mg/2 Ml Vial IVPUSH Q8H PRN Nausea and Vomiting Sodium Chloride 3 ml 06/29/21 00:44 06/30/21 10:04 0.9 % Sodium Chloride Flush 3 Ml Syringe IVFLUSH 3 ml QSHIFT EZEQUIEL Administration Spironolactone 25 mg 06/30/21 10:50 Spironolactone 25 Mg Tablet PO DAILY EZEQUIEL Protocol Time Spent With Patient Time: Total time spent is greater than 50% in coordination of care (as documented) at patient's floor/unit and/or counseling patient: Time with patient: less than 15 minutes Progress Note: Quality Stroke Does the patient have a stroke diagnosis?: No Procedures Date of Service Date of Service: 06/30/21
[2021-06-30 11:12] LABS: Magnesium 2.3 mg/dL (1.6-2.6)
--- NOTE | 2021-06-30 11:49 | PM.DS ---
DS: Providers Provider Date of Service: 06/30/21 Date of admission: 06/28/21 23:42 Primary care physician: Karel Silva PA-C Consults: 06/29/21 00:44 Consult to Cardiology Routine Consulting Provider: Lico Hester Reason for consultation: CHF Has provider been notified: No 06/29/21 10:31 Addiction Medicine Routine Consulting Provider: Nae Manley Reason for consultation: Cocaine abuse, recurrent hospitalization, for your kind eval DS: Diagnosis Discharge Diagnosis (1) Acute on chronic systolic (congestive) heart failure: Status: Acute (2) Cocaine use disorder, severe, dependence: Status: Acute (3) Morbid obesity: Status: Acute DS: Summary Hospital Course Hospital Course: Admission note HPI This is a 50-year-old male with past medical history of asthma, CHF with ejection fraction of 10-15%, COPD, LISSET and cocaine abuse who presents to the hospital with complaints of shortness of breath.? Patient is very agitated, verbally aggressive as he says that he received Lasix late in the ED and is frustrated that he has to pee all night He reports that his symptoms started 1-2 days ago, hedenies any fever or chills.? Denies any cough or sputum production, denies any orthopnea or PND, denies any lower extremity edema.? Patient reports compliance with his Lasix.? He was discharged from the hospital in May after being treated for CHF exacerbation most likely secondary to noncompliance.? Patient reports that he used cocaine 1-2 days ago. Patient denies any chest pain, no palpitations, no abdominal pain nausea or vomiting, no diarrhea constipation, no urinary symptoms. On arrival to the ED patient's vitals stable Labs are significant for WBC count of 9.6, hemoglobin of 10.9 which is around his baseline, pH of 7.52, BNP of 716, troponin of 56 with no delta, UDS positive for cocaine and marijuana Chest x-ray shows stable cardiomegaly with minimal patchy bilateral airspace opacities significantly decreased when compared to prior chest radiograph. Hospital course Patient was admitted to the hospital for evaluation of difficulty breathing. Found to have evidence of CHF exacerbation with elevated BNP an x-ray suggestive of fluid overload. Treated with IV Lasix with fair response over the course of hospital stay as he was weaned off the oxygen and was able to ambulate with no reported shortness of breath. Evaluated by Cardiology as his most recent echo showed ejection fraction of 17% believed to be secondary to cocaine abuse and not ischemic. Discussed about the use of cocaine as addiction team was involved in the care and the patient agreed to stop using it and started on baclofen. It was explained to him that the Cardiology medications were starting cannot be use with cocaine specially carvedilol and he reported full understanding. Plan to follow up with Cardiology as outpatient after period of abstinence from cocaine to start arranging for ICD placement. Start carvedilol, spironolactone and baclofen. Time Spent with Patient Time attestation: Total time spent providing and/or coordinating discharge services: Discharge coordination time: Greater than 30 minutes Quality: Stroke Does the patient have a stroke diagnosis?: No Physical Exam Vital Signs: Vital Signs: Last Vital Signs Temp 97.8 F 06/30/21 07:44 Pulse 106 H 06/30/21 07:44 Resp 20 06/30/21 07:44 BP 118/76 06/30/21 07:44 Pulse Ox 97 06/30/21 07:44 Body Mass Index 48.4 Const: Other: Constitutional : Alert, oriented, not in distress Neck : Normal inspection, Supple Cardiovascular : RRR, S1 S2, trace bilateral lower extremity edema Respiratory : Good bilateral air entry, no crackles, wheezes or rhonchi Gastrointestinal: soft, lax, Normal bowel sounds, Non tender Skin : Warm, Dry Neurological : Alert & oriented x3, No focal deficit DS: Data Data Completed and Pending Completed studies during hospitalization [Text1]: Procedures Introduction of Remdesivir Anti-infective into Peripheral Vein, Percutaneous Approach, [employer] 5 (10/18/20) Labs on day of discharge: Laboratory Results - last 24 hr 06/30/21 06/30/21 06/30/21 06:41 06:41 07:24 WBC 10.4 RBC 5.11 Hgb 11.7 L Hct 38.4 L MCV 75.1 L MCH 22.9 L MCHC 30.5 L RDW 15.9 Plt Count 355 MPV 9.4 Absolute Nucleated RBC 0.000 Nucleated RBC % (auto) 0.0 Sodium 139 Potassium 3.8 Chloride 102 Carbon Dioxide 28 Anion Gap 13 BUN 19 H Creatinine 1.00 Estim Creat Clear Calc 131.2 Estimated GFR > 60 Random Glucose 164 H D Calcium 9.2 Magnesium 2.3 B-Natriuretic Peptide 307 H Discharge Plan Discharge Patient Disposition: Home, Self-Care Discharge Diagnosis: Heart failure exacerbation Referrals: Karel Silva PA-C [Primary Care Provider] - 1 Week Discharge Medications: New spironolactone 25 mg Tablet 25 mg PO DAILY 30 Days Qty: 30 RF: 0 baclofen 10 mg Tablet 10 mg PO TID 30 Days Qty: 90 RF: 0 carvedilol 3.125 mg tablet 3.125 mg PO BID Qty: 60 RF: 0 Continued Entresto 24-26 mg tablet 1 tab PO BID 30 Days Qty: 60 RF: 5 furosemide 40 mg tablet 40 mg PO BID 30 Days Qty: 60 RF: 3 nystatin 100,000 unit/mL suspension 6 ml PO Q6H PRN (Reason: thrush) 15 Days Qty: 250 RF: 0 albuterol sulfate 90 mcg/actuation HFA aerosol inhaler 2 puff inhalation Q4-6H PRN (Reason: shortness of breath or wheezing) Qty: 8.5 RF: 0 Discharge Orders: Discharge Order (Routine); Ordered 06/30/21 Ordered By: Bertrand Sanchez Diet: advance to usual diet Activity on Discharge: As tolerated Stand Alone Forms: Patient Portal Discharge page Care Plan Goals: Read below Health Concerns: Read below Plan of Treatment: You were admitted to the hospital for evaluation of difficulties breathing. Found to be in heart failure exacerbation. Treated with IV lasix with fair response over the course of hospital stay. Evaluated by cardiology team who recommended outpatient follow up. You were also evaluated by the addiction team for history of cocaine abuse. Started on baclofen and to be discharged home with plan to follow-up. Assessment: Take baclofen 3 times a day To use Lasix as prescribed, monitor your weight at home Start spironolactone as prescribed Start carvedilol twice daily to follow up with Cardiology as outpatient to start planning for ICD placement.
[2021-06-30 12:08] VITALS: BP 118/76; PULSE 106
[2021-06-30] MEDS: Spironolactone 25 MG TABLET PO (12:08)
[2021-06-30] MEDS: Potassium Chloride Packet 20 MEQ PACKET 40 MEQ PO (12:10)
== END 2021-06-30 12:25 | disposition home or self-care (01) | DRG 292 ==
LOC: HO.ED 23:10 → HO.EDOVER 23:47 → HO.IMC 06-29 00:08
PROVIDERS: Admitting Provider Internal Medicine; Emergency Provider Student in an Organized Health Care Education/Training Program; PCP Physician Assistant; Visit Provider Student in an Organized Health Care Education/Training Program
DX: I50.23 Acute on chronic systolic (congestive) heart failure (principal); Z68.42 Body mass index [BMI] 45.0-49.9, adult; I42.8 Other cardiomyopathies; F14.20 Cocaine dependence, uncomplicated; G47.33 Obstructive sleep apnea (adult) (pediatric); J44.9 Chronic obstructive pulmonary disease, unspecified; E66.01 Morbid (severe) obesity due to excess calories; F11.21 Opioid dependence, in remission; Z20.822 Contact with and (suspected) exposure to COVID-19; Z88.2 Allergy status to sulfonamides; Z79.899 Other long term (current) drug therapy
CPT/HCPCS: 36415; 71045; 80048; 80307; 81003; 82803; 83735; 83880; 84484; 85025; 85027; 87635; 93005; 94660; 96374; 99212; 99285; J1650; J1940

== ENCOUNTER → 2021-07-25 13:49 | Outpatient (BNVA) | payer MEDICARE, MEDICAID, SELFPAY | PROVIDERS: PCP Physician Assistant; Referring Provider Physician Assistant; Visit Provider Nurse Practitioner Family | DX: I42.8 Other cardiomyopathies (principal); I50.22 Chronic systolic (congestive) heart failure; E66.01 Morbid (severe) obesity due to excess calories; Z68.42 Body mass index [BMI] 45.0-49.9, adult; F14.10 Cocaine abuse, uncomplicated | CPT/HCPCS: 93005; 99212 ==

== ENCOUNTER 2021-07-31 23:43 | Emergency (ER) | payer MEDICARE, MEDICAID, SELFPAY ==
--- NOTE | ~2021-07-31 | XR_ITS ---
EXAMINATION: XR CHEST CLINICAL INFORMATION: Shortness of breath. COMPARISON: Chest radiograph dated from 06/28/2021. TECHNIQUE: PA view of the chest was obtained. FINDINGS: Unchanged cardiomegaly. New hazy opacities in the right lung and retrocardiac region. No pleural effusion or pneumothorax. No acute osseous findings. XR/XR chest 1V IMPRESSION: New hazy opacities predominantly in the right lower lobe of uncertain etiology. This could be associated with an infectious/inflammatory process or asymmetric pulmonary edema in the setting of cardiomegaly and heart failure. Correlate clinically and follow-up to ensure resolution.
[2021-07-31 23:51] VITALS: BP 115/51; PULSE 109; RESP 26; TEMP 36.8; O2SAT 95; BMI 52.2
--- NOTE | 2021-08-01 00:01 | ECG_ITS ---
Test Reason : SOB Blood Pressure : / mmHG Vent. Rate : 110 BPM Atrial Rate : 110 BPM P-R Int : 168 ms QRS Dur : 106 ms QT Int : 362 ms P-R-T Axes : 046 -05 063 degrees QTc Int : 489 ms Sinus tachycardia Possible Left atrial enlargement Intra-ventricular conduction delay Nonspecific T wave abnormality Lateral leads Abnormal ECG When compared with ECG of 28-JUN-2021 21:09, No significant change was found Referred By: Generic ED Physician Electronically Signed By:ORI LEIGH MD
[2021-08-01 00:43] LABS: MANUAL DIFF FLAG NO
[2021-08-01 00:50] LABS: Basophils Percent Auto 0.3 % (0-2); Eosinophils Absolute Auto 0.1 X10*3/uL (0.0-0.4); Eosinophils Percent Auto 0.5 % (0-4); Hematocrit 35.1 % (42-52); Hemoglobin 10.7 g/dl (14.0-18.0); Imm Gran Abs Auto 0.03 X10*3/uL (0.00-0.03); Imm Gran Pct Auto 0.3 % (0.0-0.4); Lymphocytes Absolute Auto 1.9 X10*3/uL (1.2-4.9); Lymphocytes Percent Auto 16.4 % (20-40); Mean Corpuscular HGB Conc 30.5 g/dl (31.0-36.0); Mean Corpuscular Hemoglobin 22.8 pg (27.0-33.0); Mean Corpuscular Volume 74.7 fL (80-98); Mean Platelet Volume 9.3 fL (9.4-12.4); Monocytes Absolute Auto 0.7 X10*3/uL (0.1-1.2); Neutrophils Percent Auto 76.5 % (45-73); Platelet Count 330 X10*3/uL (160-400); Red Cell Distribution Width 16.4 % (11.0-16.0); White Blood Count 11.7 X10*3/uL (4.8-10.8)
[2021-08-01 00:54] LABS: Appearance Urine CLEAR; Color Urine YELLOW; Glucose Urine UA NEG (NEG); Leukocyte Esterase Urine NEG (NEG); Nitrite Urine NEG (NEG); Specific Gravity - Urine 1.025 (1.005-1.025); UACC Culture Trigger NO; Urine Blood TRACE (NEG); Urine Ketones NEG (NEG); Urine Protein 1+ MG/DL (NEG-TRACE)
[2021-08-01 01:02] LABS: Anion Gap 11 (12-20); Blood Urea Nitrogen 23 mg/dL (9-16); Calcium 8.9 mg/dL (8.4-10.2); Carbon Dioxide 25 mmol/L (22-29); Chloride 106 mmol/L (96-108); Estimated Glomerular Filt Rate > 60; Glucose Random 125 mg/dL (60-115); Sodium 138 mmol/L (135-145)
[2021-08-01 01:13] LABS: B Type Natriuretic Peptide 774 pg/mL (<100); Troponin-I High Sensitivity 196.6 ng/L (<3.5-35.0)
[2021-08-01 01:16] LABS: Mucus Urine 1+ /LPF; RBC Urine 0 /HPF (0); Squamous Epithelial Cell Urine 1+ /LPF; WBC Urine 0-2 /HPF (0-4)
--- NOTE | 2021-08-01 01:56 | ED_ITS ---
HPI - General Adult General Chief complaint: Dyspnea Stated complaint: SOB Time Seen by Provider: 08/01/21 01:35 Source: patient Mode of arrival: ambulatory Limitations: no limitations History of Present Illness HPI narrative: 51-year-old male who presents emergency department for evaluation of fluid retention. Patient has a history of cardiomyopathy and congestive heart failure. He states that he was taking Lasix 40 mg twice a day but despite this he continued to put on fluid weight. He followed up with his manager [employer] a provider approximately 6 days prior and his Lasix was discontinued and he was started on Bumex 1 mg twice a day. States that he believes that he is urinating frequently but he is not certain if he is taking more fluid than his putting out. He states that his legs and belly are more swollen he was concerned that he was retaining fluid. He states that he feels short of breath but this is unchanged from his baseline. He denied chest pain, neck pain, jaw pain or arm pain. He denied fever, chills. States that he has a cough which is mainly nonproductive but this is chronic. Patient was concerned about his fluid in his legs any also states that he was retaining fluid in his belly , therefore he came to the emergency department for evaluation. The patient states that over the past 4 days he has been using intranasal and injection cocaine. He states that he is trying to stop but he has not been successful. Related Data Previous Rx's Medication Instructions Recorded albuterol sulfate 90 mcg/actuation 2 puff INHALATION Q4-6H PRN #8.5 g 11/29/20 aerosol inhaler sacubitril 24 mg-valsartan 26 mg 1 tab PO BID 30 Days #60 tab 12/20/20 tablet (Entresto) nystatin 100,000 unit/mL oral 6 ml PO Q6H PRN 15 Days #250 ml 06/19/21 suspension baclofen 10 mg tablet 10 mg PO TID 30 Days #90 tab 06/30/21 bumetanide 1 mg tablet 1 mg PO BID #60 tab 07/25/21 Allergies Allergy/AdvReac Type Severity Reaction Status Date / Time cephalexin [From KEFLEX] Allergy Unknown UNKNOWN Verified 06/27/21 14:57 sulfamethoxazole Allergy Unknown UNKNOWN Verified 06/27/21 14:57 [From BACTRIM] trimethoprim [From BACTRIM] Allergy Unknown UNKNOWN Verified 06/27/21 14:57 Review of Systems Review of Systems: Yes all other systems are reviewed and are negative [facility] Past Medical History Source: unable to obtain Medical History Asthma CHF (congestive heart failure) Chronic systolic (congestive) heart failure Cocaine abuse COPD (chronic obstructive pulmonary disease) Morbid obesity NICM (nonischemic cardiomyopathy) LISSET (obstructive sleep apnea) Surgical History History of cardiac catheterization (~11/07/20) History of surgery Family History Family History Mother Ovarian cancer Diabetes Social History Social History Household Members: Spouse and Other Household Members Other:: lives in a [employer] Housing: Other Do you presently have visiting nurse or other home services: No Alcohol intake: current Alcohol intake frequency: a few times a week Alcohol type: beer Patient Tobacco Use Status: Former Tobacco user Substance Use Type: Crack/Cocaine, Heroin and Marijuana Advance Directives: No service: No Current occupational status: unemployed and disabled Physical Exam Vital Signs: Vital Signs: Last Vital Signs Temp 98.2 F 07/31/21 23:51 Pulse 109 H 07/31/21 23:51 Resp 26 H 07/31/21 23:51 BP 115/51 L 07/31/21 23:51 Pulse Ox 95 07/31/21 23:51 Body Mass Index 52.2 Const: Other: Awake, alert, male patient, he is very pleasant and cooperative. He is sitting in a chair watching TV. He answers all questions appropriately. HENMT: Head: Yes normal to inspection, Yes normocephalic and Yes atraumatic Ears: external ears normal General nose exam: Normal external nose present Face and sinus: Yes normal facial exam Mouth: Normal oral and palatal mucosa present Throat: Yes posterior oropharynx normal Eyes: General: appearance normal, both eyes and all related structures Pupils: Equal, round and reactive pupils present Neck: Neck: Yes normal visual inspection, Yes no lymphadenopathy, Yes trachea midline and Yes supple Chest: Chest palpation & inspection: normal inspection of the chest and normal palpation of entire chest wall Resp: Effort & Inspection: normal respiratory effort and able to speak in complete sentences Auscultation: clear to auscultation bilaterally Cardio: Rate: regular rate Rhythm: regular rhythm Heart sounds: S1 normal heart sound present, S2 normal heart sound present and no murmurs GI: Inspection: Yes normal to inspection, Yes Abdominal panniculus present and Yes obesity Palpation (GI): Soft to palpation, nontender and no guarding Auscultation: normal bowel sounds : General: Yes no CVA tenderness Back/Spine/Pelvis: Back: no CVA tenderness Skin: General skin exam: no rashes or lesions noted Neuro: Cranial nerves: Yes CN's II-XII intact bilaterally and Yes Equal, round and reactive pupils present Cognition (Neuro): normal cognition Motor exam (neuro): 5/5 motor strength present throughout Extrem: Other: 1+ pitting edema, bilaterally symmetric Psych: Appearance: grossly normal Speech and movement: Normal speech and movement present Affect: normal affect Attitude: cooperative Thought process: Normal thought process present Thought content: Normal thought content present Course Course Course Narrative: 51-year-old male with a history of cardiomyopathy, congestive heart failure and polysubstance use disorder (heroin, marijuana and cocaine) who presents emergency department for evaluation of increased fluid weight gain with increased swelling of his lower extremities and abdomen. The patient has been using intranasal and injection cocaine over the past 4 days. He states that he was short of breath but was unchanged from his baseline, he denied chest pain. Vital signs revealed an elevated pulse of 109 and elevated respiratory rate of 26 otherwise were unremarkable. Physical examination did reveal pitting edema in his lower extremities otherwise was unremarkable. 0201: The patient's laboratory evaluation revealed a normal BUN and creatinine of 23 and 1.18. The patient's high sensitivity troponin I was elevated at 196.6. The patient had too high sensitivity troponin I values done on 06/29/2021 and these were 53 and 57. I did discuss this elevation with the patient, at this time he does not want to stay in the emergency department for 3 hour repeat troponin. I do not think the patient has had an acute myocardial infarction but I do believe that the elevated troponins are related to his cocaine use. The patient does not want to get counseling at this time and states that he is trying to stop using cocaine on his own. Patient's 12 EKG did not reveal any evidence of ischemia or infarction. Chest x-ray did not reveal any clear evidence of congestive heart failure, there is a nonspecific left lower lobe haziness but I do not think that this represents pneumonia. The patient will be discharged home. The patient was advised to increase his Bumex from 1 mg twice a day to 2 mg twice a day. He is advised to keep track of his urine output is fluid intake to try to get into a negative fluid balance. Advised to weigh himself daily as well and to follow-up with his cardiac provider for re-evaluation within 1 week. Medical Decision Making Lab Data Result diagrams: 08/01/21 00:37 08/01/21 00:37 Labs: Lab Results 08/01/21 08/01/21 08/01/21 Range/Units 00:37 00:37 00:37 WBC 11.7 H (4.8-10.8) X10*3/uL RBC 4.70 (4.60-5.80) X10*6/uL Hgb 10.7 L (14.0-18.0) g/dl Hct 35.1 L (42-52) % MCV 74.7 L (80-98) fL MCH 22.8 L (27.0-33.0) pg MCHC 30.5 L (31.0-36.0) g/dl RDW 16.4 H (11.0-16.0) % Plt Count 330 (160-400) X10*3/uL MPV 9.3 L (9.4-12.4) fL Immature Gran % (Auto) 0.3 (0.0-0.4) % Neut % (Auto) 76.5 H (45-73) % Lymph % (Auto) 16.4 L (20-40) % [place] % (Auto) 6.0 (2-11) % Eos % (Auto) 0.5 (0-4) % Baso % (Auto) 0.3 (0-2) % Lymph # (Auto) 1.9 (1.2-4.9) X10*3/uL [place] # (Auto) 0.7 (0.1-1.2) X10*3/uL Eos # (Auto) 0.1 (0.0-0.4) X10*3/uL Baso # (Auto) 0.0 (0.0-0.2) X10*3/uL Abs Immat Gran (auto) 0.03 (0.00-0.03) X10*3/uL Absolute Neuts (auto) 9.0 H (2.0-8.3) X10*3/uL Absolute Nucleated RBC 0.000 (0.0-0.012) X10*3/uL Nucleated RBC % (auto) 0.0 (0.0-0.2) /100WBC Sodium 138 (135-145) mmol/L Potassium 4.0 (3.3-5.1) mmol/L Chloride 106 (96-108) mmol/L Carbon Dioxide 25 (22-29) mmol/L Anion Gap 11 L (12-20) BUN 23 H (9-16) mg/dL Creatinine 1.18 (0.5-1.4) mg/dL Estim Creat Clear Calc 115.0 Estimated GFR > 60 Random Glucose 125 H (60-115) mg/dL Calcium 8.9 (8.4-10.2) mg/dL Troponin I High Sens 196.6 H* D (<3.5-35.0) ng/L B-Natriuretic Peptide 774 H (<100) pg/mL Urine Color Urine Appearance Urine pH (5.0-8.0) Ur Specific [place] (1.005-1.025) Urine Protein (NEG-TRACE) MG/DL Urine Glucose (UA) (NEG) MG/DL Urine Ketones (NEG) MG/DL Urine Blood (NEG) Urine Nitrite (NEG) Ur Leukocyte Esterase (NEG) Urine RBC (0) /HPF Urine WBC (0-4) /HPF Ur Squamous Epith Cells /LPF Urine Bacteria /LPF Urine Mucus /LPF 08/01/21 Range/Units 00:37 WBC (4.8-10.8) X10*3/uL RBC (4.60-5.80) X10*6/uL Hgb (14.0-18.0) g/dl Hct (42-52) % MCV (80-98) fL MCH (27.0-33.0) pg MCHC (31.0-36.0) g/dl RDW (11.0-16.0) % Plt Count (160-400) X10*3/uL MPV (9.4-12.4) fL Immature Gran % (Auto) (0.0-0.4) % Neut % (Auto) (45-73) % Lymph % (Auto) (20-40) % [place] % (Auto) (2-11) % Eos % (Auto) (0-4) % Baso % (Auto) (0-2) % Lymph # (Auto) (1.2-4.9) X10*3/uL [place] # (Auto) (0.1-1.2) X10*3/uL Eos # (Auto) (0.0-0.4) X10*3/uL Baso # (Auto) (0.0-0.2) X10*3/uL Abs Immat Gran (auto) (0.00-0.03) X10*3/uL Absolute Neuts (auto) (2.0-8.3) X10*3/uL Absolute Nucleated RBC (0.0-0.012) X10*3/uL Nucleated RBC % (auto) (0.0-0.2) /100WBC Sodium (135-145) mmol/L Potassium (3.3-5.1) mmol/L Chloride (96-108) mmol/L Carbon Dioxide (22-29) mmol/L Anion Gap (12-20) BUN (9-16) mg/dL Creatinine (0.5-1.4) mg/dL Estim Creat Clear Calc Estimated GFR Random Glucose (60-115) mg/dL Calcium (8.4-10.2) mg/dL Troponin I High Sens (<3.5-35.0) ng/L B-Natriuretic Peptide (<100) pg/mL Urine Color YELLOW Urine Appearance CLEAR Urine pH 6.0 (5.0-8.0) Ur Specific [place] 1.025 (1.005-1.025) Urine Protein 1+ H (NEG-TRACE) MG/DL Urine Glucose (UA) NEG (NEG) MG/DL Urine Ketones NEG (NEG) MG/DL Urine Blood TRACE (NEG) Urine Nitrite NEG (NEG) Ur Leukocyte Esterase NEG (NEG) Urine RBC 0 (0) /HPF Urine WBC 0-2 (0-4) /HPF Ur Squamous Epith Cells 1+ /LPF Urine Bacteria NONE /LPF Urine Mucus 1+ /LPF Discharge Plan Discharge Clinical Impression: Fluid overload Qualifiers: Hypervolemia type: unspecified Qualified Code(s): E87.70 - Fluid overload, unsp ecified Cardiomyopathy Qualifiers: Cardiomyopathy type: ischemic Qualified Code(s): I25.5 - Ischemic cardiomyopathy Patient Disposition: Home, Self-Care Instructions: Fluid Restriction (ED) Additional Instructions: Your blood work revealed normal kidney function which is encouraging. You did have an elevated high sensitivity troponin I of 196. Normal is less than 30. I suspect that this is high secondary to your cocaine use and not secondary to a heart attack. However if you have chest pain, increased shortness of breath or feel worse in any way you should return to the emergency department f or evaluation. You need to restrict the amount of fluid that you drink to less than 1 L of fluid per day. Increase your Bumex from 1 mg twice a day to 2 mg twice a day for 1 week. Weigh yourself daily. You should lose fluid weight as you get into a negative fluid balance. Follow-up with your doctor in 2 days. Please return to the emergency department if your symptoms get worse or if you develop any symptoms that are concerning to you. Prescriptions: No Action Entresto 24-26 mg tablet 1 tab PO BID 30 Days Qty: 60 RF: 5 nystatin 100,000 unit/mL suspension 6 ml PO Q6H PRN (Reason: thrush) 15 Days Qty: 250 RF: 0 albuterol sulfate 90 mcg/actuation HFA aerosol inhaler 2 puff inhalation Q4-6H PRN (Reason: shortness of breath or wheezing) Qty: 8.5 RF: 0 baclofen 10 mg Tablet 10 mg PO TID 30 Days Qty: 90 RF: 0 bumetanide 1 mg tablet 1 mg PO BID Qty: 60 RF: 2
[2021-08-01 02:28] VITALS: BP 142/84; PULSE 94; RESP 22; TEMP 37; O2SAT 96
== END 2021-08-01 02:29 | disposition home or self-care (01) ==
PROVIDERS: Emergency Provider Emergency Medicine Emergency Medical Services; PCP Physician Assistant
DX: I25.5 Ischemic cardiomyopathy (principal); E87.70 Fluid overload, unspecified; R06.02 Shortness of breath; F11.90 Opioid use, unspecified, uncomplicated; F14.90 Cocaine use, unspecified, uncomplicated; F12.90 Cannabis use, unspecified, uncomplicated; Z79.899 Other long term (current) drug therapy
CPT/HCPCS: 36415; 71045; 80048; 81001; 83880; 84484; 85025; 93005; 99284

== ENCOUNTER 2021-08-15 13:58 | Emergency (ER) | payer MEDICARE, MEDICAID, SELFPAY ==
--- NOTE | ~2021-08-15 | XR_ITS ---
EXAMINATION: LEFT ANKLE AND LEFT FOOT X-RAY CLINICAL INFORMATION: Pain post fall COMPARISON: None TECHNIQUE: 3 views of the left foot and 3 views of the left ankle FINDINGS: Left ankle: Exam is limited due to patient positioning. There is evidence of old trauma to the medial and lateral malleoli. There is a well-corticated soft tissue ossification adjacent to the medial talus. There is cortical irregularity of the posterior malleolus and posterior distal fibula on the lateral view. No definite fracture is seen. There is question of medial ankle mortise widening seen on one view. The ankle mortise is otherwise normal. Soft tissues are normal. Left foot: No fracture or dislocation is seen. Joint spaces are normal. There are calcaneal spurs. Soft tissues are normal. XR/XR foot LT 2V IMPRESSION: Left ankle: Limited exam due to patient positioning. Evidence of old trauma to the medial and lateral malleoli. Cortical thickening of the posterior distal tibia and fibula on the lateral view. Clinical correlation is recommended. If this corresponds to the area of patient pain, additional imaging would be recommended. Question medial ankle mortise widening is seen on one view. Left foot: Calcaneal spurs.
--- NOTE | ~2021-08-15 | XR_ITS ---
EXAMINATION: LEFT ANKLE AND LEFT FOOT X-RAY CLINICAL INFORMATION: Pain post fall COMPARISON: None TECHNIQUE: 3 views of the left foot and 3 views of the left ankle FINDINGS: Left ankle: Exam is limited due to patient positioning. There is evidence of old trauma to the medial and lateral malleoli. There is a well-corticated soft tissue ossification adjacent to the medial talus. There is cortical irregularity of the posterior malleolus and posterior distal fibula on the lateral view. No definite fracture is seen. There is question of medial ankle mortise widening seen on one view. The ankle mortise is otherwise normal. Soft tissues are normal. Left foot: No fracture or dislocation is seen. Joint spaces are normal. There are calcaneal spurs. Soft tissues are normal. XR/XR ankle LT min 3V IMPRESSION: Left ankle: Limited exam due to patient positioning. Evidence of old trauma to the medial and lateral malleoli. Cortical thickening of the posterior distal tibia and fibula on the lateral view. Clinical correlation is recommended. If this corresponds to the area of patient pain, additional imaging would be recommended. Question medial ankle mortise widening is seen on one view. Left foot: Calcaneal spurs.
--- NOTE | ~2021-08-15 | XR_ITS ---
EXAMINATION: XR CHEST CLINICAL INFORMATION: Shortness of breath COMPARISON: Previous chest x-ray most recent 08/01/2021 TECHNIQUE: Frontal view of the chest was obtained. FINDINGS: The cardiac silhouette is enlarged but stable. There is pulmonary venous redistribution and increased perihilar markings suggestive of mild pulmonary edema. There is no pleural effusion or pneumothorax. There are degenerative changes of the spine. XR/XR chest 1V IMPRESSION: Stable enlargement of cardiac silhouette. Pulmonary venous redistribution and mild pulmonary edema.
[2021-08-15 14:08] VITALS: BP 129/80; PULSE 120; RESP 24; TEMP 36.3; O2SAT 98; BMI 49.8
--- NOTE | 2021-08-15 14:25 | ECG_ITS ---
Test Reason : DIFFICULTY BREATHING Blood Pressure : / mmHG Vent. Rate : 117 BPM Atrial Rate : 117 BPM P-R Int : 162 ms QRS Dur : 104 ms QT Int : 336 ms P-R-T Axes : 065 -24 068 degrees QTc Int : 468 ms Sinus tachycardia with frequent Premature ventricular complexes Possible Left atrial enlargement Abnormal ECG Premature ventricular complexes are new Referred By: Heather Vegas Electronically Signed By:ORI LEIGH MD
--- NOTE | 2021-08-15 14:27 | ED_ITS ---
HPI - General Adult General Chief complaint: General Medical Stated complaint: fall - leg injury Time Seen by Provider: 08/15/21 14:16 Source: patient Mode of arrival: ambulatory Limitations: no limitations History of Present Illness HPI narrative: 51 years old male came in for evaluation of left foot/ankle pain after he fell. Of asthma, congestive heart failure with ejection fracture of 10-15%, COPD, history of drug abuse, patient came in claimed that he fell, more of the history patient was standing and fell with a concern of fainting, admitted to recent use IV cocaine. Patient in the emergency department found to be lethargic and sleepy. Patient declined chest pain, been complaining of shortness of breath in the last couple days, increases symptoms at night time when he is supine. Related Data Previous Rx's Medication Instructions Recorded albuterol sulfate 90 mcg/actuation 2 puff INHALATION Q4-6H PRN #8.5 g 11/29/20 aerosol inhaler sacubitril 24 mg-valsartan 26 mg 1 tab PO BID 30 Days #60 tab 12/20/20 tablet (Entresto) bumetanide 1 mg tablet 1 mg PO BID #60 tab 07/25/21 baclofen 10 mg tablet 10 mg PO TID 30 Days #90 tab 08/07/21 nystatin 100,000 unit/mL oral 6 ml PO Q6H PRN 15 Days #250 ml 08/07/21 suspension Allergies Allergy/AdvReac Type Severity Reaction Status Date / Time cephalexin [From KEFLEX] Allergy Unknown UNKNOWN Verified 08/15/21 14:08 sulfamethoxazole Allergy Unknown UNKNOWN Verified 08/15/21 14:08 [From BACTRIM] trimethoprim [From BACTRIM] Allergy Unknown UNKNOWN Verified 08/15/21 14:08 Review of Systems Review of Systems: All other systems are reviewed and are negative Constitutional: Reports as per HPI and Reports no additional constitutional complaints Eyes: Reports as per HPI and Reports no additional eye complaints Reports system reviewed and no additional complaints, except as documented Cardiovascular: Reports as per HPI and Reports no additional cardiovascular complaints Respiratory: Reports as per HPI and Reports no additional respiratory complaints Gastrointestinal: Reports as per HPI and Reports no additional gastrointestinal complaints Genitourinary: Reports no additional female genitourinary complaints Musculoskeletal: Reports no additional musculoskeletal complaints Skin/Breast: Reports system reviewed and no additional complaints, except as docu Psychiatric: Reports no additional psychiatric complaints Endocrine: Reports no additional endocrine complaints Hematologic/Lymphatic: Reports no additional hematologic/lymphatic complaints Allergic/Immunologic: Reports no additional allergic/immunologic complaints Reports system reviewed and no additional complaints, except as documented and Reports Abnormal speech present [facility] Past Medical History Medical History Asthma CHF (congestive heart failure) Chronic systolic (congestive) heart failure Cocaine abuse COPD (chronic obstructive pulmonary disease) Morbid obesity NICM (nonischemic cardiomyopathy) LISSET (obstructive sleep apnea) Surgical History History of cardiac catheterization (~11/07/20) History of surgery Family History Family History Mother Ovarian cancer Diabetes Social History Social History Household Members: Spouse and Other Household Members Other:: lives in a [employer] Housing: Other Do you presently have visiting nurse or other home services: No Alcohol intake: current Alcohol intake frequency: a few times a week Alcohol type: beer Patient Tobacco Use Status: Former Tobacco user Substance Use Type: Crack/Cocaine, Heroin and Marijuana Advance Directives: No Advance Directives Information Provided: No service: No Current occupational status: unemployed and disabled Physical Exam Vital Signs: Vital Signs: Last Vital Signs Temp 97.4 F 08/15/21 14:08 Pulse 120 H 08/15/21 14:08 Resp 24 H 08/15/21 14:08 BP 129/80 08/15/21 14:08 Pulse Ox 98 08/15/21 14:08 Body Mass Index 49.8 Vital signs were reviewed, tachycardia, tachypnea, otherwise stable vital signs. Appearance: Lethargic easily arousable, oriented X3. No acute distress. Patient claims that he is tired that is why sleeping Head: Normal external exam. Normocephalic. Atraumatic. No Lilly signs noted. No raccoon eyes noted Eyes: PERRLA. EOMI. Conjunctiva and sclera normal. Eyelids normal. ENT: TM's Normal. Pharynx normal. Uvula midline. Moist mucous membranes. No trismus noted. No drooling noted. No muffled voice noted. Neck: Normal inspection. Neck supple. FROM. No adenopathy. Thyroid Normal. No meningeal signs. No neck mass noted. CVS: Normal heart rate and rhythm. Heart sound normal. No murmurs noted. Pulses normal throughout. Respiratory: No respiratory distress. Painless inspiration. Breath sounds normal. No wheezes/rales/rhonchi noted. Chest nontender. No accessory muscle usage noted or decreased air movement noted. Abdomen: Soft and nontender. Bowel sounds normal in all 4 quadrants. No distention noted. No organomegaly noted. No visible injury noted. Back: No CVA tenderness. Full range of motion noted. Skin: Skin warm and dry. Normal skin color. Normal skin turgor. No rashes/lesions/lacerations noted. Extremities: +2 lower extremity edema. Left ankle with ecchymosis and swelling with tenderness in both malleolus. Cranial nerve exam: II-XII are grossly intact No motor deficit. No sensory deficit. Reflexes normal. Course Course Course Narrative: 51-year-old male with multiple comorbidities including significant cardiac history of congestive heart failure and COPD with low ejection fracture, patient came in after claimed that he passed out and fell as a result he in injured left ankle, patient also known to have a history of IV cocaine abuse. Patient was offered admission for workup of syncope. Patient has a problem with his body habitus he will not be able to use crutches. Patient was offered admission or rehab place at least for help but patient refuse the admission and stated that he wanted to get out of the ED. Patient fully understood my instruction and the importance of being admitted patient is signing against medical advice. Medical Decision Making Medical Records Medical records reviewed: Yes I reviewed the patient's medical records. Lab Data Lab results reviewed: Yes I reviewed the patient's lab results. Result diagrams: 08/15/21 14:43 08/15/21 14:43 Labs: Lab Results 08/15/21 08/15/21 08/15/21 Range/Units 14:43 14:43 14:43 WBC 13.7 H (4.8-10.8) X10*3/uL RBC 5.10 (4.60-5.80) X10*6/uL Hgb 11.3 L (14.0-18.0) g/dl Hct 37.3 L (42-52) % MCV 73.1 L (80-98) fL MCH 22.2 L (27.0-33.0) pg MCHC 30.3 L (31.0-36.0) g/dl RDW 16.5 H (11.0-16.0) % Plt Count 375 (160-400) X10*3/uL MPV 8.8 L (9.4-12.4) fL Immature Gran % (Auto) 0.4 (0.0-0.4) % Neut % (Auto) 80.3 H (45-73) % Lymph % (Auto) 12.0 L (20-40) % [place] % (Auto) 6.6 (2-11) % Eos % (Auto) 0.4 (0-4) % Baso % (Auto) 0.3 (0-2) % Lymph # (Auto) 1.7 (1.2-4.9) X10*3/uL [place] # (Auto) 0.9 (0.1-1.2) X10*3/uL Eos # (Auto) 0.1 (0.0-0.4) X10*3/uL Baso # (Auto) 0.0 (0.0-0.2) X10*3/uL Abs Immat Gran (auto) 0.06 H (0.00-0.03) X10*3/uL Absolute Neuts (auto) 11.0 H (2.0-8.3) X10*3/uL Absolute Nucleated RBC 0.000 (0.0-0.012) X10*3/uL Nucleated RBC % (auto) 0.0 (0.0-0.2) /100WBC O2 Saturation % ABG pH at Pt Temp (7.35-7.45) ABG pCO2 at Pt Temp (32-45) mmHg ABG pO2 at Pt Temp (83-108) mmHg ABG HCO3 (22-26) mmol/L ABG Base Excess (Actual) mmol/L Sodium 137 (135-145) mmol/L Potassium 4.1 (3.3-5.1) mmol/L Chloride 101 (96-108) mmol/L Carbon Dioxide 26 (22-29) mmol/L Anion Gap 14 (12-20) BUN 20 H (9-16) mg/dL Creatinine 0.96 (0.5-1.4) mg/dL Estim Creat Clear Calc 137.4 Estimated GFR > 60 Random Glucose 134 H (60-115) mg/dL Calcium 9.4 (8.4-10.2) mg/dL Total Bilirubin 1.3 H (0.0-1.0) mg/dL Direct Bilirubin 0.5 (0.0-0.5) mg/dL AST 45 H D (5-37) U/L ALT 43 H (0-40) U/L Alkaline Phosphatase 93 D (39-117) U/L Troponin I High Sens 19.4 D (<3.5-35.0) ng/L B-Natriuretic Peptide 670 H (<100) pg/mL Total Protein 7.2 (6.5-8.0) g/dL Albumin 3.8 (3.5-5.0) g/dL Lipase 15 (8-78) U/L Urine Color Urine Appearance Urine pH (5.0-8.0) Ur Specific [place] (1.005-1.025) Urine Protein (NEG-TRACE) MG/DL Urine Glucose (UA) (NEG) MG/DL Urine Ketones (NEG) MG/DL Urine Blood (NEG) Urine Nitrite (NEG) Ur Leukocyte Esterase (NEG) COVID-19 (LEANDRO) (Negative) COVID-19 Clin Com 08/15/21 08/15/21 08/15/21 Range/Units 14:44 14:52 15:38 WBC (4.8-10.8) X10*3/uL RBC (4.60-5.80) X10*6/uL Hgb (14.0-18.0) g/dl Hct (42-52) % MCV (80-98) fL MCH (27.0-33.0) pg MCHC (31.0-36.0) g/dl RDW (11.0-16.0) % Plt Count (160-400) X10*3/uL MPV (9.4-12.4) fL Immature Gran % (Auto) (0.0-0.4) % Neut % (Auto) (45-73) % Lymph % (Auto) (20-40) % [place] % (Auto) (2-11) % Eos % (Auto) (0-4) % Baso % (Auto) (0-2) % Lymph # (Auto) (1.2-4.9) X10*3/uL [place] # (Auto) (0.1-1.2) X10*3/uL Eos # (Auto) (0.0-0.4) X10*3/uL Baso # (Auto) (0.0-0.2) X10*3/uL Abs Immat Gran (auto) (0.00-0.03) X10*3/uL Absolute Neuts (auto) (2.0-8.3) X10*3/uL Absolute Nucleated RBC (0.0-0.012) X10*3/uL Nucleated RBC % (auto) (0.0-0.2) /100WBC O2 Saturation 96.0 % ABG pH at Pt Temp 7.47 H (7.35-7.45) ABG pCO2 at Pt Temp 38 (32-45) mmHg ABG pO2 at Pt Temp 82 L (83-108) mmHg ABG HCO3 28 H (22-26) mmol/L ABG Base Excess (Actual) 4.9 mmol/L Sodium (135-145) mmol/L Potassium (3.3-5.1) mmol/L Chloride (96-108) mmol/L Carbon Dioxide (22-29) mmol/L Anion Gap (12-20) BUN (9-16) mg/dL Creatinine (0.5-1.4) mg/dL Estim Creat Clear Calc Estimated GFR Random Glucose (60-115) mg/dL Calcium (8.4-10.2) mg/dL Total Bilirubin (0.0-1.0) mg/dL Direct Bilirubin (0.0-0.5) mg/dL AST (5-37) U/L ALT (0-40) U/L Alkaline Phosphatase (39-117) U/L Troponin I High Sens (<3.5-35.0) ng/L B-Natriuretic Peptide (<100) pg/mL Total Protein (6.5-8.0) g/dL Albumin (3.5-5.0) g/dL Lipase (8-78) U/L Urine Color YELLOW Urine Appearance CLEAR Urine pH 6.0 (5.0-8.0) Ur Specific [place] 1.015 (1.005-1.025) Urine Protein TRACE (NEG-TRACE) MG/DL Urine Glucose (UA) NEG (NEG) MG/DL Urine Ketones NEG (NEG) MG/DL Urine Blood NEG (NEG) Urine Nitrite NEG (NEG) Ur Leukocyte Esterase NEG (NEG) COVID-19 (LEANDRO) Negative (Negative) COVID-19 Clin Com See Note Imaging Data Chest x-ray: Radiologist's impression: IMPRESSION: Stable enlargement of cardiac silhouette. Pulmonary venous redistribution and mild pulmonary edema. ? Left foot/ankle: Radiologist's impression: Left ankle: Limited exam due to patient positioning. Evidence of old trauma to the medial and lateral malleoli. Cortical thickening of the posterior distal tibia and fibula on the lateral view. Clinical correlation is recommended. If this corresponds to the area of patient pain, additional imaging would be recommended. Question medial ankle mortise widening is seen on one view. ? Left foot: Calcaneal spurs. ECG Data Interpretation: Sinus tachycardia at 117 beats per minutes, left axis deviation, slight prolongation of QRS otherwise unremarkable intervals. Diffuse ST-T nonspecific changes. Discharge Plan Discharge Clinical Impression: Cardiomyopathy, Fall, Acute left ankle pain Patient Disposition: Left Against Medical Advice Instructions: Ankle Sprain (ED) Prescriptions: No Action Entresto 24-26 mg tablet 1 tab PO BID 30 Days Qty: 60 RF: 5 baclofen 10 mg tablet 10 mg PO TID 30 Days Qty: 90 RF: 0 nystatin 100,000 unit/mL suspension 6 ml PO Q6H PRN (Reason: thrush) 15 Days Qty: 250 RF: 0 albuterol sulfate 90 mcg/actuation HFA aerosol inhaler 2 puff inhalation Q4-6H PRN (Reason: shortness of breath or wheezing) Qty: 8.5 RF: 0 bumetanide 1 mg tablet 1 mg PO BID Qty: 60 RF: 2 Referrals: Karel Silva PA-C [Primary Care Provider] - 2 days Imer Gibbons MD [Physician] - 2 days
[2021-08-15 14:45] VITALS: O2SAT 95
[2021-08-15 14:53] LABS: MANUAL DIFF FLAG NO
[2021-08-15 14:55] LABS: Basophils Percent Auto 0.3 % (0-2); Eosinophils Absolute Auto 0.1 X10*3/uL (0.0-0.4); Eosinophils Percent Auto 0.4 % (0-4); Hematocrit 37.3 % (42-52); Hemoglobin 11.3 g/dl (14.0-18.0); Imm Gran Abs Auto 0.06 X10*3/uL (0.00-0.03); Imm Gran Pct Auto 0.4 % (0.0-0.4); Lymphocytes Absolute Auto 1.7 X10*3/uL (1.2-4.9); Mean Corpuscular HGB Conc 30.3 g/dl (31.0-36.0); Mean Corpuscular Hemoglobin 22.2 pg (27.0-33.0); Mean Corpuscular Volume 73.1 fL (80-98); Mean Platelet Volume 8.8 fL (9.4-12.4); Monocytes Absolute Auto 0.9 X10*3/uL (0.1-1.2); Monocytes Percent Auto 6.6 % (2-11); Neutrophils Percent Auto 80.3 % (45-73); Platelet Count 375 X10*3/uL (160-400); Red Cell Distribution Width 16.5 % (11.0-16.0); White Blood Count 13.7 X10*3/uL (4.8-10.8)
[2021-08-15 14:58] LABS: ABG Base Excess 4.9 mmol/L; ABG HCO3 28 mmol/L (22-26); ABG pCO2 38 mmHg (32-45); ABG pH 7.47 (7.35-7.45); ABG pO2 82 mmHg (83-108)
[2021-08-15 14:58] LABS: ABG Refer to POC result
[2021-08-15] MEDS: Furosemide 20 MG/2 ML VIAL IVPUSH (14:58)
[2021-08-15 15:11] LABS: COVID-19 Test Negative (Negative); IDNOW Serial# 08D9AD1C
[2021-08-15 15:19] LABS: B Type Natriuretic Peptide 670 pg/mL (<100); Troponin-I High Sensitivity 19.4 ng/L (<3.5-35.0)
[2021-08-15 15:20] LABS: Alanine Aminotransferase 43 U/L (0-40); Albumin Level 3.8 g/dL (3.5-5.0); Alkaline Phosphatase 93 U/L (39-117); Anion Gap 14 (12-20); Aspartate Amino Transferase 45 U/L (5-37); Bilirubin Direct 0.5 mg/dL (0.0-0.5); Bilirubin Total 1.3 mg/dL (0.0-1.0); Blood Urea Nitrogen 20 mg/dL (9-16); Calcium 9.4 mg/dL (8.4-10.2); Carbon Dioxide 26 mmol/L (22-29); Chloride 101 mmol/L (96-108); Creatinine Clr Calc Pharmacy 137.4; Estimated Glomerular Filt Rate > 60; Glucose Random 134 mg/dL (60-115); Lipase 15 U/L (8-78); Potassium 4.1 mmol/L (3.3-5.1); Sodium 137 mmol/L (135-145); Total Protein 7.2 g/dL (6.5-8.0)
[2021-08-15 15:51] LABS: Appearance Urine CLEAR; Color Urine YELLOW; Glucose Urine UA NEG (NEG); Leukocyte Esterase Urine NEG (NEG); Nitrite Urine NEG (NEG); Specific Gravity - Urine 1.015 (1.005-1.025); Urine Blood NEG (NEG); Urine Ketones NEG (NEG); Urine Protein TRACE MG/DL (NEG-TRACE)
--- NOTE | 2021-08-15 16:12 | PC.NURSE ---
Pt is restless and wants to leave AMA. Pt's ankle wrapped and iv discontinued. Pt offered rehab by , but pt refused. Pt to sign an AMA form.
== END 2021-08-15 16:31 | disposition left against medical advice (07) ==
PROVIDERS: Emergency Provider Emergency Medicine; PCP Physician Assistant
DX: I42.9 Cardiomyopathy, unspecified (principal); M25.572 Pain in left ankle and joints of left foot; F14.10 Cocaine abuse, uncomplicated; I50.22 Chronic systolic (congestive) heart failure; J44.9 Chronic obstructive pulmonary disease, unspecified; Z91.81 History of falling; Z20.822 Contact with and (suspected) exposure to COVID-19
CPT/HCPCS: 36415; 71045; 73610; 73620; 80048; 80076; 81003; 82803; 83690; 83880; 84484; 85025; 87635; 93005; 99284; J1940

== ENCOUNTER 2021-08-21 18:26 | Inpatient (IN) | payer MEDICARE, MEDICAID, SELFPAY ==
--- NOTE | ~2021-08-21 | XR_ITS ---
EXAMINATION: SINGLE VIEW CHEST, BILATERAL FEET CLINICAL INFORMATION: Shortness of breath status post fall with bilateral foot pain COMPARISON: Chest radiograph 08/15/2021, left foot 08/15/2021 TECHNIQUE: Single view chest, 3 views each foot FINDINGS: Chest: Again noted is marked cardiomegaly and blurring of pulmonary vasculature consistent with CHF and interstitial edema. No focal consolidations are seen. No large effusions are present. Right foot: There is a fracture involving the medial base of the proximal phalanx of the fifth toe which involves the metatarsal phalangeal joint. No other fractures are seen. Large calcaneal spurs are present both on the plantar surface and at the insertion of the Achilles tendon. Left foot: No foot fracture is seen. Calcaneal spurring is present both on the plantar surface and at the insertion of the Achilles tendon. Some dystrophic calcifications are present around the ankle joint which is suboptimally visualized. On the lateral radiograph, there is a posterior malleolar fracture. A full ankle series may be beneficial for evaluation. XR/XR chest 1V IMPRESSION: 1. Cardiomegaly with CHF 2. Fracture proximal phalanx fifth toe 3. Fracture posterior malleolus left ankle
--- NOTE | ~2021-08-21 | XR_ITS ---
EXAMINATION: SINGLE VIEW CHEST, BILATERAL FEET CLINICAL INFORMATION: Shortness of breath status post fall with bilateral foot pain COMPARISON: Chest radiograph 08/15/2021, left foot 08/15/2021 TECHNIQUE: Single view chest, 3 views each foot FINDINGS: Chest: Again noted is marked cardiomegaly and blurring of pulmonary vasculature consistent with CHF and interstitial edema. No focal consolidations are seen. No large effusions are present. Right foot: There is a fracture involving the medial base of the proximal phalanx of the fifth toe which involves the metatarsal phalangeal joint. No other fractures are seen. Large calcaneal spurs are present both on the plantar surface and at the insertion of the Achilles tendon. Left foot: No foot fracture is seen. Calcaneal spurring is present both on the plantar surface and at the insertion of the Achilles tendon. Some dystrophic calcifications are present around the ankle joint which is suboptimally visualized. On the lateral radiograph, there is a posterior malleolar fracture. A full ankle series may be beneficial for evaluation. XR/XR foot LT 2V IMPRESSION: 1. Cardiomegaly with CHF 2. Fracture proximal phalanx fifth toe 3. Fracture posterior malleolus left ankle
--- NOTE | ~2021-08-21 | US_ITS ---
EXAMINATION: US VENOUS WITH DOPPLER LOWER EXTREMITY, BILATERAL CLINICAL INFORMATION: Elevated D-dimer. Evaluate for a deep vein thrombosis. COMPARISON: None TECHNIQUE: Ultrasound of the deep veins is performed from the hip to the calf with compression sonography and color and pulse Doppler assessment. Spectral analysis with color-flow imaging is performed. FINDINGS: RIGHT: There is normal venous compression and respiratory variation and augmented flow. The visualized common femoral vein, superficial femoral vein, profunda femoral vein, popliteal vein, and the trifurcation region shows no evidence of deep venous thrombosis. There is no significant popliteal fossa cyst. The right peroneal vein is not well visualized. LEFT: There is normal venous compression and respiratory variation and augmented flow. The visualized common femoral vein, superficial femoral vein, profunda femoral vein, popliteal vein, and the trifurcation region shows no evidence of deep venous thrombosis. There is no significant popliteal fossa cyst. The left peroneal vein is not well visualized. If the patient's symptoms persist, followup ultrasound in 5 days 7 days might be of value to exclude proximal propagation from a non-visualized calf vein. Bilateral lower extremity subcutaneous edema. US/US venous duplex LE IMPRESSION: 1. No DVT demonstrated in the bilateral lower extremity. 2. The peroneal veins are not well visualized.
--- NOTE | ~2021-08-21 | XR_ITS ---
EXAMINATION: SINGLE VIEW CHEST, BILATERAL FEET CLINICAL INFORMATION: Shortness of breath status post fall with bilateral foot pain COMPARISON: Chest radiograph 08/15/2021, left foot 08/15/2021 TECHNIQUE: Single view chest, 3 views each foot FINDINGS: Chest: Again noted is marked cardiomegaly and blurring of pulmonary vasculature consistent with CHF and interstitial edema. No focal consolidations are seen. No large effusions are present. Right foot: There is a fracture involving the medial base of the proximal phalanx of the fifth toe which involves the metatarsal phalangeal joint. No other fractures are seen. Large calcaneal spurs are present both on the plantar surface and at the insertion of the Achilles tendon. Left foot: No foot fracture is seen. Calcaneal spurring is present both on the plantar surface and at the insertion of the Achilles tendon. Some dystrophic calcifications are present around the ankle joint which is suboptimally visualized. On the lateral radiograph, there is a posterior malleolar fracture. A full ankle series may be beneficial for evaluation. XR/XR foot RT 2V IMPRESSION: 1. Cardiomegaly with CHF 2. Fracture proximal phalanx fifth toe 3. Fracture posterior malleolus left ankle
[2021-08-21 18:44] VITALS: BP 103/74; PULSE 114; RESP 24; TEMP 37.2; O2SAT 95; BMI 49.8
--- NOTE | 2021-08-21 18:58 | ED.SOB ---
HPI - SOB/Dyspnea General Chief Complaint: Dyspnea Stated Complaint: fainting Time Seen by Provider: 08/21/21 18:57 Source: patient and family Mode of arrival: ambulatory Limitations: no limitations History of Present Illness HPI Narrative: Patient is 51 years old morbidly obese 300 lb with history of COVID pneumonia in 10/08 with respiratory failure with dilated cardiomyopathy ejection fraction 10-15% status post cardiac cath 11/07/2020 showing normal coronaries history of LISSET not using his BiPAP and use of cocaine comes here for 3 weeks of increased shortness of breath and daytime sleepiness on Aldactone , Bumex and Entresto. Patient also noticed increased leg swelling he was seen here on 08/15 left against medical advise. Denies any significant cough is just too tired during daytime and sleeping all the time per patient he used cocaine 1 week ago not lately no fever no chills patient is so sleepy in the daytime that when he walks he falls complaining of pain in the toes after the fall Related Data Home Medications Medication Instructions Recorded Confirmed dicyclomine 20 mg tablet 20 mg PO TID 08/21/21 08/21/21 spironolactone 25 mg tablet 1 tab PO DAILY 08/21/21 08/21/21 Previous Rx's Medication Instructions Recorded albuterol sulfate 90 mcg/actuation 2 puff INHALATION Q4-6H PRN #8.5 g 11/29/20 aerosol inhaler sacubitril 24 mg-valsartan 26 mg 1 tab PO BID 30 Days #60 tab 12/20/20 tablet (Entresto) bumetanide 1 mg tablet 1 mg PO BID #60 tab 07/25/21 baclofen 10 mg tablet 10 mg PO TID 30 Days #90 tab 08/07/21 nystatin 100,000 unit/mL oral 6 ml PO Q6H PRN 15 Days #250 ml 08/07/21 suspension Allergies Allergy/AdvReac Type Severity Reaction Status Date / Time cephalexin [From KEFLEX] Allergy Unknown UNKNOWN Verified 08/15/21 14:08 sulfamethoxazole Allergy Unknown UNKNOWN Verified 08/15/21 14:08 [From BACTRIM] trimethoprim [From BACTRIM] Allergy Unknown UNKNOWN Verified 08/15/21 14:08 Review of Systems Review of Systems: Yes all other systems are reviewed and are negative PMFSH Past Medical History Medical History Asthma CHF (congestive heart failure) Chronic systolic (congestive) heart failure Cocaine abuse COPD (chronic obstructive pulmonary disease) Morbid obesity NICM (nonischemic cardiomyopathy) LISSET (obstructive sleep apnea) Surgical History History of cardiac catheterization (~11/07/20) History of surgery Family History Family History Mother Ovarian cancer Diabetes Social History Social History Household Members: Spouse and Other Household Members Other:: lives in a [facility] [place] [place] Housing: Other Do you presently have visiting nurse or other home services: No Alcohol intake: unknown Patient Tobacco Use Status: Former Tobacco user Substance Use Type: Crack/Cocaine Advance Directives: No Advance Directives Information Provided: Yes service: No Current occupational status: unemployed and disabled Physical Exam Vital Signs: Vital Signs: Last Vital Signs Temp 98.9 F 08/21/21 18:44 Pulse 114 H 08/21/21 19:38 Resp 28 H 08/21/21 19:38 BP 121/80 08/21/21 19:38 Pulse Ox 98 08/21/21 19:38 Body Mass Index 49.8 Appearance: Alert. Oriented X3. Obese lethargic sleepy Eyes: PERRLA, No Nystagmus no pallor or icterus ENT: Pharynx normal. Oral Mucosa moist Neck: Normal inspection. Neck supple. CVS: Normal heart rate and rhythm. Pulses normal. Respiratory: No respiratory distress. Equal air entry bilateral, no wheezing/rales/rhonchi decreased air entry bilateral occasional crackles Abdomen: Soft and nontender. Bowel sounds are present, no mass palpable, no CVA tenderness Skin: Skin warm and dry. Normal skin color. Normal skin turgor. Extremities: 3+ leg edema bilateral, No calf tenderness, tender right 4th and 5th toe Neuro: Oriented X 3. No motor deficit. MDM - SOB/Dyspnea MDM Narrative Medical decision making narrative: Patient with chronic CHF with ejection fraction 15% with sleep apnea and substance abuse came for increased shortness of breath D-dimer elevated but no acute onset of symptoms leg Doppler negative for DVT patient responded to Lasix admit patient for CHF in further evaluation , venous gases with normal pCO2 level Medical Records Attestation: I reviewed the patient's medical records. Lab Data Attestation: I reviewed the patient's lab results. Result diagrams: 08/21/21 19:21 08/21/21 19:21 Labs: Lab Results 08/21/21 08/21/21 08/21/21 Range/Units 19:21 19:21 19:21 WBC 12.2 H (4.8-10.8) X10*3/uL RBC 4.79 (4.60-5.80) X10*6/uL Hgb 10.8 L (14.0-18.0) g/dl Hct 35.6 L (42.0-52.0) % MCV 74.3 L (80.0-98.0) fL MCH 22.5 L (27.0-33.0) pg MCHC 30.3 L (31.0-36.0) g/dl RDW 17.2 H (11.0-16.0) % Plt Count 362 (160-400) X10*3/uL MPV 9.0 L (9.4-12.4) fL Immature Gran % (Auto) 0.3 (0.0-0.4) % Neut % (Auto) 80.7 H (45-73) % Lymph % (Auto) 12.3 L (20-40) % Chaves % (Auto) 6.2 (2-11) % Eos % (Auto) 0.3 (0-4) % Baso % (Auto) 0.2 (0-2) % Lymph # (Auto) 1.5 (1.2-4.9) X10*3/uL Chaves # (Auto) 0.8 (0.1-1.2) X10*3/uL Eos # (Auto) 0.0 (0.0-0.4) X10*3/uL Baso # (Auto) 0.0 (0.0-0.2) X10*3/uL Abs Immat Gran (auto) 0.04 H (0.00-0.03) X10*3/uL Absolute Neuts (auto) 9.86 H (2.0-8.3) x10*3/uL Absolute Nucleated RBC 0.000 (0.0-0.012) X10*3/uL Nucleated RBC % (auto) 0.0 (0.0-0.2) /100WBC PT 16.2 H (9.9-13.0) SEC INR 1.4 H (0.9-1.1) APTT 27.8 (24.1-38.0) SEC D-Dimer 671 NG/ML VBG pH (7.32-7.43) VBG pCO2 mmHg VBG pO2 mmHg VBG HCO3 (22-26) mmol/L VBG O2 Saturation % VBG Base Excess mmol/L Sodium 136 (135-145) mmol/L Potassium 4.5 (3.3-5.1) mmol/L Chloride 102 (96-108) mmol/L Carbon Dioxide 26 (22-29) mmol/L Anion Gap 13 (12-20) BUN 22 H (9-16) mg/dL Creatinine 1.00 (0.5-1.4) mg/dL Estim Creat Clear Calc 131.9 Estimated GFR > 60 Random Glucose 122 H (60-115) mg/dL Lactic Acid (0.5-2.0) mmol/L Calcium 8.6 D (8.4-10.2) mg/dL Magnesium 2.2 (1.6-2.6) mg/dL Total Bilirubin 2.2 H (0.0-1.0) mg/dL Direct Bilirubin 0.9 H (0.0-0.5) mg/dL AST 34 (5-37) U/L ALT 37 (0-40) U/L Alkaline Phosphatase 102 (39-117) U/L Troponin I High Sens (<3.5-35.0) ng/L B-Natriuretic Peptide (<100) pg/mL Total Protein 6.5 (6.5-8.0) g/dL Albumin 3.6 (3.5-5.0) g/dL Urine Opiates Screen (Not Detect) Urine Fentanyl Screen (Not Detect) Ur Barbiturates Screen (Not Detect) Ur Phencyclidine Scrn (Not Detect) Ur Amphetamines Screen (Not Detect) U Benzodiazepines Scrn (Not Detect) Urine Cocaine Screen (Not Detect) U Marijuana (THC) Screen (Not Detect) COVID-19 (LEANDRO) (Negative) COVID-19 Clin Com 08/21/21 08/21/21 08/21/21 Range/Units 19:21 19:21 19:23 WBC (4.8-10.8) X10*3/uL RBC (4.60-5.80) X10*6/uL Hgb (14.0-18.0) g/dl Hct (42.0-52.0) % MCV (80.0-98.0) fL MCH (27.0-33.0) pg MCHC (31.0-36.0) g/dl RDW (11.0-16.0) % Plt Count (160-400) X10*3/uL MPV (9.4-12.4) fL Immature Gran % (Auto) (0.0-0.4) % Neut % (Auto) (45-73) % Lymph % (Auto) (20-40) % Chaves % (Auto) (2-11) % Eos % (Auto) (0-4) % Baso % (Auto) (0-2) % Lymph # (Auto) (1.2-4.9) X10*3/uL Chaves # (Auto) (0.1-1.2) X10*3/uL Eos # (Auto) (0.0-0.4) X10*3/uL Baso # (Auto) (0.0-0.2) X10*3/uL Abs Immat Gran (auto) (0.00-0.03) X10*3/uL Absolute Neuts (auto) (2.0-8.3) x10*3/uL Absolute Nucleated RBC (0.0-0.012) X10*3/uL Nucleated RBC % (auto) (0.0-0.2) /100WBC PT (9.9-13.0) SEC INR (0.9-1.1) APTT (24.1-38.0) SEC D-Dimer NG/ML VBG pH (7.32-7.43) VBG pCO2 mmHg VBG pO2 mmHg VBG HCO3 (22-26) mmol/L VBG O2 Saturation % VBG Base Excess mmol/L Sodium (135-145) mmol/L Potassium (3.3-5.1) mmol/L Chloride (96-108) mmol/L Carbon Dioxide (22-29) mmol/L Anion Gap (12-20) BUN (9-16) mg/dL Creatinine (0.5-1.4) mg/dL Estim Creat Clear Calc Estimated GFR Random Glucose (60-115) mg/dL Lactic Acid 1.8 (0.5-2.0) mmol/L Calcium (8.4-10.2) mg/dL Magnesium (1.6-2.6) mg/dL Total Bilirubin (0.0-1.0) mg/dL Direct Bilirubin (0.0-0.5) mg/dL AST (5-37) U/L ALT (0-40) U/L Alkaline Phosphatase (39-117) U/L Troponin I High Sens 17.5 (<3.5-35.0) ng/L B-Natriuretic Peptide 1066 H (<100) pg/mL Total Protein (6.5-8.0) g/dL Albumin (3.5-5.0) g/dL Urine Opiates Screen (Not Detect) Urine Fentanyl Screen (Not Detect) Ur Barbiturates Screen (Not Detect) Ur Phencyclidine Scrn (Not Detect) Ur Amphetamines Screen (Not Detect) U Benzodiazepines Scrn (Not Detect) Urine Cocaine Screen (Not Detect) U Marijuana (THC) Screen (Not Detect) COVID-19 (LEANDRO) Negative (Negative) COVID-19 Clin Com See Note 08/21/21 08/21/21 Range/Units 19:33 20:36 WBC (4.8-10.8) X10*3/uL RBC (4.60-5.80) X10*6/uL Hgb (14.0-18.0) g/dl Hct (42.0-52.0) % MCV (80.0-98.0) fL MCH (27.0-33.0) pg MCHC (31.0-36.0) g/dl RDW (11.0-16.0) % Plt Count (160-400) X10*3/uL MPV (9.4-12.4) fL Immature Gran % (Auto) (0.0-0.4) % Neut % (Auto) (45-73) % Lymph % (Auto) (20-40) % Chaves % (Auto) (2-11) % Eos % (Auto) (0-4) % Baso % (Auto) (0-2) % Lymph # (Auto) (1.2-4.9) X10*3/uL Chaves # (Auto) (0.1-1.2) X10*3/uL Eos # (Auto) (0.0-0.4) X10*3/uL Baso # (Auto) (0.0-0.2) X10*3/uL Abs Immat Gran (auto) (0.00-0.03) X10*3/uL Absolute Neuts (auto) (2.0-8.3) x10*3/uL Absolute Nucleated RBC (0.0-0.012) X10*3/uL Nucleated RBC % (auto) (0.0-0.2) /100WBC PT (9.9-13.0) SEC INR (0.9-1.1) APTT (24.1-38.0) SEC D-Dimer NG/ML VBG pH 7.43 (7.32-7.43) VBG pCO2 40 mmHg VBG pO2 70 mmHg VBG HCO3 27 H (22-26) mmol/L VBG O2 Saturation 90.0 % VBG Base Excess 3.1 mmol/L Sodium (135-145) mmol/L Potassium (3.3-5.1) mmol/L Chloride (96-108) mmol/L Carbon Dioxide (22-29) mmol/L Anion Gap (12-20) BUN (9-16) mg/dL Creatinine (0.5-1.4) mg/dL Estim Creat Clear Calc Estimated GFR Random Glucose (60-115) mg/dL Lactic Acid (0.5-2.0) mmol/L Calcium (8.4-10.2) mg/dL Magnesium (1.6-2.6) mg/dL Total Bilirubin (0.0-1.0) mg/dL Direct Bilirubin (0.0-0.5) mg/dL AST (5-37) U/L ALT (0-40) U/L Alkaline Phosphatase (39-117) U/L Troponin I High Sens (<3.5-35.0) ng/L B-Natriuretic Peptide (<100) pg/mL Total Protein (6.5-8.0) g/dL Albumin (3.5-5.0) g/dL Urine Opiates Screen Not Detected (Not Detect) Urine Fentanyl Screen Not Detected (Not Detect) Ur Barbiturates Screen Not Detected (Not Detect) Ur Phencyclidine Scrn Not Detected (Not Detect) Ur Amphetamines Screen Not Detected (Not Detect) U Benzodiazepines Scrn Not Detected (Not Detect) Urine Cocaine Screen POSITIVE H (Not Detect) U Marijuana (THC) Screen POSITIVE H (Not Detect) COVID-19 (LEANDRO) (Negative) COVID-19 Clin Com ECG Data Attestation: I personally reviewed and interpreted this ECG as follows: Interpretation: Sinus tachycardia with heart rate 110 beats per minute left axis deviation no acute ST T wave changes no acute ischemia Discharge Plan Discharge Clinical Impression: Sleep apnea with hypersomnolence, Chronic systolic (congestive) heart failure, Cocaine abuse Patient Disposition: Admitted As Inpatient
--- NOTE | 2021-08-21 19:09 | ECG_ITS ---
Test Reason : SEPSIS Blood Pressure : / mmHG Vent. Rate : 110 BPM Atrial Rate : 110 BPM P-R Int : 170 ms QRS Dur : 098 ms QT Int : 358 ms P-R-T Axes : 068 -38 064 degrees QTc Int : 484 ms Sinus tachycardia Possible Left atrial enlargement Left anterior fascicular block Abnormal ECG When compared with ECG of 15-AUG-2021 14:34, Premature ventricular complexes are no longer Present Referred By: Luan Haddad Electronically Signed By:ORI LEIGH MD
[2021-08-21 19:34] LABS: MANUAL DIFF FLAG NO
[2021-08-21] MEDS: Furosemide 100 MG/10 ML VIAL 60 MG IVPUSH (19:36)
[2021-08-21 19:37] LABS: Basophils Percent Auto 0.2 % (0-2); Eosinophils Percent Auto 0.3 % (0-4); Hematocrit 35.6 % (42.0-52.0); Hemoglobin 10.8 g/dl (14.0-18.0); Imm Gran Abs Auto 0.04 X10*3/uL (0.00-0.03); Imm Gran Pct Auto 0.3 % (0.0-0.4); Lymphocytes Absolute Auto 1.5 X10*3/uL (1.2-4.9); Lymphocytes Percent Auto 12.3 % (20-40); Mean Corpuscular HGB Conc 30.3 g/dl (31.0-36.0); Mean Corpuscular Hemoglobin 22.5 pg (27.0-33.0); Mean Corpuscular Volume 74.3 fL (80.0-98.0); Monocytes Absolute Auto 0.8 X10*3/uL (0.1-1.2); Monocytes Percent Auto 6.2 % (2-11); Neutrophils Absolute Auto 9.86 x10*3/uL (2.0-8.3); Neutrophils Percent Auto 80.7 % (45-73); Platelet Count 362 X10*3/uL (160-400); Red Blood Count 4.79 X10*6/uL (4.60-5.80); Red Cell Distribution Width 17.2 % (11.0-16.0); White Blood Count 12.2 X10*3/uL (4.8-10.8)
[2021-08-21 19:38] VITALS: BP 121/80; PULSE 114; RESP 28; O2SAT 98
[2021-08-21 19:39] LABS: VBG Base Excess 3.1 mmol/L; VBG HCO3 27 mmol/L (22-26); VBG pCO2 40 mmHg; VBG pH 7.43 (7.32-7.43); VBG pO2 70 mmHg
[2021-08-21 19:41] LABS: Venous Blood Gas Refer to POC result
[2021-08-21 19:48] LABS: INTERNATIONAL NORM RATIO 1.4 (0.9-1.1); Prothrombin Time 16.2 SEC (9.9-13.0)
[2021-08-21 19:50] LABS: Lactic Acid 1.8 mmol/L (0.5-2.0)
[2021-08-21 19:51] LABS: D Dimer 671 NG/ML; Partial Thromboplastin Time 27.8 SEC (24.1-38.0)
[2021-08-21 19:54] LABS: COVID-19 Test Negative (Negative)
--- NOTE | 2021-08-21 19:55 | PC.NURSE ---
PT ARRIVES TO ED WITH AT BEDSIDE. PT AWAKE AND C/O PAIN ALL OVER PT C/O PAIN TO TOES OF RIGHT FOOT. MD AT BEDSIDE FOR EJ TO RIGHT SIDE OF NECK, PT ON MONITOR, PT FALLS ASLEEP WITH SNORING RESPIRATIONS AND WAKES TO VOICE. PT IS PO 98%. LABS DRAWN TO LAB, COVID SWAB NEG. EKG OBTAINED TO MD. PT REFUSING TO GET INTO GOWN. WILL CONTINUE TO MONITOR PT.
[2021-08-21 19:59] LABS: Alanine Aminotransferase 37 U/L (0-40); Albumin Level 3.6 g/dL (3.5-5.0); Alkaline Phosphatase 102 U/L (39-117); Anion Gap 13 (12-20); Aspartate Amino Transferase 34 U/L (5-37); Bilirubin Direct 0.9 mg/dL (0.0-0.5); Bilirubin Total 2.2 mg/dL (0.0-1.0); Blood Urea Nitrogen 22 mg/dL (9-16); Calcium 8.6 mg/dL (8.4-10.2); Carbon Dioxide 26 mmol/L (22-29); Chloride 102 mmol/L (96-108); Creatinine Clr Calc Pharmacy 131.9; Estimated Glomerular Filt Rate > 60; Glucose Random 122 mg/dL (60-115); Magnesium 2.2 mg/dL (1.6-2.6); Potassium 4.5 mmol/L (3.3-5.1); Sodium 136 mmol/L (135-145); Total Protein 6.5 g/dL (6.5-8.0)
[2021-08-21 20:00] LABS: B Type Natriuretic Peptide 1066 pg/mL (<100); Troponin-I High Sensitivity 17.5 ng/L (<3.5-35.0)
[2021-08-21 21:11] LABS: Amphetamine Screen Urine Not Detected (Not Detect); Barbiturates, Urine Not Detected (Not Detect); Benzodiazepines Screen Urine Not Detected (Not Detect); Cannabinoid Screen Urine POSITIVE (Not Detect); Cocaine Screen Urine POSITIVE (Not Detect); Fentanyl, urine Not Detected (Not Detect); Opiate Screen Urine Not Detected (Not Detect); Phencyclidine Screen Urine Not Detected (Not Detect)
--- NOTE | 2021-08-21 21:47 | PM.IMHP ---
History of Present Illness Date of Service: 08/21/21 Chief Complaint: SOB 51-year-old male with past medical history of CHF with ejection fraction of 10-15%, asthma, COPD, LISSET, history of COVID-19 pneumonia, and cocaine abuse with frequent admissions for CHF exacerbation and has history of noncompliance presents to the hospital with complaints of shortness of breath and lethargy as well as falling asleep throughout the day. Patient reports that he has history of LISSET but has been noncompliant with his CPAP machine. He is complaining of dyspnea on exertion, lower extremity edema, mild cough no sputum production. All started about a week ago. He is also complaining of some sharp recurrent chest pain right below the left breast, nonradiating, intermittent. He reports that after his frequent falls he twisted his left ankle and he has pain there. Patient also reports that he falls asleep and ends of falling to the floor while doing regular daily activity . Denies any palpitations or dizziness prior to these episodes, no confusion upon waking. Of note patient was discharged in June after being managed for CHF, started on Lasix, spironolactone, carvedilol. According to the office note from machine room operator [employer] on 07/25 patient was switched to Bumex and he has also not been compliant with his carvedilol or spironolactone. All other review of system negative except as mentioned Vitals on arrival to the ED show a temperature of 98.9?, heart rate of 114, respiratory rate of 24, blood pressure 103/74, satting 95% on room air Labs are significant for WBC count of 12.2 which is chronically elevated, hemoglobin of 10.8 which is around his baseline, INR of 1.4, pH of 7.43 with a CO2 of 40, BUN of 22, creatinine of 1.0 which is around his baseline, BNP of 1066 which is significantly elevated than his usual, cocaine positive on UDS as well as marijuana. Chest x-ray shows CHF, he also has fracture of posterior malleolus of left ankle as well as fracture of the proximal phalanx of 5th toe Venous duplex shows No DVT in bilateral lower extremities In bilateral lower extremities Review of Systems Review of Systems: Yes all other systems are reviewed and are negative [facility] Medical History Asthma CHF (congestive heart failure) Chronic systolic (congestive) heart failure Cocaine abuse COPD (chronic obstructive pulmonary disease) Morbid obesity NICM (nonischemic cardiomyopathy) LISSET (obstructive sleep apnea) Family History Mother Ovarian cancer Diabetes Pertinent family history: Diabetes Surgical History History of cardiac catheterization (~11/07/20) History of surgery Social History Household Members: Spouse and Other Household Members Other:: lives in a [employer] Housing: Other Do you presently have visiting nurse or other home services: No Alcohol intake: unknown Patient Tobacco Use Status: Former Tobacco user Substance Use Type: Crack/Cocaine Advance Directives: No Advance Directives Information Provided: Yes service: No Current occupational status: unemployed and disabled Meds Allergies Allergy/AdvReac Type Severity Reaction Status Date / Time cephalexin [From KEFLEX] Allergy Unknown UNKNOWN Verified 08/15/21 14:08 sulfamethoxazole Allergy Unknown UNKNOWN Verified 08/15/21 14:08 [From BACTRIM] trimethoprim [From BACTRIM] Allergy Unknown UNKNOWN Verified 08/15/21 14:08 Active Medications: Current Medications Pharmacy Consult (Consult Rx Perform Med Rec) 1 each MISCELLANE ONCE PRN PRN Reason: Consult order Home Medications Medication Instructions Recorded Confirmed Last Taken Type dicyclomine 20 mg tablet 20 mg PO TID 08/21/21 08/21/21 08/21/21 History spironolactone 25 mg tablet 1 tab PO DAILY 08/21/21 08/21/21 08/21/21 History Physical Exam Vital Signs and Narrative: Vital Signs: Last Vital Signs Temp 98.9 F 08/21/21 18:44 Pulse 114 H 08/21/21 19:38 Resp 28 H 08/21/21 19:38 BP 121/80 08/21/21 19:38 Pulse Ox 98 08/21/21 19:38 Body Mass Index 49.8 Const: Other: Obese patient General: cooperative and no acute distress Orientation/consciousness: patient oriented x3 Eyes: General: appearance normal, both eyes and all related structures Resp: Other: Dyspnea when talking or giving history Effort & Inspection: normal respiratory effort Auscultation: clear to auscultation bilaterally Cardio: Other: Tachycardic Rhythm: regular rhythm GI: Palpation (GI): Soft to palpation Auscultation: normal bowel sounds Skin: Other: Erythema, warmth, and tenderness of his left lower extremity from mid villaseñor to ankle as compared to the right lower extremity Neuro: General: patient oriented x3 Cognition (Neuro): normal cognition Extrem: Other: Bilateral pitting edema 2+ Left lower extremity also has evidence of cellulitis with erythema, tenderness, wound General: Yes normal to inspection Results Labs CBC and Chem 7: 08/21/21 19:21 08/21/21 19:21 Labs: Laboratory Results - last 24 hr 08/21/21 08/21/21 08/21/21 19:21 19: 19:21 MCV 74.3 L MCH 22.5 L MCHC 30.3 L RDW 17.2 H Plt Count 362 MPV 9.0 L Immature Gran % (Auto) 0.3 Neut % (Auto) 80.7 H Lymph % (Auto) 12.[address] [place] % (Auto) 6.2 Eos % (Auto) 0.3 Baso % (Auto) 0.2 Lymph # (Auto) 1.5 [facility] # (Auto) 0.8 Eos # (Auto) 0.0 Baso # (Auto) 0.0 Abs Immat Gran (auto) 0.04 H Absolute Neuts (auto) 9.86 H Absolute Nucleated RBC 0.000 Nucleated RBC % (auto) 0.0 PT 16.2 H INR 1.4 H APTT 27.8 D-Dimer 671 VBG pH VBG pCO2 VBG pO2 VBG HCO3 VBG O2 Saturation VBG Base Excess Anion Gap 13 Estim Creat Clear Calc 131.9 Estimated GFR > 60 Random Glucose 122 H Lactic Acid Calcium 8.6 D Magnesium 2.2 Total Bilirubin 2.2 H Direct Bilirubin 0.9 H AST 34 ALT 37 Alkaline Phosphatase 102 Troponin I High Sens B-Natriuretic Peptide Total Protein 6.5 Albumin 3.6 Urine Opiates Screen Urine Fentanyl Screen Ur Barbiturates Screen Ur Phencyclidine Scrn Ur Amphetamines Screen U Benzodiazepines Scrn Urine Cocaine Screen U Marijuana (THC) Screen COVID-19 (LEANDRO) COVID-19 Clin Com 08/21/21 08/21/21 08/21/21 19:21 19:21 19:23 MCV MCH MCHC RDW Plt Count MPV Immature Gran % (Auto) Neut % (Auto) Lymph % (Auto) [facility] % (Auto) Eos % (Auto) Baso % (Auto) Lymph # (Auto) [facility] # (Auto) Eos # (Auto) Baso # (Auto) Abs Immat Gran (auto) Absolute Neuts (auto) Absolute Nucleated RBC Nucleated RBC % (auto) PT INR APTT D-Dimer VBG pH VBG pCO2 VBG pO2 VBG HCO3 VBG O2 Saturation VBG Base Excess Anion Gap Estim Creat Clear Calc Estimated GFR Random Glucose Lactic Acid 1.8 Calcium Magnesium Total Bilirubin Direct Bilirubin AST ALT Alkaline Phosphatase Troponin I High Sens 17.5 B-Natriuretic Peptide 1066 H Total Protein Albumin Urine Opiates Screen Urine Fentanyl Screen Ur Barbiturates Screen Ur Phencyclidine Scrn Ur Amphetamines Screen U Benzodiazepines Scrn Urine Cocaine Screen U Marijuana (THC) Screen COVID-19 (LEANDRO) Negative COVID-19 Clin Com See Note 08/21/21 08/21/21 19:33 20:36 MCV MCH MCHC RDW Plt Count MPV Immature Gran % (Auto) Neut % (Auto) Lymph % (Auto) [facility] [place] % (Auto) Eos % (Auto) Baso % (Auto) Lymph # (Auto) [facility] [place] # (Auto) Eos # (Auto) Baso # (Auto) Abs Immat Gran (auto) Absolute Neuts (auto) Absolute Nucleated RBC Nucleated RBC % (auto) PT INR APTT D-Dimer VBG pH 7.43 VBG pCO2 40 VBG pO2 70 VBG HCO3 27 H VBG O2 Saturation 90.0 VBG Base Excess 3.1 Anion Gap Estim Creat Clear Calc Estimated GFR Random Glucose Lactic Acid Calcium Magnesium Total Bilirubin Direct Bilirubin AST ALT Alkaline Phosphatase Troponin I High Sens B-Natriuretic Peptide Total Protein Albumin Urine Opiates Screen Not Detected Urine Fentanyl Screen Not Detected Ur Barbiturates Screen Not Detected Ur Phencyclidine Scrn Not Detected Ur Amphetamines Screen Not Detected U Benzodiazepines Scrn Not Detected Urine Cocaine Screen POSITIVE H U Marijuana (THC) Screen POSITIVE H COVID-19 (LEANDRO) COVID-19 Clin Com Imaging Radiologist's Impressions: Impressions Chest X-Ray 08/21/21 19:09 IMPRESSION: 1. Cardiomegaly with CHF 2. Fracture proximal phalanx fifth toe 3. Fracture posterior malleolus left ankle Foot X-Ray 08/21/21 19:28 IMPRESSION: 1. Cardiomegaly with CHF 2. Fracture proximal phalanx fifth toe 3. Fracture posterior malleolus left ankle Foot X-Ray 08/21/21 19:28 IMPRESSION: 1. Cardiomegaly with CHF 2. Fracture proximal phalanx fifth toe 3. Fracture posterior malleolus left ankle Venous Duplex 08/21/21 20:31 IMPRESSION: 1. No DVT demonstrated in the bilateral lower extremity. 2. The peroneal veins are not well visualized. Assessment and Plan (1) CHF exacerbation: Status: Resolved (2) Cellulitis: Status: Acute (3) Recurrent syncope: Status: Acute (4) LISSET (obstructive sleep apnea): Status: Acute (5) Cocaine abuse: Status: Acute (6) Noncompliance: Status: Acute 51-year-old male with past medical history of CHF with low ejection fraction he thought to be secondary to cocaine abuse, presents to the hospital with complaints of shortness of breath and leg swelling found to have CHF exacerbation # acute CHF exacerbation - elevated BNP, dyspnea, orthopnea and PND, as well as evidence of pulmonary congestion on chest x-ray - patient on Bumex 1 mg b.i.d. will switch it to IV - low-sodium diet, strict I&O, daily weight - Consult cardiology - place on telemetry - continue Entresto and spironolactone # cellulitis - erythema, warmth, and tenderness of left lower extremity - will start him on IV antibiotics - follow cultures # recurrent syncope and lethargy - patient reports that he falls asleep while standing a lot of times - most likely secondary to his LISSET noncompliant with his CPAP - will consult pulmonology to rule out narcolepsy # LISSET - CPAP at bedtime # cocaine abuse - has been consulted for abstinence on multiple occasions but patient continues to abuse cocaine - continue baclofen # history of noncompliance DVT prophylaxis: Heparin subQ Quality Stroke Does the patient have a stroke diagnosis?: No VTE Prior VTE?: No VTE Risk Level:: Medical - moderate - high VTE Device Contraindication: Treatment Not Indicated VTE Drug Contraindication: N/A - Med Ordered
--- NOTE | 2021-08-21 21:50 | PC.NURSE ---
MED REC BEING DONE BY PHARMACY
--- NOTE | 2021-08-21 21:59 | PHA.MEDREC ---
Pharmacy Consult ? Medication Reconciliation Pharmacy has completed the medication reconciliation. Spoke with patient's Janina. Reports he is no longer taking furosemide and he cannot take carvedilol until he stops using cocaine. She also reports dicyclomine however there is no claim history for the medication. Sandra Galan, PharmD
--- NOTE | 2021-08-21 22:09 | PC.NURSE ---
PT AWAKE AND FALLS TO SLEEP AND STARTS TO SNORE. PT REMAINS ON MONITOR WITH HR 117. PT'S FEET ARE SWOLLEN ARIANE. PT ABLE TO URINATE WHILE STANDING WITH ASSISTANCE. PT AWAITING FOR ROOM ASSIGNMENT AND WILL CONTINUE TO MONITOR PT.
[2021-08-22] VITALS (9 sets, daily range): BP systolic 115–128; BP diastolic 72–85; PULSE 107–117; RESP 16–28; TEMP 36.4–37.1; O2SAT 94–98
--- NOTE | 2021-08-22 01:42 | PC.NURSE ---
PT STANDING UP WITH ASSISTANCE.
--- NOTE | 2021-08-22 05:49 | PC.NURSE ---
pt remains on monitor, Pt wakes to voice, respirations easy, n/l. skin dry. pt awaiting for room assignment.
--- NOTE | 2021-08-22 06:48 | PC.NURSE ---
PHARMACY CALLED AND SAID DON'T HANG CEFTRIXONE D/T POSSIBLE ALLERGIES. PT STATES BACTRIM AND KEFLEX TURNS HIS SKIN PURPLE.
[2021-08-22] MEDS: Heparin Sodium,Porcine 5,000 UNIT/ML VIAL 5000 UNIT SUBCUT ×3 (07:15→22:38)
[2021-08-22] MEDS: Bumetanide 1 MG/4 ML VIAL IVPUSH (07:15)
[2021-08-22] MEDS: 0.9 % Sodium Chloride Flush 3 ML SYRINGE IVFLUSH ×2 (07:22→16:48)
[2021-08-22] MEDS: Doxycycline Hyclate 100 MG in 0.9 % Sodium Chloride 250 ML 166.67 MG IV ×2 (09:07→22:37)
[2021-08-22] MEDS: Sacubitril/Valsartan 24/26 1 TAB TABLET PO ×2 (09:10→22:38)
[2021-08-22] MEDS: Spironolactone 25 MG TABLET PO (09:10)
[2021-08-22] MEDS: Baclofen 10 MG TABLET PO ×3 (09:10→22:39)
[2021-08-22] MEDS: Dicyclomine HCl 10 MG CAPSULE 20 MG PO ×3 (09:10→22:39)
--- NOTE | 2021-08-22 09:23 | PC.NURSE ---
pt's MD placed IV cath pulled out from vein and leaking onto skin. David RN to attempt US IV at this time.
--- NOTE | 2021-08-22 14:49 | PM.CNCAR ---
History of Present Illness History of Present Illness Date of Service: 08/22/21 Requesting physician: Ran Blake Consult reason: congestive heart failure Chief complaint: CHF Exacerbation Narrative: I was requested to see Leandro in cardiology consultation today as he presents again with worsening shortness of breath, leg swelling over the last couple weeks as per him. He says that he gets fluid gain and suddenly started getting short of breath. He is noncompliant with his medications and CPAP use. He also continues to use cocaine which prevents him from using carvedilol. He says he has been taking Aldactone and Entresto therapy. He has been hospitalized multiple times with decompensated congestive heart failure. He has severe LV systolic dysfunction with normal coronary arteries. He denies any chest pain, palpitations. No recent systemic illnesses. He drifts off to sleep while interviewing. Review of Systems Review of Systems: Yes Unobtainable due to mental status PMFSH Past Medical History Medical History Asthma CHF (congestive heart failure) Chronic systolic (congestive) heart failure Cocaine abuse COPD (chronic obstructive pulmonary disease) Morbid obesity NICM (nonischemic cardiomyopathy) LISSET (obstructive sleep apnea) Family History Family History Mother Ovarian cancer Diabetes Surgical History Surgical History History of cardiac catheterization (~11/07/20) History of surgery Social History Social History Household Members: Spouse and Other Household Members Other:: lives in a motorcycle [employer] Housing: Other Do you presently have visiting nurse or other home services: No Alcohol intake: unknown Patient Tobacco Use Status: Former Tobacco user Substance Use Type: Crack/Cocaine Advance Directives: No Advance Directives Information Provided: Yes service: No Current occupational status: unemployed and disabled Meds Allergies Allergy/AdvReac Type Severity Reaction Status Date / Time cephalexin [From KEFLEX] Allergy Unknown UNKNOWN Verified 08/15/21 14:08 sulfamethoxazole Allergy Unknown UNKNOWN Verified 08/15/21 14:08 [From BACTRIM] trimethoprim [From BACTRIM] Allergy Unknown UNKNOWN Verified 08/15/21 14:08 Active Medications: Current Medications Acetaminophen (Acetaminophen 325 Mg Tablet) 650 mg PO Q6H PRN PRN Reason: Pain, Mild (Pain Scale 1-3) Albuterol Sulfate (Albuterol Sulfate 90 Mcg 8 Gm Inhaler) 2 puff INHALE Q4H PRN PRN Reason: shortness of breath or wheezing Baclofen (Baclofen 10 Mg Tablet) 10 mg PO TID COUNT INCLUDES THE [facility] Last Admin: 08/22/21 14:44 Dose: 10 mg Documented by: Bumetanide (Bumetanide 1 Mg/4 Ml Vial) 1 mg IVPUSH BID COUNT INCLUDES THE [facility]; Protocol Last Admin: 08/22/21 08:29 Dose: Not Given Documented by: Dicyclomine HCl (Dicyclomine Hcl 10 Mg Capsule) 20 mg PO TID COUNT INCLUDES THE [facility] Last Admin: 08/22/21 14:44 Dose: 20 mg Documented by: Heparin Sodium (Porcine) (Heparin Sodium,Porcine 5,000 Unit/Ml Vial) 5,000 unit SUBCUT Q8H COUNT INCLUDES THE [facility] Last Admin: 08/22/21 14:44 Dose: 5,000 unit Documented by: Doxycycline Hyclate 100 mg/ (Sodium Chloride) 250 mls @ 166.67 mls/hr IV Q12H COUNT INCLUDES THE [facility] Last Infusion: 08/22/21 12:58 Dose: Infused Documented by: Nystatin (Nystatin Oral Susp 500,000 Unit/5 Ml Oral.Susp) 500,000 unit PO Q6H PRN; Protocol PRN Reason: thrush Ondansetron HCl (Ondansetron Hcl 4 Mg/2 Ml Vial) 4 mg IVPUSH Q8H PRN PRN Reason: Nausea and Vomiting Pharmacy Consult (Consult Rx Perform Med Rec) 1 each MISCELLANE ONCE PRN PRN Reason: Consult order Sacubitril/Valsartan (Sacubitril/Valsartan 1 Tab Tablet) 1 tab PO BID COUNT INCLUDES THE [facility]; Protocol Last Admin: 08/22/21 09:10 Dose: 1 tab Documented by: Sodium Chloride (0.9 % Sodium Chloride Flush 3 Ml Syringe) 3 ml IVFLUSH QSHIFT COUNT INCLUDES THE [facility] Last Admin: 08/22/21 07:22 Dose: 3 ml Documented by: Spironolactone (Spironolactone 25 Mg Tablet) 25 mg PO DAILY COUNT INCLUDES THE [facility]; Protocol Last Admin: 08/22/21 09:10 Dose: 25 mg Documented by: Home Medications Medication Instructions Recorded Confirmed Last Taken Type dicyclomine 20 mg tablet 20 mg PO TID 08/21/21 08/21/21 08/21/21 History spironolactone 25 mg tablet 1 tab PO DAILY 08/21/21 08/21/21 08/21/21 History Physical Exam Vital Signs: Vital Signs: Last Vital Signs Temp 98.7 F 08/22/21 07:58 Pulse 115 H 08/22/21 09:10 Resp 28 H 08/22/21 07:58 BP 124/80 08/22/21 09:10 Pulse Ox 96 08/22/21 07:58 Body Mass Index 49.8 Const: General: lethargic and other (Frequently goes off to sleep) Nutritional Appearance: obese morbidly obese Orientation/consciousness: lethargic HENMT: Head: Yes normocephalic and Yes atraumatic Neck: Neck: Yes trachea midline, Yes supple and Yes other (Difficult to evaluate JVD) Resp: Effort & Inspection: normal respiratory effort Auscultation: no crackles, no rales and diminished lung sounds Cardio: Palpation: abnormal PMI displaced PMI Rate: regular rate Rhythm: regular rhythm Heart sounds: S1 normal heart sound present, S2 normal heart sound present, no click, Gallop heart sound present, no murmurs and no rubs GI: Auscultation: normal bowel sounds Skin: General skin exam: no rashes or lesions noted Neuro: General: no focal motor deficits Extrem: General: No clubbing, No cyanosis and Yes edema Results Labs and Meds Result diagrams: 08/21/21 19:21 08/21/21 19:21 Lab results: Laboratory Results - last 24 hr 08/21/21 08/21/21 08/21/21 19:21 19:21 19:21 WBC 12.2 H RBC 4.79 Hgb 10.8 L Hct 35.6 L MCV 74.3 L MCH 22.5 L MCHC 30.3 L RDW 17.2 H Plt Count 362 MPV 9.0 L Immature Gran % (Auto) 0.3 Neut % (Auto) 80.7 H Lymph % (Auto) 12.3 L Ramsey % (Auto) 6.2 Eos % (Auto) 0.3 Baso % (Auto) 0.2 Lymph # (Auto) 1.5 Ramsey # (Auto) 0.8 Eos # (Auto) 0.0 Baso # (Auto) 0.0 Abs Immat Gran (auto) 0.04 H Absolute Neuts (auto) 9.86 H Absolute Nucleated RBC 0.000 Nucleated RBC % (auto) 0.0 PT 16.2 H INR 1.4 H APTT 27.8 D-Dimer 671 VBG pH VBG pCO2 VBG pO2 VBG HCO3 VBG O2 Saturation VBG Base Excess Sodium 136 Potassium 4.5 Chloride 102 Carbon Dioxide 26 Anion Gap 13 BUN 22 H Creatinine 1.00 Estim Creat Clear Calc 131.9 Estimated GFR > 60 Random Glucose 122 H Lactic Acid Calcium 8.6 D Magnesium 2.2 Total Bilirubin 2.2 H Direct Bilirubin 0.9 H AST 34 ALT 37 Alkaline Phosphatase 102 Troponin I High Sens B-Natriuretic Peptide Total Protein 6.5 Albumin 3.6 Urine Opiates Screen Urine Fentanyl Screen Ur Barbiturates Screen Ur Phencyclidine Scrn Ur Amphetamines Screen U Benzodiazepines Scrn Urine Cocaine Screen U Marijuana (THC) Screen COVID-19 (LEANDRO) COVID-Relatient 08/21/21 08/21/21 08/21/21 19:21 19:21 19:23 WBC RBC Hgb Hct MCV MCH MCHC RDW Plt Count MPV Immature Gran % (Auto) Neut % (Auto) Lymph % (Auto) Ramsey % (Auto) Eos % (Auto) Baso % (Auto) Lymph # (Auto) Ramsey # (Auto) Eos # (Auto) Baso # (Auto) Abs Immat Gran (auto) Absolute Neuts (auto) Absolute Nucleated RBC Nucleated RBC % (auto) PT INR APTT D-Dimer VBG pH VBG pCO2 VBG pO2 VBG HCO3 VBG O2 Saturation VBG Base Excess Sodium Potassium Chloride Carbon Dioxide Anion Gap BUN Creatinine Estim Creat Clear Calc Estimated GFR Random Glucose Lactic Acid 1.8 Calcium Magnesium Total Bilirubin Direct Bilirubin AST ALT Alkaline Phosphatase Troponin I High Sens 17.5 B-Natriuretic Peptide 1066 H Total Protein Albumin Urine Opiates Screen Urine Fentanyl Screen Ur Barbiturates Screen Ur Phencyclidine Scrn Ur Amphetamines Screen U Benzodiazepines Scrn Urine Cocaine Screen U Marijuana (THC) Screen COVID-19 (LEANDRO) Negative COVID-Relatient See Note 08/21/21 08/21/21 19:33 20:36 WBC RBC Hgb Hct MCV MCH MCHC RDW Plt Count MPV Immature Gran % (Auto) Neut % (Auto) Lymph % (Auto) Ramsey % (Auto) Eos % (Auto) Baso % (Auto) Lymph # (Auto) Ramsey # (Auto) Eos # (Auto) Baso # (Auto) Abs Immat Gran (auto) Absolute Neuts (auto) Absolute Nucleated RBC Nucleated RBC % (auto) PT INR APTT D-Dimer VBG pH 7.43 VBG pCO2 40 VBG pO2 70 VBG HCO3 27 H VBG O2 Saturation 90.0 VBG Base Excess 3.1 Sodium Potassium Chloride Carbon Dioxide Anion Gap BUN Creatinine Estim Creat Clear Calc Estimated GFR Random Glucose Lactic Acid Calcium Magnesium Total Bilirubin Direct Bilirubin AST ALT Alkaline Phosphatase Troponin I High Sens B-Natriuretic Peptide Total Protein Albumin Urine Opiates Screen Not Detected Urine Fentanyl Screen Not Detected Ur Barbiturates Screen Not Detected Ur Phencyclidine Scrn Not Detected Ur Amphetamines Screen Not Detected U Benzodiazepines Scrn Not Detected Urine Cocaine Screen POSITIVE H U Marijuana (THC) Screen POSITIVE H COVID-19 (LEANDRO) COVID-19 Clin Com Imaging Radiologist's impression: Impressions Chest X-Ray 08/21/21 19:09 IMPRESSION: 1. Cardiomegaly with CHF 2. Fracture proximal phalanx fifth toe 3. Fracture posterior malleolus left ankle Foot X-Ray 08/21/21 19:28 IMPRESSION: 1. Cardiomegaly with CHF 2. Fracture proximal phalanx fifth toe 3. Fracture posterior malleolus left ankle Foot X-Ray 08/21/21 19:28 IMPRESSION: 1. Cardiomegaly with CHF 2. Fracture proximal phalanx fifth toe 3. Fracture posterior malleolus left ankle Venous Duplex 08/21/21 20:31 IMPRESSION: 1. No DVT demonstrated in the bilateral lower extremity. 2. The peroneal veins are not well visualized. Assessment and Plan (1) Heart failure, systolic, with acute decompensation: Status: Acute Patient presents with another episode of decompensation. This is likely related to noncompliance with followups and medical therapy as well as continued cocaine use and not using CPAP therapy. Continue Entresto and spironolactone therapy. Start on Bumex drip at 0.25 mg an hour. Strict intake and output chart needs to be pursued. Pulmonary consult for CPAP therapy. Complete abstinence from cocaine was discussed. Once his fluid status has improved, start Coreg therapy. Importance of compliance with medication and cocaine abstinence was discussed however patient was nodding off to sleep and not sure if he understood everything. His risk of recurrent hospitalization as well as dying are very high. This was discussed with his significant other. Will follow with you Procedures Date of Service Date of Service: 08/22/21
--- NOTE | 2021-08-22 15:28 | HO.PM.IMPN ---
Subjective Subjective Date of Service: 08/22/21 Interval History: No acute issues overnight; fair diuresis with IV Bumex Review of Systems Denies chest pain Denies shortness of breath Denies nausea vomiting diarrhea Physical Exam Vital Signs: Vital Signs: Last Vital Signs Temp 98.7 F 08/22/21 07:58 Pulse 115 H 08/22/21 09:10 Resp 28 H 08/22/21 07:58 BP 124/80 08/22/21 09:10 Pulse Ox 96 08/22/21 07:58 Body Mass Index 49.8 Const: Other: No acute distress HENMT: Other: Membranes moist oropharynx clear Resp: Other: Bibasilar rales no rhonchi or wheezes Cardio: Other: No S4; positive S1-S2; no S3 murmurs rubs or gallops GI: Other: Soft nontender nondistended with normoactive bowel sounds. Obese Extrem: Other: Extensive edema bilateral; left lower extremity erythematous and warm Objective Data Active Medications Acetaminophen (Acetaminophen 325 Mg Tablet) 650 mg PO Q6H PRN PRN Reason: Pain, Mild (Pain Scale 1-3) Albuterol Sulfate (Albuterol Sulfate 90 Mcg 8 Gm Inhaler) 2 puff INHALE Q4H PRN PRN Reason: shortness of breath or wheezing Baclofen (Baclofen 10 Mg Tablet) 10 mg PO TID [facility] Last Admin: 08/22/21 14:44 Dose: 10 mg Documented by: DOMINGA Dicyclomine HCl (Dicyclomine Hcl 10 Mg Capsule) 20 mg PO TID [facility] Last Admin: 08/22/21 14:44 Dose: 20 mg Documented by: DOMINGA Heparin Sodium (Porcine) (Heparin Sodium,Porcine 5,000 Unit/Ml Vial) 5,000 unit SUBCUT Q8H [facility] Last Admin: 08/22/21 14:44 Dose: 5,000 unit Documented by: DOMINGA Doxycycline Hyclate 100 mg/ (Sodium Chloride) 250 mls @ 166.67 mls/hr IV Q12H [facility] Last Infusion: 08/22/21 12:58 Dose: 0 mls/hr Documented by: DOMINGA Bumetanide 25 mg/ IV (Miscellaneous Supplies) 100 mls @ 2 mls/hr IVCONT .Q24H [facility] Nystatin (Nystatin Oral Susp 500,000 Unit/5 Ml Oral.Susp) 500,000 unit PO Q6H PRN; Protocol PRN Reason: thrush Ondansetron HCl (Ondansetron Hcl 4 Mg/2 Ml Vial) 4 mg IVPUSH Q8H PRN PRN Reason: Nausea and Vomiting Pharmacy Consult (Consult Rx Perform Med Rec) 1 each MISCELLANE ONCE PRN PRN Reason: Consult order Sacubitril/Valsartan (Sacubitril/Valsartan 1 Tab Tablet) 1 tab PO BID [facility]; Protocol Last Admin: 08/22/21 09:10 Dose: 1 tab Documented by: DOMINGA Sodium Chloride (0.9 % Sodium Chloride Flush 3 Ml Syringe) 3 ml IVFLUSH QSHIFT [facility] Last Admin: 08/22/21 07:22 Dose: 3 ml Documented by: DOMINGA Spironolactone (Spironolactone 25 Mg Tablet) 25 mg PO DAILY [facility]; Protocol Last Admin: 08/22/21 09:10 Dose: 25 mg Documented by: DOMINGA Labs CBC & Chem 7: 08/21/21 19:21 08/21/21 19:21 Labs: Laboratory Results - last 24 hr 08/21/21 08/21/21 08/21/21 19:21 19:21 19:21 MCV 74.3 L MCH 22.5 L MCHC 30.3 L RDW 17.2 H Plt Count 362 MPV 9.0 L Immature Gran % (Auto) 0.3 Neut % (Auto) 80.7 H Lymph % (Auto) 12.3 L [place] % (Auto) 6.2 Eos % (Auto) 0.3 Baso % (Auto) 0.2 Lymph # (Auto) 1.5 [place]inn # (Auto) 0.8 Eos # (Auto) 0.0 Baso # (Auto) 0.0 Abs Immat Gran (auto) 0.04 H Absolute Neuts (auto) 9.86 H Absolute Nucleated RBC 0.000 Nucleated RBC % (auto) 0.0 PT 16.2 H INR 1.4 H APTT 27.8 D-Dimer 671 VBG pH VBG pCO2 VBG pO2 VBG HCO3 VBG O2 Saturation VBG Base Excess Anion Gap 13 Estim Creat Clear Calc 131.9 Estimated GFR > 60 Random Glucose 122 H Lactic Acid Calcium 8.6 D Magnesium 2.2 Total Bilirubin 2.2 H Direct Bilirubin 0.9 H AST 34 ALT 37 Alkaline Phosphatase 102 Troponin I High Sens B-Natriuretic Peptide Total Protein 6.5 Albumin 3.6 Urine Opiates Screen Urine Fentanyl Screen Ur Barbiturates Screen Ur Phencyclidine Scrn Ur Amphetamines Screen U Benzodiazepines Scrn Urine Cocaine Screen U Marijuana (THC) Screen COVID-19 (LEANDRO) COVID-19 Clin Com 08/21/21 08/21/21 08/21/21 19:21 19:21 19:23 MCV MCH MCHC RDW Plt Count MPV Immature Gran % (Auto) Neut % (Auto) Lymph % (Auto) [place] % (Auto) Eos % (Auto) Baso % (Auto) Lymph # (Auto) [place] # (Auto) Eos # (Auto) Baso # (Auto) Abs Immat Gran (auto) Absolute Neuts (auto) Absolute Nucleated RBC Nucleated RBC % (auto) PT INR APTT D-Dimer VBG pH VBG pCO2 VBG pO2 VBG HCO3 VBG O2 Saturation VBG Base Excess Anion Gap Estim Creat Clear Calc Estimated GFR Random Glucose Lactic Acid 1.8 Calcium Magnesium Total Bilirubin Direct Bilirubin AST ALT Alkaline Phosphatase Troponin I High Sens 17.5 B-Natriuretic Peptide 1066 H Total Protein Albumin Urine Opiates Screen Urine Fentanyl Screen Ur Barbiturates Screen Ur Phencyclidine Scrn Ur Amphetamines Screen U Benzodiazepines Scrn Urine Cocaine Screen U Marijuana (THC) Screen COVID-19 (LEANDRO) Negative COVID-19 Clin Com See Note 08/21/21 08/21/21 19:33 20:36 MCV MCH MCHC RDW Plt Count MPV Immature Gran % (Auto) Neut % (Auto) Lymph % (Auto) [place] % (Auto) Eos % (Auto) Baso % (Auto) Lymph # (Auto) [place] # (Auto) Eos # (Auto) Baso # (Auto) Abs Immat Gran (auto) Absolute Neuts (auto) Absolute Nucleated RBC Nucleated RBC % (auto) PT INR APTT D-Dimer VBG pH 7.43 VBG pCO2 40 VBG pO2 70 VBG HCO3 27 H VBG O2 Saturation 90.0 VBG Base Excess 3.1 Anion Gap Estim Creat Clear Calc Estimated GFR Random Glucose Lactic Acid Calcium Magnesium Total Bilirubin Direct Bilirubin AST ALT Alkaline Phosphatase Troponin I High Sens B-Natriuretic Peptide Total Protein Albumin Urine Opiates Screen Not Detected Urine Fentanyl Screen Not Detected Ur Barbiturates Screen Not Detected Ur Phencyclidine Scrn Not Detected Ur Amphetamines Screen Not Detected U Benzodiazepines Scrn Not Detected Urine Cocaine Screen POSITIVE H U Marijuana (THC) Screen POSITIVE H COVID-19 (LEANDRO) COVID-19 Clin Com Assessment and Plan (1) Cellulitis: Status: Acute (2) LISSET (obstructive sleep apnea): Status: Acute (3) Chronic systolic (congestive) heart failure: Status: Acute Assessment and Plan: 51-year-old male with past medical history of CHF with low ejection fraction he thought to be secondary to cocaine abuse, presents to the hospital with complaints of shortness of breath and leg swelling found to have CHF exacerbation 1.Acute CHF exacerbation(systolic) Seen by cardiology recommends be makes drip. Drip started pulse dose d/cd Follow daily BMPs... Further recommendations as per Cardiology 2.Cellulitis IV doxycycline given reaction to cephalosporins. Follow white count and clinical response to therapies 3. LISSET/severe Secondary noncompliance with CPAP at HS. Pulmonary consult... Encourage CPAP 4. Elevated bilirubin Most likely related to chronic cocaine/EToH abuse Will trend 5. Polysubstance abuse Educated about resources... Not interested at this time DVT prophylaxis: Heparin subQ Quality Stroke Does the patient have a stroke diagnosis?: No VTE Prior VTE?: No VTE Risk Level:: Medical - moderate - high VTE Device Contraindication: Treatment Not Indicated VTE Drug Contraindication: N/A - Med Ordered
[2021-08-22] MEDS: Bumetanide 25 MG in Container,Empty 0 ML IVCONT (16:48)
--- NOTE | 2021-08-22 19:09 | PC.NURSE ---
Called admitting unit to give report. Rn is in report and will be calling back.
--- NOTE | 2021-08-22 19:24 | PC.NURSE ---
pt a&o, no increase sob. pt report no chest pain. pt heart rate is tachy. pt stating in the 90'2 in room air. Report called to the receiving unit.
[2021-08-23] VITALS (8 sets, daily range): BP systolic 100–161; BP diastolic 58–85; PULSE 95–126; RESP 16–20; TEMP 36.2–37; O2SAT 93–100; BMI 48.9
[2021-08-23] MEDS: Zolpidem Tartrate 5 MG TABLET PO (01:32)
[2021-08-23] MEDS: Heparin Sodium,Porcine 5,000 UNIT/ML VIAL 5000 UNIT SUBCUT ×3 (05:09→22:35)
[2021-08-23 06:39] LABS: MANUAL DIFF FLAG NO
[2021-08-23 06:47] LABS: Basophils Absolute Auto 0.1 X10*3/uL (0.0-0.2); Basophils Percent Auto 0.7 % (0-2); Eosinophils Absolute Auto 0.2 X10*3/uL (0.0-0.4); Eosinophils Percent Auto 1.2 % (0-4); Hematocrit 39.8 % (42.0-52.0); Hemoglobin 12.1 g/dl (14.0-18.0); Imm Gran Abs Auto 0.03 X10*3/uL (0.00-0.03); Imm Gran Pct Auto 0.2 % (0.0-0.4); Lymphocytes Absolute Auto 1.7 X10*3/uL (1.2-4.9); Mean Corpuscular HGB Conc 30.4 g/dl (31.0-36.0); Mean Corpuscular Hemoglobin 22.3 pg (27.0-33.0); Mean Corpuscular Volume 73.4 fL (80.0-98.0); Mean Platelet Volume 9.1 fL (9.4-12.4); Monocytes Absolute Auto 0.8 X10*3/uL (0.1-1.2); Monocytes Percent Auto 6.8 % (2-11); Neutrophils Absolute Auto 9.26 x10*3/uL (2.0-8.3); Neutrophils Percent Auto 77.1 % (45-73); Platelet Count 367 X10*3/uL (160-400); Red Blood Count 5.42 X10*6/uL (4.60-5.80); Red Cell Distribution Width 18.6 % (11.0-16.0)
[2021-08-23 07:00] LABS: Anion Gap 17 (12-20); Blood Urea Nitrogen 22 mg/dL (9-16); Calcium 8.3 mg/dL (8.4-10.2); Carbon Dioxide 31 mmol/L (22-29); Chloride 96 mmol/L (96-108); Creatinine Clr Calc Pharmacy 124.4; Estimated Glomerular Filt Rate > 60; Glucose Random 135 mg/dL (60-115); Potassium 3.8 mmol/L (3.3-5.1); Sodium 140 mmol/L (135-145)
[2021-08-23] MEDS: 0.9 % Sodium Chloride Flush 3 ML SYRINGE IVFLUSH ×2 (07:59→15:22)
[2021-08-23] MEDS: Doxycycline Hyclate 100 MG in 0.9 % Sodium Chloride 250 ML 166.67 MG IV ×2 (07:59→19:47)
[2021-08-23] MEDS: Baclofen 10 MG TABLET PO ×3 (08:02→21:23)
[2021-08-23] MEDS: Sacubitril/Valsartan 24/26 1 TAB TABLET PO ×2 (08:02→21:23)
[2021-08-23] MEDS: Dicyclomine HCl 10 MG CAPSULE 20 MG PO ×3 (08:02→21:23)
[2021-08-23] MEDS: Spironolactone 25 MG TABLET PO (08:02)
[2021-08-23 09:49] LABS: B Type Natriuretic Peptide 598 pg/mL (<100)
--- NOTE | 2021-08-23 09:53 | PM.CNPUL ---
History of Present Illness History of Present Illness Consult date: 08/23/21 Chief complaint: CHF Exacerbation Narrative: This 51 years old gentleman is seen by me this morning in relation to his history of sleep apnea. This patient admitted since yesterday mainly because of increased shortness of breath, increased cough, and also pedal edema. During the last week He also felt sleepy and lightheaded on standing up during the past week and had fallen down twice, hurting his right foot and left ankle. Lately he has been feeling overly sleepy during the daytime. This gentleman has history of cardiomyopathy with very low ejection fraction. He has chronic congestive heart failure and has been admitted many times with acute exacerbation of CHF. He does have history of chronic obstructive pulmonary disease, but he is not using any bronchodilators, except for albuterol HFA 2 puffs Q 4-6 hours p.r.n. He is morbidly obese and has diagnosis of obstructive sleep apnea at least since 2008. That is when he had the 1st sleep study in hospital setting, showing severe obstructive sleep apnea. He CPAP using nasal pillows and pressure of 11 cm were recommended. Patient used the CPAP for a year or so and then he say is he stop using and lost his machine. In the last few years he borrowed a CPAP machine from 1 of his friends and was using off and on, However he is not being followed regularly for his sleep apnea. Review of Systems Review of Systems: All systems are reviewed and most of his symptoms are as mentioned in HPI. [facility] Past Medical History Medical History (Updated 08/23/21 @ 10:04 by Carolina Hamilton MD) Asthma Asthma CHF (congestive heart failure) Chronic systolic (congestive) heart failure Cocaine abuse COPD (chronic obstructive pulmonary disease) Morbid obesity Morbid obesity NICM (nonischemic cardiomyopathy) LISSET (obstructive sleep apnea) Family History Family History Mother Ovarian cancer Diabetes Surgical History Surgical History History of cardiac catheterization (~11/07/20) History of surgery Social History Social History Household Members: Spouse Household Members Other:: lives in a [employer] Housing: House Do you presently have visiting nurse or other home services: No Alcohol intake: unknown Patient Tobacco Use Status: Former Tobacco user Substance Use Type: Crack/Cocaine service: No Current occupational status: unemployed and disabled Meds Allergies Allergy/AdvReac Type Severity Reaction Status Date / Time cephalexin [From KEFLEX] Allergy Unknown UNKNOWN Verified 08/15/21 14:08 sulfamethoxazole Allergy Unknown UNKNOWN Verified 08/15/21 14:08 [From BACTRIM] trimethoprim [From BACTRIM] Allergy Unknown UNKNOWN Verified 08/15/21 14:08 Active Medications: Current Medications Acetaminophen (Acetaminophen 325 Mg Tablet) 650 mg PO Q6H PRN PRN Reason: Pain, Mild (Pain Scale 1-3) Albuterol Sulfate (Albuterol Sulfate 90 Mcg 8 Gm Inhaler) 2 puff INHALE Q4H PRN PRN Reason: shortness of breath or wheezing Baclofen (Baclofen 10 Mg Tablet) 10 mg PO TID [facility] Last Admin: 08/23/21 08:02 Dose: 10 mg Documented by: Dicyclomine HCl (Dicyclomine Hcl 10 Mg Capsule) 20 mg PO TID [facility] Last Admin: 08/23/21 08:02 Dose: 20 mg Documented by: Heparin Sodium (Porcine) (Heparin Sodium,Porcine 5,000 Unit/Ml Vial) 5,000 unit SUBCUT Q8H [facility] Last Admin: 08/23/21 05:09 Dose: 5,000 unit Documented by: Doxycycline Hyclate 100 mg/ (Sodium Chloride) 250 mls @ 166.67 mls/hr IV Q12H [facility] Last Infusion: 08/23/21 09:50 Dose: Infused Documented by: Bumetanide 25 mg/ IV (Miscellaneous Supplies) 100 mls @ 2 mls/hr IVCONT .Q24H [facility] Last Admin: 08/22/21 16:48 Dose: 0.5 mg/hr, 2 mls/hr Documented by: Nystatin (Nystatin Oral Susp 500,000 Unit/5 Ml Oral.Susp) 500,000 unit PO Q6H PRN; Protocol PRN Reason: thrush Ondansetron HCl (Ondansetron Hcl 4 Mg/2 Ml Vial) 4 mg IVPUSH Q8H PRN PRN Reason: Nausea and Vomiting Pharmacy Consult (Consult Rx Perform Med Rec) 1 each MISCELLANE ONCE PRN PRN Reason: Consult order Sacubitril/Valsartan (Sacubitril/Valsartan 1 Tab Tablet) 1 tab PO BID [facility]; Protocol Last Admin: 08/23/21 08:02 Dose: 1 tab Documented by: Sodium Chloride (0.9 % Sodium Chloride Flush 3 Ml Syringe) 3 ml IVFLUSH QSHIFT [facility] Last Admin: 08/23/21 07:59 Dose: 3 ml Documented by: Spironolactone (Spironolactone 25 Mg Tablet) 25 mg PO DAILY [facility]; Protocol Last Admin: 08/23/21 08:02 Dose: 25 mg Documented by: Home Medications Medication Instructions Recorded Confirmed Last Taken Type dicyclomine 20 mg tablet 20 mg PO TID 08/21/21 08/21/21 08/21/21 History spironolactone 25 mg tablet 1 tab PO DAILY 08/21/21 08/21/21 08/21/21 History Physical Exam Vital Signs: Vital Signs: Last Vital Signs Temp 98.0 F 08/23/21 07:38 Pulse 107 H 08/23/21 08:02 Resp 20 08/23/21 07:38 BP 113/60 08/23/21 08:02 Pulse Ox 96 08/23/21 07:38 Body Mass Index 48.9 Const: General: comfortable, no acute distress, alert and awake Orientation/consciousness: patient oriented x3 HENMT: Head: Yes normal to inspection General nose exam: No nasal polyps present and No nasal discharge present Face and sinus: Yes sinuses nontender Mouth: oropharynx abnormals (Very crowded and narrow therese pharynx, Mallampati class 4) Throat: Yes posterior oropharynx normal Eyes: General: appearance normal, both eyes and all related structures Neck: Neck: Yes normal visual inspection, Yes no lymphadenopathy, Yes trachea midline and Yes no JVD Thyroid: Thyroid normal Chest: Chest palpation & inspection: normal inspection of the chest, normal palpation of entire chest wall and no tenderness Resp: Other: Percussion note is resonant, breath sounds slightly distant but no wheezes or rhonchi are heard. Cardio: Palpation: normal PMI Rate: regular rate Rhythm: regular rhythm Heart sounds: no gallops and no murmurs Peripheral pulses: Peripheral pulses 2+ throughout GI: Palpation (GI): Soft to palpation, nontender, No hepatosplenomegaly present and no masses Auscultation: normal bowel sounds Back/Spine/Pelvis: Thoracic/Lumbar Spine: thoracic and lumbar spine normal to inspection Skin: General skin exam: no rashes or lesions noted Neuro: General: patient oriented x3 and no focal motor deficits Cranial nerves: Yes CN's II-XII intact bilaterally Extrem: Other: He has moderate swelling of the left foot ankle and the lower part of the leg, with erythema and tenderness. Also has mild tenderness over the right forefoot. Psych: Appearance: grossly normal Speech and movement: Normal speech and movement present Results Laboratory Findings CBC and BMP: 08/23/21 05:47 08/23/21 05:47 ABG, PT/INR, D-dimer: PT/INR, D-dimer PT 16.2 SEC (9.9-13.0) H 08/21/21 19:21 INR 1.4 (0.9-1.1) H 08/21/21 19:21 D-Dimer 671 NG/ML 08/21/21 19:21 Abnormal lab findings: Abnormal Labs 08/21/21 08/21/21 08/21/21 19:21 19:21 19:21 WBC 12.2 H Hgb 10.8 L Hct 35.6 L MCV 74.3 L MCH 22.5 L MCHC 30.3 L RDW 17.2 H MPV 9.0 L Neut % (Auto) 80.7 H Lymph % (Auto) 12.3 L Abs Immat Gran (auto) 0.04 H Absolute Neuts (auto) 9.86 H PT 16.2 H INR 1.4 H VBG HCO3 Carbon Dioxide BUN 22 H Random Glucose 122 H Calcium Total Bilirubin 2.2 H Direct Bilirubin 0.9 H B-Natriuretic Peptide Urine Cocaine Screen U Marijuana (THC) Screen 08/21/21 08/21/21 08/21/21 19:21 19:33 20:36 WBC Hgb Hct MCV MCH MCHC RDW MPV Neut % (Auto) Lymph % (Auto) Abs Immat Gran (auto) Absolute Neuts (auto) PT INR VBG HCO3 27 H Carbon Dioxide BUN Random Glucose Calcium Total Bilirubin Direct Bilirubin B-Natriuretic Peptide 1066 H Urine Cocaine Screen POSITIVE H U Marijuana (THC) Screen POSITIVE H 08/23/21 08/23/21 08/23/21 05:47 05:47 09:17 WBC 12.0 H Hgb 12.1 L Hct 39.8 L MCV 73.4 L MCH 22.3 L MCHC 30.4 L RDW 18.6 H MPV 9.1 L Neut % (Auto) 77.1 H Lymph % (Auto) 14.0 L Abs Immat Gran (auto) Absolute Neuts (auto) 9.26 H PT INR VBG HCO3 Carbon Dioxide 31 H BUN 22 H Random Glucose 135 H Calcium 8.3 L Total Bilirubin Direct Bilirubin B-Natriuretic Peptide 598 H Urine Cocaine Screen U Marijuana (THC) Screen Microbiology: Microbiology 08/21/21 19:21 Blood - Venous Blood Culture - Preliminary No growth after 24 hours. 08/21/21 19:21 Blood - Venous Blood Culture - Preliminary No growth after 24 hours. Assessment and Plan (1) Heart failure, systolic, with acute decompensation: Status: Acute (2) Morbid obesity: Status: Acute (3) LISSET (obstructive sleep apnea): Status: Acute This is a chronic problem, patient has been non compliant to use CPAP. Untreated obstructive sleep apnea contributing to his worsening of congestive heart failure. (4) Noncompliance: Status: Acute I discussed with him about the importance of using CPAP regularly. He has had difficulty in keeping the mask on in the past. He wants to set up an appointment as outpatient and be followed regularly., for this issue of sleep apnea. He has long most S she is an carrizales and I discussed to him very frankly that he may have to either trim or shave the carrizales and mustache . (5) Asthma: Status: Acute Has been mild intermittent and he may continue to use albuterol HFA 2 puffs Q 4-6 hours only p.r.n.. Procedures Date of Service Date of Service: 08/23/21
--- NOTE | 2021-08-23 10:10 | PM.PNCARD ---
Subjective Subjective Date of Service: 08/23/21 <YASMIN Sierra - Last Filed: 08/23/21 10:36> 08/23/21 <Mariusz Muhammad MD - Last Filed: 08/23/21 10:59> Principal diagnosis: Acute on chronic systolic HF, LISSET, morbid obesity, cocaine use <YASMIN Sierra - Last Filed: 08/23/21 10:36> Interval history: Cardiology follow up for CHF, LISSET. Seen at 0915. Today he states his breathing is better than when he came in but still not normal yet. He did not sleep well during the night as he had to urinate frequently. He did use hospital CPAP set up. At home he admits to using his friends CPAP machine. Slept with HOB mostly flat, laying on his side. No chest pains, palpitation, dizziness. Having discomfort from his left ankle which he sprained during recent fall. Significant other present and states Pt has been doing better with the reduction in drug use. He states he has been good about taking all his meds at home. <YASMIN Sierra - Last Filed: 08/23/21 10:36> Review of Systems Review of Systems as above <YASMIN Sierra - Last Filed: 08/23/21 10:36> Yes all other systems are reviewed and are negative <YASMIN Sierra - Last Filed: 08/23/21 10:36> Physical Exam Vital Signs: Last Vital Signs Temp 98.0 F 08/23/21 07:38 Pulse 107 H 08/23/21 08:02 Resp 20 08/23/21 07:38 BP 113/60 08/23/21 08:02 Pulse Ox 96 08/23/21 07:38 Body Mass Index 48.9 <YASMIN Sierra - Last Filed: 08/23/21 10:36> Const Other: Morbidly obese <YASMIN Sierra - Last Filed: 08/23/21 10:36> General: cooperative, no acute distress, alert and awake <YASMIN Sierra - Last Filed: 08/23/21 10:36> Orientation/consciousness: patient oriented x3 <YASMIN Sierra - Last Filed: 08/23/21 10:36> Neck Neck: Yes JVD <Khloe Bazzi NP-C - Last Filed: 08/23/21 10:36> Resp Effort & Inspection: normal respiratory effort, able to speak in complete sentences and not labored <Khloe BazziZACHERY-C - Last Filed: 08/23/21 10:36> Auscultation: clear to auscultation bilaterally (No clear rales, dim sounds in lower lobes), no rales, no rhonchi and no wheezes <Khloe BazziZACHERY-C - Last Filed: 08/23/21 10:36> Cardio Jugular venous distension: JVD present <Khloe BazziZACHERY-C - Last Filed: 08/23/21 10:36> Rate: regular rate (heart tones distant) <Khloe BazziZACHERYC - Last Filed: 08/23/21 10:36> Rhythm: regular rhythm <Khloe BazziZACHERY- - Last Filed: 08/23/21 10:36> Heart sounds: S1 normal heart sound present and S2 normal heart sound present <Khloe BazziZACHERY-C - Last Filed: 08/23/21 10:36> GI Other: Obese, rounded. <Khloe BazziZACHERY - Last Filed: 08/23/21 10:36> Neuro General: patient oriented x3 <Khloe BazziZACHERYC - Last Filed: 08/23/21 10:36> Extrem Other: swelling noted around left ankle which he relates to fall with injury - no pitting edema right lower leg <Khloe BazziZACHERY-C - Last Filed: 08/23/21 10:36> Results Labs and Meds Result diagrams: : 08/23/21 05:47 08/23/21 05:47 <Khloe BazziZACHERY-C - Last Filed: 08/23/21 10:36> Lab results: Laboratory Results - last 24 hr 08/23/21 08/23/21 08/23/21 05:47 05:47 09:17 WBC 12.0 H RBC 5.42 Hgb 12.1 L Hct 39.8 L MCV 73.4 L MCH 22.3 L MCHC 30.4 L RDW 18.6 H Plt Count 367 MPV 9.1 L Immature Gran % (Auto) 0.2 Neut % (Auto) 77.1 H Lymph % (Auto) 14.0 L [place]ing % (Auto) 6.8 Eos % (Auto) 1.2 Baso % (Auto) 0.7 Lymph # (Auto) 1.7 [place]ing # (Auto) 0.8 Eos # (Auto) 0.2 Baso # (Auto) 0.1 Abs Immat Gran (auto) 0.03 Absolute Neuts (auto) 9.26 H Absolute Nucleated RBC 0.000 Nucleated RBC % (auto) 0.0 Sodium 140 Potassium 3.8 Chloride 96 Carbon Dioxide 31 H Anion Gap 17 BUN 22 H Creatinine 1.05 Estim Creat Clear Calc 124.4 Estimated GFR > 60 Random Glucose 135 H Calcium 8.3 L B-Natriuretic Peptide 598 H <YASMIN Sierra - Last Filed: 08/23/21 10:36> Progress Note: A&P Assessment and plan (1) Heart failure, systolic, with acute decompensation: Status: Acute <YASMIN Sierra - Last Filed: 08/23/21 10:36> Assessment and Plan: Hx of nonischemic CMP, identified 09/2020. He has been followed through our office and has ongoing issues with noncompliance and cocaine use. He has had recurrent admissions for acute on chronic HFrEF. Last Echo 05/30/21 shows EF 10-15%, mild LA enlargment, normal valves, normal RVSP. Presented again with sob, edema. BNP elevated at 1066 CXR showed mild pulm edema. He is morbidly obese making the physical exam for HF more challenging. He is being diuresed with IV Bumex drip at 0.5mg/ hr. Fluid balance neg 9.9 liters since admit. He reports some improvement in breathing. Sat 96% on RA. BNP down to 598. Cr 1.05. His lungs on dim on exam, JVD is noted. Will continue to diurese with IV Bumex drip. Will add Jardiance 10mg daily to help reduce the risk of cardiovascular plus hospitalization in this pt with HFrEF. Will continue Entresto at current dose. BP this am 113/60. Continue Aldactone. Will plan to start on Low dose Carvedilol starting tomorrow after giving him strict instructions on the risk of vasoconstriction if cocaine is used while on BB. Continue strict I+O monitoring. Close monitoring of electrolyte and kidney function with electrolyte replacement as warranted. We will follow. <YASMIN Sierra - Last Filed: 08/23/21 10:36> Hx of nonischemic CMP, identified 09/2020. He has been followed through our office and has ongoing issues with noncompliance and cocaine use. He has had recurrent admissions for acute on chronic HFrEF. Last Echo 05/30/21 shows EF 10-15%, mild LA enlargment, normal valves, normal RVSP. Presented again with sob, edema. BNP elevated at 1066 CXR showed mild pulm edema. He is morbidly obese making the physical exam for HF more challenging. He is being diuresed with IV Bumex drip at 0.5mg/ hr. Fluid balance neg 9.9 liters since admit. He reports some improvement in breathing. Sat 96% on RA. BNP down to 598. Cr 1.05. His lungs on dim on exam, JVD is noted. Will continue to diurese with IV Bumex drip. Will add Jardiance 10mg daily to help reduce the risk of cardiovascular plus hospitalization in this pt with HFrEF. Will continue Entresto at current dose. BP this am 113/60. Continue Aldactone. Will plan to start on Low dose Carvedilol starting tomorrow after giving him strict instructions on the risk of vasoconstriction if cocaine is used while on BB. Continue strict I+O monitoring. Close monitoring of electrolyte and kidney function with electrolyte replacement as warranted. We will follow. Patient seen and examined. Case discussed with Khloe Bazzi. Patient improved with symptoms and much more awake today. Seems to point to improving overall heart failure situation. Currently on Bumex drip. Diuresing well. Continue the same. Continue Aldactone. Will maximize Entresto therapy. Will start carvedilol tomorrow and discussed with him to avoid and completely abstain from using cocaine. He nods to it. Continue strict intake and output chart. Continue to monitor electrolytes and replace as needed. Most likely has significant sleep apnea that needs correction as well. Continue to monitor on telemetry. Will follow with you <Mariusz Muhammad MD - Last Filed: 08/23/21 10:59> (2) LISSET (obstructive sleep apnea): Status: Acute <YASMIN Sierra - Last Filed: 08/23/21 10:36> Assessment and Plan: Hx of LISSET. Tells me that he does not have his own CPAP mask. He has been using his friend's mask which does not have the appropriate settings for him. Will arrange for outpatient sleep study with CPAP titration. While in hospital he is using hospital CPAP. Treatment of his sleep apnea is essential for improvement in his heart failure syndrome. <YASMIN Sierra - Last Filed: 08/23/21 10:36> (3) Cocaine abuse: Status: Acute <YASMIN Sierra - Last Filed: 08/23/21 10:36> Assessment and Plan: As above. <YASMIN Sierra - Last Filed: 08/23/21 10:36> Fall Risk Details Current Medications: Current Medications Acetaminophen (Acetaminophen 325 Mg Tablet) 650 mg PO Q6H PRN PRN Reason: Pain, Mild (Pain Scale 1-3) Albuterol Sulfate (Albuterol Sulfate 90 Mcg 8 Gm Inhaler) 2 puff INHALE Q4H PRN PRN Reason: shortness of breath or wheezing Baclofen (Baclofen 10 Mg Tablet) 10 mg PO TID [facility] Last Admin: 08/23/21 08:02 Dose: 10 mg Documented by: Dicyclomine HCl (Dicyclomine Hcl 10 Mg Capsule) 20 mg PO TID [facility] Last Admin: 08/23/21 08:02 Dose: 20 mg Documented by: Heparin Sodium (Porcine) (Heparin Sodium,Porcine 5,000 Unit/Ml Vial) 5,000 unit SUBCUT Q8H [facility] Last Admin: 08/23/21 05:09 Dose: 5,000 unit Documented by: Doxycycline Hyclate 100 mg/ (Sodium Chloride) 250 mls @ 166.67 mls/hr IV Q12H [facility] Last Infusion: 08/23/21 09:50 Dose: Infused Documented by: Bumetanide 25 mg/ IV (Miscellaneous Supplies) 100 mls @ 2 mls/hr IVCONT .Q24H [facility] Last Admin: 08/22/21 16:48 Dose: 0.5 mg/hr, 2 mls/hr Documented by: Nystatin (Nystatin Oral Susp 500,000 Unit/5 Ml Oral.Susp) 500,000 unit PO Q6H PRN; Protocol PRN Reason: thrush Ondansetron HCl (Ondansetron Hcl 4 Mg/2 Ml Vial) 4 mg IVPUSH Q8H PRN PRN Reason: Nausea and Vomiting Pharmacy Consult (Consult Rx Perform Med Rec) 1 each MISCELLANE ONCE PRN PRN Reason: Consult order Sacubitril/Valsartan (Sacubitril/Valsartan 1 Tab Tablet) 1 tab PO BID [facility]; Protocol Last Admin: 08/23/21 08:02 Dose: 1 tab Documented by: Sodium Chloride (0.9 % Sodium Chloride Flush 3 Ml Syringe) 3 ml IVFLUSH QSHIFT [facility] Last Admin: 08/23/21 07:59 Dose: 3 ml Documented by: Spironolactone (Spironolactone 25 Mg Tablet) 25 mg PO DAILY [facility]; Protocol Last Admin: 08/23/21 08:02 Dose: 25 mg Documented by: <YASMIN Sierra - Last Filed: 08/23/21 10:36> Time Spent With Patient Time: Total time spent is greater than 50% in coordination of care (as documented) at patient's floor/unit and/or counseling patient: Twenty-six <YASMIN Sierra - Last Filed: 08/23/21 10:36> Time with patient: 25 - 35 minutes <YASMIN Sierra - Last Filed: 08/23/21 10:36> Progress Note: Quality Stroke Does the patient have a stroke diagnosis?: No <YASMIN Sierra - Last Filed: 08/23/21 10:36> Procedures Date of Service Date of Service: 08/23/21 <YASMIN Sierra - Last Filed: 08/23/21 10:36>
--- NOTE | 2021-08-23 12:30 | MHC.CM.PN ---
PT REPORTS HE LIVES WITH HIS AND IS INDEPENDENT WITH CARE PT HAS ONLY A CPAP FOR DME AND NO HOME SERVICES PT HAS A HCP ON FILE HE CONFIRMS HIS ACCURATE PTS PCP IS ROB GAYLE IMM DELIVERED CURRENT DC PLAN IS HOME WITH NO SERVICES PT TO ARRANGE TRANSPORT
[2021-08-23 15:05] LABS: Anion Gap 13 (12-20); Blood Urea Nitrogen 19 mg/dL (9-16); Calcium 8.3 mg/dL (8.4-10.2); Carbon Dioxide 32 mmol/L (22-29); Chloride 97 mmol/L (96-108); Creatinine Clr Calc Pharmacy 122.1; Estimated Glomerular Filt Rate > 60; Glucose Random 133 mg/dL (60-115); Potassium 3.8 mmol/L (3.3-5.1); Sodium 138 mmol/L (135-145)
--- NOTE | 2021-08-23 15:08 | PM.EVENT ---
Event Note Date of Service: 08/23/21 Event Note: patient seen today for left foot/ankle injury 5th metatarsal fx, medial mal. fx. recommend boot , wbat. elevation.
--- NOTE | 2021-08-23 15:08 | PM.CNOR ---
History of Present Illness HPI Consult date: 08/23/21 Chief complaint: CHF Exacerbation Narrative: 51-year-old male with past medical history of CHF with ejection fraction of 10-15%, asthma, COPD, LISSET, history of COVID-19 pneumonia, and cocaine abuse with frequent admissions for CHF exacerbation was admitted to the medical service for further workup. While admitted he reports that after his frequent falls he twisted his left ankle and he has pain there. Ortho was consulted for further evaluation of the ankle. Review of Systems Review of Systems: Yes all other systems are reviewed and are negative [facility] Past Medical History Medical History (Updated 08/29/21 @ 14:28 by Woodrow Arnold PA-C) Asthma Asthma CHF (congestive heart failure) Chronic systolic (congestive) heart failure Cocaine abuse COPD (chronic obstructive pulmonary disease) Morbid obesity Morbid obesity NICM (nonischemic cardiomyopathy) LISSET (obstructive sleep apnea) Family History Family History Mother Ovarian cancer Diabetes Surgical History Surgical History History of cardiac catheterization (~11/07/20) History of surgery Social History Social History Household Members: Spouse Household Members Other:: lives in a [employer] Housing: House Do you presently have visiting nurse or other home services: No Alcohol intake: unknown Patient Tobacco Use Status: Former Tobacco user Substance Use Type: Crack/Cocaine service: No Current occupational status: unemployed and disabled Meds Allergies Allergy/AdvReac Type Severity Reaction Status Date / Time cephalexin [From KEFLEX] Allergy Unknown UNKNOWN Verified 08/15/21 14:08 sulfamethoxazole Allergy Unknown UNKNOWN Verified 08/15/21 14:08 [From BACTRIM] trimethoprim [From BACTRIM] Allergy Unknown UNKNOWN Verified 08/15/21 14:08 Active Medications: Current Medications Acetaminophen (Acetaminophen 325 Mg Tablet) 650 mg PO Q6H PRN PRN Reason: Pain, Mild (Pain Scale 1-3) Albuterol Sulfate (Albuterol Sulfate 90 Mcg 8 Gm Inhaler) 2 puff INHALE Q4H PRN PRN Reason: shortness of breath or wheezing Baclofen (Baclofen 10 Mg Tablet) 10 mg PO TID [facility] Last Admin: 08/23/21 08:02 Dose: 10 mg Documented by: Dicyclomine HCl (Dicyclomine Hcl 10 Mg Capsule) 20 mg PO TID [facility] Last Admin: 08/23/21 08:02 Dose: 20 mg Documented by: Heparin Sodium (Porcine) (Heparin Sodium,Porcine 5,000 Unit/Ml Vial) 5,000 unit SUBCUT Q8H [facility] Last Admin: 08/23/21 05:09 Dose: 5,000 unit Documented by: Doxycycline Hyclate 100 mg/ (Sodium Chloride) 250 mls @ 166.67 mls/hr IV Q12H [facility] Last Infusion: 08/23/21 09:50 Dose: Infused Documented by: Bumetanide 25 mg/ IV (Miscellaneous Supplies) 100 mls @ 2 mls/hr IVCONT .Q24H [facility] Last Admin: 08/22/21 16:48 Dose: 0.5 mg/hr, 2 mls/hr Documented by: Nystatin (Nystatin Oral Susp 500,000 Unit/5 Ml Oral.Susp) 500,000 unit PO Q6H PRN; Protocol PRN Reason: thrush Ondansetron HCl (Ondansetron Hcl 4 Mg/2 Ml Vial) 4 mg IVPUSH Q8H PRN PRN Reason: Nausea and Vomiting Pharmacy Consult (Consult Rx Perform Med Rec) 1 each MISCELLANE ONCE PRN PRN Reason: Consult order Sacubitril/Valsartan (Sacubitril/Valsartan 1 Tab Tablet) 1 tab PO BID [facility]; Protocol Last Admin: 08/23/21 08:02 Dose: 1 tab Documented by: Sodium Chloride (0.9 % Sodium Chloride Flush 3 Ml Syringe) 3 ml IVFLUSH QSHIFT [facility] Last Admin: 08/23/21 07:59 Dose: 3 ml Documented by: Spironolactone (Spironolactone 25 Mg Tablet) 25 mg PO DAILY [facility]; Protocol Last Admin: 08/23/21 08:02 Dose: 25 mg Documented by: Home Medications Medication Instructions Recorded Confirmed Last Taken Type dicyclomine 20 mg tablet 20 mg PO TID 08/21/21 08/21/21 08/21/21 History spironolactone 25 mg tablet 1 tab PO DAILY 08/21/21 08/21/21 08/21/21 History Physical Exam Vital Signs: Vital Signs: Last Vital Signs Temp 98.6 F 08/23/21 11:54 Pulse 107 H 08/23/21 11:54 Resp 20 08/23/21 11:54 BP 123/62 08/23/21 11:54 Pulse Ox 94 08/23/21 11:54 Body Mass Index 48.9 Const: General: cooperative, comfortable and no acute distress Extrem: Other: Left lower extremity swelling / pitting edema. .No specific tenderness over the distal fibula. No tenderness over the syndesmosis or Medial malleolus. No ankle instability. NVI . Results Labs Result Diagrams: 08/26/21 05:54 08/26/21 05:54 Labs: Abnormal lab results 08/23/21 08/23/21 08/23/21 Range/Units 05:47 05:47 09:17 WBC 12.0 H (4.8-10.8) X10*3/uL Hgb 12.1 L (14.0-18.0) g/dl Hct 39.8 L (42.0-52.0) % MCV 73.4 L (80.0-98.0) fL MCH 22.3 L (27.0-33.0) pg MCHC 30.4 L (31.0-36.0) g/dl RDW 18.6 H (11.0-16.0) % MPV 9.1 L (9.4-12.4) fL Neut % (Auto) 77.1 H (45-73) % Lymph % (Auto) 14.0 L (20-40) % Absolute Neuts (auto) 9.26 H (2.0-8.3) x10*3/uL Carbon Dioxide 31 H (22-29) mmol/L BUN 22 H (9-16) mg/dL Random Glucose 135 H (60-115) mg/dL Calcium 8.3 L (8.4-10.2) mg/dL B-Natriuretic Peptide 598 H (<100) pg/mL 08/23/21 Range/Units 14:39 WBC (4.8-10.8) X10*3/uL Hgb (14.0-18.0) g/dl Hct (42.0-52.0) % MCV (80.0-98.0) fL MCH (27.0-33.0) pg MCHC (31.0-36.0) g/dl RDW (11.0-16.0) % MPV (9.4-12.4) fL Neut % (Auto) (45-73) % Lymph % (Auto) (20-40) % Absolute Neuts (auto) (2.0-8.3) x10*3/uL Carbon Dioxide 32 H (22-29) mmol/L BUN 19 H (9-16) mg/dL Random Glucose 133 H (60-115) mg/dL Calcium 8.3 L (8.4-10.2) mg/dL B-Natriuretic Peptide (<100) pg/mL H & H 08/21/21 08/23/21 Range/Units 19:21 05:47 Hgb 10.8 L 12.1 L (14.0-18.0) g/dl Hct 35.6 L 39.8 L (42.0-52.0) % Coagulation 08/21/21 Range/Units 19:21 INR 1.4 H (0.9-1.1) All other labs normal. Assessment and Plan (1) Left ankle sprain: Status: Acute Left ankle no acute fracture or dislocations. If he has discomfort while ambulating he can use a boot weight-bearing as tolerated. X-rays of the right foot do show a fracture at the base of the 5th middle phalanx. Stiff sole shoe is recommended if pain with ambulation. Follow up outpatient as needed. Procedures Date of Service Date of Service: 08/23/21
[2021-08-23] MEDS: Bumetanide 25 MG in Container,Empty 0 ML IVCONT (15:22)
--- NOTE | 2021-08-23 16:55 | HO.PM.IMPN ---
Subjective Subjective Date of Service: 08/23/21 Interval History: Improved overnight on Bumex drip per patient. Not back to baseline Review of Systems Denies chest pain Denies shortness of breath Denies nausea vomiting diarrhea Physical Exam Vital Signs: Vital Signs: Last Vital Signs Temp 98.1 F 08/23/21 15:13 Pulse 108 H 08/23/21 15:13 Resp 19 08/23/21 15:13 BP 100/58 L 08/23/21 15:13 Pulse Ox 93 08/23/21 15:13 Body Mass Index 48.9 Const: Other: No acute distress HENMT: Other: Membranes moist oropharynx clear Resp: Other: Bibasilar rales no rhonchi or wheezes Cardio: Other: No S4; positive S1-S2; no S3 murmurs rubs or gallops GI: Other: Soft nontender nondistended with normoactive bowel sounds. Obese Extrem: Other: Extensive edema bilateral; left lower extremity erythematous and warm Objective Data Active Medications Acetaminophen (Acetaminophen 325 Mg Tablet) 650 mg PO Q6H PRN PRN Reason: Pain, Mild (Pain Scale 1-3) Albuterol Sulfate (Albuterol Sulfate 90 Mcg 8 Gm Inhaler) 2 puff INHALE Q4H PRN PRN Reason: shortness of breath or wheezing Baclofen (Baclofen 10 Mg Tablet) 10 mg PO TID [facility] Last Admin: 08/23/21 15:22 Dose: 10 mg Documented by: TONIE Dicyclomine HCl (Dicyclomine Hcl 10 Mg Capsule) 20 mg PO TID [facility] Last Admin: 08/23/21 15:22 Dose: 20 mg Documented by: TONIE Heparin Sodium (Porcine) (Heparin Sodium,Porcine 5,000 Unit/Ml Vial) 5,000 unit SUBCUT Q8H [facility] Last Admin: 08/23/21 15:22 Dose: 5,000 unit Documented by: TONIE Doxycycline Hyclate 100 mg/ (Sodium Chloride) 250 mls @ 166.67 mls/hr IV Q12H [facility] Last Infusion: 08/23/21 09:50 Dose: 0 mls/hr Documented by: TEJAS Bumetanide 25 mg/ IV (Miscellaneous Supplies) 100 mls @ 2 mls/hr IVCONT .Q24H [facility] Last Admin: 08/23/21 15:22 Dose: 0.5 mg/hr, 2 mls/hr Documented by: TONIE Nystatin (Nystatin Oral Susp 500,000 Unit/5 Ml Oral.Susp) 500,000 unit PO Q6H PRN; Protocol PRN Reason: thrush Ondansetron HCl (Ondansetron Hcl 4 Mg/2 Ml Vial) 4 mg IVPUSH Q8H PRN PRN Reason: Nausea and Vomiting Pharmacy Consult (Consult Rx Perform Med Rec) 1 each MISCELLANE ONCE PRN PRN Reason: Consult order Sacubitril/Valsartan (Sacubitril/Valsartan 1 Tab Tablet) 1 tab PO BID [facility]; Protocol Last Admin: 08/23/21 08:02 Dose: 1 tab Documented by: TEJAS Sodium Chloride (0.9 % Sodium Chloride Flush 3 Ml Syringe) 3 ml IVFLUSH QSHIFT [facility] Last Admin: 08/23/21 15:22 Dose: 3 ml Documented by: TONIE Spironolactone (Spironolactone 25 Mg Tablet) 25 mg PO DAILY [facility]; Protocol Last Admin: 08/23/21 08:02 Dose: 25 mg Documented by: TEJAS Labs CBC & Chem 7: 08/23/21 05:47 08/23/21 14:39 Labs: Laboratory Results - last 24 hr 08/21/21 08/23/21 08/23/21 19:21 05:47 05:47 MCV 73.4 L MCH 22.3 L MCHC 30.4 L RDW 18.6 H Plt Count 367 MPV 9.1 L Immature Gran % (Auto) 0.2 Neut % (Auto) 77.1 H Lymph % (Auto) 14.0 L Holt % (Auto) 6.8 Eos % (Auto) 1.2 Baso % (Auto) 0.7 Lymph # (Auto) 1.7 Holt # (Auto) 0.8 Eos # (Auto) 0.2 Baso # (Auto) 0.1 Abs Immat Gran (auto) 0.03 Absolute Neuts (auto) 9.26 H Absolute Nucleated RBC 0.000 Nucleated RBC % (auto) 0.0 Potassium 4.5 3.8 Anion Gap 17 Estim Creat Clear Calc 124.4 Estimated GFR > 60 Random Glucose 135 H Calcium 8.3 L B-Natriuretic Peptide 08/23/21 08/23/21 09:17 14:39 MCV MCH MCHC RDW Plt Count MPV Immature Gran % (Auto) Neut % (Auto) Lymph % (Auto) Holt % (Auto) Eos % (Auto) Baso % (Auto) Lymph # (Auto) Holt # (Auto) Eos # (Auto) Baso # (Auto) Abs Immat Gran (auto) Absolute Neuts (auto) Absolute Nucleated RBC Nucleated RBC % (auto) Potassium 3.8 Anion Gap 13 Estim Creat Clear Calc 122.1 Estimated GFR > 60 Random Glucose 133 H Calcium 8.3 L B-Natriuretic Peptide 598 H Microbiology Microbiology Results: Microbiology 08/21/21 19:21 Blood Culture - Preliminary Blood - Venous No growth after 24 hours. 08/21/21 19:21 Blood Culture - Preliminary Blood - Venous No growth after 24 hours. Assessment and Plan (1) Heart failure, systolic, with acute decompensation: Status: Acute Assessment and Plan: 51-year-old male with past medical history of CHF with low ejection fraction he thought to be secondary to cocaine abuse, presents to the hospital with complaints of shortness of breath and leg swelling found to have CHF exacerbation 1.Acute CHF exacerbation(systolic) Doing well on Bumex drip; will continue same Cardiology notes reviewed; to start Coreg in the morning. Continue to follow electrolytes closely 2.Cellulitis IV doxycycline given reaction to cephalosporins. Follow white count and clinical response to therapies 3. LISSET/severe Secondary noncompliance with CPAP at HS. Pulmonary consult... Encourage CPAP 4. Elevated bilirubin Most likely related to chronic cocaine/EToH abuse Will trend 5. Polysubstance abuse Educated about resources... Not interested at this time DVT prophylaxis: Heparin subQ Quality Stroke Does the patient have a stroke diagnosis?: No VTE Prior VTE?: No VTE Risk Level:: Medical - moderate - high VTE Device Contraindication: Treatment Not Indicated VTE Drug Contraindication: N/A - Med Ordered
[2021-08-24] VITALS (8 sets, daily range): BP systolic 93–136; BP diastolic 51–75; PULSE 107–122; RESP 18–20; TEMP 36.3–37.2; O2SAT 95–98; BMI 46.5
[2021-08-24] MEDS: Heparin Sodium,Porcine 5,000 UNIT/ML VIAL 5000 UNIT SUBCUT ×3 (05:56→21:28)
[2021-08-24 06:21] LABS: MANUAL DIFF FLAG NO
[2021-08-24 06:46] LABS: Basophils Absolute Auto 0.1 X10*3/uL (0.0-0.2); Basophils Percent Auto 0.6 % (0-2); Eosinophils Absolute Auto 0.2 X10*3/uL (0.0-0.4); Eosinophils Percent Auto 1.6 % (0-4); Hematocrit 45.4 % (42.0-52.0); Hemoglobin 13.6 g/dl (14.0-18.0); Imm Gran Abs Auto 0.04 X10*3/uL (0.00-0.03); Imm Gran Pct Auto 0.3 % (0.0-0.4); Lymphocytes Absolute Auto 2.2 X10*3/uL (1.2-4.9); Lymphocytes Percent Auto 16.8 % (20-40); Mean Corpuscular Volume 73.3 fL (80.0-98.0); Mean Platelet Volume 9.2 fL (9.4-12.4); Monocytes Percent Auto 7.5 % (2-11); Neutrophils Absolute Auto 9.6 x10*3/uL (2.0-8.3); Neutrophils Percent Auto 73.2 % (45-73); Platelet Count 461 X10*3/uL (160-400); Red Blood Count 6.19 X10*6/uL (4.60-5.80); White Blood Count 13.1 X10*3/uL (4.8-10.8)
[2021-08-24 06:53] LABS: Alanine Aminotransferase 31 U/L (0-40); Albumin Level 3.7 g/dL (3.5-5.0); Alkaline Phosphatase 111 U/L (39-117); Anion Gap 14 (12-20); Aspartate Amino Transferase 22 U/L (5-37); Bilirubin Total 1.3 mg/dL (0.0-1.0); Blood Urea Nitrogen 24 mg/dL (9-16); Calcium 8.7 mg/dL (8.4-10.2); Carbon Dioxide 29 mmol/L (22-29); Chloride 97 mmol/L (96-108); Creatinine Clr Calc Pharmacy 116.4; Estimated Glomerular Filt Rate > 60; Glucose Fasting 130 mg/dL (60-99); Potassium 4.1 mmol/L (3.3-5.1); Sodium 136 mmol/L (135-145); Total Protein 7.1 g/dL (6.5-8.0)
[2021-08-24] MEDS: Doxycycline Hyclate 100 MG in 0.9 % Sodium Chloride 250 ML 166.67 MG IV ×2 (09:25→20:35)
[2021-08-24] MEDS: Baclofen 10 MG TABLET PO ×3 (09:26→20:35)
[2021-08-24] MEDS: Dicyclomine HCl 10 MG CAPSULE 20 MG PO ×3 (09:26→20:35)
[2021-08-24] MEDS: Sacubitril/Valsartan 24/26 1 TAB TABLET PO ×2 (09:26→20:35)
[2021-08-24] MEDS: Spironolactone 25 MG TABLET PO (09:28)
--- NOTE | 2021-08-24 10:42 | PM.PNCARD ---
Subjective Subjective Date of Service: 08/24/21 <YASMIN Sierra - Last Filed: 08/24/21 11:27> 08/24/21 <Mariusz Muhammad MD - Last Filed: 08/24/21 12:20> Principal diagnosis: Acute on chronic systolic HF, LISSET, morbid obesity, cocaine use <YASMIN Sierra - Last Filed: 08/24/21 11:27> Interval history: Cardiology follow up for CHF. Seen at 0850. Today he reports that he slept well. His breathing is comfortable but he has not been up walking in halls since admit. No chest pains, palpitation, dizziness. Has discomfort from his left ankle from prior fall. Still has IV bumex infusion. Voiding large amounts. <YASMIN Sierra - Last Filed: 08/24/21 11:27> Review of Systems Review of Systems as above <YASMIN Sierra - Last Filed: 08/24/21 11:27> Yes all other systems are reviewed and are negative <YASMIN Sierra - Last Filed: 08/24/21 11:27> Physical Exam Vital Signs: Last Vital Signs Temp 99.0 F 08/24/21 07:16 Pulse 110 H 08/24/21 07:16 Resp 18 08/24/21 07:16 BP 111/51 L 08/24/21 09:28 Pulse Ox 97 08/24/21 07:16 Body Mass Index 46.5 <YASMIN Sierra - Last Filed: 08/24/21 11:27> Const Other: Morbidly obese <YASMIN Sierra - Last Filed: 08/24/21 11:27> General: cooperative, no acute distress, alert and awake <YASMIN Sierra - Last Filed: 08/24/21 11:27> Orientation/consciousness: patient oriented x3 <YASMIN Sierra - Last Filed: 08/24/21 11:27> Neck Neck: Yes normal visual inspection and Yes JVD <YASMIN Sierra - Last Filed: 08/24/21 11:27> Resp Effort & Inspection: normal respiratory effort, able to speak in complete sentences and not labored <Khloe BazziZACHERY-C - Last Filed: 08/24/21 11:27> Auscultation: clear to auscultation bilaterally (diminished in lower lobes), no rales, no rhonchi and no wheezes <Khloe BazziZACHERY-C - Last Filed: 08/24/21 11:27> Cardio Palpation: normal PMI <Khloe BazziZACHERY-C - Last Filed: 08/24/21 11:27> Rate: tachycardic <Khloe Bazzi, [employer]-C - Last Filed: 08/24/21 11:27> Rhythm: regular rhythm <Khloe Bazzi, [employer]-C - Last Filed: 08/24/21 11:27> Heart sounds: S1 normal heart sound present and S2 normal heart sound present <Khloe BazziZACHERY-C - Last Filed: 08/24/21 11:27> Peripheral pulses: Peripheral pulses 2+ throughout <Khloe BazziZACHERY-C - Last Filed: 08/24/21 11:27> GI Other: obese, nontender <Khloe BazziZACHERY-C - Last Filed: 08/24/21 11:27> Neuro General: patient oriented x3 <Khloe BazziZACHERY-C - Last Filed: 08/24/21 11:27> Extrem Other: swelling left ankle <Khloe BazziZACHERY-C - Last Filed: 08/24/21 11:27> Results Labs and Meds Result diagrams: : 08/24/21 05:46 08/24/21 05:46 <Khloe BazziZACHERY-C - Last Filed: 08/24/21 11:27> Lab results: Laboratory Results - last 24 hr 08/23/21 08/24/21 08/24/21 14:39 05:46 05:46 WBC 13.1 H RBC 6.19 H Hgb 13.6 L Hct 45.4 MCV 73.3 L MCH 22.0 L MCHC 30.0 L RDW 19.0 H Plt Count 461 H D MPV 9.2 L Immature Gran % (Auto) 0.3 Neut % (Auto) 73.2 H Lymph % (Auto) 16.8 L Callahan % (Auto) 7.5 Eos % (Auto) 1.6 Baso % (Auto) 0.6 Lymph # (Auto) 2.2 Callahan # (Auto) 1.0 Eos # (Auto) 0.2 Baso # (Auto) 0.1 Abs Immat Gran (auto) 0.04 H Absolute Neuts (auto) 9.6 H Absolute Nucleated RBC 0.000 Nucleated RBC % (auto) 0.0 Sodium 138 136 Potassium 3.8 4.1 Chloride 97 97 Carbon Dioxide 32 H 29 Anion Gap 13 14 BUN 19 H 24 H Creatinine 1.07 1.09 Estim Creat Clear Calc 122.1 116.4 Estimated GFR > 60 > 60 Random Glucose 133 H Fasting Glucose 130 H Calcium 8.3 L 8.7 Total Bilirubin 1.3 H AST 22 ALT 31 Alkaline Phosphatase 111 Total Protein 7.1 Albumin 3.7 <YASMIN Sierra - Last Filed: 08/24/21 11:27> Progress Note: A&P Assessment and plan (1) Heart failure, systolic, with acute decompensation: Status: Acute <YASMIN Sierra - Last Filed: 08/24/21 11:27> Assessment and Plan: Hx HFrEF, with noncompliance, cocaine use, and recurrent hospital admissions for decompensation. Last echo 05/30/21 shows EF 10-15%, mild LA enlargement, normal valves. He has outpt appointment with EP for ICD. This admit he is being diuresed with IV Bumex. Fluid balance is neg 14 liters. Cr 1.09, K 4.1. BNP 598 yesterday which was down from 1066 on admit. His morbid obesity makes clinical evaluation for fluid overload more challenging. Recommend ambulation in room/ sepulveda to help assess for sob with activity and improvement in breathing. Will continue IV Bumex drip another day. Ongoing strict I+O monitoring, close monitoring of electrolyte and kidney function. Electrolyte replacement as warranted. Unable to start on Jardiance as it is not formulary in this facility. Continue Aldactone and Entresto. BP 111/51 this am. His pulse has been elevated in low 100s to 120. Reviewed use of beta krista with him as part of treatment for CMP. Informed that cocaine use while taking carvedilol can result in vasospasm, IL, . He states clear understanding of this and Promises me that he will not use cocaine after his hospital discharge. <YASMIN Sierra - Last Filed: 08/24/21 11:27> Hx HFrEF, with noncompliance, cocaine use, and recurrent hospital admissions for decompensation. Last echo 05/30/21 shows EF 10-15%, mild LA enlargement, normal valves. He has outpt appointment with EP for ICD. This admit he is being diuresed with IV Bumex. Fluid balance is neg 14 liters. Cr 1.09, K 4.1. BNP 598 yesterday which was down from 1066 on admit. His morbid obesity makes clinical evaluation for fluid overload more challenging. Recommend ambulation in room/ sepulveda to help assess for sob with activity and improvement in breathing. Will continue IV Bumex drip another day. Ongoing strict I+O monitoring, close monitoring of electrolyte and kidney function. Electrolyte replacement as warranted. Unable to start on Jardiance as it is not formulary in this facility. Continue Aldactone and Entresto. BP 111/51 this am. His pulse has been elevated in low 100s to 120. Reviewed use of beta krista with him as part of treatment for CMP. Informed that cocaine use while taking carvedilol can result in vasospasm, IL, . He states clear understanding of this and Promises me that he will not use cocaine after his hospital discharge. Patient seen and examined. Case discussed with Khloe Bazzi. Patient has diuresed very well. Currently still on Bumex drip. Not sure if he understands the gravity of his situation. We discussed about ache and management of heart failure. Avoidance an excellent from cocaine was discussed. He says yes. Will start him on Coreg for neurohormonal modulation. Continue Entresto and Aldactone. Continue Bumex drip. Will follow with the patient <Mariusz Muhammad MD - Last Filed: 08/24/21 12:20> (2) Cardiomyopathy: Status: Acute <YASMIN Sierra - Last Filed: 08/24/21 11:27> Assessment and Plan: Nonischemic. On Entresto and will be starting him on carvedilol for neurohormonal modulation. ICD being planned as above. <YASMIN Sierra - Last Filed: 08/24/21 11:27> (3) LISSET (obstructive sleep apnea): Status: Acute <YASMIN Sierra - Last Filed: 08/24/21 11:27> Assessment and Plan: Making arrangements for outpt sleep study. He has reported LISSET and has been using a friends mask at home. He will need to have his own CPAP with settings that are appropriate for him. While inpt he is using hospital CPAP. Proper treatment for LISSET is essential for his HF/ CMP. <YASMIN Sierra - Last Filed: 08/24/21 11:27> (4) Morbid obesity: Status: Acute <YASMIN Sierra - Last Filed: 08/24/21 11:27> (5) Cocaine abuse: Status: Acute <YASMIN Sierra - Last Filed: 08/24/21 11:27> Fall Risk Details Current Medications: Current Medications Acetaminophen (Acetaminophen 325 Mg Tablet) 650 mg PO Q6H PRN PRN Reason: Pain, Mild (Pain Scale 1-3) Albuterol Sulfate (Albuterol Sulfate 90 Mcg 8 Gm Inhaler) 2 puff INHALE Q4H PRN PRN Reason: shortness of breath or wheezing Baclofen (Baclofen 10 Mg Tablet) 10 mg PO TID [facility] Last Admin: 08/24/21 09:26 Dose: 10 mg Documented by: Dicyclomine HCl (Dicyclomine Hcl 10 Mg Capsule) 20 mg PO TID [facility] Last Admin: 08/24/21 09:26 Dose: 20 mg Documented by: Heparin Sodium (Porcine) (Heparin Sodium,Porcine 5,000 Unit/Ml Vial) 5,000 unit SUBCUT Q8H [facility] Last Admin: 08/24/21 05:56 Dose: 5,000 unit Documented by: Doxycycline Hyclate 100 mg/ (Sodium Chloride) 250 mls @ 166.67 mls/hr IV Q12H [facility] Last Admin: 08/24/21 09:25 Dose: 166.67 mls/hr Documented by: Bumetanide 25 mg/ IV (Miscellaneous Supplies) 100 mls @ 2 mls/hr IVCONT .Q24H [facility] Last Admin: 08/23/21 15:22 Dose: 0.5 mg/hr, 2 mls/hr Documented by: Nystatin (Nystatin Oral Susp 500,000 Unit/5 Ml Oral.Susp) 500,000 unit PO Q6H PRN; Protocol PRN Reason: thrush Ondansetron HCl (Ondansetron Hcl 4 Mg/2 Ml Vial) 4 mg IVPUSH Q8H PRN PRN Reason: Nausea and Vomiting Pharmacy Consult (Consult Rx Perform Med Rec) 1 each MISCELLANE ONCE PRN PRN Reason: Consult order Sacubitril/Valsartan (Sacubitril/Valsartan 1 Tab Tablet) 1 tab PO BID [facility]; Protocol Last Admin: 08/24/21 09:26 Dose: 1 tab Documented by: Sodium Chloride (0.9 % Sodium Chloride Flush 3 Ml Syringe) 3 ml IVFLUSH QSHIFT [facility] Last Admin: 08/24/21 09:25 Dose: Not Given Documented by: Spironolactone (Spironolactone 25 Mg Tablet) 25 mg PO DAILY [facility]; Protocol Last Admin: 08/24/21 09:28 Dose: 25 mg Documented by: <YASMIN Sierra - Last Filed: 08/24/21 11:27> Time Spent With Patient Time: Total time spent is greater than 50% in coordination of care (as documented) at patient's floor/unit and/or counseling patient: 25 <YASMIN Sierra - Last Filed: 08/24/21 11:27> Time with patient: 15 - 24 minutes <YASMIN Sierra - Last Filed: 08/24/21 11:27> Progress Note: Quality Stroke Does the patient have a stroke diagnosis?: No <YASMIN Sierra - Last Filed: 08/24/21 11:27> Procedures Date of Service Date of Service: 08/24/21 <YASMIN Sierra - Last Filed: 08/24/21 11:27>
--- NOTE | 2021-08-24 11:52 | P.PNIM_ITS ---
Subjective Subjective Date of Service: 08/24/21 Interval History: Doing well overall. States breathing has improved with the Bumex drip. States his voiding has been quite brisk and is cramping has somewhat resolved. Review of Systems Denies chest pain Denies shortness of breath Denies nausea vomiting diarrhea Physical Exam Vital Signs: Vital Signs: Last Vital Signs Temp 99.0 F 08/24/21 07:16 Pulse 110 H 08/24/21 07:16 Resp 18 08/24/21 07:16 BP 111/51 L 08/24/21 09:28 Pulse Ox 97 08/24/21 07:16 Body Mass Index 46.5 Const: Other: No acute distress HENMT: Other: Membranes moist oropharynx clear Resp: Other: Clear to auscultation bilaterally this morning without rales rhonchi or wheezes Cardio: Other: No S4; positive S1-S2; no S3 murmurs rubs or gallops GI: Other: Soft nontender nondistended with normoactive bowel sounds. Obese Extrem: Other: Extensive edema bilateral; left lower extremity erythematous and warm Objective Data Active Medications Acetaminophen (Acetaminophen 325 Mg Tablet) 650 mg PO Q6H PRN PRN Reason: Pain, Mild (Pain Scale 1-3) Albuterol Sulfate (Albuterol Sulfate 90 Mcg 8 Gm Inhaler) 2 puff INHALE Q4H PRN PRN Reason: shortness of breath or wheezing Baclofen (Baclofen 10 Mg Tablet) 10 mg PO TID [facility] Last Admin: 08/24/21 09:26 Dose: 10 mg Documented by: FRIEDA Carvedilol (Carvedilol 3.125 Mg Tablet) 3.125 mg PO BID [facility]; Protocol Dicyclomine HCl (Dicyclomine Hcl 10 Mg Capsule) 20 mg PO TID [facility] Last Admin: 08/24/21 09:26 Dose: 20 mg Documented by: FRIEDA Heparin Sodium (Porcine) (Heparin Sodium,Porcine 5,000 Unit/Ml Vial) 5,000 unit SUBCUT Q8H [facility] Last Admin: 08/24/21 05:56 Dose: 5,000 unit Documented by: DENICE Doxycycline Hyclate 100 mg/ (Sodium Chloride) 250 mls @ 166.67 mls/hr IV Q12H [facility] Last Infusion: 08/24/21 11:08 Dose: 0 mls/hr Documented by: FRIEDA Bumetanide 25 mg/ IV (Miscellaneous Supplies) 100 mls @ 2 mls/hr IVCONT .Q24H [facility] Last Admin: 08/23/21 15:22 Dose: 0.5 mg/hr, 2 mls/hr Documented by: TONIE Nystatin (Nystatin Oral Susp 500,000 Unit/5 Ml Oral.Susp) 500,000 unit PO Q6H PRN; Protocol PRN Reason: thrush Ondansetron HCl (Ondansetron Hcl 4 Mg/2 Ml Vial) 4 mg IVPUSH Q8H PRN PRN Reason: Nausea and Vomiting Pharmacy Consult (Consult Rx Perform Med Rec) 1 each MISCELLANE ONCE PRN PRN Reason: Consult order Sacubitril/Valsartan (Sacubitril/Valsartan 1 Tab Tablet) 1 tab PO BID [facility]; Protocol Last Admin: 08/24/21 09:26 Dose: 1 tab Documented by: FRIEDA Sodium Chloride (0.9 % Sodium Chloride Flush 3 Ml Syringe) 3 ml IVFLUSH QSHIFT [facility] Last Admin: 08/24/21 09:25 Dose: Not Given Documented by: FRIEDA Non-Admin Reason: IV Running Spironolactone (Spironolactone 25 Mg Tablet) 25 mg PO DAILY [facility]; Protocol Last Admin: 08/24/21 09:28 Dose: 25 mg Documented by: FRIEDA Labs CBC & Chem 7: 08/24/21 05:46 08/24/21 05:46 Labs: Laboratory Results - last 24 hr 08/23/21 08/24/21 08/24/21 14:39 05:46 05:46 MCV 73.3 L MCH 22.0 L MCHC 30.0 L RDW 19.0 H Plt Count 461 H D MPV 9.2 L Immature Gran % (Auto) 0.3 Neut % (Auto) 73.2 H Lymph % (Auto) 16.8 L [place] % (Auto) 7.5 Eos % (Auto) 1.6 Baso % (Auto) 0.6 Lymph # (Auto) 2.2 [place] # (Auto) 1.0 Eos # (Auto) 0.2 Baso # (Auto) 0.1 Abs Immat Gran (auto) 0.04 H Absolute Neuts (auto) 9.6 H Absolute Nucleated RBC 0.000 Nucleated RBC % (auto) 0.0 Anion Gap 13 14 Estim Creat Clear Calc 122.1 116.4 Estimated GFR > 60 > 60 Random Glucose 133 H Fasting Glucose 130 H Calcium 8.3 L 8.7 Total Bilirubin 1.3 H AST 22 ALT 31 Alkaline Phosphatase 111 Total Protein 7.1 Albumin 3.7 Microbiology Microbiology Results: Microbiology 08/21/21 19:21 Blood Culture - Preliminary Blood - Venous No growth after 48 hours. 08/21/21 19:21 Blood Culture - Preliminary Blood - Venous No growth after 48 hours. Assessment and Plan (1) Heart failure, systolic, with acute decompensation: Status: Acute (2) Cellulitis: Status: Acute Assessment and Plan: 51-year-old male with past medical history of CHF(last echo 05/30/2021 with EF 10-15%) presents to the hospital with complaints of shortness of breath and leg swelling found to have [id number] on admission. Continues to do well on Bumex drip without acute issues 1.Acute CHF exacerbation(systolic) Doing well on Bumex drip; will continue same Cardiology notes reviewed; reinforce the need to abstain from cocaine while on-call rec 2.Cellulitis IV doxycycline given reaction to cephalosporins. Continues to improve; can switch to orals at this time 3. LISSET/severe Secondary noncompliance with CPAP at HS. Utilizing CPAP in hospital; will need outpatient sleep study for home CPAP 4. Elevated bilirubin Normalized; multifactorial related to heart failure and substance abuse 5. Polysubstance abuse Educated about resources... Not interested at this time DVT prophylaxis: Heparin subQ Quality Stroke Does the patient have a stroke diagnosis?: No VTE Prior VTE?: No VTE Risk Level:: Medical - moderate - high VTE Device Contraindication: Treatment Not Indicated VTE Drug Contraindication: N/A - Med Ordered
[2021-08-24] MEDS: Bumetanide 25 MG in Container,Empty 0 ML IVCONT (16:09)
[2021-08-24] MEDS: traMADoL HCL 50 MG TABLET PO (17:20)
[2021-08-24] MEDS: 0.9 % Sodium Chloride Flush 3 ML SYRINGE IVFLUSH (20:36)
[2021-08-24] MEDS: oxyCODONE HCl Immed Release 5 MG TABLET PO (21:28)
[2021-08-24] MEDS: Zolpidem Tartrate 5 MG TABLET PO (23:03)
[2021-08-25] VITALS (12 sets, daily range): BP systolic 76–131; BP diastolic 38–70; PULSE 86–118; RESP 16–20; TEMP 36.1–37; O2SAT 92–98; BMI 47.0
[2021-08-25 06:22] LABS: MANUAL DIFF FLAG NO
[2021-08-25 06:29] LABS: Basophils Absolute Auto 0.1 X10*3/uL (0.0-0.2); Basophils Percent Auto 0.5 % (0-2); Eosinophils Absolute Auto 0.3 X10*3/uL (0.0-0.4); Eosinophils Percent Auto 2.1 % (0-4); Hematocrit 43.8 % (42.0-52.0); Hemoglobin 13.3 g/dl (14.0-18.0); Imm Gran Abs Auto 0.04 X10*3/uL (0.00-0.03); Imm Gran Pct Auto 0.3 % (0.0-0.4); Lymphocytes Absolute Auto 2.5 X10*3/uL (1.2-4.9); Lymphocytes Percent Auto 17.6 % (20-40); Mean Corpuscular HGB Conc 30.4 g/dl (31.0-36.0); Mean Corpuscular Hemoglobin 22.2 pg (27.0-33.0); Mean Platelet Volume 8.9 fL (9.4-12.4); Monocytes Absolute Auto 1.2 X10*3/uL (0.1-1.2); Monocytes Percent Auto 8.3 % (2-11); Neutrophils Absolute Auto 10.1 x10*3/uL (2.0-8.3); Neutrophils Percent Auto 71.2 % (45-73); Platelet Count 401 X10*3/uL (160-400); Red Cell Distribution Width 18.6 % (11.0-16.0); White Blood Count 14.1 X10*3/uL (4.8-10.8)
[2021-08-25] MEDS: Heparin Sodium,Porcine 5,000 UNIT/ML VIAL 5000 UNIT SUBCUT ×3 (06:33→22:02)
[2021-08-25 06:49] LABS: B Type Natriuretic Peptide 177 pg/mL (<100)
[2021-08-25 06:53] LABS: Alanine Aminotransferase 28 U/L (0-40); Albumin Level 3.6 g/dL (3.5-5.0); Alkaline Phosphatase 109 U/L (39-117); Anion Gap 17 (12-20); Aspartate Amino Transferase 21 U/L (5-37); Bilirubin Total 1.3 mg/dL (0.0-1.0); Blood Urea Nitrogen 27 mg/dL (9-16); Calcium 8.7 mg/dL (8.4-10.2); Carbon Dioxide 25 mmol/L (22-29); Chloride 96 mmol/L (96-108); Creatinine Clr Calc Pharmacy 122.8; Estimated Glomerular Filt Rate > 60; Glucose Fasting 121 mg/dL (60-99); Potassium 3.9 mmol/L (3.3-5.1); Sodium 134 mmol/L (135-145)
[2021-08-25] MEDS: Baclofen 10 MG TABLET PO ×3 (08:29→20:12)
[2021-08-25] MEDS: Sacubitril/Valsartan 24/26 1 TAB TABLET PO (08:29)
[2021-08-25] MEDS: Dicyclomine HCl 10 MG CAPSULE 20 MG PO ×3 (08:30→20:12)
[2021-08-25] MEDS: carvediloL 3.125 MG TABLET PO (08:30)
[2021-08-25] MEDS: Spironolactone 25 MG TABLET PO (08:31)
[2021-08-25] MEDS: 0.9 % Sodium Chloride Flush 3 ML SYRINGE IVFLUSH ×3 (08:33→20:16)
[2021-08-25] MEDS: Doxycycline Hyclate 100 MG in 0.9 % Sodium Chloride 250 ML 166.67 MG IV ×2 (08:34→20:15)
[2021-08-25] MEDS: oxyCODONE HCl Immed Release 5 MG TABLET PO ×3 (08:44→20:15)
--- NOTE | 2021-08-25 13:21 | P.PNCA_ITS ---
Subjective Subjective Date of Service: 08/25/21 Principal diagnosis: Acute on chronic systolic HF, LISSET, morbid obesity, cocaine use Interval history: Patient is doing much better. Breathing is significantly improved. Overall negative balance of 17 L. Clinically appears much more euvolemic. Tolerating his medications well. Review of Systems Review of Systems Yes all other systems are reviewed and are negative Physical Exam Vital Signs: Last Vital Signs Temp 97 F 08/25/21 11:26 Pulse 106 H 08/25/21 11:26 Resp 18 08/25/21 11:26 BP 92/63 08/25/21 11:26 Pulse Ox 94 08/25/21 11:26 Body Mass Index 47.0 Const General: cooperative, comfortable, alert and awake Nutritional Appearance: obese Orientation/consciousness: patient oriented x3 Neck Neck: Yes trachea midline and Yes supple Resp Effort & Inspection: normal respiratory effort Cardio Palpation: abnormal PMI displaced PMI Rate: regular rate Rhythm: regular rhythm Heart sounds: S1 normal heart sound present, S2 normal heart sound present, no click, no gallops and no murmurs Skin General skin exam: no rashes or lesions noted Neuro General: patient oriented x3 and no focal motor deficits Extrem General: No clubbing, No cyanosis and Yes edema (Much improved) Results Labs and Meds Result diagrams: 08/25/21 05:58 08/25/21 05:58 Lab results: Laboratory Results - last 24 hr 08/25/21 08/25/21 08/25/21 05:58 05:58 05:58 WBC 14.1 H RBC 6.00 H Hgb 13.3 L Hct 43.8 MCV 73.0 L MCH 22.2 L MCHC 30.4 L RDW 18.6 H Plt Count 401 H MPV 8.9 L Immature Gran % (Auto) 0.3 Neut % (Auto) 71.2 Lymph % (Auto) 17.6 L [place] % (Auto) 8.3 Eos % (Auto) 2.1 Baso % (Auto) 0.5 Lymph # (Auto) 2.5 [place] # (Auto) 1.2 Eos # (Auto) 0.3 Baso # (Auto) 0.1 Abs Immat Gran (auto) 0.04 H Absolute Neuts (auto) 10.1 H Absolute Nucleated RBC 0.000 Nucleated RBC % (auto) 0.0 Sodium 134 L Potassium 3.9 Chloride 96 Carbon Dioxide 25 Anion Gap 17 BUN 27 H Creatinine 1.04 Estim Creat Clear Calc 122.8 Estimated GFR > 60 Fasting Glucose 121 H Calcium 8.7 Total Bilirubin 1.3 H AST 21 ALT 28 Alkaline Phosphatase 109 B-Natriuretic Peptide 177 H Total Protein 7.0 Albumin 3.6 Progress Note: A&P Assessment and plan (1) Heart failure, systolic, with acute decompensation: Status: Acute Assessment and Plan: Acute heart failure decompensation due to noncompliance and cocaine use. This was discouraged and advised to abstain from cocaine use. He said he is going to do the same. Switch to p.o. Bumex. Continue current Entresto as well as spironolactone therapy. Maximize Coreg to 6.25 mg b.i.d.. Anticipate discharge tomorrow. As outpatient will probably consider adding Jardiance therapy as per recent recommendations. Currently non formulary in the hospital. CHF education to be provided. Outpatient workup for sleep apnea. Fall Risk Details Current Medications: Current Medications Acetaminophen (Acetaminophen 325 Mg Tablet) 650 mg PO Q6H PRN PRN Reason: Pain, Mild (Pain Scale 1-3) Albuterol Sulfate (Albuterol Sulfate 90 Mcg 8 Gm Inhaler) 2 puff INHALE Q4H PRN PRN Reason: shortness of breath or wheezing Baclofen (Baclofen 10 Mg Tablet) 10 mg PO TID [facility] Last Admin: 08/25/21 08:29 Dose: 10 mg Documented by: Bumetanide (Bumetanide 1 Mg Tablet) 2 mg PO BID@0800,1700 [facility]; Protocol Carvedilol (Carvedilol 3.125 Mg Tablet) 3.125 mg PO BID [facility]; Protocol Last Admin: 08/25/21 08:30 Dose: 3.125 mg Documented by: Dicyclomine HCl (Dicyclomine Hcl 10 Mg Capsule) 20 mg PO TID [facility] Last Admin: 08/25/21 08:30 Dose: 20 mg Documented by: Heparin Sodium (Porcine) (Heparin Sodium,Porcine 5,000 Unit/Ml Vial) 5,000 unit SUBCUT Q8H [facility] Last Admin: 08/25/21 06:33 Dose: 5,000 unit Documented by: Doxycycline Hyclate 100 mg/ (Sodium Chloride) 250 mls @ 166.67 mls/hr IV Q12H [facility] Last Infusion: 08/25/21 10:30 Dose: Infused Documented by: Nystatin (Nystatin Oral Susp 500,000 Unit/5 Ml Oral.Susp) 500,000 unit PO Q6H PRN; Protocol PRN Reason: thrush Ondansetron HCl (Ondansetron Hcl 4 Mg/2 Ml Vial) 4 mg IVPUSH Q8H PRN PRN Reason: Nausea and Vomiting Oxycodone HCl (Oxycodone Hcl Immed Release 5 Mg Tablet) 5 mg PO Q4H PRN PRN Reason: Pain, Severe (Pain Scale 7-10) Last Admin: 08/25/21 08:44 Dose: 5 mg Documented by: Pharmacy Consult (Consult Rx Perform Med Rec) 1 each MISCELLANE ONCE PRN PRN Reason: Consult order Sacubitril/Valsartan (Sacubitril/Valsartan 1 Tab Tablet) 1 tab PO BID [facility]; Protocol Last Admin: 08/25/21 08:29 Dose: 1 tab Documented by: Sodium Chloride (0.9 % Sodium Chloride Flush 3 Ml Syringe) 3 ml IVFLUSH QSHIFT [facility] Last Admin: 08/25/21 08:33 Dose: 3 ml Documented by: Spironolactone (Spironolactone 25 Mg Tablet) 25 mg PO DAILY [facility]; Protocol Last Admin: 08/25/21 08:31 Dose: 25 mg Documented by: Tramadol HCl (Tramadol Hcl 50 Mg Tablet) 50 mg PO Q4H PRN PRN Reason: Pain, Moderate (Pain Scale 4-6 Last Admin: 08/24/21 17:20 Dose: 50 mg Documented by: Zolpidem Tartrate (Zolpidem Tartrate 5 Mg Tablet) 5 mg PO BEDTIME PRN PRN Reason: Insomnia Last Admin: 08/24/21 23:03 Dose: 5 mg Documented by: Time Spent With Patient Time: Total time spent is greater than 50% in coordination of care (as documented) at patient's floor/unit and/or counseling patient: Time with patient: 25 - 35 minutes Progress Note: Quality Stroke Does the patient have a stroke diagnosis?: No Procedures Date of Service Date of Service: 08/25/21
--- NOTE | 2021-08-25 15:00 | HO.PM.IMPN ---
Subjective Subjective Date of Service: 08/25/21 Interval History: Markedly improved on Bumex drip. As per cardiology notes 17 m negative. Review of Systems Denies chest pain Denies shortness of breath Denies nausea vomiting diarrhea Physical Exam Vital Signs: Vital Signs: Last Vital Signs Temp 97 F 08/25/21 11:26 Pulse 106 H 08/25/21 11:26 Resp 18 08/25/21 11:26 BP 92/63 08/25/21 11:26 Pulse Ox 94 08/25/21 11:26 Body Mass Index 47.0 Const: Other: No acute distress HENMT: Other: Membranes moist oropharynx clear Resp: Other: Clear to auscultation bilaterally this morning without rales rhonchi or wheezes Cardio: Other: No S4; positive S1-S2; no S3 murmurs rubs or gallops GI: Other: Soft nontender nondistended with normoactive bowel sounds. Obese Extrem: Other: Extensive edema bilateral; left lower extremity erythematous and warm Objective Data Active Medications Acetaminophen (Acetaminophen 325 Mg Tablet) 650 mg PO Q6H PRN PRN Reason: Pain, Mild (Pain Scale 1-3) Albuterol Sulfate (Albuterol Sulfate 90 Mcg 8 Gm Inhaler) 2 puff INHALE Q4H PRN PRN Reason: shortness of breath or wheezing Baclofen (Baclofen 10 Mg Tablet) 10 mg PO TID [facility] Last Admin: 08/25/21 14:31 Dose: 10 mg Documented by: SUJATA Bumetanide (Bumetanide 1 Mg Tablet) 2 mg PO BID@0800,1700 [facility]; Protocol Carvedilol (Carvedilol 3.125 Mg Tablet) 3.125 mg PO BID [facility]; Protocol Last Admin: 08/25/21 08:30 Dose: 3.125 mg Documented by: SUJATA Dicyclomine HCl (Dicyclomine Hcl 10 Mg Capsule) 20 mg PO TID [facility] Last Admin: 08/25/21 14:31 Dose: 20 mg Documented by: SUJATA Heparin Sodium (Porcine) (Heparin Sodium,Porcine 5,000 Unit/Ml Vial) 5,000 unit SUBCUT Q8H [facility] Last Admin: 08/25/21 14:30 Dose: 5,000 unit Documented by: SUJATA Doxycycline Hyclate 100 mg/ (Sodium Chloride) 250 mls @ 166.67 mls/hr IV Q12H [facility] Last Infusion: 08/25/21 10:30 Dose: 166.67 mls/hr Documented by: SUJATA Nystatin (Nystatin Oral Susp 500,000 Unit/5 Ml Oral.Susp) 500,000 unit PO Q6H PRN; Protocol PRN Reason: thrush Ondansetron HCl (Ondansetron Hcl 4 Mg/2 Ml Vial) 4 mg IVPUSH Q8H PRN PRN Reason: Nausea and Vomiting Oxycodone HCl (Oxycodone Hcl Immed Release 5 Mg Tablet) 5 mg PO Q4H PRN PRN Reason: Pain, Severe (Pain Scale 7-10) Last Admin: 08/25/21 08:44 Dose: 5 mg Documented by: SUJATA Pharmacy Consult (Consult Rx Perform Med Rec) 1 each MISCELLANE ONCE PRN PRN Reason: Consult order Sacubitril/Valsartan (Sacubitril/Valsartan 1 Tab Tablet) 1 tab PO BID [facility]; Protocol Last Admin: 08/25/21 08:29 Dose: 1 tab Documented by: SUJATA Sodium Chloride (0.9 % Sodium Chloride Flush 3 Ml Syringe) [address] [facility] Last Admin: 08/25/21 08:33 Dose: 3 ml Documented by: SUJATA Spironolactone (Spironolactone 25 Mg Tablet) 25 mg PO DAILY [facility]; Protocol Last Admin: 08/25/21 08:31 Dose: 25 mg Documented by: SUJATA Tramadol HCl (Tramadol Hcl 50 Mg Tablet) 50 mg PO Q4H PRN PRN Reason: Pain, Moderate (Pain Scale 4-6 Last Admin: 08/24/21 17:20 Dose: 50 mg Documented by: JEAN-CLAUDE Zolpidem Tartrate (Zolpidem Tartrate 5 Mg Tablet) 5 mg PO BEDTIME PRN PRN Reason: Insomnia Last Admin: 08/24/21 23:03 Dose: 5 mg Documented by: PANCHO Labs CBC & Chem 7: 08/25/21 05:58 08/25/21 05:58 Labs: Laboratory Results - last 24 hr 08/21/21 08/23/21 08/24/21 19:21 05:47 05:46 WBC 12.2 H 12.0 H 13.1 H MCV MCH MCHC RDW Plt Count MPV Immature Gran % (Auto) Neut % (Auto) Lymph % (Auto) [place] % (Auto) Eos % (Auto) Baso % (Auto) Lymph # (Auto) [place] # (Auto) Eos # (Auto) Baso # (Auto) Abs Immat Gran (auto) Absolute Neuts (auto) Absolute Nucleated RBC Nucleated RBC % (auto) Anion Gap Estim Creat Clear Calc Estimated GFR Fasting Glucose Calcium Total Bilirubin AST ALT Alkaline Phosphatase B-Natriuretic Peptide Total Protein Albumin 08/25/21 08/25/21 08/25/21 05:58 05:58 05:58 WBC 14.1 H MCV 73.0 L MCH 22.2 L MCHC 30.4 L RDW 18.6 H Plt Count 401 H MPV 8.9 L Immature Gran % (Auto) 0.3 Neut % (Auto) 71.2 Lymph % (Auto) 17.6 L [place] % (Auto) 8.3 Eos % (Auto) 2.1 Baso % (Auto) 0.5 Lymph # (Auto) 2.5 [place] # (Auto) 1.2 Eos # (Auto) 0.3 Baso # (Auto) 0.1 Abs Immat Gran (auto) 0.04 H Absolute Neuts (auto) 10.1 H Absolute Nucleated RBC 0.000 Nucleated RBC % (auto) 0.0 Anion Gap 17 Estim Creat Clear Calc 122.8 Estimated GFR > 60 Fasting Glucose 121 H Calcium 8.7 Total Bilirubin 1.3 H AST 21 ALT 28 Alkaline Phosphatase 109 B-Natriuretic Peptide 177 H Total Protein 7.0 Albumin 3.6 Assessment and Plan (1) Heart failure, systolic, with acute decompensation: Status: Acute Assessment and Plan: 51-year-old male with past medical history of CHF(last echo 05/30/2021 with EF 10-15%) presents to the hospital with complaints of shortness of breath and leg swelling found to have [id number] on admission. Continues to do well on Bumex drip without acute issues; breathing markedly improved per patient 1.Acute CHF exacerbation(systolic) Discussed with Cardiology; will switch Bumex drip to Bumex 2 mg p.o. b.i.d. and increase Coreg to 6.25mg b.i.d.. Continue to follow labs in a.m.. With cardiology's blessing hopefully discharge in a.m. 2.Cellulitis Doing well on IV doxycycline Will switch to p.o. on discharge to complete a 10 day course 3. LISSET/severe Secondary noncompliance with CPAP at HS. Utilizing CPAP in hospital; will need outpatient sleep study for home CPAP 4. Elevated bilirubin Normalized; multifactorial related to heart failure and substance abuse 5. Polysubstance abuse Educated about resources... Not interested at this time DVT prophylaxis: Heparin subQ Quality Stroke Does the patient have a stroke diagnosis?: No VTE Prior VTE?: No VTE Risk Level:: Medical - moderate - high VTE Device Contraindication: Treatment Not Indicated VTE Drug Contraindication: N/A - Med Ordered
[2021-08-25 18:31] LABS: B Type Natriuretic Peptide 186 pg/mL (<100)
--- NOTE | 2021-08-25 18:34 | PC.NURSE ---
PT BP manual 78/56 - other VSS HR 102. SR/ST on tele. Pt denies any lightheadednes, dizziness, vision changes. MD notified, instructed to repeat BP in 1 hr. \Repeat BP 82/50. Pt status remains the same, no s/s at this time. notified of new BP - said ok with this BP as pt has significantly low EF ~10-15%. Now at change of shift will notify RN of situation and cont to monitor any changes w pt status.
[2021-08-25] MEDS: Midodrine HCl 5 MG TABLET PO (20:16)
[2021-08-25 20:26] LABS: MANUAL DIFF FLAG NO
[2021-08-25 20:27] LABS: Basophils Absolute Auto 0.1 X10*3/uL (0.0-0.2); Basophils Percent Auto 0.7 % (0-2); Eosinophils Absolute Auto 0.2 X10*3/uL (0.0-0.4); Eosinophils Percent Auto 1.8 % (0-4); Hematocrit 42.3 % (42.0-52.0); Imm Gran Abs Auto 0.04 X10*3/uL (0.00-0.03); Imm Gran Pct Auto 0.4 % (0.0-0.4); Lymphocytes Percent Auto 17.6 % (20-40); Mean Corpuscular HGB Conc 30.7 g/dl (31.0-36.0); Mean Corpuscular Hemoglobin 22.5 pg (27.0-33.0); Mean Corpuscular Volume 73.1 fL (80.0-98.0); Mean Platelet Volume 8.8 fL (9.4-12.4); Monocytes Percent Auto 8.8 % (2-11); Neutrophils Absolute Auto 8.1 x10*3/uL (2.0-8.3); Neutrophils Percent Auto 70.7 % (45-73); Platelet Count 411 X10*3/uL (160-400); Red Blood Count 5.79 X10*6/uL (4.60-5.80); Red Cell Distribution Width 18.2 % (11.0-16.0); White Blood Count 11.4 X10*3/uL (4.8-10.8)
[2021-08-25 20:45] LABS: Lactic Acid 1.3 mmol/L (0.5-2.0)
[2021-08-25 20:48] LABS: Anion Gap 13 (12-20); Blood Urea Nitrogen 32 mg/dL (9-16); Calcium 8.5 mg/dL (8.4-10.2); Carbon Dioxide 29 mmol/L (22-29); Chloride 96 mmol/L (96-108); Creatinine Clr Calc Pharmacy 104.6; Estimated Glomerular Filt Rate > 60; Glucose Random 125 mg/dL (60-115); Potassium 3.6 mmol/L (3.3-5.1); Sodium 134 mmol/L (135-145)
[2021-08-25] MEDS: Zolpidem Tartrate 5 MG TABLET PO (23:33)
[2021-08-26] MEDS: oxyCODONE HCl Immed Release 5 MG TABLET PO ×2 (01:43→09:58)
[2021-08-26 04:00] VITALS: BP 114/56; PULSE 107; RESP 20; TEMP 37; O2SAT 95
[2021-08-26 06:00] VITALS: BMI 47.4
[2021-08-26 06:06] LABS: MANUAL DIFF FLAG NO
[2021-08-26 06:10] LABS: Basophils Absolute Auto 0.1 X10*3/uL (0.0-0.2); Basophils Percent Auto 0.6 % (0-2); Eosinophils Absolute Auto 0.3 X10*3/uL (0.0-0.4); Eosinophils Percent Auto 2.2 % (0-4); Hematocrit 40.3 % (42.0-52.0); Hemoglobin 12.3 g/dl (14.0-18.0); Imm Gran Abs Auto 0.04 X10*3/uL (0.00-0.03); Imm Gran Pct Auto 0.4 % (0.0-0.4); Lymphocytes Absolute Auto 2.1 X10*3/uL (1.2-4.9); Lymphocytes Percent Auto 18.9 % (20-40); Mean Corpuscular HGB Conc 30.5 g/dl (31.0-36.0); Mean Corpuscular Hemoglobin 22.5 pg (27.0-33.0); Mean Corpuscular Volume 73.7 fL (80.0-98.0); Mean Platelet Volume 8.8 fL (9.4-12.4); Monocytes Percent Auto 8.7 % (2-11); Neutrophils Absolute Auto 7.8 x10*3/uL (2.0-8.3); Neutrophils Percent Auto 69.2 % (45-73); Platelet Count 369 X10*3/uL (160-400); Red Blood Count 5.47 X10*6/uL (4.60-5.80); Red Cell Distribution Width 17.5 % (11.0-16.0); White Blood Count 11.2 X10*3/uL (4.8-10.8)
[2021-08-26 06:26] LABS: Alanine Aminotransferase 29 U/L (0-40); Albumin Level 3.3 g/dL (3.5-5.0); Alkaline Phosphatase 100 U/L (39-117); Anion Gap 13 (12-20); Aspartate Amino Transferase 22 U/L (5-37); Blood Urea Nitrogen 35 mg/dL (9-16); Calcium 8.4 mg/dL (8.4-10.2); Carbon Dioxide 27 mmol/L (22-29); Chloride 98 mmol/L (96-108); Estimated Glomerular Filt Rate > 60; Glucose Fasting 157 mg/dL (60-99); Potassium 3.8 mmol/L (3.3-5.1); Sodium 134 mmol/L (135-145); Total Protein 6.3 g/dL (6.5-8.0)
[2021-08-26] MEDS: Heparin Sodium,Porcine 5,000 UNIT/ML VIAL 5000 UNIT SUBCUT (06:50)
[2021-08-26 07:32] VITALS: BP 106/59; PULSE 109; RESP 20; TEMP 37.2; O2SAT 93
[2021-08-26] MEDS: 0.9 % Sodium Chloride Flush 3 ML SYRINGE IVFLUSH (08:34)
[2021-08-26] MEDS: Doxycycline Hyclate 100 MG in 0.9 % Sodium Chloride 250 ML 166.67 MG IV (08:34)
[2021-08-26] MEDS: Dicyclomine HCl 10 MG CAPSULE 20 MG PO (09:53)
[2021-08-26] MEDS: Baclofen 10 MG TABLET PO (09:53)
[2021-08-26] MEDS: carvediloL 6.25 MG TABLET PO (09:53)
[2021-08-26] MEDS: Spironolactone 25 MG TABLET PO (09:53)
[2021-08-26] MEDS: Bumetanide 1 MG TABLET 2 MG PO (09:53)
[2021-08-26] MEDS: Sacubitril/Valsartan 24/26 1 TAB TABLET PO (09:54)
--- NOTE | 2021-08-26 09:59 | P.DS_ITS ---
DS: Providers Provider Date of Service: 08/26/21 Date of admission: 08/21/21 21:46 Date of discharge: 08/26/21 Primary care physician: Karel Silva PA-C Consults: 08/22/21 06:25 Consult to Cardiology Routine Consulting Provider: Mariusz Muhammad Reason for consultation: CHF Has provider been notified: No Consult to Orthopedics Routine Consulting Provider: Imer Gibbons Reason for consultation: Fracture of malleolus Has provider been notified: No Consult to Pulmonology Routine Consulting Provider: Tho Stewart Reason for consultation: Narcolepsy? Has provider been notified: No DS: Diagnosis Discharge Diagnosis (1) Heart failure, systolic, with acute decompensation: Status: Acute DS: Summary Hospital Course Hospital Course: 51-year-old male with past medical history of CHF with ejection fraction of 10- 15%, asthma, COPD, LISSET, history of COVID-19 pneumonia, and cocaine abuse with frequent admissions for CHF exacerbation and has history of noncompliance p resents to the hospital with complaints of shortness of breath and lethargy as well as falling asleep throughout the day.? Patient reports that he has history of LISSET but has been noncompliant with his CPAP machine.? He is complaining of dyspnea on exertion, lower extremity edema, mild cough no sputum production.? All started about a week ago.? He is also complaining of some sharp recurrent chest pain right below the left breast, nonradiating, intermittent.? He reports that after his frequent falls he twisted his left ankle and he has pain there. Hospital course Patient was admitted to hospital telemetry; ruled out for acute WI by enzymes. Is seen by Cardiology and placed on a Bumex drip initially at 0.5mg/hr then titrated to 0.25 mg/hour. He also was noted to have some lower extremity c ellulitis which was treated with IV doxycycline. His BNP continue to trend downward; initially at 1066 now down to 186. Prior to admission, patient recounts injury to right foot and 1 week previously injury to left ankle. X-ray reveals a fracture of the proximal phalanx of the 5th toe and a fracture of the posterior malleolus left ankle. Seen by orthopedics who recommended cast boot and follow-up with them in the office. On the day of discharge his breathing is back to baseline and he will be discharged home on Bumex and Coreg, and Entresto. He will given a short script for Percocet for his fractures. Follow- up with PCP and Cardiology as scheduled Time Spent with Patient Time attestation: Total time spent providing and/or coordinating discharge services: Discharge coordination time: Greater than 30 minutes Quality: Stroke Does the patient have a stroke diagnosis?: No Physical Exam Vital Signs: Vital Signs: Last Vital Signs Temp 98.9 F 08/26/21 07:32 Pulse 109 H 08/26/21 07:32 Resp 20 08/26/21 07:32 BP 106/59 L 08/26/21 07:32 Pulse Ox 93 08/26/21 07:32 Body Mass Index 47.4 Const: Other: No acute distress HENMT: Other: Membranes moist oropharynx clear Resp: Other: Clear to auscultation bilaterally this morning without rales rhonchi or wheezes Cardio: Other: No S4; positive S1-S2; no S3 murmurs rubs or gallops GI: Other: Soft nontender nondistended with normoactive bowel sounds. Obese Extrem: Other: Extensive edema bilateral; left lower extremity erythematous and warm DS: Data Data Completed and Pending Completed studies during hospitalization [Text1]: Procedures Introduction of Remdesivir Anti-infective into Peripheral Vein, Percutaneous Approach, [employer] 5 (10/18/20) Labs on day of discharge: Laboratory Results - last 24 hr 08/25/21 08/25/21 08/25/21 17:41 20:20 20:20 WBC 11.4 H RBC 5.79 Hgb 13.0 L Hct 42.3 MCV 73.1 L MCH 22.5 L MCHC 30.7 L RDW 18.2 H Plt Count 411 H MPV 8.8 L Immature Gran % (Auto) 0.4 Neut % (Auto) 70.7 Lymph % (Auto) 17.6 L [place] % (Auto) 8.8 Eos % (Auto) 1.8 Baso % (Auto) 0.7 Lymph # (Auto) 2.0 [place] # (Auto) 1.0 Eos # (Auto) 0.2 Baso # (Auto) 0.1 Abs Immat Gran (auto) 0.04 H Absolute Neuts (auto) 8.1 Absolute Nucleated RBC 0.000 Nucleated RBC % (auto) 0.0 Sodium 134 L Potassium 3.6 Chloride 96 Carbon Dioxide 29 Anion Gap 13 BUN 32 H Creatinine 1.22 Estim Creat Clear Calc 104.6 Estimated GFR > 60 Random Glucose 125 H Fasting Glucose Lactic Acid Calcium 8.5 Total Bilirubin AST ALT Alkaline Phosphatase B-Natriuretic Peptide 186 H Total Protein Albumin 08/25/21 08/26/21 08/26/21 20:20 05:54 05:54 WBC 11.2 H RBC 5.47 Hgb 12.3 L Hct 40.3 L MCV 73.7 L MCH 22.5 L MCHC 30.5 L RDW 17.5 H Plt Count 369 MPV 8.8 L Immature Gran % (Auto) 0.4 Neut % (Auto) 69.2 Lymph % (Auto) 18.9 L [place] % (Auto) 8.7 Eos % (Auto) 2.2 Baso % (Auto) 0.6 Lymph # (Auto) 2.1 [place] # (Auto) 1.0 Eos # (Auto) 0.3 Baso # (Auto) 0.1 Abs Immat Gran (auto) 0.04 H Absolute Neuts (auto) 7.8 Absolute Nucleated RBC 0.000 Nucleated RBC % (auto) 0.0 Sodium 134 L Potassium 3.8 Chloride 98 Carbon Dioxide 27 Anion Gap 13 BUN 35 H Creatinine 1.14 Estim Creat Clear Calc 112.0 Estimated GFR > 60 Random Glucose Fasting Glucose 157 H Lactic Acid 1.3 Calcium 8.4 Total Bilirubin 1.0 AST 22 ALT 29 Alkaline Phosphatase 100 B-Natriuretic Peptide Total Protein 6.3 L Albumin 3.3 L Preliminary micro results at discharge 08/21/21 19:21 Blood Culture - Preliminary Blood - Venous No growth after 48 hours. 08/21/21 19:21 Blood Culture - Preliminary Blood - Venous No growth after 48 hours. Discharge Plan Discharge Patient Disposition: Home, Self-Care Discharge Diagnosis: Heart failure, systolic with acute decompensation Referrals: Karel Silva PA-C [Primary Care Provider] - 1 Week Discharge Medications: New carvedilol 6.25 mg Tablet 6.25 mg PO BID Qty: 60 RF: 2 bumetanide 2 mg tablet 2 mg PO BID Qty: 60 RF: 2 oxycodone 10 mg tablet 10 mg PO QID PRN (Reason: pain) Qty: 28 RF: 0 Continued Entresto 24-26 mg tablet 1 tab PO BID 30 Days Qty: 60 RF: 5 baclofen 10 mg tablet 10 mg PO TID 30 Days Qty: 90 RF: 0 nystatin 100,000 unit/mL suspension 6 ml PO Q6H PRN (Reason: thrush) 15 Days Qty: 250 RF: 0 albuterol sulfate 90 mcg/actuation HFA aerosol inhaler 2 puff inhalation Q4-6H PRN (Reason: shortness of breath or wheezing) Qty: 8.5 RF: 0 spironolactone 25 mg tablet 1 tab PO DAILY RF: 0 dicyclomine 20 mg Tablet 20 mg PO TID RF: 0 Discontinued bumetanide 1 mg tablet 1 mg PO BID Qty: 60 RF: 2 Discharge Orders: Discharge Order (Routine); Ordered 08/26/21 Ordered By: Carlyle Mancini Diet: advance to usual diet Activity on Discharge: As tolerated Stand Alone Forms: Patient Portal Discharge page Care Plan Goals: Compliance with meds; avoid toxic substances Health Concerns: Low-salt diet Plan of Treatment: Follow-up with cardiology in PCP as scheduled Assessment: Improved since admit
--- NOTE | 2021-08-26 10:45 | MHC.CM.PN ---
PT TO DC HOME TODAY WITH NO SERVICES' FAMILY TO TRANSPORT
--- NOTE | 2021-08-26 10:57 | P.PNCA_ITS ---
Subjective Subjective Date of Service: 08/26/21 Principal diagnosis: Acute on chronic systolic HF, LISSET, morbid obesity, cocaine use Interval history: Doing a lot better. Denies worsening shortness of breath. Walked yesterday the entire floor without any symptoms. No orthopnea, PND, leg edema. Tolerating up titration of carvedilol. Review of Systems Review of Systems Yes all other systems are reviewed and are negative Physical Exam Vital Signs: Last Vital Signs Temp 98.9 F 08/26/21 07:32 Pulse 109 H 08/26/21 07:32 Resp 20 08/26/21 07:32 BP 106/59 L 08/26/21 07:32 Pulse Ox 93 08/26/21 07:32 Body Mass Index 47.4 Const General: cooperative, comfortable, no acute distress, alert and awake Nutritional Appearance: obese Orientation/consciousness: patient oriented x3 Neck Neck: Yes trachea midline and Yes supple Resp Effort & Inspection: normal respiratory effort Auscultation: clear to auscultation bilaterally Cardio Palpation: abnormal PMI displaced PMI Rate: regular rate Rhythm: regular rhythm Heart sounds: S1 normal heart sound present, S2 normal heart sound present, no c lick, no gallops and no murmurs GI Inspection: Yes Abdominal panniculus present and Yes obesity Auscultation: normal bowel sounds Skin General skin exam: no rashes or lesions noted Neuro General: patient oriented x3 and no focal motor deficits Extrem General: Yes no clubbing, cyanosis or edema Results Labs and Meds Result diagrams: 08/26/21 05:54 08/26/21 05:54 Lab results: Laboratory Results - last 24 hr 08/25/21 08/25/21 08/25/21 17:41 20:20 20:20 WBC 11.4 H RBC 5.79 Hgb 13.0 L Hct 42.3 MCV 73.1 L MCH 22.5 L MCHC 30.7 L RDW 18.2 H Plt Count 411 H MPV 8.8 L Immature Gran % (Auto) 0.4 Neut % (Auto) 70.7 Lymph % (Auto) 17.6 L [place] % (Auto) 8.8 Eos % (Auto) 1.8 Baso % (Auto) 0.7 Lymph # (Auto) 2.0 [place] # (Auto) 1.0 Eos # (Auto) 0.2 Baso # (Auto) 0.1 Abs Immat Gran (auto) 0.04 H Absolute Neuts (auto) 8.1 Absolute Nucleated RBC 0.000 Nucleated RBC % (auto) 0.0 Sodium 134 L Potassium 3.6 Chloride 96 Carbon Dioxide 29 Anion Gap 13 BUN 32 H Creatinine 1.22 Estim Creat Clear Calc 104.6 Estimated GFR > 60 Random Glucose 125 H Fasting Glucose Lactic Acid Calcium 8.5 Total Bilirubin AST ALT Alkaline Phosphatase B-Natriuretic Peptide 186 H Total Protein Albumin 08/25/21 08/26/21 08/26/21 20:20 05:54 05:54 WBC 11.2 H RBC 5.47 Hgb 12.3 L Hct 40.3 L MCV 73.7 L MCH 22.5 L MCHC 30.5 L RDW 17.5 H Plt Count 369 MPV 8.8 L Immature Gran % (Auto) 0.4 Neut % (Auto) 69.2 Lymph % (Auto) 18.9 L [place] % (Auto) 8.7 Eos % (Auto) 2.2 Baso % (Auto) 0.6 Lymph # (Auto) 2.1 [place] # (Auto) 1.0 Eos # (Auto) 0.3 Baso # (Auto) 0.1 Abs Immat Gran (auto) 0.04 H Absolute Neuts (auto) 7.8 Absolute Nucleated RBC 0.000 Nucleated RBC % (auto) 0.0 Sodium 134 L Potassium 3.8 Chloride 98 Carbon Dioxide 27 Anion Gap 13 BUN 35 H Creatinine 1.14 Estim Creat Clear Calc 112.0 Estimated GFR > 60 Random Glucose Fasting Glucose 157 H Lactic Acid 1.3 Calcium 8.4 Total Bilirubin 1.0 AST 22 ALT 29 Alkaline Phosphatase 100 B-Natriuretic Peptide Total Protein 6.3 L Albumin 3.3 L Progress Note: A&P Assessment and plan (1) Heart failure, systolic, with acute decompensation: Status: Acute Assessment and Plan: Compensated heart failure at this point in time. Importance of medical therapy and compliance with medical therapy was discussed. Avoidance and abstinence from cocaine was discussed again. Daily weight monitoring and avoidance of salt loading was discussed. Increase activity level was discussed. Additional diuretics for weight gain greater than 2 lb was discussed. Continue current nolan rohormonal modulation. Will arrange for home sleep study as soon as possible as outpatient. Follow up in the clinic in 10 days. Time Spent With Patient Time: Total time spent is greater than 50% in coordination of care (as do cumented) at patient's floor/unit and/or counseling patient: Time with patient: 15 - 24 minutes Progress Note: Quality Stroke Does the patient have a stroke diagnosis?: No Procedures Date of Service Date of Service: 08/26/21
== END 2021-08-26 10:31 | disposition home or self-care (01) | DRG 292 ==
LOC: HO.ED 20:21 → HO.EDOVER 21:49 → HO.IMC 08-22 18:54
PROVIDERS: Nurse Practitioner Family; Admitting Provider Internal Medicine; Emergency Provider Internal Medicine; PCP Physician Assistant; Visit Provider Hospitalist
DX: I50.23 Acute on chronic systolic (congestive) heart failure (principal); Z68.42 Body mass index [BMI] 45.0-49.9, adult; L03.116 Cellulitis of left lower limb; I42.9 Cardiomyopathy, unspecified; F14.10 Cocaine abuse, uncomplicated; G47.33 Obstructive sleep apnea (adult) (pediatric); J45.20 Mild intermittent asthma, uncomplicated; Z20.822 Contact with and (suspected) exposure to COVID-19; Z87.891 Personal history of nicotine dependence; E66.01 Morbid (severe) obesity due to excess calories; Z86.16 Personal history of COVID-19; Z91.14 Patient's other noncompliance with medication regimen; Z99.89 Dependence on other enabling machines and devices; Z88.2 Allergy status to sulfonamides; Z79.899 Other long term (current) drug therapy
CPT/HCPCS: 36415; 71045; 73620; 80048; 80053; 80076; 80307; 82803; 83605; 83735; 83880; 84484; 85025; 85379; 85610; 85730; 87040; 87635; 93005; 93970; 94660; 96374; 99285; J1940

== ENCOUNTER 2021-09-10 07:23 | Inpatient (IN) | payer MEDICARE, MEDICAID, SELFPAY ==
--- NOTE | ~2021-09-10 | XR_ITS ---
EXAMINATION: XR CHEST CLINICAL INFORMATION: Dyspnea. COMPARISON: None TECHNIQUE: Frontal view of the chest was obtained. FINDINGS: There is mild cardiomegaly with normal pulmonary vascularity. The lungs are well-expanded with mild haziness in both lung bases. No gross bony abnormality. XR/XR chest 1V IMPRESSION: Moderate cardiomegaly.. Hypoexpanded lungs with mild haziness in both lung bases likely compressive atelectasis.
--- NOTE | 2021-09-10 07:34 | ED.SOB ---
HPI - SOB/Dyspnea General Chief Complaint: Dyspnea Stated Complaint: SOB Time Seen by Provider: 09/10/21 07:34 Source: patient Mode of arrival: ambulatory Limitations: no limitations History of Present Illness MD elicited complaint: shortness of breath and cough Pertinent past history: COPD and congestive heart failure Onset (ago): day(s) (4) Context: recent illness (DC on 08/26 with COPD noncompliance and CHF) Timing: progressively worsening Severity: moderate Exacerbating factors: lying flat, exertion and coughing Relieving factors: rest Known history of: COPD and congestive heart failure Associated symptoms: cough and sputum production Treatment prior to arrival: none Related Data Home Medications Medication Instructions Recorded Confirmed spironolactone 25 mg tablet 25 mg PO DAILY 08/21/21 09/10/21 baclofen 10 mg tablet 10 mg PO TID PRN 09/10/21 09/10/21 bumetanide 1 mg tablet 2 tab PO BID 09/10/21 09/10/21 Previous Rx's Medication Instructions Recorded nystatin 100,000 unit/mL oral 6 ml PO Q6H PRN 15 Days #250 ml 08/07/21 suspension carvedilol 6.25 mg tablet 6.25 mg PO BID #60 tab 08/26/21 sacubitril 24 mg-valsartan 26 mg 1 tab PO BID 30 Days #60 tab 09/07/21 tablet (Entresto) Allergies Allergy/AdvReac Type Severity Reaction Status Date / Time cephalexin [From KEFLEX] Allergy Unknown UNKNOWN Verified 08/15/21 14:08 sulfamethoxazole Allergy Unknown UNKNOWN Verified 08/15/21 14:08 [From BACTRIM] trimethoprim [From BACTRIM] Allergy Unknown UNKNOWN Verified 08/15/21 14:08 Review of Systems Review of Systems: Constitutional : No Fever, No Chills ENT/Mouth : No Hoarseness, No sore throat, No Rhinorrhea Eyes: No Redness, No Discharge, No Vision Changes Cardiovascular : No Chest Pain, positive SOB, positive Dyspnea on Exertion, pos Edema Respiratory : positive Cough, pos Sputum, positive Wheezing, Gastrointestinal : No Nausea, No Vomiting, No Diarrhea, No abdominal Pain Genitourinary : No Dysuria, No Hematuria Musculoskeletal : No joint pain, No Myalgias Skin : No rash Neuro : No Weakness, No Numbness, No Headache Psych : No anxiety, depression Heme/Lymph: No Bruising, No Bleeding Endocrine : No Polyuria, No Polydipsia All other systems reviewed and are negative [facility] Past Medical History Attestation statement: The following information was validated with the patient. Medical History Asthma Asthma CHF (congestive heart failure) Chronic systolic (congestive) heart failure Cocaine abuse COPD (chronic obstructive pulmonary disease) Morbid obesity Morbid obesity NICM (nonischemic cardiomyopathy) LISSET (obstructive sleep apnea) Surgical History History of cardiac catheterization (~11/07/20) History of surgery Family History Family History Mother Ovarian cancer Diabetes Social History Social History Household Members: Spouse Household Members Other:: lives in a [employer] Housing: House Do you presently have visiting nurse or other home services: No Alcohol intake: never Patient Tobacco Use Status: Former Tobacco user Use of substances other than those prescribed or required for medical reasons: No Substance Use Type: Crack/Cocaine Advance Directives: Yes Advance Directives on File: Yes Advance Directives Date on File: 10/23/20 service: No Current occupational status: unemployed and disabled Physical Exam Vital Signs: Vital Signs: Last Vital Signs Temp 98.9 F 09/10/21 07:38 Pulse 116 H 09/10/21 08:50 Resp 18 09/10/21 07:38 BP 111/82 09/10/21 08:50 Pulse Ox 90 L 09/10/21 07:38 Body Mass Index 48.0 Appearance: Alert. Oriented X3. Mild acute distress. Eyes: Pupils equal, round and reactive to light. ENT: Pharynx normal. Neck: Normal inspection. Neck supple. CVS: tachycardic heart rate and rhythm. Pulses normal. Respiratory: Mild respiratory distress tachypnea. Breath sounds slightly diminished fine rales at bases noted Abdomen: Soft and nontender. Skin: Skin warm and dry. Normal skin color. Normal skin turgor. Extremities: No lower extremity edema. No calf ttp Neuro: Oriented X 3. No motor deficit. No sensory deficit. Course Course Course Narrative: given BNP dyspnea and low O2 sats will admit for COPD/CHF MDM - SOB/Dyspnea MDM Narrative Medical decision making narrative: 51 yo male with hx of obesity, non compliance, LISSET< CHF, COPD here with c/o 5 days of dyspnea, productive cough at this time will need labs, CXR, cultures, IV steroids, neb 5mg - possible COPD vs CHF exacerbation dispo per results findings and response to medications Lab Data Result diagrams: 09/10/21 07:55 09/10/21 07:55 Labs: Lab Results 09/10/21 09/10/21 09/10/21 Range/Units 07:54 07:55 07:55 WBC 11.1 H (4.8-10.8) X10*3/uL RBC 4.61 (4.60-5.80) X10*6/uL Hgb 10.3 L (14.0-18.0) g/dl Hct 34.3 L (42.0-52.0) % MCV 74.4 L (80.0-98.0) fL MCH 22.3 L (27.0-33.0) pg MCHC 30.0 L (31.0-36.0) g/dl RDW 19.4 H (11.0-16.0) % Plt Count 381 (160-400) X10*3/uL MPV 9.0 L (9.4-12.4) fL Immature Gran % (Auto) 0.4 (0.0-0.4) % Neut % (Auto) 77.9 H (45-73) % Lymph % (Auto) 12.6 L (20-40) % [place] % (Auto) 8.0 (2-11) % Eos % (Auto) 0.6 (0-4) % Baso % (Auto) 0.5 (0-2) % Lymph # (Auto) 1.4 (1.2-4.9) X10*3/uL [place] # (Auto) 0.9 (0.1-1.2) X10*3/uL Eos # (Auto) 0.1 (0.0-0.4) X10*3/uL Baso # (Auto) 0.1 (0.0-0.2) X10*3/uL Abs Immat Gran (auto) 0.04 H (0.00-0.03) X10*3/uL Absolute Neuts (auto) 8.7 H (2.0-8.3) x10*3/uL Absolute Nucleated RBC 0.000 (0.0-0.012) X10*3/uL Nucleated RBC % (auto) 0.0 (0.0-0.2) /100WBC VBG pH (7.32-7.43) VBG pCO2 mmHg VBG pO2 mmHg VBG HCO3 (22-26) mmol/L VBG O2 Saturation % VBG Base Excess mmol/L Sodium 137 (135-145) mmol/L Potassium 4.6 D (3.3-5.1) mmol/L Chloride 106 (96-108) mmol/L Carbon Dioxide 22 (22-29) mmol/L Anion Gap 14 (12-20) BUN 19 H (9-16) mg/dL Creatinine 0.87 (0.5-1.4) mg/dL Estim Creat Clear Calc 148.5 Estimated GFR > 60 Random Glucose 120 H (60-115) mg/dL Lactic Acid 1.4 (0.5-2.0) mmol/L Calcium 8.8 (8.4-10.2) mg/dL Magnesium 2.0 (1.6-2.6) mg/dL Total Bilirubin 1.5 H (0.0-1.0) mg/dL Direct Bilirubin 0.7 H (0.0-0.5) mg/dL AST 19 (5-37) U/L ALT 26 (0-40) U/L Alkaline Phosphatase 172 H D (39-117) U/L Troponin I High Sens (<3.5-35.0) ng/L B-Natriuretic Peptide (<100) pg/mL Total Protein 6.4 L (6.5-8.0) g/dL Albumin 3.5 (3.5-5.0) g/dL COVID-19 (LEANDRO) (Negative) COVID-19 Clin Com 09/10/21 09/10/21 09/10/21 Range/Units 07:55 07:55 07:59 WBC (4.8-10.8) X10*3/uL RBC (4.60-5.80) X10*6/uL Hgb (14.0-18.0) g/dl Hct (42.0-52.0) % MCV (80.0-98.0) fL MCH (27.0-33.0) pg MCHC (31.0-36.0) g/dl RDW (11.0-16.0) % Plt Count (160-400) X10*3/uL MPV (9.4-12.4) fL Immature Gran % (Auto) (0.0-0.4) % Neut % (Auto) (45-73) % Lymph % (Auto) (20-40) % [place] % (Auto) (2-11) % Eos % (Auto) (0-4) % Baso % (Auto) (0-2) % Lymph # (Auto) (1.2-4.9) X10*3/uL [place] # (Auto) (0.1-1.2) X10*3/uL Eos # (Auto) (0.0-0.4) X10*3/uL Baso # (Auto) (0.0-0.2) X10*3/uL Abs Immat Gran (auto) (0.00-0.03) X10*3/uL Absolute Neuts (auto) (2.0-8.3) x10*3/uL Absolute Nucleated RBC (0.0-0.012) X10*3/uL Nucleated RBC % (auto) (0.0-0.2) /100WBC VBG pH 7.47 H (7.32-7.43) VBG pCO2 32 mmHg VBG pO2 159 mmHg VBG HCO3 23 (22-26) mmol/L VBG O2 Saturation 99.0 % VBG Base Excess 0.9 mmol/L Sodium (135-145) mmol/L Potassium (3.3-5.1) mmol/L Chloride (96-108) mmol/L Carbon Dioxide (22-29) mmol/L Anion Gap (12-20) BUN (9-16) mg/dL Creatinine (0.5-1.4) mg/dL Estim Creat Clear Calc Estimated GFR Random Glucose (60-115) mg/dL Lactic Acid (0.5-2.0) mmol/L Calcium (8.4-10.2) mg/dL Magnesium (1.6-2.6) mg/dL Total Bilirubin (0.0-1.0) mg/dL Direct Bilirubin (0.0-0.5) mg/dL AST (5-37) U/L ALT (0-40) U/L Alkaline Phosphatase (39-117) U/L Troponin I High Sens 31.4 D (<3.5-35.0) ng/L B-Natriuretic Peptide 599 H (<100) pg/mL Total Protein (6.5-8.0) g/dL Albumin (3.5-5.0) g/dL COVID-19 (LEANDRO) (Negative) COVID-19 Clin Com 09/10/21 Range/Units 09:07 WBC (4.8-10.8) X10*3/uL RBC (4.60-5.80) X10*6/uL Hgb (14.0-18.0) g/dl Hct (42.0-52.0) % MCV (80.0-98.0) fL MCH (27.0-33.0) pg MCHC (31.0-36.0) g/dl RDW (11.0-16.0) % Plt Count (160-400) X10*3/uL MPV (9.4-12.4) fL Immature Gran % (Auto) (0.0-0.4) % Neut % (Auto) (45-73) % Lymph % (Auto) (20-40) % [place] % (Auto) (2-11) % Eos % (Auto) (0-4) % Baso % (Auto) (0-2) % Lymph # (Auto) (1.2-4.9) X10*3/uL [place] # (Auto) (0.1-1.2) X10*3/uL Eos # (Auto) (0.0-0.4) X10*3/uL Baso # (Auto) (0.0-0.2) X10*3/uL Abs Immat Gran (auto) (0.00-0.03) X10*3/uL Absolute Neuts (auto) (2.0-8.3) x10*3/uL Absolute Nucleated RBC (0.0-0.012) X10*3/uL Nucleated RBC % (auto) (0.0-0.2) /100WBC VBG pH (7.32-7.43) VBG pCO2 mmHg VBG pO2 mmHg VBG HCO3 (22-26) mmol/L VBG O2 Saturation % VBG Base Excess mmol/L Sodium (135-145) mmol/L Potassium (3.3-5.1) mmol/L Chloride (96-108) mmol/L Carbon Dioxide (22-29) mmol/L Anion Gap (12-20) BUN (9-16) mg/dL Creatinine (0.5-1.4) mg/dL Estim Creat Clear Calc Estimated GFR Random Glucose (60-115) mg/dL Lactic Acid (0.5-2.0) mmol/L Calcium (8.4-10.2) mg/dL Magnesium (1.6-2.6) mg/dL Total Bilirubin (0.0-1.0) mg/dL Direct Bilirubin (0.0-0.5) mg/dL AST (5-37) U/L ALT (0-40) U/L Alkaline Phosphatase (39-117) U/L Troponin I High Sens (<3.5-35.0) ng/L B-Natriuretic Peptide (<100) pg/mL Total Protein (6.5-8.0) g/dL Albumin (3.5-5.0) g/dL COVID-19 (LEANDRO) Negative (Negative) COVID-19 Clin Com See Note ECG Data Attestation: I personally reviewed and interpreted this ECG as follows: ECG interpretation date: 09/10/21 ECG interpretation time: 09:39 Interpretation: Rate: 111 Rhythm: sinus tachycardia [place]: normal Normal P waves. Normal BARRY. Normal QRS complex. ST T wave : nonspecific, no DEBBIE qTC: normal prior studies: no acute ischemia The study has been interpreted contemporaneously by me. . Critical Care Time Critical Care Time Critical Care Time: Yes Total Critical Care Time: 60 Attestation: 5mg neb, review of records, IV bumex I attest to this time spent taking care of the patient Discharge Plan Discharge Clinical Impression: Noncompliance CHF (congestive heart failure) Qualifiers: Heart failure type: unspecified Heart failure chronicity: acute on chronic Qualified Code(s): I50.9 - Heart failure, unspecified COPD (chronic obstructive pulmonary disease) Qualifiers: COPD type: COPD with acute exacerbation Qualified Code(s): J44.1 - Chronic obstructive pulmonary disease with (acute) exacerbation Patient Disposition: Admitted As Inpatient
[2021-09-10 07:38] VITALS: BP 123/84; PULSE 114; RESP 18; TEMP 37.2; O2SAT 90; BMI 48.0
--- NOTE | 2021-09-10 07:45 | ECG_ITS ---
Test Reason : sob Blood Pressure : / mmHG Vent. Rate : 111 BPM Atrial Rate : 111 BPM P-R Int : 162 ms QRS Dur : 100 ms QT Int : 356 ms P-R-T Axes : 069 105 050 degrees QTc Int : 484 ms Sinus tachycardia Possible Left atrial enlargement Rightward axis Poor R wave progression Abnormal ECG When compared with ECG of 21-AUG-2021 19:25, QRS axis Shifted right Referred By: Marcia He Electronically Signed By:ORI LEIGH MD
[2021-09-10] MEDS: Albuterol Sulfate (0.083%) 2.5 MG/3 ML VIAL.NEB 5 MG INHALE (07:47)
[2021-09-10 07:48] VITALS: PULSE 112; O2SAT 92
[2021-09-10 08:01] LABS: MANUAL DIFF FLAG NO
[2021-09-10 08:06] LABS: VBG Base Excess 0.9 mmol/L; VBG HCO3 23 mmol/L (22-26); VBG pCO2 32 mmHg; VBG pH 7.47 (7.32-7.43); VBG pO2 159 mmHg
[2021-09-10 08:09] LABS: Basophils Absolute Auto 0.1 X10*3/uL (0.0-0.2); Basophils Percent Auto 0.5 % (0-2); Eosinophils Absolute Auto 0.1 X10*3/uL (0.0-0.4); Eosinophils Percent Auto 0.6 % (0-4); Hematocrit 34.3 % (42.0-52.0); Hemoglobin 10.3 g/dl (14.0-18.0); Imm Gran Abs Auto 0.04 X10*3/uL (0.00-0.03); Imm Gran Pct Auto 0.4 % (0.0-0.4); Lymphocytes Absolute Auto 1.4 X10*3/uL (1.2-4.9); Lymphocytes Percent Auto 12.6 % (20-40); Mean Corpuscular Hemoglobin 22.3 pg (27.0-33.0); Mean Corpuscular Volume 74.4 fL (80.0-98.0); Monocytes Absolute Auto 0.9 X10*3/uL (0.1-1.2); Neutrophils Absolute Auto 8.7 x10*3/uL (2.0-8.3); Neutrophils Percent Auto 77.9 % (45-73); Platelet Count 381 X10*3/uL (160-400); Red Blood Count 4.61 X10*6/uL (4.60-5.80); Red Cell Distribution Width 19.4 % (11.0-16.0); White Blood Count 11.1 X10*3/uL (4.8-10.8)
[2021-09-10 08:10] LABS: Venous Blood Gas Refer to POC result
[2021-09-10 08:13] LABS: Lactic Acid 1.4 mmol/L (0.5-2.0)
[2021-09-10 08:19] LABS: Alanine Aminotransferase 26 U/L (0-40); Albumin Level 3.5 g/dL (3.5-5.0); Alkaline Phosphatase 172 U/L (39-117); Anion Gap 14 (12-20); Aspartate Amino Transferase 19 U/L (5-37); Bilirubin Direct 0.7 mg/dL (0.0-0.5); Bilirubin Total 1.5 mg/dL (0.0-1.0); Blood Urea Nitrogen 19 mg/dL (9-16); Calcium 8.8 mg/dL (8.4-10.2); Carbon Dioxide 22 mmol/L (22-29); Chloride 106 mmol/L (96-108); Creatinine Clr Calc Pharmacy 148.5; Estimated Glomerular Filt Rate > 60; Glucose Random 120 mg/dL (60-115); Potassium 4.6 mmol/L (3.3-5.1); Sodium 137 mmol/L (135-145); Total Protein 6.4 g/dL (6.5-8.0)
[2021-09-10] MEDS: methylPREDNISolone Sod Succ 125 MG/2 ML VIAL IVPUSH (08:21)
[2021-09-10 08:22] LABS: B Type Natriuretic Peptide 599 pg/mL (<100); Troponin-I High Sensitivity 31.4 ng/L (<3.5-35.0)
[2021-09-10] MEDS: Bumetanide 1 MG/4 ML VIAL IVPUSH (08:22)
[2021-09-10 08:50] VITALS: BP 111/82; PULSE 116
[2021-09-10] MEDS: carvediloL 6.25 MG TABLET PO ×2 (08:50→22:24)
--- NOTE | 2021-09-10 08:54 | PHA.MEDREC ---
Pharmacy Consult ? Medication Reconciliation Pharmacy has completed the medication reconciliation. Patient is not adherent to medications. Patient takes diuretics incorrectly. Patient was discharged 08/26/2021 with new prescription: bumetanide 2 mg BID and carvedilol 6.25 mg BID. Patient reports rotating his water pills so he takes spironolactone every other days and bumetadine 2 tablets every other day. Reports that baclofen is for his stomache issues. The home medication list is input has how he should be taking medications per previous discharge summary. Sandra Galan, LiviaD
[2021-09-10] MEDS: levoFLOXacin/D5W 500 MG/100 ML PIGGYBACK 100 MG IV (09:07)
[2021-09-10 09:31] LABS: COVID-19 Test Negative (Negative); IDNOW Serial# 08D9AD1C
--- NOTE | 2021-09-10 09:59 | PM.IMHP ---
History of Present Illness Date of Service: 09/10/21 <Suellen Stewart NP - Last Filed: 09/11/21 14:07> Attending physician on admission: Robles Garsia <Suellen Stewart NP - Last Filed: 09/11/21 14:07> Chief Complaint: Shortness of breath and cough <Suellen Stewart NP - Last Filed: 09/11/21 14:07> 51 year old man presenting with increased shortness of breath and cough with green phlegm. He denied fever, chills, nausea, vomiting, diarrhea, exposure to covid 19. He was discharged on 08/26/21 and treated for CHF and COPD. His BMP trended down to 180's and he was discharge home with oral bumex and to follow up with cardiology. He was noted to be mildly tachycardic and hypoxic in the ED. His INR and billirubin was noted to be high, covid 19 negative. CXR showed moderate cardiomegaly with atelectasis. BNP up to 599. He was given IV bumex in the ED with one dose of Levaquin, and solumedrol. He will be admitted for further management and treated of acute in chronic HFrEF. <Suellen Stewart NP - Last Filed: 09/11/21 14:07> Review of Systems Review of Systems: Denies any recent fever chills or decrease in appetite respiratory See HPI cardiovascular denies chest pain gastrointestinal denies any dysphagia abdominal pain nausea vomiting or diarrhea genitourinary denies any dysuria frequency or hematuria musculoskeletal denies any joint pain or swelling neuropsych denies any weakness or seizures all other systems reviewed are negative <Suellen Stewart NP - Last Filed: 09/11/21 14:07> FOR[facility], [facility] Medical History: Medical History Asthma Asthma CHF (congestive heart failure) Chronic systolic (congestive) heart failure Cocaine abuse COPD (chronic obstructive pulmonary disease) Morbid obesity Morbid obesity NICM (nonischemic cardiomyopathy) LISSET (obstructive sleep apnea) <Suellen Stewart NP - Last Filed: 09/11/21 14:07> Family History: Family History Mother Ovarian cancer Diabetes <Seullen Stewart NP - Last Filed: 09/11/21 14:07> Surgical History: Surgical History History of cardiac catheterization (~11/07/20) History of surgery <Suellen Stewart NP - Last Filed: 09/11/21 14:07> Social History: Social History Household Members: Family Household Members Other:: lives in a [employer] Housing: Apartment Do you presently have visiting nurse or other home services: No Alcohol intake: never Patient Tobacco Use Status: Former Tobacco user Substance Use Type: Marijuana Advance Directives Date on File: 10/23/20 service: No Current occupational status: unemployed and disabled <Suellen Stewart NP - Last Filed: 09/11/21 14:07> Meds Allergies/Adverse reactions: Allergies Allergy/AdvReac Type Severity Reaction Status Date / Time cephalexin [From KEFLEX] Allergy Unknown UNKNOWN Verified 08/15/21 14:08 sulfamethoxazole Allergy Unknown UNKNOWN Verified 08/15/21 14:08 [From BACTRIM] trimethoprim [From BACTRIM] Allergy Unknown UNKNOWN Verified 08/15/21 14:08 <Suellen Stewart NP - Last Filed: 09/11/21 14:07> Active Medications: Current Medications Acetaminophen (Acetaminophen 325 Mg Tablet) 650 mg PO Q6H PRN PRN Reason: Pain, Mild (Pain Scale 1-3) Enoxaparin Sodium (Enoxaparin Sodium 40 Mg/0.4 Ml Syringe) 40 mg SUBCUT Q24H EZEQUIEL Ondansetron HCl (Ondansetron Hcl 4 Mg/2 Ml Vial) 4 mg IVPUSH Q8H PRN PRN Reason: Nausea and Vomiting Pharmacy Consult (Consult Rx Perform Med Rec) 1 each MISCELLANE ONCE PRN PRN Reason: Consult order Sodium Chloride (0.9 % Sodium Chloride Flush 3 Ml Syringe) 3 ml IVFLUSH QSHIFT EZEQUIEL <Suellen Stewart NP - Last Filed: 09/11/21 14:07> Home medications: Home Medications Medication Instructions Recorded Confirmed Last Taken Type spironolactone 25 mg tablet 25 mg PO DAILY 08/21/21 09/10/21 08/21/21 History baclofen 10 mg tablet 10 mg PO TID PRN 09/10/21 09/10/21 Unknown History bumetanide 1 mg tablet 2 tab PO BID 09/10/21 09/10/21 Unknown History <Suellen Stewart NP - Last Filed: 09/11/21 14:07> Physical Exam Vital Signs and Narrative: Vital Signs: Last Vital Signs Temp 98.9 F 09/10/21 07:38 Pulse 116 H 09/10/21 08:50 Resp 18 09/10/21 07:38 BP 111/82 09/10/21 08:50 Pulse Ox 90 L 09/10/21 07:38 Body Mass Index 48.0 <Suellen Stewart NP - Last Filed: 09/11/21 14:07> Appearing in no acute distress head is normocephalic atraumatic eyes pupils are PERRLA sclera is anicteric mouth throat mucous membranes are intact and moist neck is supple no lymphadenopathy, no JVD noted lung sounds are clear to auscultation heart regular rate rhythm, clear S1, S2 positive bowel sounds, abdomen is soft, nontender neuro patient is alert x3, no focal deficits <Suellen Stewart NP - Last Filed: 09/11/21 14:07> Results Labs CBC and Chem 7: : 09/11/21 06:00 09/11/21 06:00 <Suellen Stewart NP - Last Filed: 09/11/21 14:07> Labs: Laboratory Results - last 24 hr 09/10/21 09/10/21 09/10/21 07:54 07:55 07:55 MCV 74.4 L MCH 22.3 L MCHC 30.0 L RDW 19.4 H Plt Count 381 MPV 9.0 L Immature Gran % (Auto) 0.4 Neut % (Auto) 77.9 H Lymph % (Auto) 12.6 L [place] % (Auto) 8.0 Eos % (Auto) 0.6 Baso % (Auto) 0.5 Lymph # (Auto) 1.4 [place] # (Auto) 0.9 Eos # (Auto) 0.1 Baso # (Auto) 0.1 Abs Immat Gran (auto) 0.04 H Absolute Neuts (auto) 8.7 H Absolute Nucleated RBC 0.000 Nucleated RBC % (auto) 0.0 VBG pH VBG pCO2 VBG pO2 VBG HCO3 VBG O2 Saturation VBG Base Excess Anion Gap 14 Estim Creat Clear Calc 148.5 Estimated GFR > 60 Random Glucose 120 H Lactic Acid 1.4 Calcium 8.8 Magnesium 2.0 Total Bilirubin 1.5 H Direct Bilirubin 0.7 H AST 19 ALT 26 Alkaline Phosphatase 172 H D Troponin I High Sens B-Natriuretic Peptide Total Protein 6.4 L Albumin 3.5 COVID-19 (LEANDRO) COVID-19 Clin Com 09/10/21 09/10/21 09/10/21 07:55 07:55 07:59 MCV MCH MCHC RDW Plt Count MPV Immature Gran % (Auto) Neut % (Auto) Lymph % (Auto) [place] % (Auto) Eos % (Auto) Baso % (Auto) Lymph # (Auto) [place] # (Auto) Eos # (Auto) Baso # (Auto) Abs Immat Gran (auto) Absolute Neuts (auto) Absolute Nucleated RBC Nucleated RBC % (auto) VBG pH 7.47 H VBG pCO2 32 VBG pO2 159 VBG HCO3 23 VBG O2 Saturation 99.0 VBG Base Excess 0.9 Anion Gap Estim Creat Clear Calc Estimated GFR Random Glucose Lactic Acid Calcium Magnesium Total Bilirubin Direct Bilirubin AST ALT Alkaline Phosphatase Troponin I High Sens 31.4 D B-Natriuretic Peptide 599 H Total Protein Albumin COVID-19 (LEANDRO) COVID-19 Clin Com 09/10/21 09:07 MCV MCH MCHC RDW Plt Count MPV Immature Gran % (Auto) Neut % (Auto) Lymph % (Auto) [place] % (Auto) Eos % (Auto) Baso % (Auto) Lymph # (Auto) [place] # (Auto) Eos # (Auto) Baso # (Auto) Abs Immat Gran (auto) Absolute Neuts (auto) Absolute Nucleated RBC Nucleated RBC % (auto) VBG pH VBG pCO2 VBG pO2 VBG HCO3 VBG O2 Saturation VBG Base Excess Anion Gap Estim Creat Clear Calc Estimated GFR Random Glucose Lactic Acid Calcium Magnesium Total Bilirubin Direct Bilirubin AST ALT Alkaline Phosphatase Troponin I High Sens B-Natriuretic Peptide Total Protein Albumin COVID-19 (LEANDRO) Negative COVID-19 Clin Com See Note <Suellen Stewart NP - Last Filed: 09/11/21 14:07> Imaging Radiologist's Impressions: Impressions Chest X-Ray 09/10/21 07:46 IMPRESSION: Moderate cardiomegaly.. Hypoexpanded lungs with mild haziness in both lung bases likely compressive atelectasis. <Suellen Stewart NP - Last Filed: 09/11/21 14:07> Assessment and Plan (1) Acute systolic (congestive) heart failure: Status: Acute <Suellne Stewart NP - Last Filed: 09/11/21 14:07> (2) Coagulopathy: Status: Acute <Suellen Stewart NP - Last Filed: 09/11/21 14:07> 51 year old man admitted with acute on chronic CHF with question of compliance with medication Acute on chronic HFrEF. Severe with EF of 10-15% on Bumex at home Cardiology to follow Continue carvedilol, Entresto and spironolactone Bumex Coagulopathy IR 1.4 no bleeding likely secondary to CHF Follow INR Hyperbilirubinemia Likely secondary to heart Follow LFTs Attending Dr. Garsia Full code <Suellen Stewart NP - Last Filed: 09/11/21 14:07> Quality Stroke Does the patient have a stroke diagnosis?: No <Suellen Stewart NP - Last Filed: 09/11/21 14:07> VTE Prior VTE?: No <Suellen Stewart NP - Last Filed: 09/11/21 14:07> VTE Risk Level:: Medical - moderate - high <Suellen Stewart NP - Last Filed: 09/11/21 14:07> VTE Device Contraindication: Treatment Not Indicated <Suellen Stewart NP - Last Filed: 09/11/21 14:07> VTE Drug Contraindication: N/A - Med Ordered <Suellen Stewart NP - Last Filed: 09/11/21 14:07>
--- NOTE | 2021-09-10 12:25 | P.CONCA_ITS ---
History of Present Illness History of Present Illness Date of Service: 09/10/21 Requesting physician: Suellen Stewart Consult reason: congestive heart failure Chief complaint: CHF Narrative: I was consulted to see Leandro in cardiology consultation for decompensated congestive heart failure. He was recently discharged from the hospital on 08/26/2021 and was scheduled to see Charley as an outpatient last week for a follow-up visit. However did not show up for the visit. He says he has been taking his medications. He said he was not feeling well last week and therefore did not come. Over the last 4-5 days he has been getting progressively increased shortness of breath. He has not noticed any clear weight gain or leg edema. He comes today with inability to breathe. He is also somnolent and drifting off to sleep like last time when he had decompensation. Does not use his CPAP machine at nighttime. Says that he has been taking all his medications and not using cocaine. The U tox as not been requested. He is in sinus tachycardia. Blood pressure is optimized. Is received IV Bumex. He has been started on his discharge medications. Review of Systems Constitutional: Constitutional: Reports daytime sleepiness, Reports fatigue, Reports lethargy, Reports snoring and Reports stops breathing during sleep Eyes: Eyes: Reports no additional eye complaints Cardiovascular: Cardiovascular: Denies chest pain, Denies lightheadedness, Denies Loss of Consciousness, Denies palpitations, Reports dyspnea on exertion and Reports orthopnea Respiratory: Respiratory: Denies cough, Reports dyspnea on exertion and Reports snoring Gastrointestinal: Gastrointestinal: Reports no additional gastrointestinal complaints Genitourinary: Genitourinary: Reports no additional male genitourinary complaints Musculoskeletal: Musculoskeletal: Reports no additional musculoskeletal complaints Neurologic: Reports system reviewed and no additional complaints, except as documented Psychiatric: Psychiatric: Reports no additional psychiatric complaints Endocrine: Endocrine: Reports no additional endocrine complaints, Reports fatigue and Denies palpitations Hematologic/Lymphatic: Hematologic/Lymphatic: Reports no additional hematologic/lymphatic complaints Allergic/Immunologic: Allergic/Immunologic: Reports no additional allergic/immunologic complaints COUNT INCLUDES THE [facility] Past Medical History Medical History Asthma Asthma CHF (congestive heart failure) Chronic systolic (congestive) heart failure Cocaine abuse COPD (chronic obstructive pulmonary disease) Morbid obesity Morbid obesity NICM (nonischemic cardiomyopathy) LISSET (obstructive sleep apnea) Family History Family History Mother Ovarian cancer Diabetes Surgical History Surgical History History of cardiac catheterization (~11/07/20) History of surgery Social History Social History Household Members: Spouse Household Members Other:: lives in a [employer] Housing: House Do you presently have visiting nurse or other home services: No Alcohol intake: never Patient Tobacco Use Status: Former Tobacco user Use of substances other than those prescribed or required for medical reasons: No Substance Use Type: Crack/Cocaine Advance Directives: Yes Advance Directives on File: Yes Advance Directives Date on File: 10/23/20 service: No Current occupational status: unemployed and disabled Meds Allergies Allergy/AdvReac Type Severity Reaction Status Date / Time cephalexin [From KEFLEX] Allergy Unknown UNKNOWN Verified 08/15/21 14:08 sulfamethoxazole Allergy Unknown UNKNOWN Verified 08/15/21 14:08 [From BACTRIM] trimethoprim [From BACTRIM] Allergy Unknown UNKNOWN Verified 08/15/21 14:08 Active Medications: Current Medications Acetaminophen (Acetaminophen 325 Mg Tablet) 650 mg PO Q6H PRN PRN Reason: Pain, Mild (Pain Scale 1-3) Baclofen (Baclofen 10 Mg Tablet) 10 mg PO TID PRN PRN Reason: Muscle Spasm Carvedilol (Carvedilol 6.25 Mg Tablet) 6.25 mg PO BID EZEQUIEL; Protocol Enoxaparin Sodium (Enoxaparin Sodium 40 Mg/0.4 Ml Syringe) 40 mg SUBCUT Q24H [facility] Last Admin: 09/10/21 10:33 Dose: Not Given Documented by: Ondansetron HCl (Ondansetron Hcl 4 Mg/2 Ml Vial) 4 mg IVPUSH Q8H PRN PRN Reason: Nausea and Vomiting Pharmacy Consult (Consult Rx Perform Med Rec) 1 each MISCELLANE ONCE PRN PRN Reason: Consult order Sacubitril/Valsartan (Sacubitril/Valsartan 1 Tab Tablet) 1 tab PO BID EZEQUIEL; Protocol Sodium Chloride (0.9 % Sodium Chloride Flush 3 Ml Syringe) 3 ml IVFLUSH QSHIFT EZEQUIEL Spironolactone (Spironolactone 25 Mg Tablet) 25 mg PO DAILY EZEQUIEL; Protocol Home Medications Medication Instructions Recorded Confirmed Last Taken Type spironolactone 25 mg tablet 25 mg PO DAILY 08/21/21 09/10/21 08/21/21 History baclofen 10 mg tablet 10 mg PO TID PRN 09/10/21 09/10/21 Unknown History bumetanide 1 mg tablet 2 tab PO BID 09/10/21 09/10/21 Unknown History Physical Exam Vital Signs: Vital Signs: Last Vital Signs Temp 98.9 F 09/10/21 07:38 Pulse 116 H 09/10/21 08:50 Resp 18 09/10/21 07:38 BP 111/82 09/10/21 08:50 Pulse Ox 90 L 09/10/21 07:38 Body Mass Index 48.0 Const: General: cooperative, in distress moderate and respiratory and leth argic Nutritional Appearance: obese Orientation/consciousness: patient oriented x3 and lethargic HENMT: Head: Yes normocephalic and Yes atraumatic Neck: Neck: Yes trachea midline and Yes supple Resp: Effort & Inspection: normal respiratory effort Auscultation: clear to auscultation bilaterally and diminished lung sounds Cardio: Palpation: abnormal PMI displaced PMI Rate: regular rate and tachycardic Rhythm: regular rhythm Heart sounds: S1 normal heart sound present, S2 normal heart sound present, no click, Gallop heart sound present and no murmurs GI: Inspection: Yes obesity Auscultation: normal bowel sounds Neuro: General: patient oriented x3 and no focal motor deficits Extrem: General: No clubbing, No cyanosis and Yes edema Objective Labs and Meds Result diagrams: 09/10/21 07:55 09/10/21 07:55 Lab results: Laboratory Results - last 24 hr 09/10/21 09/10/21 09/10/21 07:54 07:55 07:55 WBC 11.1 H RBC 4.61 Hgb 10.3 L Hct 34.3 L MCV 74.4 L MCH 22.3 L MCHC 30.0 L RDW 19.4 H Plt Count 381 MPV 9.0 L Immature Gran % (Auto) 0.4 Neut % (Auto) 77.9 H Lymph % (Auto) 12.6 L [place] % (Auto) 8.0 Eos % (Auto) 0.6 Baso % (Auto) 0.5 Lymph # (Auto) 1.4 [place] # (Auto) 0.9 Eos # (Auto) 0.1 Baso # (Auto) 0.1 Abs Immat Gran (auto) 0.04 H Absolute Neuts (auto) 8.7 H Absolute Nucleated RBC 0.000 Nucleated RBC % (auto) 0.0 VBG pH VBG pCO2 VBG pO2 VBG HCO3 VBG O2 Saturation VBG Base Excess Sodium 137 Potassium 4.6 D Chloride 106 Carbon Dioxide 22 Anion Gap 14 BUN 19 H Creatinine 0.87 Estim Creat Clear Calc 148.5 Estimated GFR > 60 Random Glucose 120 H Lactic Acid 1.4 Calcium 8.8 Magnesium 2.0 Total Bilirubin 1.5 H Direct Bilirubin 0.7 H AST 19 ALT 26 Alkaline Phosphatase 172 H D Troponin I High Sens B-Natriuretic Peptide Total Protein 6.4 L Albumin 3.5 COVID-19 (LEANDRO) COVID-19 Piggybackr Com 09/10/21 09/10/21 09/10/21 07:55 07:55 07:59 WBC RBC Hgb Hct MCV MCH MCHC RDW Plt Count MPV Immature Gran % (Auto) Neut % (Auto) Lymph % (Auto) [place] % (Auto) Eos % (Auto) Baso % (Auto) Lymph # (Auto) [place] # (Auto) Eos # (Auto) Baso # (Auto) Abs Immat Gran (auto) Absolute Neuts (auto) Absolute Nucleated RBC Nucleated RBC % (auto) VBG pH 7.47 H VBG pCO2 32 VBG pO2 159 VBG HCO3 23 VBG O2 Saturation 99.0 VBG Base Excess 0.9 Sodium Potassium Chloride Carbon Dioxide Anion Gap BUN Creatinine Estim Creat Clear Calc Estimated GFR Random Glucose Lactic Acid Calcium Magnesium Total Bilirubin Direct Bilirubin AST ALT Alkaline Phosphatase Troponin I High Sens 31.4 D B-Natriuretic Peptide 599 H Total Protein Albumin COVID-19 (LEANDRO) COVID-19 Piggybackr Com 09/10/21 09:07 WBC RBC Hgb Hct MCV MCH MCHC RDW Plt Count MPV Immature Gran % (Auto) Neut % (Auto) Lymph % (Auto) [place] % (Auto) Eos % (Auto) Baso % (Auto) Lymph # (Auto) [place] # (Auto) Eos # (Auto) Baso # (Auto) Abs Immat Gran (auto) Absolute Neuts (auto) Absolute Nucleated RBC Nucleated RBC % (auto) VBG pH VBG pCO2 VBG pO2 VBG HCO3 VBG O2 Saturation VBG Base Excess Sodium Potassium Chloride Carbon Dioxide Anion Gap BUN Creatinine Estim Creat Clear Calc Estimated GFR Random Glucose Lactic Acid Calcium Magnesium Total Bilirubin Direct Bilirubin AST ALT Alkaline Phosphatase Troponin I High Sens B-Natriuretic Peptide Total Protein Albumin COVID-19 (LEANDRO) Negative COVID-19 Clin Com See Note Imaging Radiologist's impression: Impressions Chest X-Ray 09/10/21 07:46 IMPRESSION: Moderate cardiomegaly.. Hypoexpanded lungs with mild haziness in both lung bases likely compressive atelectasis. Assessment and Plan (1) Acute systolic (congestive) heart failure: Status: Acute Acute congestive heart failure in middle-aged man with prior known severe nonischemic cardiomyopathy. He has prior history of noncompliance I am not sure if he is taking his medications. Also has history of prior cocaine abuse. Obtain U tox. This is importance to determine his compliance. He did not comply with his outpatient follow-up visit. Also does not compliant with his CPAP therapy. Clinically still short of breath. BNP is elevated. Would start him on Bumex drip at 0.5 mg an hour. Strict intake and output chart needs to be pursued. Continue carvedilol, Entresto and spironolactone. Overall prognosis is guarded. Importance of follow-up with treatment plan was discussed with him. He was somnolent and not sure if he understands. Will follow with him Procedures Date of Service Date of Service: 09/10/21
[2021-09-10 16:01] LABS: Amphetamine Screen Urine Not Detected (Not Detect); Barbiturates, Urine Not Detected (Not Detect); Benzodiazepines Screen Urine Not Detected (Not Detect); Cannabinoid Screen Urine POSITIVE (Not Detect); Cocaine Screen Urine POSITIVE (Not Detect); Fentanyl, urine POSITIVE (Not Detect); Opiate Screen Urine Not Detected (Not Detect); Phencyclidine Screen Urine Not Detected (Not Detect)
--- NOTE | 2021-09-10 16:27 | PM.EVENT ---
Event Note Date of Service: 09/10/21 Event Note: Addendum to history and physical by mid-level provider CRAB CATCHER Suellen Stewart I interviewed and examined the patient. I discussed their presentation and management with the mid-level provider. I reviewed the history and physical and agree with the documentation, with the following additions and corrections: 51yo M with severe NICM (LVEF 10% 05/30/21) recently discharged from [facility] [place]/26/21 after admission for CHF + COPD. Did not follow up with [facility] Cardiology. Presents with worsening dyspnea + fatigue. Hx cocaine use but denies use since last admission. On exam, somnolent but arousable, PMI laterally displaced, no murmurs noted. Morbidly obese. Legs with edema. BNP 599 (was 186 at discharge last time), CXR clear, SCr 0.87. Plan admit to [facility] [place], Cardiology consultation, IV bumetanide infusion, check Utox, screen for HBV/HCV/HIV given cocaine abuse. Continue NH modulation with Entresto, carvedilol, and spironolactone.
[2021-09-10] MEDS: Bumetanide 25 MG in Container,Empty 0 ML IVCONT (16:42)
[2021-09-10 16:48] VITALS: BP 106/69; PULSE 103; RESP 18; O2SAT 95
--- NOTE | 2021-09-10 18:41 | MHC.CM.PN ---
CM met with admitted patient with bed assignment pending. IMM reviewed and signed per protocol 09/10/2021@1825. HCP on file. HCP/ Lonnie Bartlett ([phone]). Recently d[place]c [place] [facility] [place] for CHF, COPD. Pt has not been vaccinated for Covid. Pt states he is not like a sheep . NO . Pt was very defensive and would not let CM speak to him at all about vaccinations. Lives with , uses no DME or services. Pt does not have CPAP machine at home, but needs one. Pt has hx of non-compliance. Pt is concerned he may need home oxygen. Pt will need resp evaluation prior to d/c. Explained to patient that arrangements would be made for home Oxygen if recommended by RT. D/C plan is home without services at this time. Pt will arrange transportation home. CM to follow for d/c needs.
[2021-09-10 21:19] VITALS: BP 103/63; PULSE 105; RESP 18; TEMP 36.9; O2SAT 94
[2021-09-10 23:31] VITALS: BP 108/58; PULSE 105; RESP 18; TEMP 36.7; O2SAT 95
[2021-09-10] MEDS: 0.9 % Sodium Chloride Flush 3 ML SYRINGE IVFLUSH (23:43)
[2021-09-11] MEDS: Sacubitril/Valsartan 24/26 1 TAB TABLET PO ×3 (00:41→20:55)
[2021-09-11 03:44] VITALS: BP 95/65; PULSE 105; RESP 18; TEMP 36.9; O2SAT 94
[2021-09-11 05:44] LABS: HBsAGNum1 0.19 S/CO (0.00-0.99); Hepatitis B Surface Antigen Negative (Negative); ~HepC Num1 0.09 S/CO (0.00-0.79); ~Hepatitis C Antibody Nonreactive (Nonreactive)
[2021-09-11 05:49] LABS: HBS Num1 0.81 mIU/mL (0-7.99); Hepatitis B Core Antibody Nonreactive (Nonreactive); ~Hepatitis B Surface Antibody NONREACTIVE (Nonreactive)
[2021-09-11 06:36] VITALS: BMI 50.5
[2021-09-11 06:42] LABS: MANUAL DIFF FLAG NO
[2021-09-11 06:56] LABS: Basophils Percent Auto 0.1 % (0-2); Hematocrit 37.8 % (42.0-52.0); Hemoglobin 11.3 g/dl (14.0-18.0); Imm Gran Abs Auto 0.09 X10*3/uL (0.00-0.03); Imm Gran Pct Auto 0.5 % (0.0-0.4); Lymphocytes Percent Auto 5.5 % (20-40); Mean Corpuscular HGB Conc 29.9 g/dl (31.0-36.0); Mean Corpuscular Hemoglobin 22.3 pg (27.0-33.0); Mean Corpuscular Volume 74.6 fL (80.0-98.0); Mean Platelet Volume 9.4 fL (9.4-12.4); Monocytes Percent Auto 5.4 % (2-11); Neutrophils Percent Auto 88.5 % (45-73); Platelet Count 459 X10*3/uL (160-400); Red Blood Count 5.07 X10*6/uL (4.60-5.80); Red Cell Distribution Width 19.4 % (11.0-16.0)
[2021-09-11 07:07] VITALS: BP 112/58; PULSE 102; RESP 17; TEMP 36.6; O2SAT 94
[2021-09-11 07:09] LABS: Anion Gap 15 (12-20); Blood Urea Nitrogen 29 mg/dL (9-16); Carbon Dioxide 25 mmol/L (22-29); Chloride 103 mmol/L (96-108); Creatinine Clr Calc Pharmacy 125.6; Estimated Glomerular Filt Rate > 60; Glucose Random 145 mg/dL (60-115); Potassium 4.4 mmol/L (3.3-5.1); Sodium 139 mmol/L (135-145)
[2021-09-11 07:10] LABS: B Type Natriuretic Peptide 1214 pg/mL (<100)
[2021-09-11 07:20] LABS: HIV AB/AG Nonreactive (Nonreactive); HIV Num 1 0.14 S/CO (0.00-0.99)
--- NOTE | 2021-09-11 09:02 | MHC.CDI.CONC ---
CDI Concurrent Query Documentation Clarification: PHYSICIAN'S DOCUMENTATION REQUEST Date of Query: 09/11/21 0903 Patient Name: Leandro Bartlett Admit Date: 09/10/21 Dear Doctor, A review of the medical record indicates additional documentation may be needed. Please review below and update the documentation accordingly. Clinical Indicators: Risk Factors/Clinical Indicators/Treatments ED: 09/10 - Clinical impression - COPD exacerbation. Mild respiratory distress, dyspnea. Admit for CHF and COPD. Noncompliant with recent admit for COPD and CHF. H&P: 09/10 - shortness of breath, phlegm, cough, hyoxic in ED. Solumedrol. Please clarify the following: COPD Exacerbation, treating, rule out, history of: [Diagnosis] was present on admission and is now resolved [Diagnosis] was present on admission and is still being monitored, evaluated, or treated [Diagnosis] was ruled out [Diagnosis] is still a likely, suspected, probable diagnosis Other (please specify) Unable to determine Use of terms such as suspected, likely, concern for, or probable (associated with a specific diagnosis that is being evaluated, monitored, or treated as if it exists) are acceptable and can be coded in the inpatient setting, when documented at the time of discharge. Thank you, Amber Danielson [facility], CDIS Extension: [phone] Please use your independent medical judgment in providing your response. THIS QUERY IS PART OF THE PERMANENT MEDICAL RECORD Provider Response: Other Other Diagnosis: hx of copd NOT in acute exac
[2021-09-11 10:16] VITALS: BP 112/58; PULSE 102
[2021-09-11] MEDS: Spironolactone 25 MG TABLET PO (10:16)
[2021-09-11] MEDS: carvediloL 6.25 MG TABLET PO ×2 (10:16→20:55)
[2021-09-11] MEDS: Enoxaparin Sodium 40 MG/0.4 ML SYRINGE SUBCUT (10:17)
--- NOTE | 2021-09-11 10:19 | HO.PM.IMPN ---
Subjective Subjective Date of Service: 09/11/21 Interval History: still swollen in legs no dyspnea no chest pain denies any cocaine or fentanyl use since last admisison Review of Systems Review of Systems: Yes all other systems are reviewed and are negative Physical Exam Vital Signs: Vital Signs: Last Vital Signs Temp 97.9 F 09/11/21 07:07 Pulse 102 H 09/11/21 07:07 Resp 17 09/11/21 07:07 BP 112/58 L 09/11/21 07:07 Pulse Ox 94 09/11/21 07:07 Body Mass Index 50.5 Gen: in no acute distress HEENT: sclera anicteric, moist mucus membranes Neck: supple Lungs: diminished Heart: PMI laterally displaced, regular, no murmurs Abd: morbidly obese, soft, non-tender, non-distended Ext: 2+ LE edema Skin: warm/well-perfused Neuro: alert and oriented x3, no focal findings Psych: appropriate affect Objective Data Active Medications Acetaminophen (Acetaminophen 325 Mg Tablet) 650 mg PO Q6H PRN PRN Reason: Pain, Mild (Pain Scale 1-3) Baclofen (Baclofen 10 Mg Tablet) 10 mg PO TID PRN PRN Reason: Muscle Spasm Carvedilol (Carvedilol 6.25 Mg Tablet) 6.25 mg PO BID [facility]; Protocol Last Admin: 09/10/21 22:24 Dose: 6.25 mg Documented by: MARIANGEL Enoxaparin Sodium (Enoxaparin Sodium 40 Mg/0.4 Ml Syringe) 40 mg SUBCUT Q24H [facility] Last Admin: 09/10/21 10:33 Dose: Not Given Documented by: STEVE Non-Admin Reason: Patient Refused Bumetanide 25 mg/ IV (Miscellaneous Supplies) 100 mls @ 2 mls/hr IVCONT .Q24H [facility] Last Admin: 09/10/21 16:42 Dose: 0.5 mg/hr, 2 mls/hr Documented by: STEVE Ondansetron HCl (Ondansetron Hcl 4 Mg/2 Ml Vial) 4 mg IVPUSH Q8H PRN PRN Reason: Nausea and Vomiting Pharmacy Consult (Consult Rx Perform Med Rec) 1 each MISCELLANE ONCE PRN PRN Reason: Consult order Sacubitril/Valsartan (Sacubitril/Valsartan 1 Tab Tablet) 1 tab PO BID [facility]; Protocol Last Admin: 09/11/21 00:41 Dose: 1 tab Documented by: JESSICA Sodium Chloride (0.9 % Sodium Chloride Flush 3 Ml Syringe) 3 ml IVFLUSH QSHIFT [facility] Last Admin: 09/10/21 23:43 Dose: 3 ml Documented by: JESSICA Spironolactone (Spironolactone 25 Mg Tablet) 25 mg PO DAILY [facility]; Protocol Labs CBC & Chem 7: 09/11/21 06:00 09/11/21 06:00 Labs: Laboratory Results - last 24 hr 09/10/21 09/10/21 09/11/21 15:40 20:57 06:00 MCV MCH MCHC RDW Plt Count MPV Immature Gran % (Auto) Neut % (Auto) Lymph % (Auto) Iron % (Auto) Eos % (Auto) Baso % (Auto) Lymph # (Auto) Iron # (Auto) Eos # (Auto) Baso # (Auto) Abs Immat Gran (auto) Absolute Neuts (auto) Absolute Nucleated RBC Nucleated RBC % (auto) Anion Gap Estim Creat Clear Calc Estimated GFR Random Glucose Calcium Magnesium B-Natriuretic Peptide 1214 H Urine Opiates Screen Not Detected Urine Fentanyl Screen POSITIVE H Ur Barbiturates Screen Not Detected Ur Phencyclidine Scrn Not Detected Ur Amphetamines Screen Not Detected U Benzodiazepines Scrn Not Detected Urine Cocaine Screen POSITIVE H U Marijuana (THC) Screen POSITIVE H Hep Bs Antigen Negative Hep Bs Antibody NONREACTIVE Hep B Core Total Ab Nonreactive Hepatitis C Ab (EIA) Nonreactive HIV 1&2 Ab/P24 Ag 4thGn 09/11/21 09/11/21 09/11/21 06:00 06:00 06:00 MCV 74.6 L MCH 22.3 L MCHC 29.9 L RDW 19.4 H Plt Count 459 H MPV 9.4 Immature Gran % (Auto) 0.5 H Neut % (Auto) 88.5 H Lymph % (Auto) 5.5 L Iron % (Auto) 5.4 Eos % (Auto) 0.0 Baso % (Auto) 0.1 Lymph # (Auto) 1.0 L Iron # (Auto) 1.0 Eos # (Auto) 0.0 Baso # (Auto) 0.0 Abs Immat Gran (auto) 0.09 H Absolute Neuts (auto) 16.0 H Absolute Nucleated RBC 0.000 Nucleated RBC % (auto) 0.0 Anion Gap 15 Estim Creat Clear Calc 125.6 Estimated GFR > 60 Random Glucose 145 H Calcium 9.0 Magnesium 2.0 B-Natriuretic Peptide Urine Opiates Screen Urine Fentanyl Screen Ur Barbiturates Screen Ur Phencyclidine Scrn Ur Amphetamines Screen U Benzodiazepines Scrn Urine Cocaine Screen U Marijuana (THC) Screen Hep Bs Antigen Hep Bs Antibody Hep B Core Total Ab Hepatitis C Ab (EIA) HIV 1&2 Ab/P24 Ag 4thGn Nonreactive Microbiology Microbiology Results: Microbiology 09/10/21 08:15 Blood Culture - Preliminary Blood - Venous No growth after 24 hours. Assessment and Plan (1) Acute systolic (congestive) heart failure: Status: Acute Assessment and Plan: hospital d#2 51yo M with severe NICM (LVEF 10% 05/30/21) recently discharged from [facility] [place] after admission for CHF + COPD exacerbations, did not follow up with [facility] Cardiology, and presents with worsening dyspnea + fatigu # acute/chronic HFrEF - continue bumetanide IV infusion, monitor BNP/BMP/I+O/Mg - continue Entresto, carvedilol, spironolactone # COPD, not in acute exac - prn albuterol # polysubstance abuse - positive fentanyl + cocaine though pt denies use since last admission - CARE Team + Addiction Medicine consultations - HBV/HCV/HIV negative # VTE ppx - LMWH Quality Stroke Does the patient have a stroke diagnosis?: No VTE Prior VTE?: No VTE Risk Level:: Medical - moderate - high VTE Device Contraindication: Treatment Not Indicated VTE Drug Contraindication: N/A - Med Ordered
[2021-09-11 11:08] VITALS: BP 93/70; PULSE 105; RESP 17; TEMP 36.8; O2SAT 97
--- NOTE | 2021-09-11 12:37 | PM.PNCARD ---
Subjective Subjective Date of Service: 09/11/21 Principal diagnosis: Acute congestive heart failure Interval history: Patient says he feels a lot better. He has been urinating a lot. However unfortunately the output recorded in the chart is inaccurate. He denies any other cardiac symptoms. Unfortunately also his urine tox is positive for cocaine. He said he does not use cocaine but does handle cocaine Review of Systems Constitutional: Reports no additional constitutional complaints Cardiovascular: Reports no additional cardiovascular complaints Respiratory: Reports cough and Reports excessive phlegm production Gastrointestinal: Reports no additional gastrointestinal complaints Genitourinary: Reports no additional male genitourinary complaints Skin/Breast: Reports system reviewed and no additional complaints, except as docu Reports system reviewed and no additional complaints, except as documented Psychiatric: Reports no additional psychiatric complaints Physical Exam Vital Signs: Last Vital Signs Temp 98.3 F 09/11/21 11:08 Pulse 105 H 09/11/21 11:08 Resp 17 09/11/21 11:08 BP 93/70 09/11/21 11:08 Pulse Ox 97 09/11/21 11:08 Body Mass Index 50.5 Const General: alert, awake and in distress mild and respiratory Nutritional Appearance: obese Orientation/consciousness: patient oriented x3 Resp Effort & Inspection: normal respiratory effort Auscultation: wheezes and diminished lung sounds Cardio Rate: regular rate Rhythm: regular rhythm Heart sounds: S1 normal heart sound present, S2 normal heart sound present, no click, Gallop heart sound present, no murmurs and no rubs Neuro General: patient oriented x3 Extrem General: No clubbing, No cyanosis and Yes edema Objective Labs and Meds Result diagrams: 09/11/21 06:00 09/11/21 06:00 Lab results: Laboratory Results - last 24 hr 09/10/21 09/10/21 09/11/21 15:40 20:57 06:00 WBC RBC Hgb Hct MCV MCH MCHC RDW Plt Count MPV Immature Gran % (Auto) Neut % (Auto) Lymph % (Auto) Winn % (Auto) Eos % (Auto) Baso % (Auto) Lymph # (Auto) Winn # (Auto) Eos # (Auto) Baso # (Auto) Abs Immat Gran (auto) Absolute Neuts (auto) Absolute Nucleated RBC Nucleated RBC % (auto) Sodium Potassium Chloride Carbon Dioxide Anion Gap BUN Creatinine Estim Creat Clear Calc Estimated GFR Random Glucose Calcium Magnesium B-Natriuretic Peptide 1214 H Urine Opiates Screen Not Detected Urine Fentanyl Screen POSITIVE H Ur Barbiturates Screen Not Detected Ur Phencyclidine Scrn Not Detected Ur Amphetamines Screen Not Detected U Benzodiazepines Scrn Not Detected Urine Cocaine Screen POSITIVE H U Marijuana (THC) Screen POSITIVE H Hep Bs Antigen Negative Hep Bs Antibody NONREACTIVE Hep B Core Total Ab Nonreactive Hepatitis C Ab (EIA) Nonreactive HIV 1&2 Ab/P24 Ag 4thGn 09/11/21 09/11/21 09/11/21 06:00 06:00 06:00 WBC 18.0 H RBC 5.07 Hgb 11.3 L Hct 37.8 L MCV 74.6 L MCH 22.3 L MCHC 29.9 L RDW 19.4 H Plt Count 459 H MPV 9.4 Immature Gran % (Auto) 0.5 H Neut % (Auto) 88.5 H Lymph % (Auto) 5.5 L Winn % (Auto) 5.4 Eos % (Auto) 0.0 Baso % (Auto) 0.1 Lymph # (Auto) 1.0 L Winn # (Auto) 1.0 Eos # (Auto) 0.0 Baso # (Auto) 0.0 Abs Immat Gran (auto) 0.09 H Absolute Neuts (auto) 16.0 H Absolute Nucleated RBC 0.000 Nucleated RBC % (auto) 0.0 Sodium 139 Potassium 4.4 Chloride 103 Carbon Dioxide 25 Anion Gap 15 BUN 29 H D Creatinine 1.06 Estim Creat Clear Calc 125.6 Estimated GFR > 60 Random Glucose 145 H Calcium 9.0 Magnesium 2.0 B-Natriuretic Peptide Urine Opiates Screen Urine Fentanyl Screen Ur Barbiturates Screen Ur Phencyclidine Scrn Ur Amphetamines Screen U Benzodiazepines Scrn Urine Cocaine Screen U Marijuana (THC) Screen Hep Bs Antigen Hep Bs Antibody Hep B Core Total Ab Hepatitis C Ab (EIA) HIV 1&2 Ab/P24 Ag 4thGn Nonreactive Progress Note: A&P Assessment and plan (1) Acute systolic (congestive) heart failure: Status: Acute Assessment and Plan: Patient presents with acute congestive heart failure. Also has cough productive of phlegm question COPD exacerbation. Treatment for the same along with Solu-Medrol and antibiotics. Continue IV Bumex for 1 more day. Trend BMP and BNP tomorrow. Unfortunately continues to have exposure to cocaine although he says he does not use it. Dangers of getting exposed to cocaine in setting of beta-blockers were discussed again. Patient seems to either not understand or been noncompliant with the recommendations. Importance of follow-up was also discussed with him. Continue for now his current neurohormonal modulation. Continue monitor blood pressure closely. Will follow with him Fall Risk Details Current Medications: Current Medications Acetaminophen (Acetaminophen 325 Mg Tablet) 650 mg PO Q6H PRN PRN Reason: Pain, Mild (Pain Scale 1-3) Albuterol Sulfate (Albuterol Sulfate 90 Mcg 8 Gm Inhaler) 2 puff INHALE RQ4H PRN PRN Reason: shortness of breath/wheeze Baclofen (Baclofen 10 Mg Tablet) 10 mg PO TID PRN PRN Reason: Muscle Spasm Carvedilol (Carvedilol 6.25 Mg Tablet) 6.25 mg PO BID [facility]; Protocol Last Admin: 09/11/21 10:16 Dose: 6.25 mg Documented by: Enoxaparin Sodium (Enoxaparin Sodium 40 Mg/0.4 Ml Syringe) 40 mg SUBCUT Q24H [facility] Last Admin: 09/11/21 10:17 Dose: 40 mg Documented by: Bumetanide 25 mg/ IV (Miscellaneous Supplies) 100 mls @ 2 mls/hr IVCONT .Q24H [facility] Last Admin: 09/10/21 16:42 Dose: 0.5 mg/hr, 2 mls/hr Documented by: Ondansetron HCl (Ondansetron Hcl 4 Mg/2 Ml Vial) 4 mg IVPUSH Q8H PRN PRN Reason: Nausea and Vomiting Pharmacy Consult (Consult Rx Perform Med Rec) 1 each MISCELLANE ONCE PRN PRN Reason: Consult order Sacubitril/Valsartan (Sacubitril/Valsartan 1 Tab Tablet) 1 tab PO BID [facility]; Protocol Last Admin: 09/11/21 10:16 Dose: 1 tab Documented by: Sodium Chloride (0.9 % Sodium Chloride Flush 3 Ml Syringe) 3 ml IVFLUSH QSHIFT [facility] Last Admin: 09/11/21 10:17 Dose: Not Given Documented by: Spironolactone (Spironolactone 25 Mg Tablet) 25 mg PO DAILY [facility]; Protocol Last Admin: 09/11/21 10:16 Dose: 25 mg Documented by: Time Spent With Patient Time: Total time spent is greater than 50% in coordination of care (as documented) at patient's floor/unit and/or counseling patient: Time with patient: 15 - 24 minutes Progress Note: Quality Stroke Does the patient have a stroke diagnosis?: No Procedures Date of Service Date of Service: 09/11/21
[2021-09-11 17:14] VITALS: BP 100/80
--- NOTE | 2021-09-11 18:06 | P.PNADD_ITS ---
Subjective Subjective Date of Service: 09/11/21 Reason For Visit: CHF Interim History: Patient currently medically admitted with CHF exacerbation. Known to this clinical writer via previous consult for cocaine use disorder. At that time patient was started on Baclofen for cocaine cravings and reported positive effect, as evidenced by significant reduction in cocaine use. During this admission UDS + for fentanyl and patient stating that he has not used fentanyl (likely cut inti his cocaine). 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 Denies any withdrawal sx related to cocaine use Review of Systems Constitutional: Reports as per HPI Mental Status Exam Mental Status Exam Patient Appearance: Appropriate Patient Orientation: Person, Place, Time and Situation Level of Consciousness: Awake Patient Behavior: Appropriate and Talkative Mood Description: Cheerful Affect Description: Cheerful Patient Cognition Impaired: No Thought Process: Intact and Goal Oriented Thought Content: positive for Goal Oriented Judgement: Fair Diagnostics Vital Signs (24Hr): Vital Signs - 24 hr 09/10/21 21:19 09/10/21 23:31 09/11/21 03:44 Temperature 98.4 F 98.1 F 98.4 F Pulse Rate 105 H 105 H 105 H Respiratory Rate 18 18 18 Blood Pressure 103/63 108/58 L 95/65 Pulse Oximetry 94 95 94 09/11/21 07:07 09/11/21 10:16 09/11/21 11:08 Temperature 97.9 F 98.3 F Pulse Rate 102 H 102 H 105 H Respiratory Rate 17 17 Blood Pressure 112/58 L 112/58 L 93/70 Pulse Oximetry 94 97 09/11/21 17:14 Temperature Pulse Rate Respiratory Rate Blood Pressure 100/80 Pulse Oximetry Body Mass Index 50.5 Labs Results: 09/12/21 05:59 09/12/21 05:59 Labs: Laboratory Results - last 48 hr 09/10/21 09/10/21 09/10/21 07:54 07:55 07:55 WBC 11.1 H RBC 4.61 Hgb 10.3 L Hct 34.3 L MCV 74.4 L MCH 22.3 L MCHC 30.0 L RDW 19.4 H Plt Count 381 MPV 9.0 L Immature Gran % (Auto) 0.4 Neut % (Auto) 77.9 H Lymph % (Auto) 12.6 L Williams % (Auto) 8.0 Eos % (Auto) 0.6 Baso % (Auto) 0.5 Lymph # (Auto) 1.4 Williams # (Auto) 0.9 Eos # (Auto) 0.1 Baso # (Auto) 0.1 Abs Immat Gran (auto) 0.04 H Absolute Neuts (auto) 8.7 H Absolute Nucleated RBC 0.000 Nucleated RBC % (auto) 0.0 VBG pH VBG pCO2 VBG pO2 VBG HCO3 VBG O2 Saturation VBG Base Excess Sodium 137 Potassium 4.6 D Chloride 106 Carbon Dioxide 22 Anion Gap 14 BUN 19 H Creatinine 0.87 Estim Creat Clear Calc 148.5 Estimated GFR > 60 Random Glucose 120 H Lactic Acid 1.4 Calcium 8.8 Magnesium 2.0 Total Bilirubin 1.5 H Direct Bilirubin 0.7 H AST 19 ALT 26 Alkaline Phosphatase 172 H D Troponin I High Sens B-Natriuretic Peptide Total Protein 6.4 L Albumin 3.5 Urine Opiates Screen Urine Fentanyl Screen Ur Barbiturates Screen Ur Phencyclidine Scrn Ur Amphetamines Screen U Benzodiazepines Scrn Urine Cocaine Screen U Marijuana (THC) Screen COVID-19 ([facility]) COVID-19 Clin Com Hep Bs Antigen Hep Bs Antibody Hep B Core Total Ab Hepatitis C Ab (EIA) HIV 1&2 Ab/P24 Ag 4thGn 09/10/21 09/10/21 09/10/21 07:55 07:55 07:59 WBC RBC Hgb Hct MCV MCH MCHC RDW Plt Count MPV Immature Gran % (Auto) Neut % (Auto) Lymph % (Auto) Williams % (Auto) Eos % (Auto) Baso % (Auto) Lymph # (Auto) Williams # (Auto) Eos # (Auto) Baso # (Auto) Abs Immat Gran (auto) Absolute Neuts (auto) Absolute Nucleated RBC Nucleated RBC % (auto) VBG pH 7.47 H VBG pCO2 32 VBG pO2 159 VBG HCO3 23 VBG O2 Saturation 99.0 VBG Base Excess 0.9 Sodium Potassium Chloride Carbon Dioxide Anion Gap BUN Creatinine Estim Creat Clear Calc Estimated GFR Random Glucose Lactic Acid Calcium Magnesium Total Bilirubin Direct Bilirubin AST ALT Alkaline Phosphatase Troponin I High Sens 31.4 D B-Natriuretic Peptide 599 H Total Protein Albumin Urine Opiates Screen Urine Fentanyl Screen Ur Barbiturates Screen Ur Phencyclidine Scrn Ur Amphetamines Screen U Benzodiazepines Scrn Urine Cocaine Screen U Marijuana (THC) Screen COVID-19 ([facility]) COVID-19 Clin Com Hep Bs Antigen Hep Bs Antibody Hep B Core Total Ab Hepatitis C Ab (EIA) HIV 1&2 Ab/P24 Ag 4thGn 09/10/21 09/10/21 09/10/21 09:07 15:40 20:57 WBC RBC Hgb Hct MCV MCH MCHC RDW Plt Count MPV Immature Gran % (Auto) Neut % (Auto) Lymph % (Auto) Williams % (Auto) Eos % (Auto) Baso % (Auto) Lymph # (Auto) Williams # (Auto) Eos # (Auto) Baso # (Auto) Abs Immat Gran (auto) Absolute Neuts (auto) Absolute Nucleated RBC Nucleated RBC % (auto) VBG pH VBG pCO2 VBG pO2 VBG HCO3 VBG O2 Saturation VBG Base Excess Sodium Potassium Chloride Carbon Dioxide Anion Gap BUN Creatinine Estim Creat Clear Calc Estimated GFR Random Glucose Lactic Acid Calcium Magnesium Total Bilirubin Direct Bilirubin AST ALT Alkaline Phosphatase Troponin I High Sens B-Natriuretic Peptide Total Protein Albumin Urine Opiates Screen Not Detected Urine Fentanyl Screen POSITIVE H Ur Barbiturates Screen Not Detected Ur Phencyclidine Scrn Not Detected Ur Amphetamines Screen Not Detected U Benzodiazepines Scrn Not Detected Urine Cocaine Screen POSITIVE H U Marijuana (THC) Screen POSITIVE H COVID-19 ([facility]) Negative COVID-19 Clin Com See Note Hep Bs Antigen Negative Hep Bs Antibody NONREACTIVE Hep B Core Total Ab Nonreactive Hepatitis C Ab (EIA) Nonreactive HIV 1&2 Ab/P24 Ag 4thGn 09/11/21 09/11/21 09/11/21 06:00 06:00 06:00 WBC 18.0 H RBC 5.07 Hgb 11.3 L Hct 37.8 L MCV 74.6 L MCH 22.3 L MCHC 29.9 L RDW 19.4 H Plt Count 459 H MPV 9.4 Immature Gran % (Auto) 0.5 H Neut % (Auto) 88.5 H Lymph % (Auto) 5.5 L Williams % (Auto) 5.4 Eos % (Auto) 0.0 Baso % (Auto) 0.1 Lymph # (Auto) 1.0 L Williams # (Auto) 1.0 Eos # (Auto) 0.0 Baso # (Auto) 0.0 Abs Immat Gran (auto) 0.09 H Absolute Neuts (auto) 16.0 H Absolute Nucleated RBC 0.000 Nucleated RBC % (auto) 0.0 VBG pH VBG pCO2 VBG pO2 VBG HCO3 VBG O2 Saturation VBG Base Excess Sodium 139 Potassium 4.4 Chloride 103 Carbon Dioxide 25 Anion Gap 15 BUN 29 H D Creatinine 1.06 Estim Creat Clear Calc 125.6 Estimated GFR > 60 Random Glucose 145 H Lactic Acid Calcium 9.0 Magnesium 2.0 Total Bilirubin Direct Bilirubin AST ALT Alkaline Phosphatase Troponin I High Sens B-Natriuretic Peptide 1214 H Total Protein Albumin Urine Opiates Screen Urine Fentanyl Screen Ur Barbiturates Screen Ur Phencyclidine Scrn Ur Amphetamines Screen U Benzodiazepines Scrn Urine Cocaine Screen U Marijuana (THC) Screen COVID-19 ([facility]) COVID-19 Clin Com Hep Bs Antigen Hep Bs Antibody Hep B Core Total Ab Hepatitis C Ab (EIA) HIV 1&2 Ab/P24 Ag 4thGn 09/11/21 06:00 WBC RBC Hgb Hct MCV MCH MCHC RDW Plt Count MPV Immature Gran % (Auto) Neut % (Auto) Lymph % (Auto) Williams % (Auto) Eos % (Auto) Baso % (Auto) Lymph # (Auto) Williams # (Auto) Eos # (Auto) Baso # (Auto) Abs Immat Gran (auto) Absolute Neuts (auto) Absolute Nucleated RBC Nucleated RBC % (auto) VBG pH VBG pCO2 VBG pO2 VBG HCO3 VBG O2 Saturation VBG Base Excess Sodium Potassium Chloride Carbon Dioxide Anion Gap BUN Creatinine Estim Creat Clear Calc Estimated GFR Random Glucose Lactic Acid Calcium Magnesium Total Bilirubin Direct Bilirubin AST ALT Alkaline Phosphatase Troponin I High Sens B-Natriuretic Peptide Total Protein Albumin Urine Opiates Screen Urine Fentanyl Screen Ur Barbiturates Screen Ur Phencyclidine Scrn Ur Amphetamines Screen U Benzodiazepines Scrn Urine Cocaine Screen U Marijuana (THC) Screen COVID-19 ([facility]) COVID-19 Clin Com Hep Bs Antigen Hep Bs Antibody Hep B Core Total Ab Hepatitis C Ab (EIA) HIV 1&2 Ab/P24 Ag 4thGn Nonreactive Imaging Radiology Impressions: ITS Impressions Chest X-Ray 09/10/21 07:46 IMPRESSION: Moderate cardiomegaly.. Hypoexpanded lungs with mild haziness in both lung bases likely compressive atelectasis. Medications Medications Current Medications Acetaminophen (Acetaminophen 325 Mg Tablet) 650 mg PO Q6H PRN PRN Reason: Pain, Mild (Pain Scale 1-3) Albuterol Sulfate (Albuterol Sulfate 90 Mcg 8 Gm Inhaler) 2 puff INHALE RQ4H PRN PRN Reason: shortness of breath/wheeze Baclofen (Baclofen 10 Mg Tablet) 10 mg PO TID PRN PRN Reason: Muscle Spasm Carvedilol (Carvedilol 6.25 Mg Tablet) 6.25 mg PO BID [facility]; Protocol Last Admin: 09/11/21 10:16 Dose: 6.25 mg Documented by: Enoxaparin Sodium (Enoxaparin Sodium 40 Mg/0.4 Ml Syringe) 40 mg SUBCUT Q24H [facility] Last Admin: 09/11/21 10:17 Dose: 40 mg Documented by: Bumetanide 25 mg/ IV (Miscellaneous Supplies) 100 mls @ 2 mls/hr IVCONT .Q24H [facility] Last Admin: 09/11/21 16:46 Dose: Not Given Documented by: Ondansetron HCl (Ondansetron Hcl 4 Mg/2 Ml Vial) 4 mg IVPUSH Q8H PRN PRN Reason: Nausea and Vomiting Pharmacy Consult (Consult Rx Perform Med Rec) 1 each MISCELLANE ONCE PRN PRN Reason: Consult order Sacubitril/Valsartan (Sacubitril/Valsartan 1 Tab Tablet) 1 tab PO BID [facility]; Protocol Last Admin: 09/11/21 10:16 Dose: 1 tab Documented by: Sodium Chloride (0.9 % Sodium Chloride Flush 3 Ml Syringe) 3 ml IVFLUSH QSHIFT [facility] Last Admin: 09/11/21 16:46 Dose: Not Given Documented by: Spironolactone (Spironolactone 25 Mg Tablet) 25 mg PO DAILY [facility]; Protocol Last Admin: 09/11/21 10:16 Dose: 25 mg Documented by: Allergies Allergies Allergy/AdvReac Type Severity Reaction Status Date / Time cephalexin [From KEFLEX] Allergy Unknown UNKNOWN Verified 08/15/21 14:08 sulfamethoxazole Allergy Unknown UNKNOWN Verified 08/15/21 14:08 [From BACTRIM] trimethoprim [From BACTRIM] Allergy Unknown UNKNOWN Verified 08/15/21 14:08 Assessment & Plan Assessment & Plan (1) Cocaine use disorder: Status: Acute Code(s): F14.10 - Cocaine abuse, uncomplicated Assessment and Plan: * Patient reports significant decrease in amount of cocaine being and frequesncy (previously at several times per day every day now maybe once per week) He continues to deny any recent use however * States that baclofen has helped with cravings and would be open to increasing dose. Currently at 10mg TID. Can increase to 15 or 20mg TID * Aware of resources and connectd to provider. No additional follow up needed by [facility] at this time I spent ___15___ minutes with the patient and/or on the patient floor today, greater than?50% of which was spent counseling/coordinating care.
[2021-09-11 20:36] VITALS: BP 104/58; PULSE 86; RESP 19; TEMP 37.1; O2SAT 93
[2021-09-11] MEDS: Bumetanide 25 MG in Container,Empty 0 ML IVCONT (20:56)
[2021-09-11] MEDS: Melatonin 3 MG TABLET 6 MG PO (22:32)
[2021-09-12] VITALS (8 sets, daily range): BP systolic 98–123; BP diastolic 50–87; PULSE 90–110; RESP 18–20; TEMP 36.4–37.3; O2SAT 91–96; BMI 50.5
--- NOTE | 2021-09-12 05:21 | P.EN_ITS ---
Event Note Date of Service: 09/12/21 Event Note: Bacteremia: Bloox cx Growing GPR; ?contaminatiopn; Empiric ceftria xone. Day hospitalist to Follow up Final Blood cultures.
--- NOTE | 2021-09-12 05:21 | PM.EVENT ---
Event Note Date of Service: 09/12/21 Event Note: Bacteremia: Bloox cx Growing GPR; ?contaminatiopn; Empiric ceftriaxone. Day hospitalist to Follow up Final Blood cultures.
[2021-09-12 06:54] LABS: Hematocrit 42.9 % (42.0-52.0); Hemoglobin 12.9 g/dl (14.0-18.0); Mean Corpuscular HGB Conc 30.1 g/dl (31.0-36.0); Mean Corpuscular Hemoglobin 22.2 pg (27.0-33.0); Mean Platelet Volume 8.9 fL (9.4-12.4); Platelet Count 478 X10*3/uL (160-400); Red Cell Distribution Width 19.9 % (11.0-16.0); White Blood Count 15.3 X10*3/uL (4.8-10.8)
[2021-09-12 06:59] LABS: B Type Natriuretic Peptide 409 pg/mL (<100)
[2021-09-12 07:07] LABS: Alanine Aminotransferase 26 U/L (0-40); Albumin Level 3.6 g/dL (3.5-5.0); Alkaline Phosphatase 167 U/L (39-117); Anion Gap 17 (12-20); Aspartate Amino Transferase 14 U/L (5-37); Bilirubin Direct 0.4 mg/dL (0.0-0.5); Bilirubin Total 0.8 mg/dL (0.0-1.0); Blood Urea Nitrogen 28 mg/dL (9-16); Calcium 8.7 mg/dL (8.4-10.2); Carbon Dioxide 32 mmol/L (22-29); Chloride 95 mmol/L (96-108); Creatinine Clr Calc Pharmacy 140.1; Estimated Glomerular Filt Rate > 60; Glucose Random 108 mg/dL (60-115); Magnesium 1.8 mg/dL (1.6-2.6); Potassium 3.7 mmol/L (3.3-5.1); Sodium 140 mmol/L (135-145); Total Protein 6.8 g/dL (6.5-8.0)
[2021-09-12] MEDS: Sacubitril/Valsartan 24/26 1 TAB TABLET PO ×2 (08:56→21:36)
[2021-09-12] MEDS: Spironolactone 25 MG TABLET PO (08:56)
[2021-09-12] MEDS: carvediloL 6.25 MG TABLET PO ×2 (08:56→21:36)
[2021-09-12] MEDS: 0.9 % Sodium Chloride Flush 3 ML SYRINGE IVFLUSH (08:56)
[2021-09-12] MEDS: Enoxaparin Sodium 40 MG/0.4 ML SYRINGE SUBCUT (10:29)
[2021-09-12] MEDS: predniSONE 20 MG TABLET 40 MG PO (10:29)
--- NOTE | 2021-09-12 11:08 | P.PNCA_ITS ---
Subjective Subjective Date of Service: 09/12/21 <YASMIN Sirera - Last Filed: 09/12/21 11:34> 09/12/21 <Mariusz Muhammad MD - Last Filed: 09/12/21 12:31> Principal diagnosis: Acute on chronic congestive heart failure <YASMIN Sierra - Last Filed: 09/12/21 11:34> Interval history: Cardiology follow up for CHF. Seen at 0830. Today he is observed resting in bed. Easily arousable. Reports breathing is comfortable. Says he is coughing up yellow and brown sputum. Did not sleep well due to frequent urination. Voiding in bathroom, not measuring it. Irritable this am. No chest pains, palpitations, dizziness. Denies having leg edema. Reports abdomen is his normal size. Tells me he was taking his meds at home. <YASMIN Sierra - Last Filed: 09/12/21 11:34> Review of Systems Review of Systems as above <YASMIN Sierra - Last Filed: 09/12/21 11:34> Yes all other systems are reviewed and are negative <YASMIN Sierra - Last Filed: 09/12/21 11:34> Physical Exam Vital Signs: Last Vital Signs Temp 99.2 F 09/12/21 08:00 Pulse 101 H 09/12/21 08:56 Resp 20 09/12/21 08:00 BP 113/57 L 09/12/21 08:56 Pulse Ox 96 09/12/21 08:00 Body Mass Index 50.5 <YASMIN Sierra - Last Filed: 09/12/21 11:34> Const Other: Morbidly obese <YASMIN Sierra - Last Filed: 09/12/21 11:34> General: cooperative, no acute distress, alert and awake <YASMIN Sierra Last Filed: 09/12/21 11:34> Orientation/consciousness: patient oriented x3 <YASMIN Sierra - Last Filed: 09/12/21 11:34> Neck Neck: Yes normal visual inspection and Yes no JVD (difficult to assess due to morbid obesity) <CONCHIS SierraC - Last Filed: 09/12/21 11:34> Resp Effort & Inspection: normal respiratory effort, able to speak in complete sentences and not labored <Khloe Bazzi NP - Last Filed: 09/12/21 11:34> Auscultation: clear to auscultation bilaterally, no rales (none noted), no rhonchi, no wheezes and diminished lung sounds <Khloe Bazzi [facility] - Last Filed: 09/12/21 11:34> Cardio Palpation: normal PMI <Khloe Bazzi [facility] - Last Filed: 09/12/21 11:34> Rate: regular rate <Khloe Rose Mary [facility] - Last Filed: 09/12/21 11:34> Rhythm: regular rhythm <Khloe Bazzi [facility] - Last Filed: 09/12/21 11:34> Heart sounds: S1 normal heart sound present and S2 normal heart sound present <Khloe Bazzi [facility] - Last Filed: 09/12/21 11:34> Peripheral pulses: Peripheral pulses 2+ throughout <Khloe Bazzi [facility] - Last Filed: 09/12/21 11:34> GI Other: obese, soft, nontender <Khloe Bazzi [facility] - Last Filed: 09/12/21 11:34> Neuro General: patient oriented x3 <Khloe Bazzi [facility] - Last Filed: 09/12/21 11:34> Extrem General: Yes normal to inspection and No edema <Khloe Bazzi [facility] - Last Filed: 09/12/21 11:34> Objective Labs and Meds Result diagrams: : 09/12/21 05:59 09/12/21 05:59 <Khloe Bazzi [facility] - Last Filed: 09/12/21 11:34> Lab results: Laboratory Results - last 24 hr 09/12/21 09/12/21 09/12/21 05:59 05:59 05:59 WBC 15.3 H RBC 5.80 Hgb 12.9 L Hct 42.9 MCV 74.0 L MCH 22.2 L MCHC 30.1 L RDW 19.9 H Plt Count 478 H MPV 8.9 L Absolute Nucleated RBC 0.000 Nucleated RBC % (auto) 0.0 Sodium 140 Potassium 3.7 Chloride 95 L Carbon Dioxide 32 H Anion Gap 17 BUN 28 H Creatinine 0.95 Estim Creat Clear Calc 140.1 Estimated GFR > 60 Random Glucose 108 Calcium 8.7 Magnesium 1.8 Total Bilirubin 0.8 Direct Bilirubin 0.4 AST 14 ALT 26 Alkaline Phosphatase 167 H B-Natriuretic Peptide 409 H Total Protein 6.8 Albumin 3.6 <YASMIN Sierra - Last Filed: 09/12/21 11:34> Progress Note: A&P Assessment and plan (1) Acute on chronic systolic heart failure: Status: Acute <YASMIN Sierra - Last Filed: 09/12/21 11:34> Assessment and Plan: Hx HFrEF, with noncompliance, cocaine use, and recurrent hospital admissions for decompensation. Discharged from last HF admit on 08/26/21. He then was No show for his outpt cardiology follow up. Last echo 05/30/21 shows EF 10- 15%, mild LA enlargement, normal valves.?He is being diuresed with IV Bunmex drip with reported improvement in his breathing. He has been voiding in bathroom and no urine outpt documented. His morbid obesity makes clinic assessment ch dexter. BNP yesterday 1214 and today 409. Weight on discharge 08/26 was 330lb and weight today 352lb. Continue to diurese with IV Bumex drip. Daily standing weights. Close monitoring of electrolyte and kidney function with electrolyte replacement as warranted. Continue Entresto and aldactone. Continue carvedilol at present. His tox screen on admit is + for cocaine, fentanyl and marijuana. On last admit he was clearly informed of the risk of vasospasm/ [place] with cocaine use and carvedilol. Will need to reeval carvedilol use at discharge since he is proving to be be consistently noncompliant. We will follow <YASMIN Sierra - Last Filed: 09/12/21 11:34> Hx HFrEF, with noncompliance, cocaine use, and recurrent hospital admissions for decompensation. Discharged from last HF admit on 08/26/21. He then was No show for his outpt cardiology follow up. Last echo 05/30/21 shows EF 10- 15%, mild LA enlargement, normal valves.?He is being diuresed with IV Bunmex drip with reported improvement in his breathing. He has been voiding in bathroom and no urine outpt documented. His morbid obesity makes clinic assessment challenging. BNP yesterday 1214 and today 409. Weight on discharge 08/26 was 330lb and weight today 352lb. Continue to diurese with IV Bumex drip. Daily standing weights. Close monitoring of electrolyte and kidney function with electrolyte replacement as warranted. Continue Entresto and aldactone. Continue carvedilol at present. His tox screen on admit is + for cocaine, fentanyl and marijuana. On last admit he was clearly informed of the risk of vasospasm/ [place] with cocaine use and carvedilol. Will need to reeval carvedilol use at discharge since he is proving to be be consistently noncompliant. We will follow Patient seen and examined. Case discussed with Khloe Bazzi. Patient has been diuresing well although he has not following recommendations to follow urinary output. The for this is difficult to manage. He is breathing better. His BNP has improved compared to yesterday. He is tolerating his medical therapy. Up titrate carvedilol to 12.5 mg b.i.d.. Continue spi ronolactone and Entresto. Complete cessation of exposure to cocaine was discussed with him again. If he remains noncompliant with recommendations, not sure if he has a good candidate for any form of advanced therapy given that he may have poor outcome. This was discussed with him as well. Will follow with you <Mariusz Muhammad MD - Last Filed: 09/12/21 12:31> (2) NICM (nonischemic cardiomyopathy): Status: Acute <YASMIN Sierra - Last Filed: 09/12/21 11:34> Assessment and Plan: Hx of NICMP. Follows in our office as outpt. Noncompliant with cocaine abstinence and unclear compliance with medications. Education on his cardiac condition has been provided to him and he does seem to understand. ICD was being planned however will need to hold off due to ongoing cocaine use, unclear med compliance and tx for CMP. At this time, continue on entresto and carvedilol. <YASMIN Sierra - Last Filed: 09/12/21 11:34> (3) Cocaine use disorder: Status: Acute <Khloe ElenaYASMIN joe - Last Filed: 09/12/21 11:34> Assessment and Plan: as above. <Khloe Garcia YASMIN Bazzi - Last Filed: 09/12/21 11:34> (4) Morbid obesity: Status: Acute <Khloe Jose YASMIN Bazzi - Last Filed: 09/12/21 11:34> (5) Noncompliance: Status: Acute <Khloe Garcia YASMIN Bazzi - Last Filed: 09/12/21 11:34> (6) Sleep apnea with hypersomnolence: Status: Acute <Khloe Garcia YASMIN Bazzi - Last Filed: 09/12/21 11:34> Assessment and Plan: As outpt we are trying to making arrangements for outpt sleep study. He has reported LISSET and has been using a friends mask at home. He will need to have his own CPAP with settings that are appropriate for him. While inpt he shou ld use hospital CPAP. Proper treatment for LISSET is essential for his HF/ CMP. <Khloe Garcia CONCHIS BazziC - Last Filed: 09/12/21 11:34> Fall Risk Details Current Medications: Current Medications Acetaminophen (Acetaminophen 325 Mg Tablet) 650 mg PO Q6H PRN PRN Reason: Pain, Mild (Pain Scale 1-3) Albuterol Sulfate (Albuterol Sulfate 90 Mcg 8 Gm Inhaler) 2 puff INHALE RQ4H PRN PRN Reason: shortness of breath/wheeze Baclofen (Baclofen 10 Mg Tablet) 10 mg PO TID PRN PRN Reason: Muscle Spasm Carvedilol (Carvedilol 6.25 Mg Tablet) 6.25 mg PO BID [facility]; Protocol Last Admin: 09/12/21 08:56 Dose: 6.25 mg Documented by: Enoxaparin Sodium (Enoxaparin Sodium 40 Mg/0.4 Ml Syringe) 40 mg SUBCUT Q24H [facility] Last Admin: 09/12/21 10:29 Dose: 40 mg Documented by: Bumetanide 25 mg/ IV (Miscellaneous Supplies) 100 mls @ 2 mls/hr IVCONT .Q24H [facility] Last Admin: 09/11/21 20:56 Dose: 0.5 mg/hr, 2 mls/hr Documented by: Ondansetron HCl (Ondansetron Hcl 4 Mg/2 Ml Vial) 4 mg IVPUSH Q8H PRN PRN Reason: Nausea and Vomiting Pharmacy Consult (Consult Rx Perform Med Rec) 1 each MISCELLANE ONCE PRN PRN Reason: Consult order Prednisone (Prednisone 20 Mg Tablet) 40 mg PO DAILY [facility] Last Admin: 09/12/21 10:29 Dose: 40 mg Documented by: Sacubitril/Valsartan (Sacubitril/Valsartan 1 Tab Tablet) 1 tab PO BID [facility]; Protocol Last Admin: 09/12/21 08:56 Dose: 1 tab Documented by: Sodium Chloride (0.9 % Sodium Chloride Flush 3 Ml Syringe) 3 ml IVFLUSH QSHIFT [facility] Last Admin: 09/12/21 08:56 Dose: 3 ml Documented by: Spironolactone (Spironolactone 25 Mg Tablet) 25 mg PO DAILY [facility]; Protocol Last Admin: 09/12/21 08:56 Dose: 25 mg Documented by: <YASMIN Sierra - Last Filed: 09/12/21 11:34> Time Spent With Patient Time: Total time spent is greater than 50% in coordination of care (as documented) at patient's floor/unit and/or counseling patient: <YASMIN Sierra - Last Filed: 09/12/21 11:34> Time with patient: 25 - 35 minutes <YASMIN Sierra - Last Filed: 09/12/21 11:34> Progress Note: Quality Stroke Does the patient have a stroke diagnosis?: No <YASMIN Sierra - Last Filed: 09/12/21 11:34> Procedures Date of Service Date of Service: 09/12/21 <YASMIN Sierra - Last Filed: 09/12/21 11:34>
--- NOTE | 2021-09-12 11:49 | HO.PM.IMPN ---
Subjective Subjective Date of Service: 09/12/21 Interval History: cc: sob interval history: improved from admission, still sob Cardiovascular Cardiovascular: Reports no additional cardiovascular complaints Gastrointestinal Gastrointestinal: Reports no additional gastrointestinal complaints Physical Exam Vital Signs: Vital Signs: Last Vital Signs Temp 98.5 F 09/12/21 11:06 Pulse 98 09/12/21 11:06 Resp 20 09/12/21 11:06 BP 101/50 L 09/12/21 11:06 Pulse Ox 94 09/12/21 11:06 Body Mass Index 50.5 Gen: in no acute distress HEENT: sclera anicteric, moist mucus membranes Neck: supple Lungs: diminished Heart: PMI laterally displaced, regular, no murmurs Abd: morbidly obese, soft, non-tender, non-distended Ext: 2+ LE edema Skin: warm/well-perfused Neuro: alert and oriented x3, no focal findings Psych: appropriate affect Objective Data Active Medications Acetaminophen (Acetaminophen 325 Mg Tablet) 650 mg PO Q6H PRN PRN Reason: Pain, Mild (Pain Scale 1-3) Albuterol Sulfate (Albuterol Sulfate 90 Mcg 8 Gm Inhaler) 2 puff INHALE RQ4H PRN PRN Reason: shortness of breath/wheeze Baclofen (Baclofen 10 Mg Tablet) 10 mg PO TID PRN PRN Reason: Muscle Spasm Carvedilol (Carvedilol 6.25 Mg Tablet) 6.25 mg PO BID [facility]; Protocol Last Admin: 09/12/21 08:56 Dose: 6.25 mg Documented by: PINA Enoxaparin Sodium (Enoxaparin Sodium 40 Mg/0.4 Ml Syringe) 40 mg SUBCUT Q24H [facility] Last Admin: 09/12/21 10:29 Dose: 40 mg Documented by: PINA Bumetanide 25 mg/ IV (Miscellaneous Supplies) 100 mls @ 2 mls/hr IVCONT .Q24H [facility] Last Admin: 09/11/21 20:56 Dose: 0.5 mg/hr, 2 mls/hr Documented by: CUATE Ondansetron HCl (Ondansetron Hcl 4 Mg/2 Ml Vial) 4 mg IVPUSH Q8H PRN PRN Reason: Nausea and Vomiting Pharmacy Consult (Consult Rx Perform Med Rec) 1 each MISCELLANE ONCE PRN PRN Reason: Consult order Prednisone (Prednisone 20 Mg Tablet) 40 mg PO DAILY [facility] Last Admin: 09/12/21 10:29 Dose: 40 mg Documented by: PINA Sacubitril/Valsartan (Sacubitril/Valsartan 1 Tab Tablet) 1 tab PO BID [facility]; Protocol Last Admin: 09/12/21 08:56 Dose: 1 tab Documented by: PINA Sodium Chloride (0.9 % Sodium Chloride Flush 3 Ml Syringe) 3 ml IVFLUSH QSHIFT [facility] Last Admin: 09/12/21 08:56 Dose: 3 ml Documented by: PINA Spironolactone (Spironolactone 25 Mg Tablet) 25 mg PO DAILY [facility]; Protocol Last Admin: 09/12/21 08:56 Dose: 25 mg Documented by: PINA Labs CBC & Chem 7: 09/12/21 05:59 09/12/21 05:59 Labs: Laboratory Results - last 24 hr 09/12/21 09/12/21 09/12/21 05:59 05:59 05:59 MCV 74.0 L MCH 22.2 L MCHC 30.1 L RDW 19.9 H Plt Count 478 H MPV 8.9 L Absolute Nucleated RBC 0.000 Nucleated RBC % (auto) 0.0 Anion Gap 17 Estim Creat Clear Calc 140.1 Estimated GFR > 60 Random Glucose 108 Calcium 8.7 Magnesium 1.8 Total Bilirubin 0.8 Direct Bilirubin 0.4 AST 14 ALT 26 Alkaline Phosphatase 167 H B-Natriuretic Peptide 409 H Total Protein 6.8 Albumin 3.6 Microbiology Microbiology Results: Microbiology 09/10/21 08:15 Blood Culture - Final Blood - Venous Coag negative Staphylococcus 09/10/21 08:16 Blood Culture - Preliminary Blood - Venous Prelim: GPR Gram Stain only Assessment and Plan (1) Acute systolic (congestive) heart failure: Status: Acute Assessment and Plan: hospital d#3 51yo M with severe NICM (LVEF 10% 05/30/21) recently discharged from [facility] [place] 08/26/21 after admission for CHF + COPD exacerbations, did not follow up with [facility] Cardiology, and presents with worsening dyspnea + fatigu acute/chronic HFrEF - continue bumetanide IV infusion, monitor BNP/BMP/I+O/Mg - continue Entresto, carvedilol, spironolactone COPD,mild acute exac - prn albuterol will start po prednisone polysubstance abuse - positive fentanyl + cocaine though pt denies use since last admission - CARE Team + Addiction Medicine appreciated - HBV/HCV/HIV negative VTE ppx - LMWH Quality Stroke Does the patient have a stroke diagnosis?: No VTE Prior VTE?: No VTE Risk Level:: Medical - moderate - high VTE Device Contraindication: Treatment Not Indicated VTE Drug Contraindication: N/A - Med Ordered
[2021-09-12] MEDS: Bumetanide 25 MG in Container,Empty 0 ML IVCONT (21:44)
[2021-09-13] VITALS (8 sets, daily range): BP systolic 95–128; BP diastolic 48–64; PULSE 95–106; RESP 18–19; TEMP 36.4–37.2; O2SAT 93–95; BMI 47.7
[2021-09-13 08:36] LABS: Hematocrit 44.2 % (42.0-52.0); Hemoglobin 13.3 g/dl (14.0-18.0); Mean Corpuscular HGB Conc 30.1 g/dl (31.0-36.0); Mean Corpuscular Hemoglobin 22.3 pg (27.0-33.0); Mean Corpuscular Volume 74.2 fL (80.0-98.0); Mean Platelet Volume 9.5 fL (9.4-12.4); Platelet Count 167 X10*3/uL (160-400); Red Blood Count 5.96 X10*6/uL (4.60-5.80); Red Cell Distribution Width 19.8 % (11.0-16.0); White Blood Count 18.3 X10*3/uL (4.8-10.8)
[2021-09-13 08:55] LABS: Anion Gap 15 (12-20); Blood Urea Nitrogen 27 mg/dL (9-16); Calcium 8.8 mg/dL (8.4-10.2); Carbon Dioxide 31 mmol/L (22-29); Chloride 96 mmol/L (96-108); Estimated Glomerular Filt Rate > 60; Glucose Fasting 116 mg/dL (60-99); Potassium 3.6 mmol/L (3.3-5.1); Sodium 138 mmol/L (135-145)
[2021-09-13 08:56] LABS: B Type Natriuretic Peptide 403 pg/mL (<100)
[2021-09-13] MEDS: Spironolactone 25 MG TABLET PO (09:02)
[2021-09-13] MEDS: carvediloL 6.25 MG TABLET PO (09:02)
[2021-09-13] MEDS: Enoxaparin Sodium 40 MG/0.4 ML SYRINGE SUBCUT (09:02)
[2021-09-13] MEDS: predniSONE 20 MG TABLET 40 MG PO (09:02)
[2021-09-13] MEDS: Sacubitril/Valsartan 24/26 1 TAB TABLET PO (09:02)
[2021-09-13] MEDS: 0.9 % Sodium Chloride Flush 3 ML SYRINGE IVFLUSH (09:03)
--- NOTE | 2021-09-13 10:11 | MHC.CM.PN ---
IMM 09/13/21 Discharge to home pending Cardiac clearance.
--- NOTE | 2021-09-13 12:10 | HO.PM.IMPN ---
Subjective Subjective Date of Service: 09/13/21 Interval History: cc: sob interval history: improved from admission, still sob Cardiovascular Cardiovascular: Reports no additional cardiovascular complaints Respiratory Respiratory: Reports no additional respiratory complaints Physical Exam Vital Signs: Vital Signs: Last Vital Signs Temp 98.4 F 09/13/21 08:00 Pulse 95 09/13/21 09:02 Resp 18 09/13/21 08:00 BP 128/55 L 09/13/21 09:02 Pulse Ox 95 09/13/21 08:00 Body Mass Index 47.7 Gen: in no acute distress HEENT: sclera anicteric, moist mucus membranes Neck: supple Lungs: diminished Heart: PMI laterally displaced, regular, no murmurs Abd: morbidly obese, soft, non-tender, non-distended Ext: 2+ LE edema Skin: warm/well-perfused Neuro: alert and oriented x3, no focal findings Psych: appropriate affect Objective Data Active Medications Acetaminophen (Acetaminophen 325 Mg Tablet) 650 mg PO Q6H PRN PRN Reason: Pain, Mild (Pain Scale 1-3) Albuterol Sulfate (Albuterol Sulfate 90 Mcg 8 Gm Inhaler) 2 puff INHALE RQ4H PRN PRN Reason: shortness of breath/wheeze Baclofen (Baclofen 10 Mg Tablet) 10 mg PO TID PRN PRN Reason: Muscle Spasm Carvedilol (Carvedilol 6.25 Mg Tablet) 6.25 mg PO BID [facility]; Protocol Last Admin: 09/13/21 09:02 Dose: 6.25 mg Documented by: PINA Enoxaparin Sodium (Enoxaparin Sodium 40 Mg/0.4 Ml Syringe) 40 mg SUBCUT Q24H [facility] Last Admin: 09/13/21 09:02 Dose: 40 mg Documented by: PINA Bumetanide 25 mg/ IV (Miscellaneous Supplies) 100 mls @ 2 mls/hr IVCONT .Q24H [facility] Last Admin: 09/12/21 21:44 Dose: 0.5 mg/hr, 2 mls/hr Documented by: KATHARINE Ondansetron HCl (Ondansetron Hcl 4 Mg/2 Ml Vial) 4 mg IVPUSH Q8H PRN PRN Reason: Nausea and Vomiting Pharmacy Consult (Consult Rx Perform Med Rec) 1 each MISCELLANE ONCE PRN PRN Reason: Consult order Prednisone (Prednisone 20 Mg Tablet) 40 mg PO DAILY [facility] Last Admin: 09/13/21 09:02 Dose: 40 mg Documented by: PINA Sacubitril/Valsartan (Sacubitril/Valsartan 1 Tab Tablet) 1 tab PO BID [facility]; Protocol Last Admin: 09/13/21 09:02 Dose: 1 tab Documented by: PINA Sodium Chloride (0.9 % Sodium Chloride Flush 3 Ml Syringe) 3 ml IVFLUSH QSHIFT [facility] Last Admin: 09/13/21 09:03 Dose: 3 ml Documented by: PINA Spironolactone (Spironolactone 25 Mg Tablet) 25 mg PO DAILY [facility]; Protocol Last Admin: 09/13/21 09:02 Dose: 25 mg Documented by: PINA Labs CBC & Chem 7: 09/13/21 07:56 09/13/21 07:56 Labs: Laboratory Results - last 24 hr 09/13/21 09/13/21 09/13/21 07:56 07:56 07:56 MCV 74.2 L MCH 22.3 L MCHC 30.1 L RDW 19.8 H Plt Count 167 D MPV 9.5 Absolute Nucleated RBC 0.000 Nucleated RBC % (auto) 0.0 Anion Gap 15 Estim Creat Clear Calc 148.0 Estimated GFR > 60 Fasting Glucose 116 H Calcium 8.8 B-Natriuretic Peptide 403 H Microbiology Microbiology Results: Microbiology 09/10/21 08:16 Blood Culture - Preliminary Blood - Venous Prelim: GPR Gram Stain only Prelim: GPC Gram Stain only 09/10/21 08:15 Blood Culture - Final Blood - Venous Coag negative Staphylococcus Assessment and Plan (1) Acute systolic (congestive) heart failure: Status: Acute Assessment and Plan: hospital d#4 51yo M with severe NICM (LVEF 10% 05/30/21) recently discharged [place] [facility] after admission for CHF + COPD exacerbations, did not follow up with [facility] Cardiology, and presents with worsening dyspnea + fatigu acute/chronic HFrEF - continue bumetanide IV infusion, monitor BNP/BMP/I+O/Mg - continue Entresto - increase dose, carvedilol increase to 12.5mg bid, spironolactone COPD,mild acute exac - prn albuterol started po prednisone multiple positive blood cultures coag negative staph, cornyeobacter, 2nd gpc pending at this point, all appear to be contaminants, follow up final results, no abx for now polysubstance abuse - positive fentanyl + cocaine though pt denies use since last admission - CARE Team + Addiction Medicine appreciated - HBV/HCV/HIV negative VTE ppx - LMWH Quality Stroke Does the patient have a stroke diagnosis?: No VTE Prior VTE?: No VTE Risk Level:: Medical - moderate - high VTE Device Contraindication: Treatment Not Indicated VTE Drug Contraindication: N/A - Med Ordered
--- NOTE | 2021-09-13 12:40 | P.PNCA_ITS ---
Subjective Subjective Date of Service: 09/13/21 Principal diagnosis: Acute on chronic congestive heart failure Interval history: Patient diuresing well but not monitoring. BNP has remained in the 400 range. Tolerating medications well. Heart rate has settled down. He is feeling better Review of Systems Review of Systems Yes all other systems are reviewed and are negative Physical Exam Vital Signs: Last Vital Signs Temp 97.5 F 09/13/21 12:00 Pulse 97 09/13/21 12:00 Resp 18 09/13/21 12:00 BP 95/48 L 09/13/21 12:00 Pulse Ox 95 09/13/21 12:00 Body Mass Index 47.7 Const General: cooperative, comfortable, no acute distress and awake Nutritional Appearance: obese Orientation/consciousness: patient oriented x3 Neck Neck: Yes trachea midline and Yes supple Resp Effort & Inspection: normal respiratory effort Auscultation: no rales, no wheezes and diminished lung sounds Cardio Rate: regular rate Rhythm: regular rhythm Heart sounds: S1 normal heart sound present, S2 normal heart sound present, no click, no gallops and no murmurs GI Auscultation: normal bowel sounds Neuro General: patient oriented x3 and no focal motor deficits Extrem General: Yes no clubbing, cyanosis or edema Objective Labs and Meds Result diagrams: 09/13/21 07:56 09/13/21 07:56 Lab results: Laboratory Results - last 24 hr 09/13/21 09/13/21 09/13/21 07:56 07:56 07:56 WBC 18.3 H RBC 5.96 H Hgb 13.3 L Hct 44.2 MCV 74.2 L MCH 22.3 L MCHC 30.1 L RDW 19.8 H Plt Count 167 D MPV 9.5 Absolute Nucleated RBC 0.000 Nucleated RBC % (auto) 0.0 Sodium 138 Potassium 3.6 Chloride 96 Carbon Dioxide 31 H Anion Gap 15 BUN 27 H Creatinine 0.87 Estim Creat Clear Calc 148.0 Estimated GFR > 60 Fasting Glucose 116 H Calcium 8.8 B-Natriuretic Peptide 403 H Progress Note: A&P Assessment and plan (1) Acute on chronic systolic heart failure: Status: Acute Assessment and Plan: Decompensated congestive heart failure with plateaus BNP. Can you IV diuresis with Bumex drip. Continue strict intake and output chart importance of this was discussed with the patient. Continue to maximize neurohormonal modulation with carvedilol and Entresto therapy. Continue monitor closely. Out of bed to chair and ambulate. Hopefully BNP tomorrow will short down trending to 100 range when he was discharged last time. Will follow the patient. Fall Risk Details Current Medications: Current Medications Acetaminophen (Acetaminophen 325 Mg Tablet) 650 mg PO Q6H PRN PRN Reason: Pain, Mild (Pain Scale 1-3) Albuterol Sulfate (Albuterol Sulfate 90 Mcg 8 Gm Inhaler) 2 puff INHALE RQ4H PRN PRN Reason: shortness of breath/wheeze Baclofen (Baclofen 10 Mg Tablet) 10 mg PO TID PRN PRN Reason: Muscle Spasm Carvedilol (Carvedilol 12.5 Mg Tablet) 12.5 mg PO BID [facility]; Protocol Enoxaparin Sodium (Enoxaparin Sodium 40 Mg/0.4 Ml Syringe) 40 mg SUBCUT Q24H [facility] Last Admin: 09/13/21 09:02 Dose: 40 mg Documented by: Bumetanide 25 mg/ IV (Miscellaneous Supplies) 100 mls @ 2 mls/hr IVCONT .Q24H [facility] Last Admin: 09/12/21 21:44 Dose: 0.5 mg/hr, 2 mls/hr Documented by: Ondansetron HCl (Ondansetron Hcl 4 Mg/2 Ml Vial) 4 mg IVPUSH Q8H PRN PRN Reason: Nausea and Vomiting Pharmacy Consult (Consult Rx Perform Med Rec) 1 each MISCELLANE ONCE PRN PRN Reason: Consult order Prednisone (Prednisone 20 Mg Tablet) 40 mg PO DAILY [facility] Last Admin: 09/13/21 09:02 Dose: 40 mg Documented by: Sacubitril/Valsartan (Sacubitril/Valsartan 49/51 1 Tab Tablet) 1 tab PO BID [facility]; Protocol Sodium Chloride (0.9 % Sodium Chloride Flush 3 Ml Syringe) 3 ml IVFLUSH QSHIFT [facility] Last Admin: 09/13/21 09:03 Dose: 3 ml Documented by: Spironolactone (Spironolactone 25 Mg Tablet) 25 mg PO DAILY [facility]; Protocol Last Admin: 09/13/21 09:02 Dose: 25 mg Documented by: Time Spent With Patient Time: Total time spent is greater than 50% in coordination of care (as documented) at patient's floor/unit and/or counseling patient: Time with patient: 25 - 35 minutes Progress Note: Quality Stroke Does the patient have a stroke diagnosis?: No Procedures Date of Service Date of Service: 09/13/21
--- NOTE | 2021-09-13 14:49 | PC.NURSE ---
BC reported to Dr. Petersen. Pt states he is not wearing That effing monitor, I don't care what you say. I should just leave.
[2021-09-13] MEDS: carvediloL 12.5 MG TABLET PO (20:07)
[2021-09-13] MEDS: Sacubitril/Valsartan 49/51 1 TAB TABLET PO (20:07)
[2021-09-13] MEDS: Bumetanide 25 MG in Container,Empty 0 ML IVCONT (23:48)
[2021-09-14 03:16] VITALS: BP 134/65; PULSE 64; RESP 20; TEMP 37; O2SAT 98
[2021-09-14 06:24] LABS: Hematocrit 42.6 % (42.0-52.0); Mean Corpuscular HGB Conc 30.5 g/dl (31.0-36.0); Mean Corpuscular Hemoglobin 22.5 pg (27.0-33.0); Mean Corpuscular Volume 73.6 fL (80.0-98.0); Mean Platelet Volume 8.6 fL (9.4-12.4); Platelet Count 441 X10*3/uL (160-400); Red Blood Count 5.79 X10*6/uL (4.60-5.80); Red Cell Distribution Width 19.4 % (11.0-16.0); White Blood Count 18.6 X10*3/uL (4.8-10.8)
[2021-09-14 06:40] LABS: Anion Gap 15 (12-20); Blood Urea Nitrogen 44 mg/dL (9-16); Carbon Dioxide 28 mmol/L (22-29); Chloride 97 mmol/L (96-108); Creatinine Clr Calc Pharmacy 108.2; Estimated Glomerular Filt Rate > 60; Glucose Fasting 126 mg/dL (60-99); Potassium 3.7 mmol/L (3.3-5.1); Sodium 136 mmol/L (135-145)
[2021-09-14 06:45] LABS: B Type Natriuretic Peptide 319 pg/mL (<100)
[2021-09-14 07:43] VITALS: BP 99/59; PULSE 93; RESP 18; TEMP 36.6; O2SAT 93
[2021-09-14] MEDS: predniSONE 20 MG TABLET 40 MG PO (09:44)
[2021-09-14] MEDS: 0.9 % Sodium Chloride Flush 3 ML SYRINGE IVFLUSH (09:46)
[2021-09-14 11:32] VITALS: BP 96/58; PULSE 98; RESP 20; TEMP 36.5; O2SAT 95
--- NOTE | 2021-09-14 11:35 | P.DS_ITS ---
DS: Providers Provider Date of Service: 09/14/21 Date of admission: 09/10/21 09:56 Primary care physician: Karel Silva PA-C Consults: 09/10/21 09:56 Consult to Cardiology Routine Consulting Provider: Mariusz Muhammad Reason for consultation: heart failure Has provider been notified: No 09/11/21 08:03 Addiction Medicine Routine Consulting Provider: Nae Manley Reason for consultation: fentanly + coacaine despite severe cardiomyopath Consult to Care Team Routine Comment: Reason for consultation: fentanly + coacaine despite severe cardiomyopath DS: Diagnosis Discharge Diagnosis (1) Acute on chronic systolic heart failure: Status: Acute DS: Summary Hospital Course Hospital Course: patient was admitted for acute on chronic systolic CHF. He was treated with bumetanide IV infusion and diuresed well, BNP decreased from 1219 to 319. He was seen by Cardiology increased his Entresto and carvedilol. He was also treated for mild COPD exacerbation with p.o. prednisone and symptoms improved. patient was noted to have multiple positive blood cultures, however, all organisms are consistent with contamination and patient has no signs of sepsis. He has been encouraged to discontinue cocaine and will be discharged home. Time Spent with Patient Time attestation: Total time spent providing and/or coordinating discharge services: Discharge coordination time: Greater than 30 minutes Quality: Stroke Does the patient have a stroke diagnosis?: No Physical Exam Vital Signs: Vital Signs: Last Vital Signs Temp 97.9 F 09/14/21 07:43 Pulse 93 09/14/21 07:43 Resp 18 09/14/21 07:43 BP 99/59 L 09/14/21 07:43 Pulse Ox 93 09/14/21 07:43 Body Mass Index 47.7 Gen: in no acute distress HEENT: sclera anicteric, moist mucus membranes Neck: supple Lungs: diminished Heart: PMI laterally displaced, regular, no murmurs Abd: morbidly obese, soft, non-tender, non-distended Ext: 2+ LE edema Skin: warm/well-perfused Neuro: alert and oriented x3, no focal findings Psych: appropriate affect DS: Data Data Completed and Pending Completed studies during hospitalization [Text1]: Procedures Introduction of Remdesivir Anti-infective into Peripheral Vein, Percutaneous Approach, [employer] 5 (10/18/20) Labs on day of discharge: Laboratory Results - last 24 hr 09/14/21 09/14/21 09/14/21 05:56 05:56 05:56 WBC 18.6 H RBC 5.79 Hgb 13.0 L Hct 42.6 MCV 73.6 L MCH 22.5 L MCHC 30.5 L RDW 19.4 H Plt Count 441 H D MPV 8.6 L Absolute Nucleated RBC 0.000 Nucleated RBC % (auto) 0.0 Sodium 136 Potassium 3.7 Chloride 97 Carbon Dioxide 28 Anion Gap 15 BUN 44 H D Creatinine 1.19 Estim Creat Clear Calc 108.2 Estimated GFR > 60 Fasting Glucose 126 H Calcium 9.0 Magnesium 2.0 B-Natriuretic Peptide 319 H Preliminary micro results at discharge 09/10/21 08:16 Blood Culture - Preliminary Blood - Venous Corynebacterium species Prelim: GPC Gram Stain only Discharge Plan Discharge Patient Disposition: Home, Self-Care Discharge Diagnosis: chf Referrals: Karel Silva PA-C [Primary Care Provider] - 1 Week Discharge Medications: New carvedilol 12.5 mg Tablet 12.5 mg PO BID Qty: 60 RF: 0 Entresto 49-51 mg Tablet 1 tab PO BID Qty: 60 RF: 0 prednisone 20 mg Tablet 40 mg PO DAILY Qty: 6 RF: 0 Continued nystatin 100,000 unit/mL suspension 6 ml PO Q6H PRN (Reason: thrush) 15 Days Qty: 250 RF: 0 spironolactone 25 mg tablet 25 mg PO DAILY RF: 0 bumetanide 1 mg tablet 2 tab PO BID RF: 0 baclofen 10 mg tablet 10 mg PO TID PRN (Reason: Muscle Spasm) RF: 0 Discontinued Entresto 24-26 mg tablet 1 tab PO BID 30 Days Qty: 60 RF: 5 carvedilol 6.25 mg Tablet 6.25 mg PO BID Qty: 60 RF: 2 Discharge Orders: Discharge Order (Routine); Ordered 09/14/21 Ordered By: Marek Petersen Diet: advance to usual diet Activity on Discharge: As tolerated Stand Alone Forms: Patient Portal Discharge page Care Plan Goals: manage chf Health Concerns: chf Plan of Treatment: avoid cocaine, increased doses of coreg and entresto, follow up cardio, 3 more days of prednisone Assessment: see above
[2021-09-14] MEDS: carvediloL 12.5 MG TABLET PO (11:42)
[2021-09-14] MEDS: Sacubitril/Valsartan 49/51 1 TAB TABLET PO (11:42)
--- NOTE | 2021-09-14 11:42 | MHC.CM.PN ---
IMM 09/13/21 Male 51 DX CHF He is discharged today to home. Family is here to provide transportation to home. No services have been ordered.
[2021-09-14] MEDS: Spironolactone 25 MG TABLET PO (11:43)
--- NOTE | 2021-09-14 13:30 | P.PNCA_ITS ---
Subjective Subjective Date of Service: 09/14/21 Principal diagnosis: Acute on chronic congestive heart failure Interval history: Patient feeling better. Output chart has not been maintained. Remains on Bumex drip. BNP is reduced in the 300 range Review of Systems Review of Systems Yes all other systems are reviewed and are negative Physical Exam Vital Signs: Last Vital Signs Temp 97.7 F 09/14/21 11:32 Pulse 98 09/14/21 11:32 Resp 20 09/14/21 11:32 BP 96/58 L 09/14/21 11:32 Pulse Ox 95 09/14/21 11:32 Body Mass Index 47.7 Const General: cooperative, comfortable, no acute distress, alert and awake Nutritional Appearance: obese Orientation/consciousness: patient oriented x3 Neck Neck: Yes trachea midline, Yes supple and Yes other (Difficult to evaluate JVD) Resp Effort & Inspection: normal respiratory effort Auscultation: no rales, no wheezes and diminished lung sounds Cardio Palpation: abnormal PMI displaced PMI Rate: regular rate Rhythm: regular rhythm Heart sounds: S1 normal heart sound present, S2 normal heart sound present, no click, no gallops and no murmurs GI Inspection: Yes Abdominal panniculus present and Yes obesity Auscultation: normal bowel sounds Skin General skin exam: no rashes or lesions noted Neuro General: patient oriented x3 Extrem General: No clubbing, No cyanosis and Yes pedal edema Objective Labs and Meds Result diagrams: 09/14/21 05:56 09/14/21 05:56 Lab results: Laboratory Results - last 24 hr 09/14/21 09/14/21 09/14/21 05:56 05:56 05:56 WBC 18.6 H RBC 5.79 Hgb 13.0 L Hct 42.6 MCV 73.6 L MCH 22.5 L MCHC 30.5 L RDW 19.4 H Plt Count 441 H D MPV 8.6 L Absolute Nucleated RBC 0.000 Nucleated RBC % (auto) 0.0 Sodium 136 Potassium 3.7 Chloride 97 Carbon Dioxide 28 Anion Gap 15 BUN 44 H D Creatinine 1.19 Estim Creat Clear Calc 108.2 Estimated GFR > 60 Fasting Glucose 126 H Calcium 9.0 Magnesium 2.0 B-Natriuretic Peptide 319 H Progress Note: A&P Assessment and plan (1) Acute on chronic systolic heart failure: Status: Acute Assessment and Plan: Acute on chronic congestive heart failure in patient with severe cardiomyopathy due to noncompliance with medical therapy, follow-up, cocaine use as well as CPAP therapy. He is high risk for recurrent hospitalization due to these factors. Importance of compliance with medication was discharged. Patient wants to go home. Can switch to p.o. Bumex 2 mg b.i.d.. Continue higher dose of Entresto as well as Coreg and Aldactone therapy. Extreme importance of avoiding cocaine was discussed with him. He always agrees but unfortunately comes back with recurrent hospitalization with U tox positive for cocaine. He handles cocaine due to dealing as per him. Advised him to avoided. Also strongly recommend CPAP therapy to avoid recurrent hospitalizations. Will set him up for follow-up as outpatient. Hopefully he complies with follow-up. Fall Risk Details Current Medications: Current Medications Acetaminophen (Acetaminophen 325 Mg Tablet) 650 mg PO Q6H PRN PRN Reason: Pain, Mild (Pain Scale 1-3) Albuterol Sulfate (Albuterol Sulfate 90 Mcg 8 Gm Inhaler) 2 puff INHALE RQ4H PRN PRN Reason: shortness of breath/wheeze Baclofen (Baclofen 10 Mg Tablet) 10 mg PO TID PRN PRN Reason: Muscle Spasm Carvedilol (Carvedilol 12.5 Mg Tablet) 12.5 mg PO BID [facility]; Protocol Last Admin: 09/14/21 11:42 Dose: 12.5 mg Documented by: Enoxaparin Sodium (Enoxaparin Sodium 40 Mg/0.4 Ml Syringe) 40 mg SUBCUT Q24H [facility] Last Admin: 09/14/21 09:45 Dose: Not Given Documented by: Bumetanide 25 mg/ IV (Miscellaneous Supplies) 100 mls @ 2 mls/hr IVCONT .Q24H [facility] Last Admin: 09/13/21 23:48 Dose: 0.5 mg/hr, 2 mls/hr Documented by: Ondansetron HCl (Ondansetron Hcl 4 Mg/2 Ml Vial) 4 mg IVPUSH Q8H PRN PRN Reason: Nausea and Vomiting Pharmacy Consult (Consult Rx Perform Med Rec) 1 each MISCELLANE ONCE PRN PRN Reason: Consult order Prednisone (Prednisone 20 Mg Tablet) 40 mg PO DAILY [facility] Last Admin: 09/14/21 09:44 Dose: 40 mg Documented by: Sacubitril/Valsartan (Sacubitril/Valsartan 49/51 1 Tab Tablet) 1 tab PO BID [facility]; Protocol Last Admin: 09/14/21 11:42 Dose: 1 tab Documented by: Sodium Chloride (0.9 % Sodium Chloride Flush 3 Ml Syringe) 3 ml IVFLUSH QSHIFT EZEQUIEL Last Admin: 09/14/21 09:46 Dose: 3 ml Documented by: Spironolactone (Spironolactone 25 Mg Tablet) 25 mg PO DAILY [facility]; Protocol Last Admin: 09/14/21 11:43 Dose: 25 mg Documented by: Time Spent With Patient Time: Total time spent is greater than 50% in coordination of care (as documented) at patient's floor/unit and/or counseling patient: Time with patient: 25 - 35 minutes Progress Note: Quality Stroke Does the patient have a stroke diagnosis?: No Procedures Date of Service Date of Service: 09/14/21
== END 2021-09-14 14:35 | disposition home or self-care (01) | DRG 292 ==
LOC: HO.ED 08:53 → HO.EDOVER 10:04 → HO.IMC 19:23
PROVIDERS: Family Medicine; Admitting Provider Nurse Practitioner Acute Care; Emergency Provider Emergency Medicine; PCP Physician Assistant; Visit Provider Internal Medicine
DX: I50.23 Acute on chronic systolic (congestive) heart failure (principal); D68.9 Coagulation defect, unspecified; I42.8 Other cardiomyopathies; Z68.42 Body mass index [BMI] 45.0-49.9, adult; J44.1 Chronic obstructive pulmonary disease with (acute) exacerbation; G47.30 Sleep apnea, unspecified; E66.01 Morbid (severe) obesity due to excess calories; F14.10 Cocaine abuse, uncomplicated; F19.10 Other psychoactive substance abuse, uncomplicated; Z91.14 Patient's other noncompliance with medication regimen; Z20.822 Contact with and (suspected) exposure to COVID-19; Z79.899 Other long term (current) drug therapy
CPT/HCPCS: 36415; 71045; 80048; 80076; 80307; 82803; 83605; 83735; 83880; 84484; 85025; 85027; 86704; 86706; 86803; 87040; 87076; 87205; 87340; 87389; 87635; 93005; 94640; 96365; 96375; 99285; 99291; J1650; J1956; J2930

== ENCOUNTER 2021-10-10 12:26 | Inpatient (IN) | payer MEDICARE, MEDICAID, SELFPAY ==
[2021-10-10] VITALS (8 sets, daily range): BP systolic 115–140; BP diastolic 86–110; PULSE 106–118; RESP 20–30; TEMP 36.2–36.4; O2SAT 94–100; BMI 41.0
--- NOTE | ~2021-10-10 | XR_ITS ---
EXAMINATION: XR CHEST CLINICAL INFORMATION: Dyspnea COMPARISON: Previous chest x-ray most recent TECHNIQUE: Frontal view of the chest was obtained. FINDINGS: The cardiac silhouette is enlarged but stable. There is pulmonary venous redistribution and increased perihilar markings suggestive of pulmonary edema. There is no significant pleural effusion. There is no pneumothorax. Bony structures are normal. XR/XR chest 1V IMPRESSION: Stable enlargement of cardiac silhouette. Bilateral perihilar airspace disease probably representing pulmonary edema.
--- NOTE | 2021-10-10 13:03 | ECG_ITS ---
Test Reason : SOB Blood Pressure : / mmHG Vent. Rate : 116 BPM Atrial Rate : 116 BPM P-R Int : 168 ms QRS Dur : 102 ms QT Int : 350 ms P-R-T Axes : 090 -81 074 degrees QTc Int : 486 ms Sinus tachycardia with occasional Premature ventricular complexes Poor R progression anterior leads Abnormal ECG When compared with ECG of 10-SEP-2021 09:34, No significant changes seen Referred By: Kevin Khan Electronically Signed By:SAVANNA RIVERA
--- NOTE | 2021-10-10 13:05 | ED_ITS ---
HPI - General Adult General Chief complaint: General Medical Stated complaint: DIFF BREATHIN 96% ON DUONEB,-VACC Time Seen by Provider: 10/10/21 12:58 Source: patient and old records reviewed Limitations: other (Severe dyspnea limiting H&P) History of Present Illness HPI narrative: Patient complaining of shortness of breath worsening over the past 2 days. No cough fevers or chills. He states it feels like when he has fluid buildup secondary to congestive heart failure. Patient has a history of cardiomyopathy with ejection fraction 10-15%, due for internal defibrillator placement. Related Data Home Medications Medication Instructions Recorded Confirmed spironolactone 25 mg tablet 25 mg PO DAILY 08/21/21 09/10/21 baclofen 10 mg tablet 10 mg PO TID PRN 09/10/21 09/10/21 bumetanide 1 mg tablet 2 tab PO BID 09/10/21 09/10/21 Previous Rx's Medication Instructions Recorded nystatin 100,000 unit/mL oral 6 ml PO Q6H PRN 15 Days #250 ml 08/07/21 suspension carvedilol 12.5 mg tablet 12.5 mg PO BID #60 tab 09/14/21 prednisone 20 mg tablet 40 mg PO DAILY #6 tab 09/14/21 sacubitril 49 mg-valsartan 51 mg 1 tab PO BID #60 tab 09/14/21 tablet (Entresto) Allergies Allergy/AdvReac Type Severity Reaction Status Date / Time cephalexin [From KEFLEX] Allergy Unknown UNKNOWN Verified 08/15/21 14:08 sulfamethoxazole Allergy Unknown UNKNOWN Verified 08/15/21 14:08 [From BACTRIM] trimethoprim [From BACTRIM] Allergy Unknown UNKNOWN Verified 08/15/21 14:08 Review of Systems Constitutional: Comments: No fevers or chills ENT: Reports system reviewed and no additional complaints, except as documented Cardiovascular: Comments: No chest pain Respiratory: Respiratory: Reports as per HPI [facility] Past Medical History Medical History (Updated 10/10/21 @ 15:19 by Kevin Khan MD) Asthma Asthma CHF (congestive heart failure) Chronic systolic (congestive) heart failure Cocaine abuse COPD (chronic obstructive pulmonary disease) Morbid obesity Morbid obesity NICM (nonischemic cardiomyopathy) LISSET (obstructive sleep apnea) Surgical History History of cardiac catheterization (~11/07/20) History of surgery Family History Family History Mother Ovarian cancer Diabetes Social History Social History Household Members: Family Household Members Other:: lives [facility] a motorcycle [facility] Housing: Apartment Do you presently have visiting nurse or other home services: No Alcohol intake: never Patient Tobacco Use Status: Former Tobacco user Substance Use Type: Marijuana Advance Directives: Yes Advance Directives on File: Yes Advance Directives Date on File: 10/23/20 service: No Current occupational status: unemployed and disabled Physical Exam Vital Signs: Vital Signs: Last Vital Signs Temp 97.6 F 10/10/21 12:36 Pulse 114 H 10/10/21 14:28 Resp 20 10/10/21 14:28 BP 115/86 10/10/21 12:36 Pulse Ox 100 10/10/21 14:28 BMI result Body Mass Index 41.0 Const: Other: Awake alert. Obvious distress. Resp: Other: Respiratory distress. Sitting up with accessory muscle use. Bilateral rales throughout Cardio: Other: Tachycardic. GI: Other: Obese. Soft nontender Skin: Other: Diaphoretic Neuro: Other: Nonfocal. Awake alert oriented Extrem: Other: Bilateral pedal edema Course Course Course Narrative: Severe dyspnea, respiratory failure Likely congestive heart failure Pneumonia COPD Asthma Patient placed on BiPAP shortly after arrival which he tolerated well. Lasix IV 3:14 p.m.. Patient has been weaned off BiPAP for the past 45 minutes. His oxygen level is good and he is comfortable this unless he falls asleep in which case his oxygen still drops to 84. Workup so far has shown chest x-ray consistent with congestive heart failure. BNP is a little over 1000. Troponin is mildly elevated at 76. Tox screen is positive for cocaine and cannabinoids which is similar to past results. Will repeat troponin. Repeat Lasix. Hospitalize Medical Decision Making Lab Data Result diagrams: 10/10/21 13:41 10/10/21 13:41 Labs: Lab Results 10/10/21 10/10/21 10/10/21 Range/Units 13:41 13:41 13:41 WBC 11.1 H (4.8-10.8) X10*3/uL RBC 4.57 L D (4.60-5.80) X10*6/uL Hgb 10.5 L (14.0-18.0) g/dl Hct 34.3 L (42.0-52.0) % MCV 75.1 L (80.0-98.0) fL MCH 23.0 L (27.0-33.0) pg MCHC 30.6 L (31.0-36.0) g/dl RDW 19.8 H (11.0-16.0) % Plt Count 365 (160-400) X10*3/uL MPV 9.3 L (9.4-12.4) fL Immature Gran % (Auto) 0.3 (0.0-0.4) % Neut % (Auto) 76.9 H (45-73) % Lymph % (Auto) 13.6 L (20-40) % [place] % (Auto) 8.6 (2-11) % Eos % (Auto) 0.3 (0-4) % Baso % (Auto) 0.3 (0-2) % Lymph # (Auto) 1.5 (1.2-4.9) X10*3/uL [place] # (Auto) 1.0 (0.1-1.2) X10*3/uL Eos # (Auto) 0.0 (0.0-0.4) X10*3/uL Baso # (Auto) 0.0 (0.0-0.2) X10*3/uL Abs Immat Gran (auto) 0.03 (0.00-0.03) X10*3/uL Absolute Neuts (auto) 8.6 H (2.0-8.3) x10*3/uL Absolute Nucleated RBC 0.000 (0.0-0.012) X10*3/uL Nucleated RBC % (auto) 0.0 (0.0-0.2) /100WBC D-Dimer High Sensitivty NG/ML Sodium 137 (135-145) mmol/L Potassium 4.8 D (3.3-5.1) mmol/L Chloride 107 (96-108) mmol/L Carbon Dioxide 20 L (22-29) mmol/L Anion Gap 15 (12-20) BUN 22 H (9-16) mg/dL Creatinine 0.96 (0.5-1.4) mg/dL Estim Creat Clear Calc 123.2 Estimated GFR > 60 Random Glucose 117 H (60-115) mg/dL Lactic Acid 1.7 (0.5-2.0) mmol/L Calcium 9.1 (8.4-10.2) mg/dL Total Bilirubin 1.9 H (0.0-1.0) mg/dL AST 63 H (5-37) U/L ALT 66 H (0-40) U/L Alkaline Phosphatase 157 H (39-117) U/L Troponin I High Sens (<3.5-35.0) ng/L B-Natriuretic Peptide (<100) pg/mL Total Protein 6.7 (6.5-8.0) g/dL Albumin 3.5 (3.5-5.0) g/dL Urine Opiates Screen (Not Detect) Urine Fentanyl Screen (Not Detect) Ur Barbiturates Screen (Not Detect) Ur Phencyclidine Scrn (Not Detect) Ur Amphetamines Screen (Not Detect) U Benzodiazepines Scrn (Not Detect) Urine Cocaine Screen (Not Detect) U Marijuana (THC) Screen (Not Detect) Ethyl Alcohol mg/dL 10/10/21 10/10/21 10/10/21 Range/Units 13:41 14:38 14:38 WBC (4.8-10.8) X10*3/uL RBC (4.60-5.80) X10*6/uL Hgb (14.0-18.0) g/dl Hct (42.0-52.0) % MCV (80.0-98.0) fL MCH (27.0-33.0) pg MCHC (31.0-36.0) g/dl RDW (11.0-16.0) % Plt Count (160-400) X10*3/uL MPV (9.4-12.4) fL Immature Gran % (Auto) (0.0-0.4) % Neut % (Auto) (45-73) % Lymph % (Auto) (20-40) % [place] % (Auto) (2-11) % Eos % (Auto) (0-4) % Baso % (Auto) (0-2) % Lymph # (Auto) (1.2-4.9) X10*3/uL [place] # (Auto) (0.1-1.2) X10*3/uL Eos # (Auto) (0.0-0.4) X10*3/uL Baso # (Auto) (0.0-0.2) X10*3/uL Abs Immat Gran (auto) (0.00-0.03) X10*3/uL Absolute Neuts (auto) (2.0-8.3) x10*3/uL Absolute Nucleated RBC (0.0-0.012) X10*3/uL Nucleated RBC % (auto) (0.0-0.2) /100WBC D-Dimer High Sensitivty 415 NG/ML Sodium (135-145) mmol/L Potassium (3.3-5.1) mmol/L Chloride (96-108) mmol/L Carbon Dioxide (22-29) mmol/L Anion Gap (12-20) BUN (9-16) mg/dL Creatinine (0.5-1.4) mg/dL Estim Creat Clear Calc Estimated GFR Random Glucose (60-115) mg/dL Lactic Acid (0.5-2.0) mmol/L Calcium (8.4-10.2) mg/dL Total Bilirubin (0.0-1.0) mg/dL AST (5-37) U/L ALT (0-40) U/L Alkaline Phosphatase (39-117) U/L Troponin I High Sens 76.8 H (<3.5-35.0) ng/L B-Natriuretic Peptide 1047 H (<100) pg/mL Total Protein (6.5-8.0) g/dL Albumin (3.5-5.0) g/dL Urine Opiates Screen (Not Detect) Urine Fentanyl Screen (Not Detect) Ur Barbiturates Screen (Not Detect) Ur Phencyclidine Scrn (Not Detect) Ur Amphetamines Screen (Not Detect) U Benzodiazepines Scrn (Not Detect) Urine Cocaine Screen (Not Detect) U Marijuana (THC) Screen (Not Detect) Ethyl Alcohol < 10 mg/dL 10/10/21 Range/Units 14:39 WBC (4.8-10.8) X10*3/uL RBC (4.60-5.80) X10*6/uL Hgb (14.0-18.0) g/dl Hct (42.0-52.0) % MCV (80.0-98.0) fL MCH (27.0-33.0) pg MCHC (31.0-36.0) g/dl RDW (11.0-16.0) % Plt Count (160-400) X10*3/uL MPV (9.4-12.4) fL Immature Gran % (Auto) (0.0-0.4) % Neut % (Auto) (45-73) % Lymph % (Auto) (20-40) % [place] % (Auto) (2-11) % Eos % (Auto) (0-4) % Baso % (Auto) (0-2) % Lymph # (Auto) (1.2-4.9) X10*3/uL [place] # (Auto) (0.1-1.2) X10*3/uL Eos # (Auto) (0.0-0.4) X10*3/uL Baso # (Auto) (0.0-0.2) X10*3/uL Abs Immat Gran (auto) (0.00-0.03) X10*3/uL Absolute Neuts (auto) (2.0-8.3) x10*3/uL Absolute Nucleated RBC (0.0-0.012) X10*3/uL Nucleated RBC % (auto) (0.0-0.2) /100WBC D-Dimer High Sensitivty NG/ML Sodium (135-145) mmol/L Potassium (3.3-5.1) mmol/L Chloride (96-108) mmol/L Carbon Dioxide (22-29) mmol/L Anion Gap (12-20) BUN (9-16) mg/dL Creatinine (0.5-1.4) mg/dL Estim Creat Clear Calc Estimated GFR Random Glucose (60-115) mg/dL Lactic Acid (0.5-2.0) mmol/L Calcium (8.4-10.2) mg/dL Total Bilirubin (0.0-1.0) mg/dL AST (5-37) U/L ALT (0-40) U/L Alkaline Phosphatase (39-117) U/L Troponin I High Sens (<3.5-35.0) ng/L B-Natriuretic Peptide (<100) pg/mL Total Protein (6.5-8.0) g/dL Albumin (3.5-5.0) g/dL Urine Opiates Screen Not Detected (Not Detect) Urine Fentanyl Screen Not Detected (Not Detect) Ur Barbiturates Screen Not Detected (Not Detect) Ur Phencyclidine Scrn Not Detected (Not Detect) Ur Amphetamines Screen Not Detected (Not Detect) U Benzodiazepines Scrn Not Detected (Not Detect) Urine Cocaine Screen POSITIVE H (Not Detect) U Marijuana (THC) Screen POSITIVE H (Not Detect) Ethyl Alcohol mg/dL Critical Care Time Critical Care Time Total Critical Care Time: 120 Attestation: Critical care time secondary to frequent re-evaluations and respiratory failure secondary to severe congestive heart failure secondary to cardiomyopathy and ejection fraction of 10-15%. Discharge Plan Discharge Patient Disposition: Admitted As Inpatient Prescriptions: No Action nystatin 100,000 unit/mL suspension 6 ml PO Q6H PRN (Reason: thrush) 15 Days Qty: 250 RF: 0 spironolactone 25 mg tablet 25 mg PO DAILY RF: 0 bumetanide 1 mg tablet 2 tab PO BID RF: 0 baclofen 10 mg tablet 10 mg PO TID PRN (Reason: Muscle Spasm) RF: 0 carvedilol 12.5 mg Tablet 12.5 mg PO BID Qty: 60 RF: 0 Entresto 49-51 mg Tablet 1 tab PO BID Qty: 60 RF: 0 prednisone 20 mg Tablet 40 mg PO DAILY Qty: 6 RF: 0
[2021-10-10 13:47] LABS: MANUAL DIFF FLAG NO
[2021-10-10 13:59] LABS: Lactic Acid 1.7 mmol/L (0.5-2.0)
[2021-10-10] MEDS: Nitroglycerin 2 % Oint 1 GM Packet 1 INCH TRANSDERMA (14:01)
[2021-10-10] MEDS: Furosemide 100 MG/10 ML VIAL 80 MG IVPUSH (14:01)
[2021-10-10 14:08] LABS: Alanine Aminotransferase 66 U/L (0-40); Albumin Level 3.5 g/dL (3.5-5.0); Alkaline Phosphatase 157 U/L (39-117); Anion Gap 15 (12-20); Aspartate Amino Transferase 63 U/L (5-37); Basophils Percent Auto 0.3 % (0-2); Bilirubin Total 1.9 mg/dL (0.0-1.0); Blood Urea Nitrogen 22 mg/dL (9-16); Calcium 9.1 mg/dL (8.4-10.2); Carbon Dioxide 20 mmol/L (22-29); Chloride 107 mmol/L (96-108); Creatinine Clr Calc Pharmacy 123.2; Eosinophils Percent Auto 0.3 % (0-4); Estimated Glomerular Filt Rate > 60; Glucose Random 117 mg/dL (60-115); Hematocrit 34.3 % (42.0-52.0); Hemoglobin 10.5 g/dl (14.0-18.0); Imm Gran Abs Auto 0.03 X10*3/uL (0.00-0.03); Imm Gran Pct Auto 0.3 % (0.0-0.4); Lymphocytes Absolute Auto 1.5 X10*3/uL (1.2-4.9); Lymphocytes Percent Auto 13.6 % (20-40); Mean Corpuscular HGB Conc 30.6 g/dl (31.0-36.0); Mean Corpuscular Volume 75.1 fL (80.0-98.0); Mean Platelet Volume 9.3 fL (9.4-12.4); Monocytes Percent Auto 8.6 % (2-11); Neutrophils Absolute Auto 8.6 x10*3/uL (2.0-8.3); Neutrophils Percent Auto 76.9 % (45-73); Platelet Count 365 X10*3/uL (160-400); Potassium 4.8 mmol/L (3.3-5.1); Red Blood Count 4.57 X10*6/uL (4.60-5.80); Red Cell Distribution Width 19.8 % (11.0-16.0); Sodium 137 mmol/L (135-145); Total Protein 6.7 g/dL (6.5-8.0)
[2021-10-10 14:09] LABS: B Type Natriuretic Peptide 1047 pg/mL (<100); Troponin-I High Sensitivity 76.8 ng/L (<3.5-35.0)
[2021-10-10 14:21] LABS: White Blood Count 11.1 X10*3/uL (4.8-10.8)
[2021-10-10 14:56] LABS: D Dimer High Sensitivity 415 NG/ML
[2021-10-10 15:07] LABS: Ethanol < 10 mg/dL
--- NOTE | 2021-10-10 15:07 | PC.NURSE ---
PT VERY NON COMPLIANT FROM ARRIVAL, PT WITH PERIODS OF DESATS WHILE SLEEPING 89 % PT APPEARED TO IN CHF, PLACED ON BY PAP AND PT IS NOW REFUSING TO SUNG IT, O2 OFFERED AND PT TOOK IT OFF. LAB RESULTS PROVIDER DESTIN, IS AWARE
[2021-10-10 15:11] LABS: Amphetamine Screen Urine Not Detected (Not Detect); Barbiturates, Urine Not Detected (Not Detect); Benzodiazepines Screen Urine Not Detected (Not Detect); Cannabinoid Screen Urine POSITIVE (Not Detect); Cocaine Screen Urine POSITIVE (Not Detect); Fentanyl, urine Not Detected (Not Detect); Opiate Screen Urine Not Detected (Not Detect); Phencyclidine Screen Urine Not Detected (Not Detect)
--- NOTE | 2021-10-10 15:59 | PHA.MEDREC ---
med rec complete, patient not a great historian at the moment in a lot of discomfort. Unsure if still on spironolactone or his dose of bumex, based on last discharge at end of August kept these doses. Pharmacy Consult ? Medication Reconciliation Pharmacy has completed the medication reconciliation.
--- NOTE | 2021-10-10 16:16 | P.HPHOSP_ITS ---
History of Present Illness Date of Service: 10/10/21 Chief Complaint: SOB 51-year-old male with past medical history suspected cocaine of CHF with ejection fraction of 10-15%, asthma, COPD, LISSET, history of COVID-19 pneumonia, and cocaine abuse with frequent admissions for CHF exacerbation and has history of noncompliance, he was last discharged on Noveber after treatment for exacerbation of heart failure. He presents back today with shortness of breath and fluid buid up. BNP is over 1000, CXR shows finding of pulmonary edema. + cocaine again. Of note he has history of non-compliance and states that he forgot to take my water pills for couple of days. Review of Systems Review of Systems: Gen: no fever Resp: + sob, no cough CV: no chest, + CALVIN, + leg edema GI: No n/v, no abd pain Neuro: No confusion Yes all other systems are reviewed and are negative [facility] Medical History Asthma Asthma CHF (congestive heart failure) Chronic systolic (congestive) heart failure Cocaine abuse COPD (chronic obstructive pulmonary disease) Morbid obesity Morbid obesity NICM (nonischemic cardiomyopathy) LISSET (obstructive sleep apnea) Family History Mother Ovarian cancer Diabetes Surgical History History of cardiac catheterization (~11/07/20) History of surgery Social History Household Members: Family Household Members Other:: lives in a [employer] [employer] Housing: Apartment Do you presently have visiting nurse or other home services: No Alcohol intake: never Patient Tobacco Use Status: Former Tobacco user Substance Use Type: Marijuana Advance Directives: Yes Advance Directives on File: Yes Advance Directives Date on File: 10/23/20 service: No Current occupational status: unemployed and disabled Meds Allergies Allergy/AdvReac Type Severity Reaction Status Date / Time cephalexin [From KEFLEX] Allergy Unknown UNKNOWN Verified 08/15/21 14:08 sulfamethoxazole Allergy Unknown UNKNOWN Verified 08/15/21 14:08 [From BACTRIM] trimethoprim [From BACTRIM] Allergy Unknown UNKNOWN Verified 08/15/21 14:08 Active Medications: Current Medications Pharmacy Consult (Consult Rx Perform Med Rec) 1 each MISCELLANE ONCE PRN PRN Reason: Consult order Home Medications Medication Instructions Recorded Confirmed Last Taken Type spironolactone 25 mg tablet 25 mg PO DAILY 08/21/21 10/10/21 08/21/21 History baclofen 10 mg tablet 10 mg PO BID PRN 09/10/21 10/10/21 Unknown History bumetanide 1 mg tablet 2 tab PO BID 09/10/21 10/10/21 Unknown History Physical Exam Vital Signs and Narrative: Vital Signs: Last Vital Signs Temp 97.6 F 10/10/21 12:36 Pulse 115 H 10/10/21 15:21 Resp 26 H 10/10/21 15:21 BP 115/86 10/10/21 12:36 Pulse Ox 94 10/10/21 15:21 BMI result Body Mass Index 41.0 Results Labs CBC and Chem 7: 10/10/21 13:41 10/10/21 13:41 Labs: Laboratory Results - last 24 hr 10/10/21 10/10/21 10/10/21 13:41 13:41 13:41 MCV 75.1 L MCH 23.0 L MCHC 30.6 L RDW 19.8 H Plt Count 365 MPV 9.3 L Immature Gran % (Auto) 0.3 Neut % (Auto) 76.9 H Lymph % (Auto) 13.6 L [place] % (Auto) 8.6 Eos % (Auto) 0.3 Baso % (Auto) 0.3 Lymph # (Auto) 1.5 [place] # (Auto) 1.0 Eos # (Auto) 0.0 Baso # (Auto) 0.0 Abs Immat Gran (auto) 0.03 Absolute Neuts (auto) 8.6 H Absolute Nucleated RBC 0.000 Nucleated RBC % (auto) 0.0 D-Dimer High Sensitivty Anion Gap 15 Estim Creat Clear Calc 123.2 Estimated GFR > 60 Random Glucose 117 H Lactic Acid 1.7 Calcium 9.1 Total Bilirubin 1.9 H AST 63 H ALT 66 H Alkaline Phosphatase 157 H Troponin I High Sens B-Natriuretic Peptide Total Protein 6.7 Albumin 3.5 Urine Opiates Screen Urine Fentanyl Screen Ur Barbiturates Screen Ur Phencyclidine Scrn Ur Amphetamines Screen U Benzodiazepines Scrn Urine Cocaine Screen U Marijuana (THC) Screen Ethyl Alcohol 10/10/21 10/10/21 10/10/21 13:41 14:38 14:38 MCV MCH MCHC RDW Plt Count MPV Immature Gran % (Auto) Neut % (Auto) Lymph % (Auto) [place] % (Auto) Eos % (Auto) Baso % (Auto) Lymph # (Auto) [place] # (Auto) Eos # (Auto) Baso # (Auto) Abs Immat Gran (auto) Absolute Neuts (auto) Absolute Nucleated RBC Nucleated RBC % (auto) D-Dimer High Sensitivty 415 Anion Gap Estim Creat Clear Calc Estimated GFR Random Glucose Lactic Acid Calcium Total Bilirubin AST ALT Alkaline Phosphatase Troponin I High Sens 76.8 H B-Natriuretic Peptide 1047 H Total Protein Albumin Urine Opiates Screen Urine Fentanyl Screen Ur Barbiturates Screen Ur Phencyclidine Scrn Ur Amphetamines Screen U Benzodiazepines Scrn Urine Cocaine Screen U Marijuana (THC) Screen Ethyl Alcohol < 10 10/10/21 14:39 MCV MCH MCHC RDW Plt Count MPV Immature Gran % (Auto) Neut % (Auto) Lymph % (Auto) [place] % (Auto) Eos % (Auto) Baso % (Auto) Lymph # (Auto) [place] # (Auto) Eos # (Auto) Baso # (Auto) Abs Immat Gran (auto) Absolute Neuts (auto) Absolute Nucleated RBC Nucleated RBC % (auto) D-Dimer High Sensitivty Anion Gap Estim Creat Clear Calc Estimated GFR Random Glucose Lactic Acid Calcium Total Bilirubin AST ALT Alkaline Phosphatase Troponin I High Sens B-Natriuretic Peptide Total Protein Albumin Urine Opiates Screen Not Detected Urine Fentanyl Screen Not Detected Ur Barbiturates Screen Not Detected Ur Phencyclidine Scrn Not Detected Ur Amphetamines Screen Not Detected U Benzodiazepines Scrn Not Detected Urine Cocaine Screen POSITIVE H U Marijuana (THC) Screen POSITIVE H Ethyl Alcohol Imaging Radiologist's Impressions: Impressions Chest X-Ray 10/10/21 13:50 IMPRESSION: Stable enlargement of cardiac silhouette. Bilateral perihilar airspace disease probably representing pulmonary edema. Assessment and Plan (1) NICM (nonischemic cardiomyopathy): Status: Acute (2) Acute on chronic systolic heart failure: Status: Acute (3) Cocaine use disorder: Status: Acute 51yo M with severe NICM (LVEF 10% 05/30/21) [place] [facility] [place] for [place] and back with exacerbation of CHF, fluid overload # acute/chronic HFrEF d/t non compliance - IV bumetanide IV , - continue Entresto, carvedilol, spironolactone -Cardiology if not getting better # COPD, not in acute exac - prn albuterol # polysubstance abuse - positive MJ + cocaine Cessation advised, has seen CARE team on many occasions Quality Stroke Does the patient have a stroke diagnosis?: No VTE Prior VTE?: No VTE Risk Level:: Medical - moderate - high VTE Device Contraindication: Treatment Not Indicated VTE Drug Contraindication: N/A - Med Ordered
--- NOTE | 2021-10-10 17:06 | PC.NURSE ---
CONTINUES TO REFUSE BI PAP. TIGER TEXTED PROVIDER [facility] FOR ORDER
--- NOTE | 2021-10-10 19:56 | PC.NURSE ---
pt wakes to voice and refusing to put on bipap. pt is moving constantly in jerky movements and pulled out IV in his hand. pt states i don't wear that at home, im not wearing it now . pt refusing to put iv back in. pt pulled off all leads and refusing to be on monitor. aware.
[2021-10-11] MEDS: Morphine Sulfate 2 MG/ML CARTRIDGE 1 MG IVPUSH (00:26)
[2021-10-11 00:27] VITALS: BP 124/80; PULSE 117
[2021-10-11] MEDS: Sacubitril/Valsartan 49/51 1 TAB TABLET PO ×2 (00:27→10:04)
[2021-10-11] MEDS: carvediloL 12.5 MG TABLET PO ×2 (00:27→08:15)
[2021-10-11 00:48] LABS: COVID-19 Test Negative (Negative)
[2021-10-11] MEDS: Bumetanide 1 MG/4 ML VIAL 2 MG IVPUSH ×3 (06:38→17:33)
[2021-10-11 06:47] VITALS: BP 109/60; PULSE 101; RESP 20; O2SAT 96
[2021-10-11 08:14] VITALS: BP 109/60; PULSE 102
[2021-10-11] MEDS: Spironolactone 25 MG TABLET PO (08:14)
[2021-10-11 08:15] VITALS: BP 109/60; PULSE 100
[2021-10-11] MEDS: 0.9 % Sodium Chloride Flush 3 ML SYRINGE IVFLUSH ×3 (08:18→17:33)
--- NOTE | 2021-10-11 08:20 | PC.NURSE ---
Pt A&Ox3, LCA, no complaints of pain at this time, Medicated as per MAR orders. Call covarrubias within reach, will conitnue to monitor.
[2021-10-11 08:52] VITALS: PULSE 105; RESP 18; O2SAT 96
--- NOTE | 2021-10-11 10:13 | PM.CNCAR ---
History of Present Illness History of Present Illness Date of Service: 10/11/21 Chief complaint: DIFF BREATHIN 96% ON DUONEB,-VACC Narrative: This is a cardiology consultation regarding congestive heart failure. Patient is well-known to us and has had recurrent heart failure admissions. He has also seen in the office somewhat intermittently. No nonischemic cardiomyopathy but noncompliant with medications. This time he states that he forgot to take medications for few days and guarding creasing shortness of breath leading to this hospitalization. Had some leg swelling as well. No clear anginal-type symptoms. No orthopnea or PND. He denies using cocaine but his cocaine screens again positive. In spite of numerous counseling sessions in the past, he continues to have positive drug screen essentially every single time. Review of Systems Review of Systems: Yes all other systems are reviewed and are negative Cardiovascular: Cardiovascular: Reports as per HPI, Reports no additional cardiovascular complaints, Denies acrocyanosis, Denies cool extremities, Denies painful fingertips, Denies chest pain, Denies chest pain at rest, Denies diaphoresis, Denies syncope, Denies irregular heart rhythm, Denies claudication, Reports leg edema, Denies lightheadedness, Denies palpitations and Reports dyspnea Respiratory: Respiratory: Reports dyspnea Neurologic: Denies syncope Endocrine: Endocrine: Denies palpitations PMFSH Past Medical History Medical History Asthma Asthma CHF (congestive heart failure) Chronic systolic (congestive) heart failure Cocaine abuse COPD (chronic obstructive pulmonary disease) Morbid obesity Morbid obesity NICM (nonischemic cardiomyopathy) LISSET (obstructive sleep apnea) Family History Family History Mother Ovarian cancer Diabetes Surgical History Surgical History History of cardiac catheterization (~11/07/20) History of surgery Social History Social History Household Members: Family Household Members Other:: lives in a [place] Housing: Apartment Do you presently have visiting nurse or other home services: No Alcohol intake: never Patient Tobacco Use Status: Former Tobacco user Substance Use Type: Marijuana Advance Directives: Yes Advance Directives on File: Yes Advance Directives Date on File: 10/23/20 service: No Current occupational status: unemployed and disabled Meds Allergies Allergy/AdvReac Type Severity Reaction Status Date / Time cephalexin [From KEFLEX] Allergy Unknown UNKNOWN Verified 08/15/21 14:08 sulfamethoxazole Allergy Unknown UNKNOWN Verified 08/15/21 14:08 [From BACTRIM] trimethoprim [From BACTRIM] Allergy Unknown UNKNOWN Verified 08/15/21 14:08 Active Medications: Current Medications Baclofen (Baclofen 10 Mg Tablet) 10 mg PO BID PRN PRN Reason: Muscle Spasm Bumetanide (Bumetanide 1 Mg/4 Ml Vial) 2 mg IVPUSH BID@0900,1700 [facility]; Protocol Last Admin: 10/11/21 08:15 Dose: 2 mg Documented by: Carvedilol (Carvedilol 12.5 Mg Tablet) 12.5 mg PO BID [facility]; Protocol Last Admin: 10/11/21 08:15 Dose: 12.5 mg Documented by: Pharmacy Consult (Consult Rx Perform Med Rec) 1 each MISCELLANE ONCE PRN PRN Reason: Consult order Pharmacy Consult (Consult Rx Perform Med Rec) 1 each MISCELLANE ONCE PRN PRN Reason: Consult order Sacubitril/Valsartan (Sacubitril/Valsartan 49/51 1 Tab Tablet) 1 tab PO BID [facility]; Protocol Last Admin: 10/11/21 10:04 Dose: 1 tab Documented by: Sodium Chloride (0.9 % Sodium Chloride Flush 3 Ml Syringe) 3 ml IVFLUSH [facility] Last Admin: 10/11/21 08:18 Dose: 3 ml Documented by: Sodium Chloride (0.9 % Sodium Chloride Flush 3 Ml Syringe) 3 ml IVFLUSH [facility] Last Admin: 10/11/21 10:04 Dose: 3 ml Documented by: Spironolactone (Spironolactone 25 Mg Tablet) 25 mg PO DAILY [facility]; Protocol Last Admin: 10/11/21 08:14 Dose: 25 mg Documented by: Home Medications Medication Instructions Recorded Confirmed Last Taken Type spironolactone 25 mg tablet 25 mg PO DAILY 08/21/21 10/10/21 08/21/21 History baclofen 10 mg tablet 10 mg PO BID PRN 09/10/21 10/10/21 Unknown History bumetanide 1 mg tablet 2 tab PO BID 09/10/21 10/10/21 Unknown History Physical Exam Vital Signs: Vital Signs: Last Vital Signs Temp 97.1 F 10/10/21 21:28 Pulse 100 10/11/21 08:15 Resp 18 10/11/21 08:52 BP 109/60 10/11/21 08:15 Pulse Ox 96 10/11/21 06:47 BMI result Body Mass Index 41.0 Const: General: no acute distress HENMT: Other: Unremarkable Neck: Neck: Yes normal visual inspection Chest: Chest palpation & inspection: normal inspection of the chest Resp: Other: No significant crackles or wheezing. Cardio: Palpation: normal PMI Heart sounds: S1 normal heart sound present, S2 normal heart sound present, no gallops, no murmurs and no rubs GI: Palpation (GI): Soft to palpation Back/Spine/Pelvis: Other: unremarkable Skin: Lesions: other Neuro: Cranial nerves: Yes Other cranial nerve findings present Extrem: Other: 1+ edema General: Yes other Psych: Mental Status: other Objective Labs and Meds Result diagrams: 10/10/21 13:41 10/10/21 13:41 Lab results: Laboratory Results - last 24 hr 10/10/21 10/10/21 10/10/21 13:41 13:41 13:41 WBC 11.1 H RBC 4.57 L D Hgb 10.5 L Hct 34.3 L MCV 75.1 L MCH 23.0 L MCHC 30.6 L RDW 19.8 H Plt Count 365 MPV 9.3 L Immature Gran % (Auto) 0.3 Neut % (Auto) 76.9 H Lymph % (Auto) 13.6 L [place] % (Auto) 8.6 Eos % (Auto) 0.3 Baso % (Auto) 0.3 Lymph # (Auto) 1.5 [place] # (Auto) 1.0 Eos # (Auto) 0.0 Baso # (Auto) 0.0 Abs Immat Gran (auto) 0.03 Absolute Neuts (auto) 8.6 H Absolute Nucleated RBC 0.000 Nucleated RBC % (auto) 0.0 D-Dimer High Sensitivty Sodium 137 Potassium 4.8 D Chloride 107 Carbon Dioxide 20 L Anion Gap 15 BUN 22 H Creatinine 0.96 Estim Creat Clear Calc 123.2 Estimated GFR > 60 Random Glucose 117 H Lactic Acid 1.7 Calcium 9.1 Total Bilirubin 1.9 H AST 63 H ALT 66 H Alkaline Phosphatase 157 H Troponin I High Sens B-Natriuretic Peptide Total Protein 6.7 Albumin 3.5 Urine Opiates Screen Urine Fentanyl Screen Ur Barbiturates Screen Ur Phencyclidine Scrn Ur Amphetamines Screen U Benzodiazepines Scrn Urine Cocaine Screen U Marijuana (THC) Screen Ethyl Alcohol COVID-19 (LEANDRO) COVID-19 [employer] 10/10/21 10/10/21 10/10/21 13:41 14:38 14:38 WBC RBC Hgb Hct MCV MCH MCHC RDW Plt Count MPV Immature Gran % (Auto) Neut % (Auto) Lymph % (Auto) [place] % (Auto) Eos % (Auto) Baso % (Auto) Lymph # (Auto) [place] # (Auto) Eos # (Auto) Baso # (Auto) Abs Immat Gran (auto) Absolute Neuts (auto) Absolute Nucleated RBC Nucleated RBC % (auto) D-Dimer High Sensitivty 415 Sodium Potassium Chloride Carbon Dioxide Anion Gap BUN Creatinine Estim Creat Clear Calc Estimated GFR Random Glucose Lactic Acid Calcium Total Bilirubin AST ALT Alkaline Phosphatase Troponin I High Sens 76.8 H B-Natriuretic Peptide 1047 H Total Protein Albumin Urine Opiates Screen Urine Fentanyl Screen Ur Barbiturates Screen Ur Phencyclidine Scrn Ur Amphetamines Screen U Benzodiazepines Scrn Urine Cocaine Screen U Marijuana (THC) Screen Ethyl Alcohol < 10 COVID-19 (LEANDRO) COVID-19 [employer] 10/10/21 10/11/21 14:39 00:20 WBC RBC Hgb Hct MCV MCH MCHC RDW Plt Count MPV Immature Gran % (Auto) Neut % (Auto) Lymph % (Auto) [place] % (Auto) Eos % (Auto) Baso % (Auto) Lymph # (Auto) [place] # (Auto) Eos # (Auto) Baso # (Auto) Abs Immat Gran (auto) Absolute Neuts (auto) Absolute Nucleated RBC Nucleated RBC % (auto) D-Dimer High Sensitivty Sodium Potassium Chloride Carbon Dioxide Anion Gap BUN Creatinine Estim Creat Clear Calc Estimated GFR Random Glucose Lactic Acid Calcium Total Bilirubin AST ALT Alkaline Phosphatase Troponin I High Sens B-Natriuretic Peptide Total Protein Albumin Urine Opiates Screen Not Detected Urine Fentanyl Screen Not Detected Ur Barbiturates Screen Not Detected Ur Phencyclidine Scrn Not Detected Ur Amphetamines Screen Not Detected U Benzodiazepines Scrn Not Detected Urine Cocaine Screen POSITIVE H U Marijuana (THC) Screen POSITIVE H Ethyl Alcohol COVID-19 (LEANDRO) Negative COVID-19 Clin Com See Note ECG Interpretation: EKG with sinus tachycardia, 116/Min; poor R-wave progression anterior leads but otherwise unremarkable. Imaging Radiologist's impression: Impressions Chest X-Ray 10/10/21 13:50 IMPRESSION: Stable enlargement of cardiac silhouette. Bilateral perihilar airspace disease probably representing pulmonary edema. Assessment and Plan (1) Acute on chronic systolic heart failure: Status: Acute (2) NICM (nonischemic cardiomyopathy): Status: Acute (3) Cocaine use disorder: Status: Acute This is yet another admission in the context of missing medications as well as continued cocaine use. Also not using CPAP at home. Clinically however, he is not looking too volume overloaded or decompensated. Cardiac BNP is however higher than before. He has received IV Bumex since admission. He states that he is actually feeling good and he is able to walk around in the hallway without issues. Hence we can do another dose of IV Bumex in the evening and then discharge home on home medications. He is on a reasonable medical regimen at home, but unfortunately does not take them regularly and hence high risk of rehospitalization especially with continued cocaine. I have emphasized dangers of drug use repeatedly but I am not clear how much he wants to change his lifestyle. There is a high risk of sudden . He has also seen the EP doctor and scheduled for an ICD next month. Slight troponin leak is probably from heart failure as well as cocaine use as he had normal coronaries in the past. Procedures Date of Service Date of Service: 10/11/21
--- NOTE | 2021-10-11 12:08 | MHC.CM.PN ---
PT LIVES WITH HIS AND IS INDEPENDENT WITH ALL CARE PT HAS A CPAP AT HOME AND NO OTHER DME PT DENIES HAVING HOME/COMMUNITY SERVICES PT HAS A HCP ON FILE NAMING HIS , PANFILO, HIS AGENT PT CONFIRMS HIS PCP IS ADEN HENDRIX CURRENT DC PLAN IS HOME WITH NO SERVICES POSSIBLE DC TODAY PT WILL ARRANGE TRANSPORT
--- NOTE | 2021-10-11 12:46 | P.DS_ITS ---
DS: Providers Provider Date of Service: 10/11/21 Date of admission: 10/10/21 16:55 Primary care physician: Karel Silva PA-C Consults: 10/11/21 07:28 Consult to Cardiology Routine Consulting Provider: Lico Hester Reason for consultation: Heart failure exacerbation Has provider been notified: No DS: Diagnosis Discharge Diagnosis (1) NICM (nonischemic cardiomyopathy): Status: Acute (2) Acute on chronic systolic heart failure: Status: Acute (3) Cocaine use disorder: Status: Acute DS: Summary Hospital Course Hospital Course: 51-year-old male with past medical history suspected cocaine of CHF with ejection fraction of 10-15%, asthma, COPD, LISSET, history of COVID-19 pneumonia, and cocaine abuse with frequent admissions for CHF exacerbation and has history of noncompliance, he was last discharged on after treatment for exacerbation of heart failure. He presents back today with shortness of breath and fluid buid up. BNP is over 1000, CXR shows finding of pulmonary edema. + cocaine again. Of note he has history of non-compliance and states that he forgot to take my water pills for couple of days. Hospital course: He was hospitalized overnight and treated with IV diuretics with signficantly improvement in his stymptoms and swelling and will now be transitioned back to oral Bumex and strongly advised to stopped using cocaine or risk early . Cardiology will arrange for outpatient follow up and will at some point be getting AICD. Time Spent with Patient Time attestation: Total time spent providing and/or coordinating discharge services: Discharge coordination time: Greater than 30 minutes Quality: Stroke Does the patient have a stroke diagnosis?: No Physical Exam 2 Verdana 4l Vital Signs: Verdana 4d Verdana 4d Vital Signs: Verdana 4d Verdana 4Bd Last Vital Signs Verdana 4d Meat Counter Clerk New 4d Meat Counter Clerk New 4d Temp 97.1 F 10/10/21 21:28 Meat Counter Clerk New 4d Pulse 100 10/11/21 08:15 Meat Counter Clerk NewNew 4d Resp 18 10/11/21 08:52 BP 109/60 10/11/21 08:15 Pulse Ox 96 10/11/21 06:47 BMI result Body Mass Index 41.0 Const: Other: General: AO X 3, no acute distress Resp: CTA bilateral CVS: S1,S2,RRR GI: +BS, NT, no distention Skin: No rash Neuro: motor grossly intact Psych: appropriate affect DS: Data Data Completed and Pending Completed studies during hospitalization [Text1]: Procedures Introduction of Remdesivir Anti-infective into Peripheral Vein, Percutaneous Approach, [employer] 5 (10/18/20) Labs on day of discharge: Laboratory Results - last 24 hr 10/10/21 10/10/21 10/10/21 13:41 13:41 13:41 WBC 11.1 H RBC 4.57 L D Hgb 10.5 L Hct 34.3 L MCV 75.1 L MCH 23.0 L MCHC 30.6 L RDW 19.8 H Plt Count 365 MPV 9.3 L Immature Gran % (Auto) 0.3 Neut % (Auto) 76.9 H Lymph % (Auto) 13.6 L [place] % (Auto) 8.6 Eos % (Auto) 0.3 Baso % (Auto) 0.3 Lymph # (Auto) 1.5 [place] # (Auto) 1.0 Eos # (Auto) 0.0 Baso # (Auto) 0.0 Abs Immat Gran (auto) 0.03 Absolute Neuts (auto) 8.6 H Absolute Nucleated RBC 0.000 Nucleated RBC % (auto) 0.0 D-Dimer High Sensitivty Sodium 137 Potassium 4.8 D Chloride 107 Carbon Dioxide 20 L Anion Gap 15 BUN 22 H Creatinine 0.96 Estim Creat Clear Calc 123.2 Estimated GFR > 60 Random Glucose 117 H Lactic Acid 1.7 Calcium 9.1 Total Bilirubin 1.9 H AST 63 H ALT 66 H Alkaline Phosphatase 157 H Troponin I High Sens B-Natriuretic Peptide Total Protein 6.7 Albumin 3.5 Urine Opiates Screen Urine Fentanyl Screen Ur Barbiturates Screen Ur Phencyclidine Scrn Ur Amphetamines Screen U Benzodiazepines Scrn Urine Cocaine Screen U Marijuana (THC) Screen Ethyl Alcohol COVID-19 (LEANDRO) COVID-19 Clin Com 10/10/21 10/10/21 10/10/21 13:41 14:38 14:38 WBC RBC Hgb Hct MCV MCH MCHC RDW Plt Count MPV Immature Gran % (Auto) Neut % (Auto) Lymph % (Auto) [place] % (Auto) Eos % (Auto) Baso % (Auto) Lymph # (Auto) [place] # (Auto) Eos # (Auto) Baso # (Auto) Abs Immat Gran (auto) Absolute Neuts (auto) Absolute Nucleated RBC Nucleated RBC % (auto) D-Dimer High Sensitivty 415 Sodium Potassium Chloride Carbon Dioxide Anion Gap BUN Creatinine Estim Creat Clear Calc Estimated GFR Random Glucose Lactic Acid Calcium Total Bilirubin AST ALT Alkaline Phosphatase Troponin I High Sens 76.8 H B-Natriuretic Peptide 1047 H Total Protein Albumin Urine Opiates Screen Urine Fentanyl Screen Ur Barbiturates Screen Ur Phencyclidine Scrn Ur Amphetamines Screen U Benzodiazepines Scrn Urine Cocaine Screen U Marijuana (THC) Screen Ethyl Alcohol < 10 COVID-19 (LEANDRO) COVID-19 [facility] 10/10/21 10/11/21 14:39 00:20 WBC RBC Hgb Hct MCV MCH MCHC RDW Plt Count MPV Immature Gran % (Auto) Neut % (Auto) Lymph % (Auto) [place] % (Auto) Eos % (Auto) Baso % (Auto) Lymph # (Auto) [place] # (Auto) Eos # (Auto) Baso # (Auto) Abs Immat Gran (auto) Absolute Neuts (auto) Absolute Nucleated RBC Nucleated RBC % (auto) D-Dimer High Sensitivty Sodium Potassium Chloride Carbon Dioxide Anion Gap BUN Creatinine Estim Creat Clear Calc Estimated GFR Random Glucose Lactic Acid Calcium Total Bilirubin AST ALT Alkaline Phosphatase Troponin I High Sens B-Natriuretic Peptide Total Protein Albumin Urine Opiates Screen Not Detected Urine Fentanyl Screen Not Detected Ur Barbiturates Screen Not Detected Ur Phencyclidine Scrn Not Detected Ur Amphetamines Screen Not Detected U Benzodiazepines Scrn Not Detected Urine Cocaine Screen POSITIVE H U Marijuana (THC) Screen POSITIVE H Ethyl Alcohol COVID-19 (LEANDRO) Negative COVID-19 Clin Com See Note Discharge Plan Discharge Anticipated Discharge Date/Time: 10/11/21 12:41 Patient Disposition: Home, Self-Care Discharge Diagnosis: Exacerbation of heart failure Referrals: Karel Silva PA-C [Primary Care Provider] - 1 Week Discharge Medications: Continued spironolactone 25 mg tablet 25 mg PO DAILY RF: 0 bumetanide 1 mg tablet 2 tab PO BID RF: 0 baclofen 10 mg tablet 10 mg PO BID PRN (Reason: Muscle Spasm) RF: 0 carvedilol 12.5 mg Tablet 12.5 mg PO BID Qty: 60 RF: 0 Entresto 49-51 mg Tablet 1 tab PO BID Qty: 60 RF: 0 Diet: advance to usual diet and low salt diet Activity on Discharge: As tolerated Stand Alone Forms: Patient Portal Discharge page Care Plan Goals: prevent rehospitalization Health Concerns: cardiomyopathy related to chronic cocaine use Plan of Treatment: as above Assessment: As above
[2021-10-11 18:00] VITALS: BP 95/63; PULSE 88; RESP 20; TEMP 36.4; O2SAT 91
--- NOTE | 2021-10-11 20:06 | MHC.RECOVSUP ---
? Reason for consult: Recovery Support Team o ? ? ?Current location: ?[facility] o ? ? ?Identified substance use concern: Alcohol, Cocaine? Support - Mentoring and Coaching ? ?Intervention: o Community resources provided o Harm reduction discussion ? Plan: No plan was made ? Additional information:?I was able to connect with pt and review harm reduction strategies along with coping and supportive tools. Pt wasn't open to treatment at this time however pt was open minded to community resources. I supported client with suggestions for self regulation skills, mentoring and positive affirmations.
== END 2021-10-11 19:25 | disposition home or self-care (01) | DRG 292 ==
LOC: HO.ED 15:19 → HO.EDOVER 17:03
PROVIDERS: Admitting Provider Internal Medicine; Emergency Provider Emergency Medicine; PCP Physician Assistant; Visit Provider Internal Medicine
DX: I50.23 Acute on chronic systolic (congestive) heart failure (principal); I42.8 Other cardiomyopathies; Z68.41 Body mass index [BMI] 40.0-44.9, adult; F14.10 Cocaine abuse, uncomplicated; F12.10 Cannabis abuse, uncomplicated; E66.01 Morbid (severe) obesity due to excess calories; J44.9 Chronic obstructive pulmonary disease, unspecified; G47.33 Obstructive sleep apnea (adult) (pediatric); Z86.16 Personal history of COVID-19; Z91.14 Patient's other noncompliance with medication regimen; Z87.891 Personal history of nicotine dependence; Z20.822 Contact with and (suspected) exposure to COVID-19; Z88.2 Allergy status to sulfonamides; Z79.899 Other long term (current) drug therapy
CPT/HCPCS: 36415; 71045; 80053; 80307; 82077; 83605; 83880; 84484; 85025; 85379; 87635; 93005; 94660; 99285; J1940; J2270

== ENCOUNTER 2021-10-23 20:30 | Emergency (ER) | payer MEDICARE, MEDICAID, SELFPAY ==
--- NOTE | 2021-10-23 | ECG_ITS ---
Test Reason : DYSPNEA Blood Pressure : / mmHG Vent. Rate : 119 BPM Atrial Rate : 119 BPM P-R Int : 158 ms QRS Dur : 100 ms QT Int : 302 ms P-R-T Axes : 078 -87 059 degrees QTc Int : 424 ms Sinus tachycardia Possible Left atrial enlargement Left axis deviation Anterior infarct , age undetermined Abnormal ECG When compared with ECG of 10-OCT-2021 13:07, Premature ventricular complexes are no longer Present Referred By: Generic ED Physician Electronically Signed By:MANUEL LINDSAY MD
--- NOTE | ~2021-10-23 | XR_ITS ---
EXAMINATION: XR CHEST CLINICAL INFORMATION: Chest pain. COMPARISON: Chest radiograph dated from 10/10/2021. TECHNIQUE: AP view of the chest was obtained. FINDINGS: Stable prominence of the cardiomediastinal silhouette with redemonstration of central vasculature engorgement and increased interstitial markings. No focal airspace opacities. Questionable small amount of left-sided pleural fluid. No pneumothorax. No acute osseous abnormalities. XR/XR chest 1V IMPRESSION: Cardiomegaly with central vasculature engorgement, reticulation and a small left pleural effusion favoring to represent pulmonary edema in the appropriate clinical context. Although, an atypical infectious or inflammatory process is difficult to be entirely excluded and clinical correlation for signs of infection is needed.
[2021-10-23 20:35] VITALS: BP 116/75; PULSE 122; RESP 32; TEMP 36.7; O2SAT 93; BMI 48.7
[2021-10-23 20:57] VITALS: PULSE 119; RESP 25; O2SAT 91
[2021-10-23 21:22] VITALS: BP 114/68; PULSE 118; RESP 23; O2SAT 97
[2021-10-23] MEDS: ondansetron HCL 4 MG/2 ML VIAL IVPUSH (21:46)
[2021-10-23 21:47] LABS: MANUAL DIFF FLAG NO
[2021-10-23] MEDS: Morphine Sulfate 4 MG/ML CARTRIDGE IVPUSH (21:47)
[2021-10-23] MEDS: Furosemide 100 MG/10 ML VIAL 80 MG IVPUSH (21:47)
[2021-10-23 21:49] LABS: Basophils Percent Auto 0.3 % (0-2); Eosinophils Absolute Auto 0.1 X10*3/uL (0.0-0.4); Eosinophils Percent Auto 0.5 % (0-4); Hematocrit 38.3 % (42.0-52.0); Hemoglobin 11.3 g/dl (14.0-18.0); Imm Gran Abs Auto 0.03 X10*3/uL (0.00-0.03); Imm Gran Pct Auto 0.3 % (0.0-0.4); Lymphocytes Absolute Auto 1.4 X10*3/uL (1.2-4.9); Lymphocytes Percent Auto 12.1 % (20-40); Mean Corpuscular HGB Conc 29.5 g/dl (31.0-36.0); Mean Corpuscular Hemoglobin 22.3 pg (27.0-33.0); Mean Corpuscular Volume 75.5 fL (80.0-98.0); Monocytes Percent Auto 8.1 % (2-11); Neutrophils Absolute Auto 9.3 x10*3/uL (2.0-8.3); Neutrophils Percent Auto 78.7 % (45-73); Platelet Count 350 X10*3/uL (160-400); Red Blood Count 5.07 X10*6/uL (4.60-5.80); Red Cell Distribution Width 19.7 % (11.0-16.0); White Blood Count 11.8 X10*3/uL (4.8-10.8)
[2021-10-23 22:08] LABS: B Type Natriuretic Peptide 1345 pg/mL (<100); COVID-19 Test Negative (Negative); IDNOW Serial# 9DD0AD1C; Troponin-I High Sensitivity 15.8 ng/L (<3.5-35.0)
[2021-10-23] MEDS: diphenhydrAMINE HCL 50 MG/ML VIAL IVPUSH (22:14)
[2021-10-23 22:17] VITALS: PULSE 121; RESP 22; O2SAT 78
--- NOTE | 2021-10-23 22:19 | PC.NURSE ---
call placed to respiratory r/t BiPap, pt refused BiPap to respiratory. respiratory informed that pt desat to 78 while sleeping, respiratory aware that pt has an extensive sleep apnea history and will be available should further intervention be needed
--- NOTE | 2021-10-23 22:19 | ED.GENADULT ---
HPI - General Adult General Chief complaint: Upper Respiratory Symptoms Stated complaint: chf sob Time Seen by Provider: 10/23/21 21:01 Source: patient Mode of arrival: ambulatory Limitations: no limitations History of Present Illness HPI narrative: 51-year-old male who presents emergency department for evaluation of shortness of breath since Friday (3 days prior to arrival). Patient states that he has been feeling short of breath and having dyspnea on exertion, he states this has happened to him before in the past whenever he gets fluid in his lungs. He also complains of chest pain. He states that the pain is a constant pain is if someone is sitting on his chest and is 8/10. The chest pain started yesterday. He states that he has had increased swelling in his lower extremities. He denied fever or chills but he states that he is having body aches. He denied cough, nausea, vomiting or diarrhea. He states he has also noticed a rash on his abdomen for the past 3 days, the rash is itchy. He states he lives at home with his his does not have a rash. Patient has had similar presentations in the past, he was last seen in the emergency department on 10/10/2021 and found to have congestive heart failure and treated with BiPAP, treated with IV diuretics and improved in 24 hours was discharged home. The patient does have a history cardiomyopathy with ejection fraction of 10-15%, asthma, COPD and obstructive sleep apnea. He also has a history of cocaine abuse. Related Data Home Medications Medication Instructions Recorded Confirmed spironolactone 25 mg tablet 25 mg PO DAILY 08/21/21 10/10/21 baclofen 10 mg tablet 10 mg PO BID PRN 09/10/21 10/10/21 bumetanide 1 mg tablet 2 tab PO BID 09/10/21 10/10/21 Previous Rx's Medication Instructions Recorded carvedilol 12.5 mg tablet 12.5 mg PO BID #60 tab 09/14/21 sacubitril 49 mg-valsartan 51 mg 1 tab PO BID #60 tab 09/14/21 tablet (Entresto) permethrin 5 % topical cream 1 appl TOPICAL Q14D #4 tube 10/24/21 (Elimite) Allergies Allergy/AdvReac Type Severity Reaction Status Date / Time cephalexin [From KEFLEX] Allergy Unknown UNKNOWN Verified 08/15/21 14:08 sulfamethoxazole Allergy Unknown UNKNOWN Verified 08/15/21 14:08 [From BACTRIM] trimethoprim [From BACTRIM] Allergy Unknown UNKNOWN Verified 08/15/21 14:08 Review of Systems Review of Systems: Yes all other systems are reviewed and are negative [facility] Past Medical History Medical History Asthma Asthma Cardiomyopathy CHF (congestive heart failure) Chronic systolic (congestive) heart failure Cocaine abuse COPD (chronic obstructive pulmonary disease) Morbid obesity Morbid obesity NICM (nonischemic cardiomyopathy) LISSET (obstructive sleep apnea) Surgical History History of cardiac catheterization (~11/07/20) History of surgery Family History Family History Mother Ovarian cancer Diabetes Social History Social History Household Members: Family Household Members Other:: lives in a [employer] Housing: Apartment Do you presently have visiting nurse or other home services: No Alcohol intake: never Patient Tobacco Use Status: Former Tobacco user Substance Use Type: Marijuana Advance Directives: Yes Advance Directives on File: Yes Advance Directives Date on File: 10/23/20 service: No Current occupational status: unemployed and disabled Physical Exam Vital Signs: Vital Signs: Last Vital Signs Temp 98.1 F 10/23/21 20:35 Pulse 121 H 10/23/21 22:17 Resp 22 H 10/23/21 22:17 BP 114/68 10/23/21 21:22 Pulse Ox 78 L 10/23/21 22:17 BMI result Body Mass Index 48.7 Const: Other: Awake, alert, morbidly obese, male patient, able to answer all questions appropriately, does appear to be tachypneic HENMT: Head: Yes normal to inspection, Yes normocephalic and Yes atraumatic Ears: external ears normal General nose exam: Normal external nose present Face and sinus: Yes normal facial exam Mouth: Normal oral and palatal mucosa present Throat: Yes posterior oropharynx normal Eyes: General: appearance normal, both eyes and all related structures Pupils: Equal, round and reactive pupils present Neck: Neck: Yes normal visual inspection, Yes no lymphadenopathy, Yes trachea midline and Yes supple Chest: Chest palpation & inspection: normal inspection of the chest and normal palpation of entire chest wall Resp: Effort & Inspection: abnormal respiratory pattern and tachypneic Auscultation: rales bilateral and diffuse Cardio: Rate: tachycardic Rhythm: regular rhythm Heart sounds: S1 normal heart sound present, S2 normal heart sound present and no murmurs GI: Inspection: Yes normal to inspection Palpation (GI): Soft to palpation, nontender and no guarding Auscultation: normal bowel sounds : General: Yes no CVA tenderness Back/Spine/Pelvis: Back: no CVA tenderness Skin: Other: The patient has a punctate erythematous rash on his abdomen and forearms, there are several punctate lesions the are in lines, this rash is concerning for possible scabies Neuro: Cranial nerves: Yes CN's II-XII intact bilaterally and Yes Equal, round and reactive pupils present Cognition (Neuro): normal cognition Motor exam (neuro): 5/5 motor strength present throughout Extrem: Other: 1+ pitting edema Psych: Appearance: grossly normal Speech and movement: Normal speech and movement present Affect: normal affect Attitude: cooperative Thought process: Normal thought process present Thought content: Normal thought content present Course Course Course Narrative: 51-year-old male who presents emergency department for evaluation of shortness of breath x3 days. Patient is well-known to the emergency department has been seen in the past for congestive heart failure secondary to cardiomyopathy with an EF of 10-15%. Patient was just recently hospitalized from 10/10/2021 until 10/08 review required BiPAP and diuresis with IV medications. Patient's vital signs did reveal an elevated pulse of 122 with an elevated respiratory rate of 32. O2 saturation on room air was 97%. When the patient fell asleep his O2 saturation dropped down to 78% but he does have obstructive sleep apnea. I ordered a CBC, CMP, BNP, troponin, urinalysis, urine drug screen, EKG and chest x-ray. Patient was ordered to get Lasix 80 mg IV. 0041: Laboratory evaluation: WBC was elevated 11,800. Patient is anemic with an H&H of 11.3 and 38.3, this is chronic. Platelet count was normal 350,000. BUN is elevated 24 with normal creatinine of 0.98. Glucose was elevated 127. Bilirubin is elevated 1.2, this is chronic. LFTs are elevated with an AST of 40, ALT of 55 alk-phos of 138, this is chronic. BNP is elevated 1345. COVID-19 was negative. Chest x-ray revealed cardiomegaly with increased reticulation and small left pleural effusion consistent with pulmonary edema. Troponin was detectable but not elevated at 15.8. Twelve EKG was consistent with sinus tachycardia otherwise no significant acute changes. The patient had approximately 1.5 L diuresis with Lasix 80 mg IV. The patient is feeling better, he is still tachypneic but I believe that this is secondary to his cardiomegaly in need for higher rate to compensate for his low EF. The patient is willing to go home at this time since he does feel better with precautions to return if he felt worse in any way. At this time I do not have a clear etiology for his rash I am concerned that it is scabies so he will be treated with Elimite. Patient was advised to double his morning Lasix dose keep his evening dose the same. He is advised to restrict his fluid intake. Medical Decision Making Lab Data Result diagrams: 10/23/21 21:40 10/23/21 21:40 Labs: Lab Results 10/23/21 10/23/21 10/23/21 Range/Units 21:40 21:40 21:40 WBC 11.8 H (4.8-10.8) X10*3/uL RBC 5.07 (4.60-5.80) X10*6/uL Hgb 11.3 L (14.0-18.0) g/dl Hct 38.3 L (42.0-52.0) % MCV 75.5 L (80.0-98.0) fL MCH 22.3 L (27.0-33.0) pg MCHC 29.5 L (31.0-36.0) g/dl RDW 19.7 H (11.0-16.0) % Plt Count 350 (160-400) X10*3/uL MPV 9.0 L (9.4-12.4) fL Immature Gran % (Auto) 0.3 (0.0-0.4) % Neut % (Auto) 78.7 H (45-73) % Lymph % (Auto) 12.1 L (20-40) % [place] % (Auto) 8.1 (2-11) % Eos % (Auto) 0.5 (0-4) % Baso % (Auto) 0.3 (0-2) % Lymph # (Auto) 1.4 (1.2-4.9) X10*3/uL [place] # (Auto) 1.0 (0.1-1.2) X10*3/uL Eos # (Auto) 0.1 (0.0-0.4) X10*3/uL Baso # (Auto) 0.0 (0.0-0.2) X10*3/uL Abs Immat Gran (auto) 0.03 (0.00-0.03) X10*3/uL Absolute Neuts (auto) 9.3 H (2.0-8.3) x10*3/uL Absolute Nucleated RBC 0.000 (0.0-0.012) X10*3/uL Nucleated RBC % (auto) 0.0 (0.0-0.2) /100WBC Sodium 139 (135-145) mmol/L Potassium 4.7 (3.3-5.1) mmol/L Chloride 106 (96-108) mmol/L Carbon Dioxide 27 (22-29) mmol/L Anion Gap 11 L (12-20) BUN 24 H (9-16) mg/dL Creatinine 0.98 (0.5-1.4) mg/dL Estim Creat Clear Calc 133.0 Estimated GFR > 60 Random Glucose 127 H (60-115) mg/dL Calcium 8.4 D (8.4-10.2) mg/dL Total Bilirubin 1.2 H (0.0-1.0) mg/dL AST 40 H (5-37) U/L ALT 55 H (0-40) U/L Alkaline Phosphatase 138 H (39-117) U/L Troponin I High Sens 15.8 D (<3.5-35.0) ng/L B-Natriuretic Peptide 1345 H (<100) pg/mL Total Protein 6.5 (6.5-8.0) g/dL Albumin 3.4 L (3.5-5.0) g/dL Lipase 34 (8-78) U/L COVID-19 (LEANDRO) (Negative) COVID-19 Clin Com 10/23/21 Range/Units 21:40 WBC (4.8-10.8) X10*3/uL RBC (4.60-5.80) X10*6/uL Hgb (14.0-18.0) g/dl Hct (42.0-52.0) % MCV (80.0-98.0) fL MCH (27.0-33.0) pg MCHC (31.0-36.0) g/dl RDW (11.0-16.0) % Plt Count (160-400) X10*3/uL MPV (9.4-12.4) fL Immature Gran % (Auto) (0.0-0.4) % Neut % (Auto) (45-73) % Lymph % (Auto) (20-40) % [place] % (Auto) (2-11) % Eos % (Auto) (0-4) % Baso % (Auto) (0-2) % Lymph # (Auto) (1.2-4.9) X10*3/uL [place] # (Auto) (0.1-1.2) X10*3/uL Eos # (Auto) (0.0-0.4) X10*3/uL Baso # (Auto) (0.0-0.2) X10*3/uL Abs Immat Gran (auto) (0.00-0.03) X10*3/uL Absolute Neuts (auto) (2.0-8.3) x10*3/uL Absolute Nucleated RBC (0.0-0.012) X10*3/uL Nucleated RBC % (auto) (0.0-0.2) /100WBC Sodium (135-145) mmol/L Potassium (3.3-5.1) mmol/L Chloride (96-108) mmol/L Carbon Dioxide (22-29) mmol/L Anion Gap (12-20) BUN (9-16) mg/dL Creatinine (0.5-1.4) mg/dL Estim Creat Clear Calc Estimated GFR Random Glucose (60-115) mg/dL Calcium (8.4-10.2) mg/dL Total Bilirubin (0.0-1.0) mg/dL AST (5-37) U/L ALT (0-40) U/L Alkaline Phosphatase (39-117) U/L Troponin I High Sens (<3.5-35.0) ng/L B-Natriuretic Peptide (<100) pg/mL Total Protein (6.5-8.0) g/dL Albumin (3.5-5.0) g/dL Lipase (8-78) U/L COVID-19 (LEANDRO) Negative (Negative) COVID-19 Clin Com See Note ECG Data Attestation: I personally reviewed and interpreted this ECG as follows: Interpretation: 2054: Sinus tachycardia with a rate of 119, normal HI interval, prolonged QRS duration of 100 milliseconds, normal QTC interval, no ST segment elevation, no ST segment depression, no T-wave abnormalities, no PACs, no PVCs, Q-wave in V1 and V2. Compared to an EKG dated October 10, 2021, Q-waves are old, tachycardia was present on the previous EKG Discharge Plan Discharge Clinical Impression: Congestive heart failure, Scabies Patient Disposition: Home, Self-Care Instructions: Heart Failure (ED), Scabies (ED) Additional Instructions: Your chest x-ray revealed mild pulmonary edema/congestive heart failure. Your laboratory evaluation was consistent with your previous labs. A think that you did have a significant amount of urine output with 1 dose of IV Lasix therefore I want to try to send you home and increase your orally 6 at home. I want you to double your morning dose of Lasix and keep your evening dose of Lasix the same. Do this for 1 week. The rash on your skin may be caused by scabies, giving a prescription for Elimite, apply the cream to your skin especially in the area of the rash, on your abdomen chest hands and arms. Leave the cream on for 8 hours and then rinse it off. Repeat this treatment in 2 weeks (14 days) Follow-up with your doctor in 2 days. Please return to the emergency department if your symptoms get worse or if you develop any symptoms that are concerning to you. Prescriptions: New permethrin [Elimite] 5 % cream 1 appl topical Q14D Qty: 4 RF: 0 No Action spironolactone 25 mg tablet 25 mg PO DAILY RF: 0 bumetanide 1 mg tablet 2 tab PO BID RF: 0 baclofen 10 mg tablet 10 mg PO BID PRN (Reason: Muscle Spasm) RF: 0 carvedilol 12.5 mg Tablet 12.5 mg PO BID Qty: 60 RF: 0 Entresto 49-51 mg Tablet 1 tab PO BID Qty: 60 RF: 0
[2021-10-23 22:30] LABS: Alanine Aminotransferase 55 U/L (0-40); Albumin Level 3.4 g/dL (3.5-5.0); Alkaline Phosphatase 138 U/L (39-117); Anion Gap 11 (12-20); Aspartate Amino Transferase 40 U/L (5-37); Bilirubin Total 1.2 mg/dL (0.0-1.0); Blood Urea Nitrogen 24 mg/dL (9-16); Calcium 8.4 mg/dL (8.4-10.2); Carbon Dioxide 27 mmol/L (22-29); Chloride 106 mmol/L (96-108); Estimated Glomerular Filt Rate > 60; Glucose Random 127 mg/dL (60-115); Lipase 34 U/L (8-78); Potassium 4.7 mmol/L (3.3-5.1); Sodium 139 mmol/L (135-145); Total Protein 6.5 g/dL (6.5-8.0)
== END 2021-10-24 01:12 | disposition home or self-care (01) ==
PROVIDERS: Emergency Provider Emergency Medicine Emergency Medical Services; PCP Physician Assistant
DX: I50.1 Left ventricular failure, unspecified (principal); B86 Scabies; Z20.822 Contact with and (suspected) exposure to COVID-19; R00.0 Tachycardia, unspecified; R06.02 Shortness of breath; F14.10 Cocaine abuse, uncomplicated
CPT/HCPCS: 71045; 80053; 83690; 83880; 84484; 85025; 87635; 93005; 96374; 96375; 99284; J1200; J1940; J2270; J2405

== ENCOUNTER 2021-11-28 16:29 | Emergency (ER) | payer MEDICARE, MEDICAID, SELFPAY ==
--- NOTE | ~2021-11-28 | XR_ITS ---
EXAMINATION: XR CHEST CLINICAL INFORMATION: Shortness of breath. COMPARISON: Chest radiograph dated from 10/23/2021. TECHNIQUE: AP view of the chest was obtained. FINDINGS: Left-sided pacer with single lead projecting over the right atrium. EKG wires overlie the chest. Stable cardiomegaly. Central vasculature engorgement and bibasilar airspace opacities. Small bilateral pleural effusions. No pneumothorax. No acute osseous abnormalities. XR/XR chest 1V IMPRESSION: Findings are suggestive of pulmonary edema, recurrent or unresolved since prior. However, as before, an atypical infectious or inflammatory process cannot be entirely excluded and clinical correlation is needed.
[2021-11-28 16:37] VITALS: BP 104/80; PULSE 105; RESP 28; TEMP 36.6; O2SAT 88; BMI 49.6
[2021-11-28 16:56] VITALS: BP 120/75; PULSE 105; RESP 20; TEMP 36.4; O2SAT 94
--- NOTE | 2021-11-28 17:04 | ED.SOB ---
HPI - SOB/Dyspnea General Chief Complaint: Upper Respiratory Symptoms Stated Complaint: diff breathing Time Seen by Provider: 11/28/21 17:04 Source: patient Mode of arrival: ambulatory Limitations: no limitations History of Present Illness HPI Narrative: Patient 51 years old with past medical history of cocaine use CHF ejection fraction 10-15%, asthma, COPD, obesity, COVID-19 pneumonia frequently admission for CHF exacerbation and has a history of noncompliance patient was discharged on 10/11/21 with heart failure patient was just admitted to [facility] had ICD placed on 11/16/2021 comes here for last few days of increased shortness of breath Patient records were reviewed from the [facility] patient was admitted there on 11/16 discharged on 11/20 admitted for postop agitation requiring precedex gtt and respiratory acidosis Related Data Home Medications Medication Instructions Recorded Confirmed spironolactone 25 mg tablet 25 mg PO DAILY 08/21/21 11/13/21 bumetanide 1 mg tablet 2 tab PO BID 09/10/21 11/13/21 Previous Rx's Medication Instructions Recorded sacubitril 49 mg-valsartan 51 mg 1 tab PO BID #60 tab 11/09/21 tablet (Entresto) baclofen 10 mg tablet 10 mg PO BID PRN 30 Days #60 tab 11/13/21 compr.stocking,knee,long,x-lrg #2 ea 11/13/21 loperamide 2 mg capsule 2 mg PO Q8H PRN 7 Days #21 cap 11/13/21 mirtazapine 15 mg tablet 15 mg PO BEDTIME 30 Days #30 tab 11/13/21 Allergies Allergy/AdvReac Type Severity Reaction Status Date / Time sulfamethoxazole Allergy Unknown UNKNOWN Verified 11/13/21 09:45 [From BACTRIM] trimethoprim [From BACTRIM] Allergy Unknown UNKNOWN Verified 11/13/21 09:45 [facility] Past Medical History Medical History Asthma Asthma Cardiomyopathy CHF (congestive heart failure) Chronic systolic (congestive) heart failure Cocaine abuse COPD (chronic obstructive pulmonary disease) Morbid obesity Morbid obesity NICM (nonischemic cardiomyopathy) LISSET (obstructive sleep apnea) Surgical History History of cardiac catheterization (~11/07/20) History of surgery Family History Family History Mother Ovarian cancer Diabetes Social History Social History Household Members: Family Household Members Other:: lives in a [employer] Housing: Apartment Do you presently have visiting nurse or other home services: No Alcohol intake: never Patient Tobacco Use Status: Former Tobacco user e-Cigarette/Vaping Use: Never Used Substance Use Type: Marijuana Advance Directives: No Advance Directives Date on File: 10/23/20 service: No Current occupational status: unemployed and disabled Physical Exam Vital Signs: Vital Signs: Last Vital Signs Temp 97.5 F 11/28/21 17:56 Pulse 105 H 11/28/21 19:09 Resp 28 H 11/28/21 19:09 BP 119/83 11/28/21 19:09 Pulse Ox 97 11/28/21 19:09 BMI result Body Mass Index 49.6 Appearance: Alert. Oriented X3. No acute distress. Obese patient is sleepy Eyes: PERRLA, No Nystagmus ENT: Pharynx normal. Oral Mucosa moist Neck: Normal inspection. Neck supple. CVS: Normal heart rate and rhythm. Pulses normal. ICD in place Respiratory: No respiratory distress. Equal air entry bilateral, no wheezing/rales/rhonchi Abdomen: Soft and nontender. Bowel sounds are present, no mass palpable, no CVA tenderness Skin: Skin warm and dry. Normal skin color. Normal skin turgor. Extremities: No lower extremity edema. No calf tenderness Neuro: Oriented X 3. No motor deficit. No sensory deficit.No cerebellar signs , cranial nerves II-XII intact MDM - SOB/Dyspnea MDM Narrative Medical decision making narrative: Patient is stable labs saturating 93% on room air feeling better after Lasix and DuoNeb treatment will observe for some time 19 30 patient feeling much better after DuoNeb treatment saturating 94% on room air will discharge patient home Lab Data Attestation: I reviewed the patient's lab results. Result diagrams: 11/28/21 17:54 11/28/21 18:18 Labs: Lab Results 11/28/21 11/28/21 11/28/21 Range/Units 17:48 17:54 17:54 WBC 10.5 (4.8-10.8) X10*3/uL RBC 4.79 (4.60-5.80) X10*6/uL Hgb 10.7 L (14.0-18.0) g/dl Hct 36.0 L (42.0-52.0) % MCV 75.2 L (80.0-98.0) fL MCH 22.3 L (27.0-33.0) pg MCHC 29.7 L (31.0-36.0) g/dl RDW 19.5 H (11.0-16.0) % Plt Count 263 (160-400) X10*3/uL MPV 9.5 (9.4-12.4) fL Immature Gran % (Auto) 0.2 (0.0-0.4) % Neut % (Auto) 79.5 H (45-73) % Lymph % (Auto) 11.7 L (20-40) % [place] % (Auto) 8.0 (2-11) % Eos % (Auto) 0.2 (0-4) % Baso % (Auto) 0.4 (0-2) % Lymph # (Auto) 1.2 (1.2-4.9) X10*3/uL [place] # (Auto) 0.8 (0.1-1.2) X10*3/uL Eos # (Auto) 0.0 (0.0-0.4) X10*3/uL Baso # (Auto) 0.0 (0.0-0.2) X10*3/uL Abs Immat Gran (auto) 0.02 (0.00-0.03) X10*3/uL Absolute Neuts (auto) 8.4 H (2.0-8.3) x10*3/uL Absolute Nucleated RBC 0.000 (0.0-0.012) X10*3/uL Nucleated RBC % (auto) 0.0 (0.0-0.2) /100WBC VBG pH (7.32-7.43) VBG pCO2 mmHg VBG pO2 mmHg VBG HCO3 (22-26) mmol/L VBG O2 Saturation % VBG Base Excess mmol/L Sodium (135-145) mmol/L Potassium (3.3-5.1) mmol/L Chloride (96-108) mmol/L Carbon Dioxide (22-29) mmol/L Anion Gap (12-20) BUN (9-16) mg/dL Creatinine (0.5-1.4) mg/dL Estim Creat Clear Calc Estimated GFR Random Glucose (60-115) mg/dL Calcium (8.4-10.2) mg/dL Magnesium (1.6-2.6) mg/dL Total Bilirubin (0.0-1.0) mg/dL AST (5-37) U/L ALT (0-40) U/L Alkaline Phosphatase (39-117) U/L Troponin I High Sens Cancelled B-Natriuretic Peptide (<100) pg/mL Total Protein (6.5-8.0) g/dL Albumin (3.5-5.0) g/dL Lipase (8-78) U/L COVID-19 (LEANDRO) Negative (Negative) COVID-19 Clin Com See Note 11/28/21 11/28/21 11/28/21 Range/Units 17:54 18:01 18:18 WBC (4.8-10.8) X10*3/uL RBC (4.60-5.80) X10*6/uL Hgb (14.0-18.0) g/dl Hct (42.0-52.0) % MCV (80.0-98.0) fL MCH (27.0-33.0) pg MCHC (31.0-36.0) g/dl RDW (11.0-16.0) % Plt Count (160-400) X10*3/uL MPV (9.4-12.4) fL Immature Gran % (Auto) (0.0-0.4) % Neut % (Auto) (45-73) % Lymph % (Auto) (20-40) % [place] % (Auto) (2-11) % Eos % (Auto) (0-4) % Baso % (Auto) (0-2) % Lymph # (Auto) (1.2-4.9) X10*3/uL [place] # (Auto) (0.1-1.2) X10*3/uL Eos # (Auto) (0.0-0.4) X10*3/uL Baso # (Auto) (0.0-0.2) X10*3/uL Abs Immat Gran (auto) (0.00-0.03) X10*3/uL Absolute Neuts (auto) (2.0-8.3) x10*3/uL Absolute Nucleated RBC (0.0-0.012) X10*3/uL Nucleated RBC % (auto) (0.0-0.2) /100WBC VBG pH 7.49 H (7.32-7.43) VBG pCO2 26 mmHg VBG pO2 157 mmHg VBG HCO3 20 L (22-26) mmol/L VBG O2 Saturation 99.0 % VBG Base Excess -1.4 mmol/L Sodium 137 (135-145) mmol/L Potassium 5.3 H (3.3-5.1) mmol/L Chloride 104 (96-108) mmol/L Carbon Dioxide 23 (22-29) mmol/L Anion Gap 15 (12-20) BUN 35 H (9-16) mg/dL Creatinine 1.24 (0.5-1.4) mg/dL Estim Creat Clear Calc 106.2 Estimated GFR > 60 Random Glucose 128 H (60-115) mg/dL Calcium 9.3 D (8.4-10.2) mg/dL Magnesium 2.3 (1.6-2.6) mg/dL Total Bilirubin 1.6 H (0.0-1.0) mg/dL AST 26 (5-37) U/L ALT 30 (0-40) U/L Alkaline Phosphatase 134 H (39-117) U/L Troponin I High Sens 11.1 B-Natriuretic Peptide 1260 H (<100) pg/mL Total Protein 6.7 (6.5-8.0) g/dL Albumin 3.7 (3.5-5.0) g/dL Lipase 14 (8-78) U/L COVID-19 (LEANDRO) (Negative) COVID-19 Clin Com Discharge Plan Discharge Clinical Impression: CHF (congestive heart failure), LISSET (obstructive sleep apnea), COPD (chronic obstructive pulmonary disease) Patient Disposition: Home, Self-Care Instructions: Heart Failure (ED), Sleep Apnea (DC), COPD (Chronic Obstructive Pulmonary Disease) (ED) Additional Instructions: Continue medication as prescribed and follow with program clerk and PCP and reproduction artist Prescriptions: No Action Entresto 49-51 mg tablet 1 tab PO BID Qty: 60 0RF Protocol: Hold for SBP< HOLD for SBP < : 90 spironolactone 25 mg tablet 25 mg PO DAILY 0RF bumetanide 1 mg tablet 2 tab PO BID 0RF loperamide 2 mg capsule 2 mg PO Q8H PRN (Reason: loose stool) 7 Days Qty: 21 0RF mirtazapine 15 mg tablet 15 mg PO BEDTIME 30 Days Qty: 30 1RF baclofen 10 mg tablet 10 mg PO BID PRN (Reason: Muscle Spasm) 30 Days Qty: 60 3RF (DME) compr.stocking,knee,long,x-lrg Misc See Rx Instructions .Route Qty: 2 0RF Rx Instructions: As directed
--- NOTE | 2021-11-28 17:09 | ECG_ITS ---
Test Reason : SOB Blood Pressure : / mmHG Vent. Rate : 101 BPM Atrial Rate : 101 BPM P-R Int : 170 ms QRS Dur : 096 ms QT Int : 368 ms P-R-T Axes : 056 247 048 degrees QTc Int : 477 ms Sinus tachycardia Right superior axis deviation Anterior infarct (cited on or before 23-OCT-2021) Abnormal ECG When compared with ECG of 23-OCT-2021 20:55, No significant change was found Referred By: Luan Haddad Electronically Signed By:Miguel Flores
[2021-11-28 17:56] VITALS: BP 101/72; PULSE 101; RESP 16; TEMP 36.4
[2021-11-28 18:04] LABS: MANUAL DIFF FLAG NO
[2021-11-28 18:07] LABS: Venous Blood Gas Refer to POC result
[2021-11-28 18:07] LABS: VBG Base Excess -1.4 mmol/L; VBG HCO3 20 mmol/L (22-26); VBG pCO2 26 mmHg; VBG pH 7.49 (7.32-7.43); VBG pO2 157 mmHg
[2021-11-28 18:25] LABS: COVID-19 Test Negative (Negative)
[2021-11-28 18:27] LABS: Basophils Percent Auto 0.4 % (0-2); Eosinophils Percent Auto 0.2 % (0-4); Hemoglobin 10.7 g/dl (14.0-18.0); Imm Gran Abs Auto 0.02 X10*3/uL (0.00-0.03); Imm Gran Pct Auto 0.2 % (0.0-0.4); Lymphocytes Absolute Auto 1.2 X10*3/uL (1.2-4.9); Lymphocytes Percent Auto 11.7 % (20-40); Mean Corpuscular HGB Conc 29.7 g/dl (31.0-36.0); Mean Corpuscular Hemoglobin 22.3 pg (27.0-33.0); Mean Corpuscular Volume 75.2 fL (80.0-98.0); Mean Platelet Volume 9.5 fL (9.4-12.4); Monocytes Absolute Auto 0.8 X10*3/uL (0.1-1.2); Neutrophils Absolute Auto 8.4 x10*3/uL (2.0-8.3); Neutrophils Percent Auto 79.5 % (45-73); Platelet Count 263 X10*3/uL (160-400); Red Blood Count 4.79 X10*6/uL (4.60-5.80); Red Cell Distribution Width 19.5 % (11.0-16.0); White Blood Count 10.5 X10*3/uL (4.8-10.8)
[2021-11-28 18:34] LABS: B Type Natriuretic Peptide 1260 pg/mL (<100); Troponin-I High Sensitivity 11.1 ng/L (<3.5-35.0)
[2021-11-28 18:37] LABS: Alanine Aminotransferase 30 U/L (0-40); Albumin Level 3.7 g/dL (3.5-5.0); Alkaline Phosphatase 134 U/L (39-117); Anion Gap 15 (12-20); Aspartate Amino Transferase 26 U/L (5-37); Bilirubin Total 1.6 mg/dL (0.0-1.0); Blood Urea Nitrogen 35 mg/dL (9-16); Calcium 9.3 mg/dL (8.4-10.2); Carbon Dioxide 23 mmol/L (22-29); Chloride 104 mmol/L (96-108); Creatinine Clr Calc Pharmacy 106.2; Estimated Glomerular Filt Rate > 60; Glucose Random 128 mg/dL (60-115); Lipase 14 U/L (8-78); Magnesium 2.3 mg/dL (1.6-2.6); Potassium 5.3 mmol/L (3.3-5.1); Sodium 137 mmol/L (135-145); Total Protein 6.7 g/dL (6.5-8.0)
[2021-11-28] MEDS: Albuterol/Iprat 2.5/0.5MG 3 ML AMPUL.NEB INHALE (18:49)
[2021-11-28] MEDS: Albuterol Sulfate (0.083%) 2.5 MG/3 ML VIAL.NEB 5 MG INHALE (18:49)
[2021-11-28 18:55] VITALS: PULSE 106; RESP 18; O2SAT 98
[2021-11-28] MEDS: Furosemide 40 MG/4 ML VIAL IVPUSH (19:08)
[2021-11-28 19:09] VITALS: BP 119/83; PULSE 105; RESP 28; O2SAT 97
[2021-11-28 19:51] VITALS: BP 96/62; PULSE 104; RESP 18; O2SAT 93
== END 2021-11-28 20:18 | disposition home or self-care (01) ==
PROVIDERS: Emergency Provider Internal Medicine; PCP Physician Assistant
DX: I50.9 Heart failure, unspecified (principal); J44.9 Chronic obstructive pulmonary disease, unspecified; G47.33 Obstructive sleep apnea (adult) (pediatric); R06.02 Shortness of breath; Z20.822 Contact with and (suspected) exposure to COVID-19; E66.01 Morbid (severe) obesity due to excess calories; Z91.14 Patient's other noncompliance with medication regimen
CPT/HCPCS: 36415; 71045; 80053; 82803; 83690; 83735; 83880; 84484; 85025; 87635; 93005; 94640; 94644; 96374; 99284; J1940

== ENCOUNTER 2021-12-16 17:04 | Emergency (ER) | payer MEDICARE, MEDICAID, SELFPAY ==
--- NOTE | ~2021-12-16 | XR_ITS ---
EXAMINATION: XR CHEST CLINICAL INFORMATION: Shortness of breath COMPARISON: 11/28/2021 TECHNIQUE: Frontal view of the chest was obtained. FINDINGS: Again noted is cardiomegaly with central pulmonary vascular congestion and increased peribronchial interstitial markings suggestive of interstitial pulmonary edema. No focal consolidations or definite pleural effusions are seen. Appearances are quite similar to the 11/28/2021 examination. A left chest wall single lead pacemaker is present with its tip at the right ventricular apex. XR/XR chest 1V IMPRESSION: Cardiomegaly with CHF and mild interstitial pulmonary edema
[2021-12-16 17:12] VITALS: PULSE 116; RESP 30; TEMP 36.5; O2SAT 88; BMI 52.9
--- NOTE | 2021-12-16 17:12 | ECG_ITS ---
Test Reason : sob Blood Pressure : / mmHG Vent. Rate : 124 BPM Atrial Rate : 124 BPM P-R Int : 162 ms QRS Dur : 094 ms QT Int : 324 ms P-R-T Axes : 050 -09 048 degrees QTc Int : 465 ms Sinus tachycardia Otherwise normal ECG When compared with ECG of 28-NOV-2021 18:19, QRS axis Shifted right Referred By: Luan Haddad Electronically Signed By:Miguel Flores
[2021-12-16 17:16] VITALS: O2SAT 95
[2021-12-16] MEDS: Albuterol Sulfate (0.083%) 2.5 MG/3 ML VIAL.NEB 5 MG INHALE (17:17)
[2021-12-16] MEDS: Albuterol/Iprat 2.5/0.5MG 3 ML AMPUL.NEB INHALE (17:17)
[2021-12-16 17:20] VITALS: PULSE 116; RESP 20; O2SAT 94
[2021-12-16 18:01] LABS: MANUAL DIFF FLAG NO
[2021-12-16 18:03] LABS: Basophils Absolute Auto 0.1 X10*3/uL (0.0-0.2); Basophils Percent Auto 0.5 % (0-2); Eosinophils Absolute Auto 0.2 X10*3/uL (0.0-0.4); Eosinophils Percent Auto 1.4 % (0-4); Hemoglobin 11.2 g/dl (14.0-18.0); Imm Gran Abs Auto 0.03 X10*3/uL (0.00-0.03); Imm Gran Pct Auto 0.3 % (0.0-0.4); Lymphocytes Absolute Auto 1.8 X10*3/uL (1.2-4.9); Lymphocytes Percent Auto 17.3 % (20-40); Mean Corpuscular HGB Conc 30.3 g/dl (31.0-36.0); Mean Corpuscular Hemoglobin 22.4 pg (27.0-33.0); Mean Platelet Volume 9.2 fL (9.4-12.4); Monocytes Absolute Auto 0.7 X10*3/uL (0.1-1.2); Monocytes Percent Auto 6.2 % (2-11); Neutrophils Absolute Auto 7.8 x10*3/uL (2.0-8.3); Neutrophils Percent Auto 74.3 % (45-73); Platelet Count 290 X10*3/uL (160-400); Red Cell Distribution Width 20.1 % (11.0-16.0); White Blood Count 10.5 X10*3/uL (4.8-10.8)
[2021-12-16 18:06] VITALS: BP 108/90; PULSE 124; RESP 22; O2SAT 95
--- NOTE | 2021-12-16 18:08 | PC.NURSE ---
Held Lasix d/t pt taking 4mg Bumex just [employer]. Voiding at this time. Sinus tach on tele, moderate SOB with exertion. Swelling to bilat lower extr, normal per pt. Recent defib placement x 1 month ago.
--- NOTE | 2021-12-16 18:15 | ED.SOB ---
HPI - SOB/Dyspnea General Chief Complaint: Dyspnea Stated Complaint: diff breathing. Time Seen by Provider: 12/16/21 17:12 Source: patient Mode of arrival: EMS Limitations: no limitations History of Present Illness HPI Narrative: Patient obese with history of cocaine use with dilated nonischemic cardiomyopathy ejection fraction 10-15%, asthma, COPD, LISSET, history of COVID-19 pneumonia discharged on 10/11/2021 for CHF had ICD placed on 11/16/21 and had left arm DVT since then on Eliquis comes back again for same shortness of breath getting worse since been discharged patient increase the dose of Bumex to 2mg in the morning and 1 mg in the evening and still feeling short of breath today he took extra dose of Bumex prior to arrival patient does not use CPAP machine at night on arrival patient was saturating 88% at room air on 2 L improved to 95% Related Data Home Medications Medication Instructions Recorded Confirmed spironolactone 25 mg tablet 25 mg PO DAILY 08/21/21 12/16/21 bumetanide 1 mg tablet 2 tab PO BID 09/10/21 12/16/21 rivaroxaban 20 mg tablet (Xarelto) 1 tab PO DAILY 12/16/21 12/16/21 sacubitril 49 mg-valsartan 51 mg 1 tab PO BID 12/16/21 12/16/21 tablet (Entresto) Previous Rx's Medication Instructions Recorded baclofen 10 mg tablet 10 mg PO BID PRN 30 Days #60 tab 11/13/21 compr.stocking,knee,long,x-lrg #2 ea 11/13/21 mirtazapine 15 mg tablet 15 mg PO BEDTIME 30 Days #30 tab 11/13/21 Allergies Allergy/AdvReac Type Severity Reaction Status Date / Time sulfamethoxazole Allergy Unknown UNKNOWN Verified 12/16/21 17:12 [From BACTRIM] trimethoprim [From BACTRIM] Allergy Unknown UNKNOWN Verified 12/16/21 17:12 Review of Systems Review of Systems: Yes all other systems are reviewed and are negative PMF Past Medical History Medical History Asthma Asthma Blood clot in vein Cardiomyopathy CHF (congestive heart failure) Chronic systolic (congestive) heart failure Cocaine abuse COPD (chronic obstructive pulmonary disease) Morbid obesity Morbid obesity NICM (nonischemic cardiomyopathy) LISSET (obstructive sleep apnea) Surgical History History of cardiac catheterization (~11/07/20) History of cardiac defibrillator placement History of surgery Family History Family History Mother Ovarian cancer Diabetes Social History Social History Household Members: Family Household Members Other:: lives in a [employer] Housing: Apartment Do you presently have visiting nurse or other home services: No Alcohol intake: current Alcohol intake frequency: a few times a month Alcohol type: beer Patient Tobacco Use Status: Former Tobacco user e-Cigarette/Vaping Use: Never Used Use of substances other than those prescribed or required for medical reasons: No Substance Use Type: Marijuana Substance Use Frequency Other:: prior use Advance Directives: Yes Advance Directives on File: Yes Advance Directives Date on File: 10/23/20 service: No Current occupational status: unemployed and disabled Physical Exam Vital Signs: Vital Signs: Last Vital Signs Temp 97.7 F 12/16/21 17:12 Pulse 124 H 12/16/21 18:06 Resp 22 H 12/16/21 18:06 BP 108/90 H 12/16/21 18:06 Pulse Ox 95 12/16/21 18:06 BMI result Body Mass Index 52.9 Appearance: Alert. Oriented X3. No acute distress. Obese Eyes: No pallor icterus ENT: Pharynx normal. Oral Mucosa moist Neck: Normal inspection. Neck supple. CVS: Normal heart rate and rhythm. Pulses normal. Respiratory: No respiratory distress. Equal air entry bilateral, decreased air entry bilateral no wheezing or rhonchi Abdomen: Soft and nontender. Bowel sounds are present, no mass palpable, no CVA tenderness Skin: Skin warm and dry. Normal skin color. Normal skin turgor. Extremities: 2+ lower extremity edema. No calf tenderness Neuro: Oriented X 3. MDM - SOB/Dyspnea MDM Narrative Medical decision making narrative: Patient with chronic CHF took extra Bumex 1 mg prior to arrival during stay in the ER patient urinated about 1-1/2 L blood pressure stays stable saturating 93% at room air feels much better now will discharge patient home advised to continue Bumex 2 mg in the morning 2 in the afternoon and follow up with packing and final assembly supervisor Lab Data Attestation: I reviewed the patient's lab results. Result diagrams: 12/16/21 17:55 12/16/21 20:42 Labs: Lab Results 12/16/21 12/16/21 12/16/21 Range/Units 17:55 17:55 17:55 WBC 10.5 (4.8-10.8) X10*3/uL RBC 5.00 (4.60-5.80) X10*6/uL Hgb 11.2 L (14.0-18.0) g/dl Hct 37.0 L (42.0-52.0) % MCV 74.0 L (80.0-98.0) fL MCH 22.4 L (27.0-33.0) pg MCHC 30.3 L (31.0-36.0) g/dl RDW 20.1 H (11.0-16.0) % Plt Count 290 (160-400) X10*3/uL MPV 9.2 L (9.4-12.4) fL Immature Gran % (Auto) 0.3 (0.0-0.4) % Neut % (Auto) 74.3 H (45-73) % Lymph % (Auto) 17.3 L (20-40) % [place] % (Auto) 6.2 (2-11) % Eos % (Auto) 1.4 (0-4) % Baso % (Auto) 0.5 (0-2) % Lymph # (Auto) 1.8 (1.2-4.9) X10*3/uL [place] # (Auto) 0.7 (0.1-1.2) X10*3/uL Eos # (Auto) 0.2 (0.0-0.4) X10*3/uL Baso # (Auto) 0.1 (0.0-0.2) X10*3/uL Abs Immat Gran (auto) 0.03 (0.00-0.03) X10*3/uL Absolute Neuts (auto) 7.8 (2.0-8.3) x10*3/uL Absolute Nucleated RBC 0.000 (0.0-0.012) X10*3/uL Nucleated RBC % (auto) 0.0 (0.0-0.2) /100WBC PT (9.9-13.0) SEC INR (0.9-1.1) Sodium (135-145) mmol/L Potassium (3.3-5.1) mmol/L Chloride (96-108) mmol/L Carbon Dioxide (22-29) mmol/L Anion Gap (12-20) BUN (9-16) mg/dL Creatinine (0.5-1.4) mg/dL Estim Creat Clear Calc Estimated GFR Random Glucose (60-115) mg/dL Calcium (8.4-10.2) mg/dL Magnesium (1.6-2.6) mg/dL Total Bilirubin (0.0-1.0) mg/dL AST (5-37) U/L ALT (0-40) U/L Alkaline Phosphatase (39-117) U/L Troponin I High Sens 14.9 (<3.5-35.0) ng/L B-Natriuretic Peptide 1306 H (<100) pg/mL Total Protein (6.5-8.0) g/dL Albumin (3.5-5.0) g/dL COVID-19 (LEANDRO) Negative (Negative) COVID-19 Clin Com See Note 12/16/21 12/16/21 Range/Units 20:42 20:42 WBC (4.8-10.8) X10*3/uL RBC (4.60-5.80) X10*6/uL Hgb (14.0-18.0) g/dl Hct (42.0-52.0) % MCV (80.0-98.0) fL MCH (27.0-33.0) pg MCHC (31.0-36.0) g/dl RDW (11.0-16.0) % Plt Count (160-400) X10*3/uL MPV (9.4-12.4) fL Immature Gran % (Auto) (0.0-0.4) % Neut % (Auto) (45-73) % Lymph % (Auto) (20-40) % [place] % (Auto) (2-11) % Eos % (Auto) (0-4) % Baso % (Auto) (0-2) % Lymph # (Auto) (1.2-4.9) X10*3/uL [place] # (Auto) (0.1-1.2) X10*3/uL Eos # (Auto) (0.0-0.4) X10*3/uL Baso # (Auto) (0.0-0.2) X10*3/uL Abs Immat Gran (auto) (0.00-0.03) X10*3/uL Absolute Neuts (auto) (2.0-8.3) x10*3/uL Absolute Nucleated RBC (0.0-0.012) X10*3/uL Nucleated RBC % (auto) (0.0-0.2) /100WBC PT 23.0 H (9.9-13.0) SEC INR 2.0 H (0.9-1.1) Sodium 141 (135-145) mmol/L Potassium 3.9 D (3.3-5.1) mmol/L Chloride 101 (96-108) mmol/L Carbon Dioxide 29 (22-29) mmol/L Anion Gap 15 (12-20) BUN 17 H D (9-16) mg/dL Creatinine 1.12 (0.5-1.4) mg/dL Estim Creat Clear Calc 122.2 Estimated GFR > 60 Random Glucose 132 H (60-115) mg/dL Calcium 9.8 (8.4-10.2) mg/dL Magnesium 2.0 (1.6-2.6) mg/dL Total Bilirubin 1.5 H (0.0-1.0) mg/dL AST 20 (5-37) U/L ALT 26 (0-40) U/L Alkaline Phosphatase 139 H (39-117) U/L Troponin I High Sens (<3.5-35.0) ng/L B-Natriuretic Peptide (<100) pg/mL Total Protein 7.4 (6.5-8.0) g/dL Albumin 4.1 (3.5-5.0) g/dL COVID-19 (LEANDRO) (Negative) COVID-19 Clin Com ECG Data Attestation: I personally reviewed and interpreted this ECG as follows: Interpretation: Sinus tachycardia heart rate 124 beats per minute normal intervals normal axis no acute ST-T changes no acute ischemia Discharge Plan Discharge Clinical Impression: Chronic systolic (congestive) heart failure Patient Disposition: Home, Self-Care Instructions: Heart Failure (ED) Additional Instructions: Continue Bumex 2 tablets of 1 mg twice daily Have extra orange juice/banana a day as Bumex may decrease your potassium Follow-up with the packing and final assembly supervisor Continue your inhaler/nebulizer every 4-6 hours as needed Report to the ER if worsening of shortness of breath Prescriptions: No Action spironolactone 25 mg tablet 25 mg PO DAILY 0RF bumetanide 1 mg tablet 2 tab PO BID 0RF Xarelto 20 mg tablet 1 tab PO DAILY 0RF Entresto 49-51 mg tablet 1 tab PO BID 0RF mirtazapine 15 mg tablet 15 mg PO BEDTIME 30 Days Qty: 30 1RF baclofen 10 mg tablet 10 mg PO BID PRN (Reason: Muscle Spasm) 30 Days Qty: 60 3RF (DME) compr.stocking,knee,long,x-lrg Misc See Rx Instructions .Route Qty: 2 0RF Rx Instructions: As directed
[2021-12-16 18:16] LABS: COVID-19 Test Negative (Negative); IDNOW Serial# 16C4AD1C
[2021-12-16 18:22] LABS: B Type Natriuretic Peptide 1306 pg/mL (<100); Troponin-I High Sensitivity 14.9 ng/L (<3.5-35.0)
[2021-12-16 21:12] LABS: Alanine Aminotransferase 26 U/L (0-40); Albumin Level 4.1 g/dL (3.5-5.0); Alkaline Phosphatase 139 U/L (39-117); Anion Gap 15 (12-20); Aspartate Amino Transferase 20 U/L (5-37); Bilirubin Total 1.5 mg/dL (0.0-1.0); Blood Urea Nitrogen 17 mg/dL (9-16); Calcium 9.8 mg/dL (8.4-10.2); Carbon Dioxide 29 mmol/L (22-29); Chloride 101 mmol/L (96-108); Creatinine Clr Calc Pharmacy 122.2; Estimated Glomerular Filt Rate > 60; Glucose Random 132 mg/dL (60-115); Potassium 3.9 mmol/L (3.3-5.1); Sodium 141 mmol/L (135-145); Total Protein 7.4 g/dL (6.5-8.0)
[2021-12-16 22:00] VITALS: PULSE 15
== END 2021-12-16 22:10 | disposition home or self-care (01) ==
PROVIDERS: Emergency Provider Internal Medicine; PCP Physician Assistant
DX: I50.22 Chronic systolic (congestive) heart failure (principal); R06.00 Dyspnea, unspecified; G47.33 Obstructive sleep apnea (adult) (pediatric); Z86.718 Personal history of other venous thrombosis and embolism; Z79.01 Long term (current) use of anticoagulants; Z79.899 Other long term (current) drug therapy; Z87.891 Personal history of nicotine dependence; Z20.822 Contact with and (suspected) exposure to COVID-19
CPT/HCPCS: 36415; 71045; 80053; 83735; 83880; 84484; 85025; 85610; 87635; 93005; 94640; 94644; 96374; 99284

== ENCOUNTER → 2022-04-04 13:24 | Outpatient (BNVA) | payer MEDICARE, MEDICAID, SELFPAY | PROVIDERS: PCP Physician Assistant; Visit Provider Anesthesiology | DX: M46.46 Discitis, unspecified, lumbar region (principal); M51.36 Other intervertebral disc degeneration, lumbar region; E66.01 Morbid (severe) obesity due to excess calories; Z68.41 Body mass index [BMI] 40.0-44.9, adult; F14.21 Cocaine dependence, in remission; I50.22 Chronic systolic (congestive) heart failure | CPT/HCPCS: 99202 ==

== ENCOUNTER 2022-04-09 10:02 | Outpatient (REF) | payer MEDICARE, MEDICAID, SELFPAY ==
[2022-04-09 11:55] LABS: Hematocrit 39.3 % (42.0-52.0); Hemoglobin 11.5 g/dl (14.0-18.0); Mean Corpuscular HGB Conc 29.3 g/dl (31.0-36.0); Mean Corpuscular Hemoglobin 22.9 pg (27.0-33.0); Mean Corpuscular Volume 78.3 fL (80.0-98.0); Mean Platelet Volume 9.3 fL (9.4-12.4); Platelet Count 403 X10*3/uL (160-400); Red Blood Count 5.02 X10*6/uL (4.60-5.80); Red Cell Distribution Width 24.7 % (11.0-16.0); White Blood Count 8.1 X10*3/uL (4.8-10.8)
[2022-04-09 12:40] LABS: TSH reflex Free T4 2.22 uIU/mL (0.32-4.0)
[2022-04-09 13:40] LABS: Alanine Aminotransferase 12 U/L (0-40); Albumin Level 4.2 g/dL (3.5-5.0); Alkaline Phosphatase 181 U/L (39-117); Anion Gap 19 (12-20); Aspartate Amino Transferase 15 U/L (5-37); Blood Urea Nitrogen 25 mg/dL (9-16); Calcium 9.9 mg/dL (8.4-10.2); Carbon Dioxide 17 mmol/L (22-29); Chloride 102 mmol/L (96-108); Cholesterol 115 mg/dL; Estimated Glomerular Filt Rate > 60; Glucose Fasting 123 mg/dL (60-99); HDL Cholesterol 23 mg/dL; LDL Cholesterol Calculated 72 mg/dl; Potassium 4.9 mmol/L (3.3-5.1); Sodium 133 mmol/L (135-145); Triglycerides 100 mg/dL
== END 2022-04-09 10:03 | disposition home or self-care (01) ==
LOC: HO.LAB 10:02
PROVIDERS: Absent Provider Physician Assistant; PCP Physician Assistant; Visit Provider Anesthesiology
DX: M46.46 Discitis, unspecified, lumbar region (principal); E11.65 Type 2 diabetes mellitus with hyperglycemia; I50.22 Chronic systolic (congestive) heart failure; E66.01 Morbid (severe) obesity due to excess calories; Z68.41 Body mass index [BMI] 40.0-44.9, adult
CPT/HCPCS: 36415; 80048; 80053; 80061; 84443; 85027

== ENCOUNTER 2022-05-08 07:52 | Outpatient (REF) | payer MEDICARE, MEDICAID, SELFPAY ==
--- NOTE | ~2022-05-08 | XR_ITS ---
EXAMINATION: XR LUMBOSACRAL SPINE WITH OBLIQUES CLINICAL INFORMATION: Low back pain. COMPARISON: None TECHNIQUE: AP, both oblique, and lateral views of the lumbar spine. Lateral view of the lumbosacral junction. FINDINGS: There is normal lumbar lordosis. The vertebral heights and alignment are normal. Mild loss of L2-L3 and L5-S1 disc heights is noted. There is moderate ventral and lateral spondylosis throughout lumbar spine. No visible acute fracture, dislocation or lytic process seen. The paravertebral soft tissues are normal. XR/XR lumbar spine 4V min IMPRESSION: Moderate ventral and lateral spondylosis lumbar spine. No visible acute fracture, dislocation or subluxation seen.
--- NOTE | ~2022-05-08 | CT_ITS ---
EXAMINATION: CT LUMBAR SPINE CLINICAL INFORMATION: Lumbar region discitis. COMPARISON: Lumbar spine radiographs 05/08/2022. TECHNIQUE: A multidetector CT acquisition of the lumbar spine is obtained following the administration of 85 mL of Omnipaque 350 intravenous contrast without complication. Multiplanar reformats are acquired and utilized for image interpretation. This CT examination was performed using dose optimization techniques as appropriate, variously including the following: *Automated exposure control *Adjustment of mA and/or kV according to patient size (this includes techniques or standardized protocols for targeted exams where dose is matched to indication/reason for exam; i.e. extremities or head) *Use of iterative reconstruction technique FINDINGS: There is partial opposing endplate cortical erosion and there is paravertebral soft tissue swelling at the L5-S1 level that is concerning for the presence of osteomyelitis discitis. There may be some mild epidural phlegmon anteriorly at L5-S1, not well assessed on CT. Opposing endplate Schmorl's nodes at L4-L5 limit assessment at this level. There is vacuum phenomenon at L3-L4. Large multilevel endplate osteophytes. There are no acute fractures and there are no acute subluxations. No peripherally enhancing fluid collections to suggest an abscess. No bony facet erosive changes are identified. There is bilateral perinephric stranding. At T12-L1, there is a right paracentral disc osteophyte protrusion resulting in right subarticular zone stenosis and probable mild narrowing of the central canal. A right lateral disc osteophyte protrusion results in moderate to severe right-sided foraminal stenosis at this level. At L1-L2, there is a diffuse disc osteophyte complex and bilateral facet arthropathy and ligamentum flavum thickening. Suspect moderate central canal stenosis, bilateral subarticular zone stenosis, and mild to moderate bilateral foraminal stenosis at this level. At L2-L3, there is a diffuse disc osteophyte complex and there is bilateral hypertrophic facet arthropathy. There are laminectomy changes versus. Disc osteophyte, facet arthropathy, ligamentum flavum thickening result in central canal stenosis that is not well assessed. Disc osteophyte and facet arthropathy also result in mild to moderate bilateral foraminal encroachment. At L3-L4, there is a diffuse annular disc bulges in part disc osteophyte and there is severe bilateral facet arthropathy and ligamentum flavum thickening. Findings in concert result in suspected moderate to severe central canal stenosis, severe bilateral subarticular zone stenosis, and severe left foraminal stenosis. At L4-L5, there are left hemilaminectomy changes. There is a diffuse disc osteophyte complex and there is severe bilateral facet arthropathy. Assessment is limited on CT. There is a possible inferiorly migrating left paracentral disc extrusion compressing the traversing left L5 nerve root within the left L5 lateral recess. Disc osteophyte and facet arthropathy result in severe bilateral foraminal stenosis. At L5-S1 there is diffuse disc osteophyte and there is severe bilateral facet arthropathy and ligamentum flavum thickening. Findings in concert result in probable mild narrowing of the central canal, right greater than left subarticular zone stenosis, and severe bilateral foraminal stenosis. Probable ventral epidural phlegmon mildly narrows the thecal sac. CT/CT lumbar spine w con IMPRESSION: - There is partial opposing endplate cortical erosion and there is paravertebral soft tissue swelling at the L5-S1 level that is concerning for the presence of osteomyelitis discitis. There may be some mild epidural phlegmon anteriorly at L5-S1, not well assessed on CT. Opposing endplate Schmorl's nodes at L4-L5 limit assessment for infection at this level however there is mild paravertebral swelling L4-L5 and early infection would be difficult to exclude. No peripherally enhancing fluid collections within the paravertebral/paraspinal soft tissues to suggest abscess. - At L5-S1, advanced spondylitic changes result in right greater than left subarticular zone stenosis, and severe bilateral foraminal stenosis. Probable ventral epidural phlegmon mildly narrows the thecal sac. - At L4-L5, there is a possible inferiorly migrating left paracentral disc extrusion compressing the traversing left L5 nerve root within the left L5 lateral recess. Advanced spondylitic changes at L4-L5 result in severe bilateral foraminal stenosis as well. There are left hemilaminectomy changes at this level. - At L3-L4, advanced spondylitic changes result in suspected moderate to severe central canal stenosis, severe bilateral subarticular zone stenosis, and severe left foraminal stenosis. - There are laminectomy changes and spondylitic changes at L2-L3 result in central canal stenosis that is not well assessed on CT. Mild to moderate bilateral foraminal stenosis at this level. - At L1-L2, multifactorial degenerative changes result in moderate central canal stenosis, bilateral subarticular zone stenosis, and mild to moderate bilateral foraminal stenosis at this level. - At T12-L1, multifactorial degenerative changes result in right subarticular zone stenosis and moderate to severe right-sided foraminal stenosis.
[2022-05-08] MEDS: iohexoL 350 MG/ML 100 ML INFUS..BTL IV (08:50)
== END 2022-05-08 07:53 | disposition home or self-care (01) ==
LOC: HO.CT 07:52
PROVIDERS: PCP Physician Assistant; Visit Provider Anesthesiology
DX: M46.46 Discitis, unspecified, lumbar region (principal); F14.21 Cocaine dependence, in remission; E66.01 Morbid (severe) obesity due to excess calories; Z68.41 Body mass index [BMI] 40.0-44.9, adult
CPT/HCPCS: 72110; 72132; Q9967

== ENCOUNTER → 2022-05-13 11:05 | Outpatient (BNVA) | payer MEDICARE, MEDICAID, SELFPAY | PROVIDERS: PCP Physician Assistant; Visit Provider Anesthesiology | DX: M51.36 Other intervertebral disc degeneration, lumbar region (principal); M54.50 Low back pain, unspecified; M46.46 Discitis, unspecified, lumbar region; M46.20 Osteomyelitis of vertebra, site unspecified; G06.2 Extradural and subdural abscess, unspecified; I50.22 Chronic systolic (congestive) heart failure; E66.01 Morbid (severe) obesity due to excess calories; Z68.41 Body mass index [BMI] 40.0-44.9, adult | CPT/HCPCS: 99212 ==